=== PATIENT | female | born 1940 | race Caucasian/White ===

== ENCOUNTER → 2018-11-07 | Outpatient (CLI) | payer MEDICARE ==
--- NOTE | 2018-11-07 16:41 | BD ---
EXAMINATION TYPE: Axial Bone Density DATE OF EXAM: 11/07/2018 CLINICAL HISTORY: Height: 66 inches Weight: 242 FRAX RISK QUESTIONS: Alcohol (3 or more units per day): no Family History (Parent hip fracture): no Glucocorticoids (More than 3mos): yes (Ex: prednisone, prednisolone, methylprednisolone, dexamethasone, and hydrocortisone). History of Fracture in Adulthood: no Secondary Osteoporosis: 1. Type 1 Diabetes: no 2. Hyperthyroidism: no 3. Menopause before 45: no 4. Malnutrition: no 5. Chronic liver disease: no Rheumatoid Arthritis: no Current Tobacco Use: no RISK FACTORS HISTORY OF: Family History of Osteoporosis: believes no Active: somewhat, uses walker Diet low in dairy products/other sources of calcium: several servings a week Postmenopausal woman: yes Take estrogen and/or progesterone medications: no Lost more than 2 inches in height since high school: possibly, states height was about 69 inches at o ne time Frequent falls: no Poor Health: "so-so" trouble breathing Hyperparathyroidism: no Adrenal Insufficiency: no MEDICATIONS: Prednisone or other steroids: yes How Long: unsure Thyroid Medications: yes Which medication: Levothyroxine How Long: nearly 10 years Osteoporosis Medications: yes Which medication: Prolia How Long: about 4 injections, one done every 6 months Additional Medications: on oxygen, Vitamin D, calcium, albuterol, Sertraline, Simvastatin, perforom ist mixed with Budesonide in nebulizer Additional History: thyroid surgery in s; goiter & treated with radioactive iodine EXAM MEASUREMENTS: Bone mineral densitometry was performed using the Aspida System. Bone mineral density as measured about the Lumbar spine is: ----- L1-L4(G/cm2): 1.108 T Score Values are as follows: ----- L2: -0.7 ----- L3: -0.4 ----- L4: 0.1 ----- L1-L4: -0.6 Bone mineral density not previously done at this facility; previously done elsewhere Bone mineral density about the R hip (g/cm2): 0.828 Bone mineral density about the L hip (g/cm2): 0.822 T Score values are as follows: -----R Neck: -1.5 -----L Neck: -1.6 -----R Total: -0.9 -----L Total: -1.3 Bone mineral density not previously done at this facility; previously done elsewhere IMPRESSION: Osteopenia (T Score between -2.5 and -1). There is slightly increased risk of fracture and the patient may be considered for treatment. Re-Screen 2-5 years. NOTE: T-SCORE=SD OF THE YOUNG ADULT MEAN.
== END | disposition home or self-care (01) ==
LOC: RADBDWWP 11:35
PROVIDERS: ATTEND Family Medicine
DX: M85.88 Other specified disorders of bone density and structure, other site (principal)
CPT/HCPCS: 77080

== ENCOUNTER 2019-05-13 10:21 | Inpatient (IN) | payer MEDICARE ==
[2019-05-13] MEDS ORDERED: FUROSEMIDE 10 MG/ML 4 ML VIAL IV STA (11:05)
[2019-05-13] MEDS ORDERED: SODIUM CHLORIDE 0.9% 1,000 ML IV STA (11:05)
[2019-05-13] MEDS ORDERED: methylPREDNISolone SOD SUCCI 125 MG/2 ML VIAL IV STA (11:05)
[2019-05-13] MEDS ORDERED: IPRATROPIUM-ALBUTEROL 3 ML NEB INHALATION STA ×2 (11:05→13:16)
--- NOTE | 2019-05-13 11:08 | ED ---
SOB HPI - General Chief Complaint: Shortness of Breath Stated Complaint: RIC, edema Time Seen by Provider: 05/13/19 10:54 Source: patient, RN notes reviewed, old records reviewed Mode of arrival: wheelchair Limitations: no limitations - History of Present Illness Initial Comments: Patient is a 78-year-old female who presents emergency Department today with complaints of difficulty in breathing over the past few days. Patient states that she has history of COPD. She reports that the increased humidity and hot weather she's had more trouble breathing. She states that her power was out unable to completely breathing treatments at home as well. Patient states that she's also concern for lower extremity swelling going on for the past few weeks. She also complains of a rash over bilateral lower extremities that has slowly increased going up the leg. They've been using hydrocortisone cream with no significant change. Patient does report that it seems to be pruritic. Patient states that she's had no recent fevers, or chills. She reports a chronic cough. She is on 2 L of oxygen all times. Her questioned documents examiner is Dr. Flaherty, denies any cardiac history. - Related Data Home Medications Medication Instructions Recorded Confirmed Albuterol Nebulized [Ventolin 2.5 mg INHALATION QID PRN 05/13/19 05/13/19 Nebulized] Atorvastatin [Lipitor] 40 mg PO DAILY 05/13/19 05/13/19 Budesonide [Pulmicort] 0.5 mg INHALATION BID 05/13/19 05/13/19 Calcium Carbonate [Calcium] 1,200 mg PO DAILY 05/13/19 05/13/19 Cholecalciferol (Vitamin D3) 2,000 unit PO DAILY 05/13/19 05/13/19 [Vitamin D3] Denosumab [Prolia] 60 mg SQ Q180D 05/13/19 05/13/19 Formoterol Fumarate [Perforomist] 20 mcg INHALATION BID 05/13/19 05/13/19 Halobetasol Propionate 1 applic TOPICAL DAILY 05/13/19 05/13/19 Levothyroxine Sodium [Synthroid] 112 mcg PO Q48H 05/13/19 05/13/19 Levothyroxine Sodium [Synthroid] 125 mcg PO Q48H 05/13/19 05/13/19 Sertraline [Zoloft] 50 mg PO DAILY 05/13/19 05/13/19 Allergies Allergy/AdvReac Type Severity Reaction Status Date / Time bee venom protein (honey bee) Allergy Unknown Verified 05/13/19 11:26 celecoxib [From Celebrex] Allergy Unknown Verified 05/13/19 11:26 Sulfa (Sulfonamide Allergy Unknown Verified 05/13/19 11:26 Antibiotics) Review of Systems ROS Statement: Those systems with pertinent positive or pertinent negative responses have been documented in the HPI. ROS Other: All systems not noted in ROS Statement are negative. Past Medical History Past Medical History: COPD, Hyperlipidemia, Thyroid Disorder History of Any Multi-Drug Resistant Organisms: None Reported Additional Past Surgical History / Comment(s): THYROID Past Psychological History: No Psychological Hx Reported Smoking Status: Former smoker Past Alcohol Use History: None Reported Past Drug Use History: None Reported General Exam - General Exam Comments Initial Comments: Patient is a 78-year-old female. Alert and oriented 3. No significant distress. Limitations: no limitations General appearance: alert, in no apparent distress Head exam: Present: atraumatic, normocephalic, normal inspection Eye exam: Present: normal appearance, PERRL, EOMI. Absent: scleral icterus, conjunctival injection, periorbital swelling ENT exam: Present: normal exam, mucous membranes moist Neck exam: Present: normal inspection. Absent: tenderness, meningismus, lymphadenopathy Respiratory exam: Present: normal lung sounds bilaterally, wheezes (Diffuse wheezing in all lung brown.). Absent: respiratory distress, rales, rhonchi, stridor Cardiovascular Exam: Present: regular rate, normal rhythm, normal heart sounds. Absent: systolic murmur, diastolic murmur, rubs, gallop, clicks Extremities exam: Present: normal inspection, full ROM, normal capillary refill, other (Patient has had 2+ pitting edema bilaterally. Areas of erythema, extending up the leg, concern for erysipelas. The erythema measures up to the mid calf and is Circumferential.). Absent: tenderness, pedal edema, joint swelling, calf tenderness Course Vital Signs 05/13/19 05/13/19 05/13/19 10:45 11:37 11:57 Temperature 97.9 F Pulse Rate 66 72 80 Respiratory 22 Rate Blood Pressure 135/80 O2 Sat by Pulse 91 L Oximetry 05/13/19 05/13/19 05/13/19 13:37 13:40 13:48 Temperature Pulse Rate 88 93 88 Respiratory 24 Rate Blood Pressure 119/83 O2 Sat by Pulse 93 L Oximetry Medical Decision Making - Medical Decision Making Patient is a 78-year-old female who presents emergency department today for evaluation with complaints of difficulty in breathing and large jaya-swelling. She is evidence of bilateral cellulitis. Diffuse wheezing noted throughout lung brown. Given 3 treatments of March and continues to have shortness of breath and wheezing. Patient ambulatory with her oxygen on oxygen saturation went to 87%. Patient chest x-rays unable to be read. Do not any acute process at this time. There is appear to be small may be effusion from the right lung. Patient was started on Rocephin and azithromycin and steroids. Emmanuel the Patient for bilateral cellulitis as well as COPD exacerbation. Consults the patient's pulmonology Dr. Flaherty. - Lab Data Result diagrams: 05/13/19 11:18 05/13/19 11:18 Lab Results 05/13/19 05/13/19 05/13/19 Range/Units 11:18 11:18 11:18 WBC 6.3 (3.8-10.6) k/uL RBC 4.60 (3.80-5.40) m/uL Hgb 14.6 (11.4-16.0) gm/dL Hct 43.8 (34.0-46.0) % MCV 95.1 (80.0-100.0) fL MCH 31.8 (25.0-35.0) pg MCHC 33.4 (31.0-37.0) g/dL RDW 12.8 (11.5-15.5) % Plt Count 180 (150-450) k/uL Neutrophils % 75 % Lymphocytes % 15 % Monocytes % 5 % Eosinophils % 3 % Basophils % 1 % Neutrophils # 4.7 (1.3-7.7) k/uL Lymphocytes # 0.9 L (1.0-4.8) k/uL Monocytes # 0.3 (0-1.0) k/uL Eosinophils # 0.2 (0-0.7) k/uL Basophils # 0.1 (0-0.2) k/uL PT (9.0-12.0) sec INR (<1.2) APTT (22.0-30.0) sec Sodium 139 (137-145) mmol/L Potassium 4.4 (3.5-5.1) mmol/L Chloride 102 (98-107) mmol/L Carbon Dioxide 27 (22-30) mmol/L Anion Gap 10 mmol/L BUN 22 H (7-17) mg/dL Creatinine 0.81 (0.52-1.04) mg/dL Est GFR (CKD-EPI)AfAm 82 (>60 ml/min/1.73 sqM) Est GFR (CKD-EPI)NonAf 71 (>60 ml/min/1.73 sqM) Glucose 119 H (74-99) mg/dL Plasma Lactic Acid Simone (0.7-2.0) mmol/L Calcium 9.6 (8.4-10.2) mg/dL Magnesium 2.0 (1.6-2.3) mg/dL Total Bilirubin 1.5 H (0.2-1.3) mg/dL AST 31 (14-36) U/L ALT 29 (9-52) U/L Alkaline Phosphatase 90 (38-126) U/L Troponin I (0.000-0.034) ng/mL NT-Pro-B Natriuret Pep 171 pg/mL Total Protein 7.2 (6.3-8.2) g/dL Albumin 4.6 (3.5-5.0) g/dL 05/13/19 05/13/19 05/13/19 Range/Units 11:18 11:18 11:18 WBC (3.8-10.6) k/uL RBC (3.80-5.40) m/uL Hgb (11.4-16.0) gm/dL Hct (34.0-46.0) % MCV (80.0-100.0) fL MCH (25.0-35.0) pg MCHC (31.0-37.0) g/dL RDW (11.5-15.5) % Plt Count (150-450) k/uL Neutrophils % % Lymphocytes % % Monocytes % % Eosinophils % % Basophils % % Neutrophils # (1.3-7.7) k/uL Lymphocytes # (1.0-4.8) k/uL Monocytes # (0-1.0) k/uL Eosinophils # (0-0.7) k/uL Basophils # (0-0.2) k/uL PT 9.9 (9.0-12.0) sec INR 0.9 (<1.2) APTT 23.5 (22.0-30.0) sec Sodium (137-145) mmol/L Potassium (3.5-5.1) mmol/L Chloride (98-107) mmol/L Carbon Dioxide (22-30) mmol/L Anion Gap mmol/L BUN (7-17) mg/dL Creatinine (0.52-1.04) mg/dL Est GFR (CKD-EPI)AfAm (>60 ml/min/1.73 sqM) Est GFR (CKD-EPI)NonAf (>60 ml/min/1.73 sqM) Glucose (74-99) mg/dL Plasma Lactic Acid Simone 1.4 (0.7-2.0) mmol/L Calcium (8.4-10.2) mg/dL Magnesium (1.6-2.3) mg/dL Total Bilirubin (0.2-1.3) mg/dL AST (14-36) U/L ALT (9-52) U/L Alkaline Phosphatase (38-126) U/L Troponin I <0.012 (0.000-0.034) ng/mL NT-Pro-B Natriuret Pep pg/mL Total Protein (6.3-8.2) g/dL Albumin (3.5-5.0) g/dL 05/13/19 11:45 EKG performed at 1108 shows sinus rhythm with frequent PVCs, left anterior fascicular block. Abnormal EKG. Ventricularly be returned.. Was 164 ms. Stressors and 78 ms. QT QTc is 394/476 ms. Disposition Clinical Impression: COPD exacerbation, Bilateral cellulitis of lower leg, Hypoxia Disposition: ADMITTED IP TO THIS HOSP Condition: Stable Is patient prescribed a controlled substance at d/c from ED?: No Referrals: Nabil Sebastian DO [Primary Care Provider] - 1-2 days Time of Disposition: 13:57
[2019-05-13] MEDS ORDERED: cefTRIAXone IN SWFI 1,000 MG/10 ML SYRINGE IVP STA (11:09)
[2019-05-13 11:53] LABS: Basophils # (A) 0.1 k/uL (0-0.2); Basophils % (A) 1 %; Eosinophils # (A) 0.2 k/uL (0-0.7); Eosinophils % (A) 3 %; HCT 43.8 % (34.0-46.0); HGB 14.6 gm/dL (11.4-16.0); Lymphocytes # (A) 0.9 k/uL (1.0-4.8); Lymphocytes % (A) 15 %; MCH 31.8 pg (25.0-35.0); MCHC 33.4 g/dL (31.0-37.0); MCV 95.1 fL (80.0-100.0); Mean Platelet Volume 7.8; Monocytes # (A) 0.3 k/uL (0-1.0); Monocytes % (A) 5 %; Neutrophils # (A) 4.7 k/uL (1.3-7.7); Neutrophils % (A) 75 %; Platelet Count 180 k/uL (150-450); RDW 12.8 % (11.5-15.5); WBC 6.3 k/uL (3.8-10.6)
[2019-05-13 12:02] LABS: Albumin 4.6 g/dL (3.5-5.0); Calcium 9.6 mg/dL (8.4-10.2); Potassium 4.4 mmol/L (3.5-5.1); Total Bilirubin 1.5 mg/dL (0.2-1.3); Total Protein 7.2 g/dL (6.3-8.2)
[2019-05-13 12:38] LABS: INR 0.9 (<1.2); Partial Thromboplastin Time 23.5 sec (22.0-30.0); Prothrombin Time 9.9 sec (9.0-12.0)
[2019-05-13] MEDS ORDERED: AZITHROMYCIN 500 MG TAB PO STA (13:16)
[2019-05-13] MEDS ORDERED: IPRATROPIUM-ALBUTEROL 3 ML NEB INHALATION PRN (13:58)
--- NOTE | 2019-05-13 14:38 | XR ---
EXAMINATION TYPE: XR chest 2V DATE OF EXAM: 05/13/2019 COMPARISON: NONE HISTORY: Shortness of breath TECHNIQUE: Frontal and lateral views of the chest are obtained. FINDINGS: Scattered senescent parenchymal changes noted. Hyperinflation compatible with COPD. No evidence for infiltrate. No evidence for atelectasis. Masslike density right lateral lung base lik effie reflects an area of focal eventration. This could be confirmed however with CT. Heart size is stable. Mediastinal structures are stable and grossly unremarkable. No evidence for hilar prominence. Degenerative changes dorsal spine. IMPRESSION: 1. Masslike density right lateral lung base likely reflects an area of focal eventration. This could be confirmed however with CT. Comparison with any prior outside studies would also be of value.
[2019-05-13 15:26] VITALS: BMI 39.1
[2019-05-13] MEDS ORDERED: ALPRAZolam 0.25 MG TAB PO PRN (16:28)
[2019-05-13] MEDS ORDERED: HYDROcodone/APAP 5-325MG 1 EACH TAB PO PRN (16:28)
[2019-05-13] MEDS ORDERED: ACETAMINOPHEN TAB 500 MG TAB PO PRN (16:28)
[2019-05-13] MEDS ORDERED: FLUCONAZOLE 100 MG TAB PO ONE (16:30)
[2019-05-13] MEDS ORDERED: DENOSUMAB 60 MG/ML 1 ML SYRINGE SQ SCH (16:30)
[2019-05-13 17:11] LABS: Glucose,Whole Blood 196 mg/dL (75-99)
--- NOTE | 2019-05-13 17:16 | HP ---
HISTORY AND PHYSICAL DATE OF SERVICE: 05/13/2019 CHIEF COMPLAINT: Shortness of breath. HISTORY OF PRESENT ILLNESS: This 78-year-old woman with a past medical history of multiple medical problems including COPD, hyperlipidemia, history of pneumonia, being followed by Dr. Sebastian and Dr. Flaherty in the outpatient setting complaining of increased shortness of breath. The patient also has skin lesions in the gluteal area as well as the legs also. The patient came to [facility] and admitted for further evaluation and treatment. Chest x-ray showed masslike density in the right lateral lung, probably a focal eventration. Otherwise, there is no history of fever, rigors or chills. No history of headache, loss of consciousness or seizures. 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 HOME MEDICATIONS: 1. Synthroid 125 mcg p.o. daily. 2. Halobetasol 1 application daily. 3. Lipitor 40 mg p.o. daily. 4. Prolia 60 mg p.o. every 180 days. 5. Ventolin 2.5 q.i.d. p.r.n. 6. Perforomist 20 mcg b.i.d. 7. Vitamin D3 2000 daily. 8. Calcium 1200 mg p.o. daily. 9. Pulmicort 0.5 b.i.d. 10.Zoloft 50 mg p.o. daily. 11.Synthroid 112 mcg p.o. q48 hours. ALLERGIES: BEE VENOM, CELEBREX, SULFA. FAMILY HISTORY: History of cervical cancer. SOCIAL HISTORY: Previous history of smoking. No history of current smoking or alcohol intake. REVIEW OF SYSTEMS: ENT: Diminished vision. Diminished hearing. CARDIOVASCULAR as mentioned above. RESPIRATORY: As mentioned earlier. GI no nausea or vomiting. : As mentioned earlier. no dysuria. NERVOUS SYSTEM: No numbness or weakness. ALLERGY/IMMUNOLOGY: No asthma or hayfever. MUSCULOSKELETAL as mentioned earlier. HEMATOLOGY/ONCOLOGY: No history of anemia. ENDOCRINE: No history of diabetes. Hypothyroidism present. CONSTITUTIONAL: As mentioned earlier. DERMATOLOGY: As mentioned earlier. RHEUMATOLOGY: Negative. PSYCHIATRY as mentioned. PHYSICAL EXAMINATION: Alert and oriented times three. Pulse 88, blood pressure 138/70, respiration 24, temperature 98.2, pulse ox 94% on 2 L. HEENT: Conjunctivae normal. Oral mucosa moist. NECK is no jugular venous distention. No carotid bruit. No lymph node enlargement. Cardiovascular system: S1, S2 muffled. No S3, no S4. RESPIRATORY: Breath sounds diminished in the bases. Bilateral scattered rhonchi and crackles. Respiratory efforts are also increased. Expiratory wheezing also heard. ABDOMEN: Soft, obese, nontender. No mass palpable. LEGS: No edema. No swelling. Significant skin lesions present, especially maculopapular erythematous in the distal extremities as well as around the gluteal area and posterior part of the both legs also. NERVOUS SYSTEM: Higher functions as mentioned earlier. Moves all 4 limbs. No focal motor or sensory deficits. LYMPHATICS: No lymph nodes palpable in the neck, axillae or groin. SKIN as mentioned earlier. JOINTS: No active deforming arthropathy. LABS: CBC within normal limites. Sodium 139, potassium 4.4. Glucose 119, total bilirubin is 1.5. ASSESSMENT: 1. Shortness of breath possibly chronic obstructive pulmonary disease acute exacerbation with acute purulent tracheobronchitis. 2. Rule out pneumonia with right lateral masslike lung density. Also rule out focal eventration. 3. Bilateral leg lesions possibly candidal skin lesions. 4. History of chronic obstructive pulmonary disease. 5. History of hyperlipidemia. 6. History of pneumonia. 7. History of hypothyroidism. 8. History of thyroidectomy. 9. Remote history of nicotine dependence. 10.Obesity with body mass of 39.2. RECOMMENDATIONS AND DISCUSSION: This 78-year-old woman who presented with multiple complex medical issues, we will monitor the patient closely, continue the current medications, continue symptomatic treatment, management and will optimize bronchodilator treatment, empiric antibiotics, IV steroids, monitor blood sugars closely. Resume the home medications. PT/OT evaluation. Otherwise, DVT prophylaxis. We will consult Dr. Flaherty for pulmonary opinion. Otherwise, I would also recommend a CT scan of the chest without contrast to delineate the abnormality visualized in the chest x-ray. Prognosis guarded. Further recommendations to follow. MMODL / IJN: [id number] /
[2019-05-13] MEDS: methylPREDNISolone SOD SUCCI 125 MG/2 ML VIAL IV SCH (18:07)
[2019-05-13] MEDS: INSULIN ASPART (NovoLOG) 100 UNIT/ML VIAL SQ SCH ×2 (18:09→22:03)
--- NOTE | 2019-05-13 19:57 | CT ---
EXAMINATION TYPE: CT chest wo con DATE OF EXAM: 05/13/2019 COMPARISON: Chest x-ray earlier today HISTORY: Shortness of breath CT DLP: 832 mGycm. Automated Exposure Control for Dose Reduction was Utilized. TECHNIQUE: CT scan of the thorax is performed without IV contrast. FINDINGS: LUNGS: Fairly moderate underlying emphysematous changes confirmed. There is mild bilateral linear fib rosis most prominent right lung base. No suspicious consolidation. No pleural effusion or pneumothora x. Eventration posterior aspect right hemidiaphragm. No suspicious masses MEDIASTINUM: Lack of IV contrast is noted to limit evaluation for mediastinal and especially hilar ad enopathy. There are no definitive greater than 1 cm hilar or mediastinal lymph nodes. No cardiomega ly or pericardial effusion is seen. Coronary artery calcification is present which is noted marked of underlying coronary artery disease. OTHER: Underlying scoliosis is present . IMPRESSION: Moderate emphysematous change without acute pulmonary process.
[2019-05-13] MEDS: BUDESONIDE 1 MG/2 ML NEBU INHALATION SCH (19:59)
[2019-05-13] MEDS: IPRATROPIUM-ALBUTEROL 3 ML NEB INHALATION SCH (19:59)
[2019-05-13] MEDS: FORMOTEROL FUMARATE 20 MCG/2 ML NEBU INHALATION SCH (19:59)
[2019-05-13 20:53] LABS: Glucose,Whole Blood 168 mg/dL (75-99)
[2019-05-13] MEDS: CLOTRIMAZOLE 1% CREAM 15 GM TUBE TOPICAL SCH (22:03)
[2019-05-13] MEDS: HEPARIN SODIUM,PORCINE 5,000 UNIT/ML 1 ML VIAL SQ SCH (22:03)
[2019-05-14] MEDS: methylPREDNISolone SOD SUCCI 125 MG/2 ML VIAL IV SCH ×2 (00:08→06:21)
[2019-05-14] MEDS: LEVOTHYROXINE 125 MCG TAB PO SCH (06:26)
[2019-05-14 06:59] LABS: Glucose,Whole Blood 135 mg/dL (75-99)
[2019-05-14 07:46] LABS: Basophils % (A) 0 %; Eosinophils % (A) 0 %; HCT 43.6 % (34.0-46.0); Lymphocytes # (A) 0.6 k/uL (1.0-4.8); Lymphocytes % (A) 8 %; MCH 31.3 pg (25.0-35.0); MCHC 32.1 g/dL (31.0-37.0); MCV 97.5 fL (80.0-100.0); Mean Platelet Volume 7.6; Monocytes # (A) 0.2 k/uL (0-1.0); Monocytes % (A) 2 %; Neutrophils # (A) 6.5 k/uL (1.3-7.7); Neutrophils % (A) 89 %; Platelet Count 205 k/uL (150-450); RBC 4.47 m/uL (3.80-5.40); RDW 12.9 % (11.5-15.5); WBC 7.3 k/uL (3.8-10.6)
[2019-05-14] MEDS: INSULIN ASPART (NovoLOG) 100 UNIT/ML VIAL SQ SCH ×4 (07:48→20:47)
[2019-05-14 08:03] LABS: Calcium 8.9 mg/dL (8.4-10.2); Potassium 4.2 mmol/L (3.5-5.1)
[2019-05-14] MEDS: IPRATROPIUM-ALBUTEROL 3 ML NEB INHALATION SCH ×4 (08:53→19:32)
[2019-05-14] MEDS: BUDESONIDE 1 MG/2 ML NEBU INHALATION SCH ×2 (08:53→19:32)
[2019-05-14] MEDS: FORMOTEROL FUMARATE 20 MCG/2 ML NEBU INHALATION SCH ×2 (08:53→19:32)
[2019-05-14] MEDS: HEPARIN SODIUM,PORCINE 5,000 UNIT/ML 1 ML VIAL SQ SCH ×2 (09:30→20:49)
[2019-05-14] MEDS: SERTRALINE 50 MG TAB PO SCH (09:37)
[2019-05-14] MEDS: FLUCONAZOLE 100 MG TAB PO SCH (09:37)
[2019-05-14] MEDS: PANTOPRAZOLE 40 MG TABLET PO SCH (09:37)
[2019-05-14] MEDS: ATORVASTATIN 40 MG TAB PO SCH (09:37)
[2019-05-14] MEDS: CHOLECALCIFEROL 1,000 UNIT TAB PO SCH (09:37)
[2019-05-14] MEDS: CALCIUM CARBONATE 500 MG CHEWABLE PO SCH (09:59)
[2019-05-14 11:05] LABS: Glucose,Whole Blood 155 mg/dL (75-99)
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
[2019-05-14] MEDS: CLOTRIMAZOLE 1% CREAM 15 GM TUBE TOPICAL SCH ×3 (12:16→20:49)
[2019-05-14 17:13] LABS: Glucose,Whole Blood 127 mg/dL (75-99)
--- NOTE | 2019-05-14 17:59 | PN ---
PROGRESS NOTE DATE OF SERVICE: 05/14/2019. This 78-year-old woman who was admitted with COPD, acute exacerbation, is still having shortness of breath. No chest pain. No palpitations. No fever. On exam, alert and oriented x3. Pulse is 98, blood pressure 131/73, respirations 17, temperature 98.2, pulse ox 91% on 3 L. HEENT: Conjunctivae normal. NECK: No jugular venous distention. CARDIOVASCULAR SYSTEM: S1, S2 muffled. RESPIRATORY SYSTEM: Breath sounds diminished at the bases. Bilateral scattered rhonchi and crackles. Expiratory wheezing also present. ABDOMEN: Soft, nontender. LEGS: No edema. No swelling. NERVOUS SYSTEM: No focal deficit. Labs at this time show WBC 7.3, hemoglobin 14, sodium 140, potassium 4.2. ASSESSMENT: 1. Shortness of breath, possibly chronic obstructive pulmonary disease, acute exacerbation, with acute purulent tracheobronchitis. 2. No evidence of any focal eventration or abnormalities on the CT scan. 3. Bilateral leg lesions, possibly candidal skin lesions. 4. History of chronic obstructive pulmonary disease. 5. Hyperlipidemia. 6. History of pneumonia. 7. History of hypothyroidism. 8. History of thyroidectomy. 9. Remote history of nicotine dependence. 10.Obesity with body mass index of 39.2. RECOMMENDATIONS AND DISCUSSION: I recommend to continue current medications, continue with the monitoring, symptomatic treatment. Continue the steroids. Continue the antibiotics. Continue the rest of the medications. Guarded prognosis. Further recommendations to follow. MMODL / IJN: [id number] /
[2019-05-14 20:22] LABS: Glucose,Whole Blood 126 mg/dL (75-99)
[2019-05-14 21:31] VITALS: RESP 22
[2019-05-15 05:58] VITALS: BP 151/84; TEMP 98.2
[2019-05-15] MEDS ORDERED: LEVOTHYROXINE 112 MCG TAB PO SCH (06:30)
[2019-05-15 07:10] LABS: Glucose,Whole Blood 105 mg/dL (75-99)
[2019-05-15] MEDS: PANTOPRAZOLE 40 MG TABLET PO SCH (08:01)
[2019-05-15] MEDS: INSULIN ASPART (NovoLOG) 100 UNIT/ML VIAL SQ SCH (08:07)
[2019-05-15] MEDS: FORMOTEROL FUMARATE 20 MCG/2 ML NEBU INHALATION SCH (08:28)
[2019-05-15] MEDS: IPRATROPIUM-ALBUTEROL 3 ML NEB INHALATION SCH ×2 (08:28→11:38)
[2019-05-15] MEDS: BUDESONIDE 1 MG/2 ML NEBU INHALATION SCH (08:28)
[2019-05-15] MEDS ORDERED: predniSONE 20 MG TAB PO SCH (09:00)
[2019-05-15] MEDS: HEPARIN SODIUM,PORCINE 5,000 UNIT/ML 1 ML VIAL SQ SCH (09:50)
[2019-05-15] MEDS: SERTRALINE 50 MG TAB PO SCH (09:51)
[2019-05-15] MEDS: CHOLECALCIFEROL 1,000 UNIT TAB PO SCH (09:51)
[2019-05-15] MEDS: CALCIUM CARBONATE 500 MG CHEWABLE PO SCH (09:51)
[2019-05-15] MEDS: FLUCONAZOLE 100 MG TAB PO SCH (09:51)
[2019-05-15] MEDS: LEVOTHYROXINE 125 MCG TAB PO SCH (09:51)
[2019-05-15] MEDS: ATORVASTATIN 40 MG TAB PO SCH (09:51)
[2019-05-15 09:57] LABS: Basophils % (A) 0 %; Eosinophils % (A) 0 %; HCT 43.3 % (34.0-46.0); HGB 13.7 gm/dL (11.4-16.0); Lymphocytes # (A) 1.3 k/uL (1.0-4.8); Lymphocytes % (A) 12 %; MCH 31.4 pg (25.0-35.0); MCHC 31.6 g/dL (31.0-37.0); MCV 99.1 fL (80.0-100.0); Mean Platelet Volume 7.7; Monocytes # (A) 0.5 k/uL (0-1.0); Monocytes % (A) 5 %; Neutrophils # (A) 8.3 k/uL (1.3-7.7); Neutrophils % (A) 82 %; Platelet Count 200 k/uL (150-450); RBC 4.37 m/uL (3.80-5.40); RDW 13.1 % (11.5-15.5); WBC 10.1 k/uL (3.8-10.6)
[2019-05-15 10:16] LABS: Calcium 8.8 mg/dL (8.4-10.2); Potassium 4.2 mmol/L (3.5-5.1)
[2019-05-15 11:10] LABS: Glucose,Whole Blood 96 mg/dL (75-99)
[2019-05-15 11:41] VITALS: PULSE 88
--- NOTE | 2019-05-15 18:51 | DS ---
DISCHARGE SUMMARY FINAL DIAGNOSES: 1. Shortness of breath, possible chronic obstructive pulmonary disease exacerbation with acute purulent tracheobronchitis. 2. No evidence of focal pneumonia or any lesions in the CT scan. 3. Bilateral leg lesions possibly candidal skin infection. 4. History of chronic obstructive pulmonary disease. 5. Hyperlipidemia. 6. History of pneumonia. 7. History of hypothyroidism. 8. History of thyroidectomy. 9. Remote history of nicotine dependence. 10.Obesity with body mass of 39.2. DISCHARGE DISPOSITION: The patient will be discharged in stable condition with guarded prognosis. HISTORY OF PRESENT ILLNESS: This 78-year-old woman with a past medical history of multiple medical problems admitted to the hospital with shortness of breath, COPD acute exacerbation. The patient was treated with bronchodilators and steroids. Patient improved significantly. On exam, vitals are stable. Cardiovascular: S1, S2. Respirations: Few scattered rhonchi. ABDOMEN: Soft. NERVOUS SYSTEM: No focal deficits. DISCHARGE ADVICE AND MEDICATIONS: 1. Diet is cardiac diet. 2. Activity limited until followup. 3. Follow up with Dr. Nabil Sebastian in 2-3 days. 4. Follow up with Pulmonary as recommended. MEDICATIONS: 1. Calcium 1200 mg p.o. daily. 2. Lipitor 40 mg p.o. daily. 3. Perforomist 20 mcg b.i.d. 4. Prolia 60 mg subcu 180 days. 5. Pulmicort 0.5 mg b.i.d. 6. Synthroid 112 mcg q.48h hours and 125 mg p.o. q48 hours. 7. Albuterol 2.5 q.i.d. p.r.n. 8. Vitamin D3 2000 daily. 9. Zoloft 50 mg p.o. daily. 10.Ceftin 500 mg daily for 3 days. 11.Diflucan 100 mg p.o. daily for 7 days. 12.DuoNeb q.i.d. 13.Lotrimin cream for local application b.i.d. 14.Prednisone taper that is 40 mg daily for 3 days, 30 for 3 days, 20 for 3 days 10 for 3 days. Once again, the patient is being discharged in a stable condition with guarded prognosis. MMODL / IJN: [id number] /
== END 2019-05-15 13:05 | disposition home health service (06) | DRG 191 ==
LOC: EC 10:21 → 3NMEDONC 14:12
PROVIDERS: ADMIT Hospitalist; ATTEND Hospitalist
DX: J44.0 Chronic obstructive pulmonary disease with (acute) lower respiratory infection (principal); L03.115 Cellulitis of right lower limb; L03.116 Cellulitis of left lower limb; J44.1 Chronic obstructive pulmonary disease with (acute) exacerbation; E66.9 Obesity, unspecified; E78.5 Hyperlipidemia, unspecified; J20.9 Acute bronchitis, unspecified; E89.0 Postprocedural hypothyroidism; I10 Essential (primary) hypertension; R09.02 Hypoxemia; Z68.39 Body mass index [BMI] 39.0-39.9, adult; Z79.890 Hormone replacement therapy; Z79.899 Other long term (current) drug therapy; Z80.49 Family history of malignant neoplasm of other genital organs; Z87.01 Personal history of pneumonia (recurrent); Z87.891 Personal history of nicotine dependence; Z99.81 Dependence on supplemental oxygen; Z88.2 Allergy status to sulfonamides; Z88.8 Allergy status to other drugs, medicaments and biological substances; Z91.030 Bee allergy status; B37.2 Candidiasis of skin and nail
CPT/HCPCS: 36415; 71046; 71250; 80048; 80053; 83605; 83735; 83880; 84484; 85025; 85610; 85730; 87040; 93005; 94640; 94760; 96374; 96375; 99285

== ENCOUNTER → 2021-09-24 | Outpatient (CLI) | payer MEDICARE ==
--- NOTE | 2021-09-24 13:17 | CT ---
EXAMINATION TYPE: CT lower extremity LT wo con DATE OF EXAM: 09/24/2021 COMPARISON: 09/24/2021 HISTORY: Left sided hip pain CT DLP: 1126 mGycm Automated exposure control for dose reduction was used. FINDINGS: Severe arthropathy with severe concentric narrowing of the joint space and hypertrophic spurring elisa g the lateral margin of the acetabulum. Calcification along the peripheral margin of the acetabulum c ould be associated with the acetabular chronic labral tear. Sclerotic density involving the left femoral neck likely in the basis of a bone island. Osseous structures are intact and there is no acute displaced fracture. Vascular calcifications in the pelvis noted. Arthropathy of the left SI joint. Vascular calcifications are noted. Diverticulosis of the colon. IMPRESSION: 1. No acute fracture. 2. 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
== END | disposition home or self-care (01) ==
LOC: RADCTMAIN 10:37
PROVIDERS: ATTEND Family Medicine
DX: M89.8X5 Other specified disorders of bone, thigh (principal); M12.88 Other specific arthropathies, not elsewhere classified, other specified site

== ENCOUNTER → 2021-09-24 | Outpatient (CLI) | payer MEDICARE ==
--- NOTE | 2021-09-24 09:33 | XR ---
EXAMINATION TYPE: XR Hip Complete LT DATE OF EXAM: 09/24/2021 CLINICAL HISTORY: Pain after recent fall injury. TECHNIQUE: AP and frogleg views of the left hip are obtained. COMPARISON: None. FINDINGS: No acute displaced left hip fracture. There is moderate to severe axial joint space left hi p with moderate head neck collar and acetabular spurring. The overlying soft tissue appears unremark able. IMPRESSION: As above.
--- NOTE | 2021-09-24 09:45 | XR ---
EXAMINATION TYPE: XR knee complete LT DATE OF EXAM: 09/24/2021 CLINICAL HISTORY: Pain after recent injury. TECHNIQUE: Three views of the left knee are obtained. COMPARISON: None. FINDINGS: There is no acute fracture/dislocation evident in left knee. Osseous structures are demine ralized. Moderate to severe tricompartment joint space loss and spurring. Mild posterior popliteal ar terial calcification. IMPRESSION: As above.
== END | disposition home or self-care (01) ==
LOC: RADXRYALE 08:35
PROVIDERS: ATTEND Family Medicine
DX: M76.892 Other specified enthesopathies of left lower limb, excluding foot (principal); S89.92XA Unspecified injury of left lower leg, initial encounter; S79.912A Unspecified injury of left hip, initial encounter
CPT/HCPCS: 73502

== ENCOUNTER → 2021-11-08 | Outpatient (CLI) | payer MEDICARE ==
--- NOTE | 2021-11-08 17:38 | US ---
EXAMINATION TYPE: US venous doppler duplex LE DATE OF EXAM: 11/08/2021 5:06 PM COMPARISON: NONE CLINICAL HISTORY: R60.9 EDEMA, I80.9 PHLEBITIS AND THROMBOPHLEBITIS. Patient complains of left hip pa in and left thigh muscle spasms; fell in August on left hip; prior saphenous phlebitis right leg; C OPD SIDE PERFORMED: Bilateral TECHNIQUE: The lower extremity deep venous system is examined utilizing real time linear array sonog chaiatnya with graded compression, doppler sonography and color-flow sonography. VESSELS IMAGED: Common Femoral Vein Deep Femoral Vein Greater Saphenous Vein * Femoral Vein Popliteal Vein Small Saphenous Vein * Proximal Calf Veins (* superficial vessels) Bilateral lower extremity ankle edema channels are noted. Right Leg: Negative for DVT Left Leg: Negative for DVT IMPRESSION: No evidence of deep vein thrombosis in both legs.
== END | disposition home or self-care (01) ==
LOC: RADUSWWP 16:22
PROVIDERS: ATTEND Orthopaedic Surgery
DX: M62.838 Other muscle spasm (principal); I80.01 Phlebitis and thrombophlebitis of superficial vessels of right lower extremity; J44.9 Chronic obstructive pulmonary disease, unspecified; M16.11 Unilateral primary osteoarthritis, right hip
CPT/HCPCS: 93970

== ENCOUNTER 2023-07-25 07:55 | Inpatient (IN) | payer MEDICARE, OTHER ==
[2023-07-25] MEDS ORDERED: ALBUTEROL NEBULIZED 2.5 MG/3 ML INHALATION STA (08:20)
[2023-07-25] MEDS ORDERED: methylPREDNISolone SOD SUCCI 125 MG/2 ML VIAL IV STA (08:20)
[2023-07-25] MEDS ORDERED: IPRATROPIUM 0.5 MG/2.5 ML NEBU INHALATION STA (08:20)
--- NOTE | 2023-07-25 08:24 | ED ---
General Adult HPI - General Chief complaint: Shortness of Breath Stated complaint: SOB Time Seen by Provider: 07/25/23 08:00 Source: patient, EMS, RN notes reviewed, old records reviewed Mode of arrival: EMS Limitations: no limitations - History of Present Illness Initial comments: This is an 82-year-old female who presents emergency Department complaining of difficulty breathing. Patient states she has long-standing history of COPD secondary to smoking for years. Patient states she woke up this morning had a hard time breathing to the point where she thought she needed to come to the hospital immediately. Patient did get a DuoNeb on the way in but continues to be short of breath per patient denies any pain. Patient denies any chest pain abdominal pain or back pain. Patient denies any headache patient denies lightheadedness or dizziness. Patient states she has not had a fever recently no cough. Patient denies any swelling to legs or calf tenderness - Related Data Home Medications Medication Instructions Recorded Confirmed Atorvastatin [Lipitor] 40 mg PO DAILY 05/13/19 07/25/23 Denosumab [Prolia] 60 mg SQ Q180D 05/13/19 07/25/23 Levothyroxine Sodium [Synthroid] 125 mcg PO DAILY 05/13/19 07/25/23 Diclofenac Sodium [Voltaren] 50 mg PO TID 07/25/23 07/25/23 Furosemide [Lasix] 40 mg PO DAILY 07/25/23 07/25/23 Losartan [Cozaar] 50 mg PO DAILY 07/25/23 07/25/23 Nystatin 100,000 Unit/gm Powd 1 applic TOPICAL BID 07/25/23 07/25/23 [Mycostatin Powder] Sertraline [Zoloft] 100 mg PO DAILY 07/25/23 07/25/23 Triamcinolone Acetonide 1 applic TOPICAL BID PRN 07/25/23 07/25/23 [Triamcinolone Acetonide 0.1% Lotion] traMADol HCl [Ultram] 50 mg PO Q6HR PRN 07/25/23 07/25/23 Allergies Allergy/AdvReac Type Severity Reaction Status Date / Time bee venom protein (honey bee) Allergy Rash/Hives Verified 07/25/23 10:52 celecoxib [From Celebrex] Allergy Rash/Hives Verified 07/25/23 10:52 Sulfa (Sulfonamide Allergy Rash/Hives Verified 07/25/23 10:52 Antibiotics) Review of Systems ROS Statement: Those systems with pertinent positive or pertinent negative responses have been documented in the HPI. ROS Other: All systems not noted in ROS Statement are negative. Past Medical History Past Medical History: COPD, Hyperlipidemia, Pneumonia, Thyroid Disorder Additional Past Medical History / Comment(s): bone on bone left hip History of Any Multi-Drug Resistant Organisms: None Reported Additional Past Surgical History / Comment(s): THYROIDECTOMY, POLYPS REMOVED FROM VOCAL CORDS Past Psychological History: No Psychological Hx Reported Smoking Status: Former smoker Past Alcohol Use History: None Reported Past Drug Use History: None Reported - Past Family History Mother Family Medical History: Cancer Additional Family Medical History / Comment(s): CERVICAL CA Father Family Medical History: No Reported History General Exam - General Exam Comments Initial Comments: GENERAL: Patient is well-developed and well-nourished. Patient is nontoxic and well- hydrated and is inmilddistress. ENT: Neck is soft and supple. No significant lymphadenopathy is noted. Oropharynx is clear. Moist mucous membranes. Neck has full range of motion without eliciting any pain. EYES: The sclera were anicteric and conjunctiva were pink and moist. Extraocular movements were intact and pupils were equal round and reactive to light. Eyelids were unremarkable. PULMONARY: patient has decreased breath sounds with expiratory wheezing CARDIOVASCULAR: There is a regular rate and rhythm without any murmurs gallops or rubs. ABDOMEN: Soft and nontender with normal bowel sounds. SKIN: Skin is clear with no lesions or rashes and otherwise unremarkable. NEUROLOGIC: Patient is alert and oriented x3. Cranial nerves II through XII are grossly intact. Motor and sensory are also intact. Normal speech, volume and content. Symmetrical smile. MUSCULOSKELETAL: Normal extremities with adequate strength and full range of motion. No lower extremity swelling or edema. No calf tenderness. LYMPHATICS: No significant lymphadenopathy is noted PSYCHIATRIC: Normal psychiatric evaluation. Limitations: no limitations Course Vital Signs 07/25/23 07/25/23 07/25/23 07:57 09:12 09:28 Temperature 98.1 F Pulse Rate 103 H 98 96 Respiratory 24 Rate Blood Pressure 136/83 O2 Sat by Pulse 91 L Oximetry 07/25/23 07/25/23 07/25/23 10:08 10:20 10:50 Temperature Pulse Rate 93 94 89 Respiratory 20 24 20 Rate Blood Pressure 132/70 142/84 118/61 O2 Sat by Pulse 93 L 90 L 92 L Oximetry Procedures - Chest Tube Insertion Consent Obtained: verbal consent Side of Procedure: left Indication: Pneumothorax Placed on monitor/pulse oximetry: Yes Site Prep: Povidone-Iodine, Chloroprep Local Anesthesia: Lidocaine 1% Insertion Site: Midaxillary, Other (Second intercostal space) Scalpel: #11 Tube Size ([place]): Other (thoravent) Returns: Air Sutured in Place: No Attached to Suction: No Type of Suction: Other (thoravent) Repeat X-ray Results: Other (partially inflated) Patient Tolerated Procedure: well Complications: Pain Medical Decision Making - Medical Decision Making EKG shows sinus rhythm at 90 bpm WA interval is 190 QRS is 73 Q-T intervals 323 QTC is 370. Patient's EKG shows no ST segment elevation or depression. Was pt. sent in by a medical professional or institution (, PA, BOARD FILLER, urgent care, hospital, or half-way...) When possible be specific @ -No Did you speak to anyone other than the patient for history (EMS, parent, family, police, friend...)? What history was obtained from this source @ -No Did you review nursing and triage notes (agree or disagree)? Why? @ -I reviewed and agree with nursing and triage notes Were old charts reviewed (outside hosp., previous admission, EMS record, old EKG, old radiological studies, urgent care reports/EKG's, half-way records)? Report findings @ -Prior charts some part lab work was reviewed by myself Differential Diagnosis (chest pain, altered mental status, abdominal pain women, abdominal pain men, vaginal bleeding, weakness, fever, dyspnea, syncope, headache, dizziness, GI bleed, back pain, seizure, CVA, palpatations, mental health, musculoskeletal)? @ -Differential Dyspnea: Coronary syndrome, arrhythmia, tamponade, asthma, COPD, pulmonary embolism, pneumonia, pneumothorax, pulmonary effusion, anaphylaxis, diabetic ketoacidosis, flailed chest, pulmonary contusion, diaphragmatic rupture, anemia, neuromuscular, this is not meant to be an all-inclusive list. EKG interpreted by me (3pts min.). @ -As above X-rays interpreted by me (1pt min.). @ -Chest x-ray shows a left-sided pneumothorax is about 50% CT interpreted by me (1pt min.). @ -None done U/S interpreted by me (1pt. min.). @ -None done What testing was considered but not performed or refused? (CT, X-rays, U/S, labs)? Why? @ -None What meds were considered but not given or refused? Why? @ -None Did you discuss the management of the patient with other professionals (pro fessionals i.e. , PA, BOARD FILLER, lab, RT, psych nurse, mental health social worker, primer powder blender wet, teacher, donor relations officer, porter sample case)? Give summary @ -I spoke with the [facility] hospitalist and they agreed to admit the patient admitted the patient wrote admitting orders Was smoking cessation discussed for >3mins.? @ -No Was critical care preformed (if so, how long)? @ -35 minutes Were there social determinants of health that impacted care today? How? (Homelessness, low income, unemployed, alcoholism, drug addiction, transportation, low edu. Level, literacy, decrease access to med. care, usp, rehab)? @ -No Was there de-escalation of care discussed even if they declined (Discuss DNR or withdrawal of care, Hospice)? DNR status @ -No What co-morbidities impacted this encounter? (DM, HTN, Smoking, COPD, CAD, Cancer, CVA, ARF, Chemo, Hep., AIDS, mental health diagnosis, sleep apnea, morbid obesity)? @ -None Was patient admitted / discharged? Hospital course, mention meds given and route, prescriptions, significant lab abnormalities, going to OR and other pertinent info. @ -Patient had a pneumothorax I put a thoravent in the patient patient's repeat x-ray showed significant reinflation. Patient was also feeling considerably better. I spoke with Mr. Mr. hospital stay agreed to admit the patient admitted the patient I consulted cardiothoracic surgery. Undiagnosed new problem with uncertain prognosis? @ -No Drug Therapy requiring intensive monitoring for toxicity (Heparin, Nitro, Insulin, Cardizem)? @ -No Were any procedures done? @ -No Diagnosis/symptom? @ -Pneumothorax Acute, or Chronic, or Acute on Chronic? @ -Acute Uncomplicated (without systemic symptoms) or Complicated (systemic symptoms)? @ -Complicated Side effects of treatment? @ -No Exacerbation, Progression, or Severe Exacerbation? @ -No Poses a threat to life or bodily function? How? (Chest pain, [place], ME, pneumonia, PE, COPD, DKA, ARF, appy, cholecystitis, CVA, Diverticulitis, Homicidal, Suicidal, threat to staff... and all critical care pts) @ -Yes is committed to a tension pneumothorax and hypoxia low blood pressure and Diagnosis/symptom? @ -COPD exacerbation Acute, or Chronic, or Acute on Chronic? @ -Acute Uncomplicated (without systemic symptoms) or Complicated (systemic symptoms)? @ -Complicated Side effects of treatment? @ -none Exacerbation, Progression, or Severe Exacerbation] @ -no Poses a threat to life or bodily function? @ -Yes this can lead to hypoxia and - Lab Data Result diagrams: 07/25/23 08:30 07/25/23 08:30 Lab Results 07/25/23 07/25/23 07/25/23 Range/Units 08:30 08:30 08:30 WBC 6.2 (3.8-10.6) k/uL RBC 3.63 L (3.80-5.40) m/uL Hgb 12.1 (11.4-16.0) gm/dL Hct 36.0 (34.0-46.0) % MCV 99.2 (80.0-100.0) fL MCH 33.4 (25.0-35.0) pg MCHC 33.7 (31.0-37.0) g/dL RDW 12.5 (11.5-15.5) % Plt Count 213 (150-450) k/uL MPV 8.1 Neutrophils % 79 % Lymphocytes % 11 % Monocytes % 5 % Eosinophils % 3 % Basophils % 0 % Neutrophils # 4.9 (1.3-7.7) k/uL Lymphocytes # 0.7 L (1.0-4.8) k/uL Monocytes # 0.3 (0-1.0) k/uL Eosinophils # 0.2 (0-0.7) k/uL Basophils # 0.0 (0-0.2) k/uL PT 9.7 (9.0-12.0) sec INR 0.9 (<1.2) APTT 21.4 L (22.0-30.0) sec Sodium 137 (137-145) mmol/L Potassium 4.5 (3.5-5.1) mmol/L Chloride 102 (98-107) mmol/L Carbon Dioxide 30 (22-30) mmol/L Anion Gap 5 mmol/L BUN 29 H (7-17) mg/dL Creatinine 0.74 (0.52-1.04) mg/dL Est GFR (CKD-EPI)AfAm 89 (>60 ml/min/1.73 sqM) Est GFR (CKD-EPI)NonAf 77 (>60 ml/min/1.73 sqM) Glucose 118 H (74-99) mg/dL Plasma Lactic Acid Simone (0.7-2.0) mmol/L Calcium 8.3 L (8.4-10.2) mg/dL Magnesium 2.2 (1.6-2.3) mg/dL Total Bilirubin 0.6 (0.2-1.3) mg/dL AST 28 (14-36) U/L ALT 27 (4-34) U/L Alkaline Phosphatase 109 (38-126) U/L Troponin I (0.000-0.034) ng/mL Total Protein 6.0 L (6.3-8.2) g/dL Albumin 3.6 (3.5-5.0) g/dL Coronavirus (PCR) (Not Detectd) 07/25/23 07/25/23 07/25/23 Range/Units 08:30 08:30 08:30 WBC (3.8-10.6) k/uL RBC (3.80-5.40) m/uL Hgb (11.4-16.0) gm/dL Hct (34.0-46.0) % MCV (80.0-100.0) fL MCH (25.0-35.0) pg MCHC (31.0-37.0) g/dL RDW (11.5-15.5) % Plt Count (150-450) k/uL MPV Neutrophils % % Lymphocytes % % Monocytes % % Eosinophils % % Basophils % % Neutrophils # (1.3-7.7) k/uL Lymphocytes # (1.0-4.8) k/uL Monocytes # (0-1.0) k/uL Eosinophils # (0-0.7) k/uL Basophils # (0-0.2) k/uL PT (9.0-12.0) sec INR (<1.2) APTT (22.0-30.0) sec Sodium (137-145) mmol/L Potassium (3.5-5.1) mmol/L Chloride (98-107) mmol/L Carbon Dioxide (22-30) mmol/L Anion Gap mmol/L BUN (7-17) mg/dL Creatinine (0.52-1.04) mg/dL Est GFR (CKD-EPI)AfAm (>60 ml/min/1.73 sqM) Est GFR (CKD-EPI)NonAf (>60 ml/min/1.73 sqM) Glucose (74-99) mg/dL Plasma Lactic Acid Simone 0.7 (0.7-2.0) mmol/L Calcium (8.4-10.2) mg/dL Magnesium (1.6-2.3) mg/dL Total Bilirubin (0.2-1.3) mg/dL AST (14-36) U/L ALT (4-34) U/L Alkaline Phosphatase (38-126) U/L Troponin I <0.012 (0.000-0.034) ng/mL Total Protein (6.3-8.2) g/dL Albumin (3.5-5.0) g/dL Coronavirus (PCR) Not Detected (Not Detectd) Critical Care Time Critical Care Time: Yes Total Critical Care Time: 35 Disposition Clinical Impression: COPD exacerbation, Pneumothorax Disposition: ADMITTED IP TO [facility] Time of Disposition: 11:14
[2023-07-25 08:48] LABS: Basophils % (A) 0 %; Eosinophils # (A) 0.2 k/uL (0-0.7); Eosinophils % (A) 3 %; HGB 12.1 gm/dL (11.4-16.0); Lymphocytes # (A) 0.7 k/uL (1.0-4.8); Lymphocytes % (A) 11 %; MCH 33.4 pg (25.0-35.0); MCHC 33.7 g/dL (31.0-37.0); MCV 99.2 fL (80.0-100.0); Mean Platelet Volume 8.1; Monocytes # (A) 0.3 k/uL (0-1.0); Monocytes % (A) 5 %; Neutrophils # (A) 4.9 k/uL (1.3-7.7); Neutrophils % (A) 79 %; Platelet Count 213 k/uL (150-450); RBC 3.63 m/uL (3.80-5.40); RDW 12.5 % (11.5-15.5); WBC 6.2 k/uL (3.8-10.6)
[2023-07-25 08:58] LABS: ALT 27 U/L (4-34); AST 28 U/L (14-36); African American GFR (CKD) 89 (>60 ml/min/1.73 sqM); Albumin 3.6 g/dL (3.5-5.0); Alkaline Phosphatase 109 U/L (38-126); Anion Gap 5 mmol/L; Blood Urea Nitrogen 29 mg/dL (7-17); Calcium 8.3 mg/dL (8.4-10.2); Carbon Dioxide 30 mmol/L (22-30); Chloride 102 mmol/L (98-107); Glucose 118 mg/dL (74-99); Magnesium 2.2 mg/dL (1.6-2.3); Non-African American GFR(CKD) 77 (>60 ml/min/1.73 sqM); Potassium 4.5 mmol/L (3.5-5.1); Sodium 137 mmol/L (137-145); Total Bilirubin 0.6 mg/dL (0.2-1.3)
[2023-07-25 09:09] LABS: INR 0.9 (<1.2); Prothrombin Time 9.7 sec (9.0-12.0)
[2023-07-25 09:12] LABS: Partial Thromboplastin Time 21.4 sec (22.0-30.0)
--- NOTE | 2023-07-25 09:20 | XR ---
EXAMINATION TYPE: XR chest 2V DATE OF EXAM: 07/25/2023 COMPARISON: 05/13/2019 HISTORY: 82 year-old female shortness of breath, difficulty breathing TECHNIQUE: AP and lateral views FINDINGS: Heart normal size. Mild hyperinflation. There is a moderate to large left-sided pneumothorax. Apical component measures 4.8 cm. Basilar component measures up to 4.4 cm. Focal opacity at the right base h as a bandlike configuration. Trace effusion suggested on the lateral view. IMPRESSION: COPD with a moderate left pneumothorax estimated at 40%. Critical findings called to Dr. Arredondo in the ER at 9:18 AM. Focal opacity at the right basilar bandlike configuration suggesting atelectasis.
[2023-07-25] MEDS ORDERED: LIDOCAINE 1% INJ 10MG/ML (20 ML MDV) SQ ONE (09:41)
[2023-07-25] MEDS ORDERED: LORazepam 2 MG/ML INJ IV STA (09:59)
[2023-07-25] MEDS ORDERED: KETOROLAC 15 MG/ML 1 ML VIAL IVP STA (10:16)
--- NOTE | 2023-07-25 11:03 | XR ---
EXAMINATION TYPE: XR chest 1V portable DATE OF EXAM: 07/25/2023 Comparison: Earlier today Clinical History: 82 year-old female shortness of breath Findings: Hyperinflation. Focal bandlike opacity right lower lung suggesting atelectasis. Mild patchy density l eft base slightly increased, likely atelectasis. Interval placement of a left-sided permanent cathete r. The left-sided pneumothorax has decreased in size. There is now a small 1 cm left apical component remaining. Impression: 1. Interval placement of left Thoravent catheter now with residual small 1 cm left apical pneumothora x remaining. 2. COPD. Prominent patchy right basilar opacity remains, likely atelectasis. Suspect some new atelect asis at the left base.
[2023-07-25] MEDS ORDERED: IPRATROPIUM-ALBUTEROL 3 ML NEB INHALATION PRN (11:15)
[2023-07-25] MEDS ORDERED: NALOXONE 0.4 MG/ML 1 ML VIAL IVP PRN (11:15)
[2023-07-25] MEDS: IPRATROPIUM-ALBUTEROL 3 ML NEB INHALATION SCH ×3 (11:56→22:05)
--- NOTE | 2023-07-25 13:34 | P.HPIM ---
History of Present Illness H&P Date: 07/25/23 History of present illness; patient is a 82-year-old lady with past medical hist ory significant for chronic respiratory failure, COPD with the ER because of shortness of breath that started this morning. Patient stated that she woke up this morning with shortness of breath that was sudden in onset. Patient was unable to take a deep breath. Patient also felt that her left side of his chest was hurting. Denies any fever or chills. Denied any nausea, vomiting or abdominal pain. Denied any swelling of feet. Cause of this worsening shortness of breath, she came to the ER Initial lab work done in the ER showed WBC 6.2, hemoglobin 12.1, platelet count 213, sodium 137, potassium 4.5, BUN 29, creatinine 0.74 troponin 0.012, COVID-19 negative Chest x-ray done in the ER showed COPD with moderate left pneumothorax Patient had thoravent placed in the ER, admitted to medicine service REVIEW OF SYSTEMS: CONSTITUTIONAL: No fever, no malaise, no fatigue. HEENT: No recent visual problems or hearing problems. Denied any sore throat. CARDIOVASCULAR: No chest pain, orthopnea, PND, no palpitations, no syncope. PULMONARY: As mentioned in HPI GASTROINTESTINAL: No diarrhea, no nausea, no vomiting, no abdominal pain. NEUROLOGICAL: No headaches, no weakness, no numbness. HEMATOLOGICAL: Denies any bleeding or petechiae. GENITOURINARY: Denies any burning micturition, frequency, or urgency. MUSCULOSKELETAL/RHEUMATOLOGICAL: Denies any joint pain, swelling, or any muscle pain. ENDOCRINE: Denies any polyuria or polydipsia. The rest of the 14-point review of systems is negative. PHYSICAL EXAMINATION: GENERAL: The patient is alert and oriented x3, not in any acute distress. Well developed, well nourished. HEENT: Pupils are round and equally reacting to light. EOMI. No scleral icterus. No conjunctival pallor. Normocephalic, atraumatic. No pharyngeal erythema. No thyromegaly. CARDIOVASCULAR: S1 and S2 present. No murmurs, rubs, or gallops. PULMONARY: Diminished breath sounds at the left lung and the bases, thoravent seen ABDOMEN: Soft, nontender, nondistended, normoactive bowel sounds. No palpable organomegaly. MUSCULOSKELETAL: No joint swelling or deformity. EXTREMITIES: No cyanosis, clubbing, or pedal edema. NEUROLOGICAL: Gross neurological examination did not reveal any focal deficits. SKIN: No rashes. Assessment and plan Left pneumothorax COPD exacerbation Chronic hypoxic respiratory failure Hypothyroidism History of tobacco addiction Monitor vital signs Monitor CBC Monitor CMP Aggressive bronchopulmonary hygiene Encourage use of I-S Continue thoravent management per CT surgery Continue breathing treatments Continue IV steroids Resume home meds Consult pulmonology Labs and medication were reviewed.. Continue same treatment. Continue with symptomatic treatment. Resume home medication. Monitor labs and vitals. DVT and GI prophylaxis. Further recommendations as per clinical course of the patient Dictation was produced using [employer] dictation software. please excuse any grammatical, word or spelling errors. Past Medical History Past Medical History: COPD, Hyperlipidemia, Pneumonia, Thyroid Disorder Additional Past Medical History / Comment(s): bone on bone left hip History of Any Multi-Drug Resistant Organisms: None Reported Additional Past Surgical History / Comment(s): THYROIDECTOMY, POLYPS REMOVED FROM VOCAL CORDS Past Psychological History: No Psychological Hx Reported Smoking Status: Former smoker Past Alcohol Use History: None Reported Past Drug Use History: None Reported - Past Family History Mother Family Medical History: Cancer Additional Family Medical History / Comment(s): CERVICAL CA Father Family Medical History: No Reported History Medications and Allergies Home Medications Medication Instructions Recorded Confirmed Type Atorvastatin [Lipitor] 40 mg PO DAILY 05/13/19 07/25/23 History Denosumab [Prolia] 60 mg SQ Q180D 05/13/19 07/25/23 History Levothyroxine Sodium [Synthroid] 125 mcg PO DAILY 05/13/19 07/25/23 History Diclofenac Sodium [Voltaren] 50 mg PO TID 07/25/23 07/25/23 History Furosemide [Lasix] 40 mg PO DAILY 07/25/23 07/25/23 History Losartan [Cozaar] 50 mg PO DAILY 07/25/23 07/25/23 History Nystatin 100,000 Unit/gm Powd 1 applic TOPICAL BID 07/25/23 07/25/23 History [Mycostatin Powder] Sertraline [Zoloft] 100 mg PO DAILY 07/25/23 07/25/23 History Triamcinolone Acetonide 1 applic TOPICAL BID PRN 07/25/23 07/25/23 History [Triamcinolone Acetonide 0.1% Lotion] traMADol HCl [Ultram] 50 mg PO Q6HR PRN 07/25/23 07/25/23 History Allergies Allergy/AdvReac Type Severity Reaction Status Date / Time bee venom protein (honey bee) Allergy Rash/Hives Verified 07/25/23 10:52 celecoxib [From Celebrex] Allergy Rash/Hives Verified 07/25/23 10:52 Sulfa (Sulfonamide Allergy Rash/Hives Verified 07/25/23 10:52 Antibiotics) Physical Exam Vitals: Vital Signs Temp Pulse Resp BP Pulse Ox 07/25/23 12:09 90 07/25/23 11:56 93 07/25/23 11:46 91 22 124/61 91 L 07/25/23 11:30 93 20 124/61 91 L 07/25/23 11:15 88 20 105/77 93 L 07/25/23 11:00 84 22 117/67 92 L 07/25/23 10:50 89 20 118/61 92 L 07/25/23 10:45 89 22 118/61 91 L 07/25/23 10:30 92 20 119/63 92 L 07/25/23 10:20 94 24 142/84 90 L 07/25/23 10:08 93 20 132/70 93 L 07/25/23 09:28 96 07/25/23 09:12 98 07/25/23 07:57 98.1 F 103 H 24 136/83 91 L Intake and Output 07/24/23 07/25/23 07/25/23 22:59 06:59 14:59 Other: Weight 90.718 kg Results CBC & Chem 7: 07/25/23 08:30 07/25/23 08:30 Labs: Abnormal Lab Results - Last 24 Hours (Table) 07/25/23 07/25/23 07/25/23 Range/Units 08:30 08:30 08:30 RBC 3.63 L (3.80-5.40) m/uL Lymphocytes # 0.7 L (1.0-4.8) k/uL APTT 21.4 L (22.0-30.0) sec BUN 29 H (7-17) mg/dL Glucose 118 H (74-99) mg/dL Calcium 8.3 L (8.4-10.2) mg/dL Total Protein 6.0 L (6.3-8.2) g/dL
[2023-07-25] MEDS: methylPREDNISolone SOD SUCCI 125 MG/2 ML VIAL IV SCH ×3 (13:46→23:00)
--- NOTE | 2023-07-25 14:47 | P.GSCN ---
History of Present Illness Consult date: 07/25/23 Reason for Consult: Left-sided spontaneous pneumothorax Requesting physician: Nba Arredondo History of present illness: This is an 82-year-old female patient follows outpatient with Dr. Sebastian for primary care and Dr. Flaherty for pulmonology. She has a previous medical history of previous tobacco dependence, COPD, chronic respiratory failure with home oxygen around the clock, and hypothyroidism after thyroidectomy from goiter. The patient reports she has a chronic cough and chronic shortness of breath which was progressively worse over the last 24 hours. She states she felt like she has something to cough up but has been unable to do so and has tried more forceful coughing. She developed some pain in her chest due to this coughing so she presented to [facility] emergency room for evaluation and treatment. Chest x-ray was completed demonstrating significant left-sided pneumothorax. A thoravent was placed by the emergency room physicians which showed good reexpansion of the lung although small apical pneumothorax still present. No suction applied to the thoravent. The patient is to be admitted for evaluation and treatment. Consultation was placed to pulmonology as well as cardiothoracic surgery for management of her thoravent. 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; chronic home oxygen History of Any Multi-Drug Resistant Organisms: None Reported Additional Past Surgical History / Comment(s): THYROIDECTOMY, POLYPS REMOVED FROM VOCAL CORDS Past Psychological History: No Psychological Hx Reported Smoking Status: Former smoker Past Alcohol Use History: None Reported Past Drug Use History: None Reported - Past Family History Mother Family Medical History: Cancer Additional Family Medical History / Comment(s): CERVICAL CA Father Family Medical History: No Reported History Medications and Allergies Home Medications Medication Instructions Recorded Confirmed Type Atorvastatin [Lipitor] 40 mg PO DAILY 05/13/19 07/25/23 History Denosumab [Prolia] 60 mg SQ Q180D 05/13/19 07/25/23 History Levothyroxine Sodium [Synthroid] 125 mcg PO DAILY 05/13/19 07/25/23 History Diclofenac Sodium [Voltaren] 50 mg PO TID 07/25/23 07/25/23 History Furosemide [Lasix] 40 mg PO DAILY 07/25/23 07/25/23 History Losartan [Cozaar] 50 mg PO DAILY 07/25/23 07/25/23 History Nystatin 100,000 Unit/gm Powd 1 applic TOPICAL BID 07/25/23 07/25/23 History [Mycostatin Powder] Sertraline [Zoloft] 100 mg PO DAILY 07/25/23 07/25/23 History Triamcinolone Acetonide 1 applic TOPICAL BID PRN 07/25/23 07/25/23 History [Triamcinolone Acetonide 0.1% Lotion] traMADol HCl [Ultram] 50 mg PO Q6HR PRN 07/25/23 07/25/23 History Allergies Allergy/AdvReac Type Severity Reaction Status Date / Time bee venom protein (honey bee) Allergy Rash/Hives Verified 07/25/23 10:52 celecoxib [From Celebrex] Allergy Rash/Hives Verified 07/25/23 10:52 Sulfa (Sulfonamide Allergy Rash/Hives Verified 07/25/23 10:52 Antibiotics) Surgical - Exam Vital Signs Temp Pulse Resp BP Pulse Ox 98.1 F 103 H 24 136/83 91 L 07/25/23 07:57 07/25/23 07:57 07/25/23 07:57 07/25/23 07:57 07/25/23 07:57 CONSTITUTIONAL: Awake and alert, appears comfortable, cooperative, well- developed, well-nourished, no pain, no acute distress EYES: Pupils equal, round, reactive to light, normal ocular movement ENT: Moist mucous membranes without oral lesions present NECK: No masses, no bruits, trachea midline RESPIRATORY: Lungs sounds diminished on the left. Respirations even, nonlabored. Currently on 2 L nasal cannula with oxygen saturation 91%. Strong cough CARDIOVASCULAR: S1, S2 present. Regular rate and rhythm, sinus tach on telemetry. Palpable peripheral pulses bilaterally. No edema present GASTROINTESTINAL: Abdomen soft, nontender, nondistended without masses or organomegaly noted. There is no rebound or guarding present. Active bowel sounds present 4 quadrants. GENITOURINARY: Deferred INTEGUMENTARY: Skin is warm and dry with evidence of good perfusion. NEUROLOGIC: Cranial nerves II through XII intact, normal coordination, no obv ious motor or sensory deficits, speech is normal MUSKULOSKELETAL: Able to move all extremities, strength equal bilaterally, normal posture PSYCHIATRIC: Alert and oriented to person place and time, appropriate affect, intact judgment and insight Results - Labs 07/25/23 08:30 07/25/23 08:30 Abnormal Lab Results - Last 24 Hours (Table) 07/25/23 07/25/23 07/25/23 Range/Units 08:30 08:30 08:30 RBC 3.63 L (3.80-5.40) m/uL Lymphocytes # 0.7 L (1.0-4.8) k/uL APTT 21.4 L (22.0-30.0) sec BUN 29 H (7-17) mg/dL Glucose 118 H (74-99) mg/dL Calcium 8.3 L (8.4-10.2) mg/dL Total Protein 6.0 L (6.3-8.2) g/dL Diabetes panel 07/25/23 Range/Units 08:30 Sodium 137 (137-145) mmol/L Potassium 4.5 (3.5-5.1) mmol/L Chloride 102 (98-107) mmol/L Carbon Dioxide 30 (22-30) mmol/L BUN 29 H (7-17) mg/dL Creatinine 0.74 (0.52-1.04) mg/dL Glucose 118 H (74-99) mg/dL Calcium 8.3 L (8.4-10.2) mg/dL AST 28 (14-36) U/L ALT 27 (4-34) U/L Alkaline Phosphatase 109 (38-126) U/L Total Protein 6.0 L (6.3-8.2) g/dL Albumin 3.6 (3.5-5.0) g/dL Calcium panel 07/25/23 Range/Units 08:30 Calcium 8.3 L (8.4-10.2) mg/dL Albumin 3.6 (3.5-5.0) g/dL Pituitary panel 07/25/23 Range/Units 08:30 Sodium 137 (137-145) mmol/L Potassium 4.5 (3.5-5.1) mmol/L Chloride 102 (98-107) mmol/L Carbon Dioxide 30 (22-30) mmol/L BUN 29 H (7-17) mg/dL Creatinine 0.74 (0.52-1.04) mg/dL Glucose 118 H (74-99) mg/dL Calcium 8.3 L (8.4-10.2) mg/dL Adrenal panel 07/25/23 Range/Units 08:30 Sodium 137 (137-145) mmol/L Potassium 4.5 (3.5-5.1) mmol/L Chloride 102 (98-107) mmol/L Carbon Dioxide 30 (22-30) mmol/L BUN 29 H (7-17) mg/dL Creatinine 0.74 (0.52-1.04) mg/dL Glucose 118 H (74-99) mg/dL Calcium 8.3 L (8.4-10.2) mg/dL Total Bilirubin 0.6 (0.2-1.3) mg/dL AST 28 (14-36) U/L ALT 27 (4-34) U/L Alkaline Phosphatase 109 (38-126) U/L Total Protein 6.0 L (6.3-8.2) g/dL Albumin 3.6 (3.5-5.0) g/dL - Imaging Chest x-ray: report reviewed, image reviewed Assessment and Plan Assessment: Large left-sided spontaneous pneumothorax, first occurrence, status post thoravent placement by the emergency room physicians Shortness of breath, chest pain secondary to above Previous tobacco dependence COPD Chronic respiratory failure with home oxygen around the clock Hypothyroidism after thyroidectomy from goiter Plan: The patient was seen and examined in the emergency room sitting up on the cart in no acute distress eating lunch. Her son was at the bedside. The patient reports she's had a chronic cough for which she has been on Mucinex daily for quite some time, has chronic shortness of breath although it was getting a bit worse. X-rays reviewed. Lung appears mostly reexpanded without applying suction to the thoravent. At this time recommend continuing the thoravent and will repeat chest x-ray in the morning. Incentive spirometry ordered and should be encouraged. Increase activity as tolerated. Medical management of other comorbidities per internal medicine. More recommendations to follow. Thank you for this consult, we will continue to follow along. I have personally seen and examined the patient, performed the documentation and the assessment and plan as written. Number of minutes spent on the visit: 30. Lizabeth Lynn, ELIESER-C Attending Addendum: Pt seen and evaluated with MANAGER [employer] above. Agree with her assessment and plan. I spent 35 minutes reviewing the data and discussing the plan of care with the patient and care team. Time with Patient: Greater than 30
[2023-07-25] MEDS: traMADol 50 MG TAB PO PRN ×2 (17:05→23:00)
--- NOTE | 2023-07-26 02:53 | P.CNPUL ---
History of Present Illness Consult date: 07/26/23 Requesting physician: Nba Arredondo Reason for consult: pneumothorax Chief complaint: Acute shortness of breath History of present illness: I am seeing this patient in new consultation today 07/26/2023 after she presented to the emergency room with acute dyspnea yesterday morning and was found to have a moderate-sized left pneumothorax. Patient is a 82-year-old white female past medical history significant for severe oxygen-dependent COPD. She reprotedly follows with Dr. Flaherty in the pulmonary office for management of her COPD. She quit smoking approximately 10 years ago. Patient states that upon waking up yesterday she had intense nonradiating substernal chest pain and acute shortness of breath. She did call EMS, and was transported to [facility]. Chest x-ray on arrival demonstrated a moderate left pneumothorax estimated at 40%. The ER physician inserted a ThoraVent. Repeat chest x-ray showed partial reexpansion of the left lung with residual 1 cm left apical pneumothorax remaining. Denies history of previous pneumothoraces. Denies any recent trauma. Denies any recent airplane travel. He is currently sitting in the recliner, on 4 L/m nasal cannula, in no acute distress. She states that her breathing is much better compared to when she came in. Chest pain is improved. The left chest ThoraVent signal diaphragm is still fluctuating with respiration. It is not hooked to suction. Incentive spirometry was at bedside. CBC and CMP on arrival were unremarkable. Patient appears hemodynamically stable. Review of Systems REVIEW OF SYSTEMS: CONSTITUTIONAL: Denies any recent significant weight loss or weight gain. EYES: Denies change in vision. EARS, NOSE, MOUTH, THROAT: Denies headaches, denies sore throat. CARDIOVASCULAR: Denies radiating chest pain, palpitations or syncopal episodes. RESPIRATORY: Denies cough, congestion or hemoptysis. Admits acute shortness of breath and nonradiating substernal chest pain, which have resolved after ThoraVent placement GASTROINTESTINAL: Denies change in appetite, abdominal pain, nausea and vomiting, or diarrhea GENITOURINARY: Denies hematuria, denies infections. MUSKULOSKELETAL: Denies pain, denies swelling. INTEGUMENTARY: Denies rash, denies eczema. NEUROLOGICAL: Denies recent memory loss, no recent seizure activity. PSYCHIATRIC: Denies anxiety, denies depression. 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; chronic home oxygen History of Any Multi-Drug Resistant Organisms: None Reported Additional Past Surgical History / Comment(s): THYROIDECTOMY, POLYPS REMOVED FROM VOCAL CORDS Past Anesthesia/Blood Transfusion Reactions: No Reported Reaction Past Psychological History: No Psychological Hx Reported Smoking Status: Former smoker Past Alcohol Use History: None Reported Past Drug Use History: None Reported - Past Family History Mother Family Medical History: Cancer Additional Family Medical History / Comment(s): CERVICAL CA Father Family Medical History: No Reported History Medications and Allergies Home Medications Medication Instructions Recorded Confirmed Type Atorvastatin [Lipitor] 40 mg PO DAILY 05/13/19 07/25/23 History Denosumab [Prolia] 60 mg SQ Q180D 05/13/19 07/25/23 History Levothyroxine Sodium [Synthroid] 125 mcg PO DAILY 05/13/19 07/25/23 History Diclofenac Sodium [Voltaren] 50 mg PO TID 07/25/23 07/25/23 History Furosemide [Lasix] 40 mg PO DAILY 07/25/23 07/25/23 History Losartan [Cozaar] 50 mg PO DAILY 07/25/23 07/25/23 History Nystatin 100,000 Unit/gm Powd 1 applic TOPICAL BID 07/25/23 07/25/23 History [Mycostatin Powder] Sertraline [Zoloft] 100 mg PO DAILY 07/25/23 07/25/23 History Triamcinolone Acetonide 1 applic TOPICAL BID PRN 07/25/23 07/25/23 History [Triamcinolone Acetonide 0.1% Lotion] traMADol HCl [Ultram] 50 mg PO Q6HR PRN 07/25/23 07/25/23 History Allergies Allergy/AdvReac Type Severity Reaction Status Date / Time bee venom protein (honey bee) Allergy Rash/Hives Verified 07/25/23 10:52 celecoxib [From Celebrex] Allergy Rash/Hives Verified 07/25/23 10:52 Sulfa (Sulfonamide Allergy Rash/Hives Verified 07/25/23 10:52 Antibiotics) Physical Exam Vitals: Vital Signs Temp Pulse Resp BP BP Pulse Ox 07/25/23 22:22 92 07/25/23 22:09 93 L 07/25/23 22:06 88 07/25/23 16:25 112 H 07/25/23 16:13 116 H 07/25/23 15:31 96.5 F L 16 118/66 93 L 07/25/23 14:57 98.4 F 105 H 18 125/71 91 L 07/25/23 12:09 90 07/25/23 11:56 93 07/25/23 11:46 91 22 124/61 91 L 07/25/23 11:30 93 20 124/61 91 L 07/25/23 11:15 88 20 105/77 93 L 07/25/23 11:00 84 22 117/67 92 L 07/25/23 10:50 89 20 118/61 92 L 07/25/23 10:45 89 22 118/61 91 L 07/25/23 10:30 92 20 119/63 92 L 07/25/23 10:20 94 24 142/84 90 L 07/25/23 10:08 93 20 132/70 93 L 07/25/23 09:28 96 07/25/23 09:12 98 07/25/23 07:57 98.1 F 103 H 24 136/83 91 L Intake and Output 07/25/23 07/25/23 07/26/23 14:59 22:59 06:59 Intake Total 180 180 Balance 180 180 Intake: Oral 180 180 Other: # Voids 1 Weight 90.718 kg 90.718 kg GENERAL EXAM: Alert, 82-year-old obese white female , comfortable in no apparent distress. HEAD: Normocephalic and atraumatic EYES: Normal reaction of pupils, equal size. NOSE: Clear with pink turbinates. THROAT: No erythema or exudates. NECK: No masses, no JVD. CHEST: No chest wall deformity. There is a left chest Thoravent. Red signal diaphragm is still fluctuating with respiration LUNGS: Equal air entry with no crackles, wheeze, rhonchi or dullness. On 4 L/m nasal cannula. No conversational dyspnea or accessory muscle use.. CVS: S1 and S2 normal with no audible murmur, regular rhythm. No extra heart sounds ABDOMEN: No hepatosplenomegaly, active bowel sounds, no guarding or rigidity. SPINE: No scoliosis or deformity SKIN: No rashes CENTRAL NERVOUS SYSTEM: No focal deficits, tone is normal in all 4 extremities. EXTREMITIES: There is no peripheral edema, clubbing, or cyanosis. Peripheral pulses are intact. Results - Laboratory Findings CBC and BMP: 07/25/23 08:30 07/25/23 08:30 PT/INR, D-dimer PT 9.7 sec (9.0-12.0) 07/25/23 08:30 INR 0.9 (<1.2) 07/25/23 08:30 Abnormal lab findings: Abnormal Labs 07/25/23 07/25/23 07/25/23 08:30 08:30 08:30 RBC 3.63 L Lymphocytes # 0.7 L APTT 21.4 L BUN 29 H Glucose 118 H Calcium 8.3 L Total Protein 6.0 L - Diagnostic Findings Chest x-ray: image reviewed Assessment and Plan Assessment: Acute secondary spontaneous left-sided pneumothorax, status post insertion of left chest Thoravent. Pneumothorax was originally estimated at 40%, and has partially resolved with residual 1 cm left apical pneumothorax remaining. Acute on chronic hypoxemic respiratory failure, secondary to above, currently on 4 L per minute nasal cannula. Severe chronic obstructive pulmonary disease, not in exacerbation. Baseline FEV1 is 41% of predicted. Chronically oxygen dependent on 2 L/m nasal cannula 15/05. Former tobacco smoker Hypothyroidism Benign essential hypertension Hyperlipidemia Obesity, with a BMI of 30.4 kg/m Plan: Patient's medications, labs, chest x-ray was reviewed Continue supplemental oxygen ThoraVent is in place, currently not to suction. There was a significant reduction in the left-sided pneumothorax after insertion by the ER physician. The ThoraVent signal diaphragm is still fluctuating with respiration. Encourage incentive spirometer Repeat chest x-ray in the morning COPD does not appear to be in exacerbation, I will discontinue high-dose steroids Resume home nebulization treatments We will continue to follow I have personally seen and examined the patient, performed the documentation and the assessment and plan as written. Number of minutes spent on the visit:20 This is a joint evaluation that was done along with a nurse practitioner. This evaluation was done in more than 30 minutes. The patient has severe COPD with an FEV1 of 41% of predicted and she is auction dependent. She presented with a spontaneous pneumothorax on the left and a thoravent was inserted. The day c atheter is currently and there is no residual pneumothorax and subsequent chest x-ray. The patient has some limited soakings emphysema. We'll keep the catheter in place. We'll continue with bronchodilators. The patient's occupation is stable at 3 L of oxygen nasal cannula, and she has no specific complaints. We'll continue to follow. Time with Patient: Greater than 30
[2023-07-26] MEDS: traMADol 50 MG TAB PO PRN ×4 (05:05→23:55)
[2023-07-26] MEDS: LEVOTHYROXINE 125 MCG TAB PO SCH (06:33)
--- NOTE | 2023-07-26 07:25 | XR ---
EXAMINATION TYPE: XR chest 1V portable DATE OF EXAM: 07/26/2023 7:12 AM COMPARISON: Chest radiographs from 07/25/2023 TECHNIQUE: XR chest 1V portable Portable AP radiograph of the chest. CLINICAL INDICATION:Female, 82 years old with history of Pneumothorax; FINDINGS: Lungs/Pleura: Left basilar patchy atelectasis. Right basilar Bochdalek hernia redemonstrated. Hyperin flation compatible COPD. No pleural effusion. No sizable pneumothorax. Pulmonary vascularity: Unremarkable. Heart/mediastinum: Cardiomediastinal silhouette is stable. Musculoskeletal: No acute osseous pathology. Other findings: Development of left chest wall and neck subcutaneous emphysema. Lines/Tubes: Left pleural catheter is in stable position. IMPRESSION: 1. Left pleural catheter is in stable position with no sizable pneumothorax. However there is develo pment of left neck and chest wall subcutaneous emphysema. Correlate for air leak. 2. Background COPD changes.
--- NOTE | 2023-07-26 07:45 | P.PN ---
Subjective Progress Note Date: 07/26/23 Principal diagnosis: Left-sided spontaneous pneumothorax, chronic cough and chronic shortness of breath which was progressively worse over the last 24 hours. Past medical history significant for previous tobacco dependence, COPD, chronic respiratory failure with home oxygen around the clock, and hypothyroidism after thyroidectomy from goiter. Status post day #1 placement of left Thoravent, placed by the emergency room physician. The patient was seen and examined in follow-up today 07/26/2023 at her bedside on the third floor cardiac stepdown unit. Currently she is sitting up to bedside chair, is awake, alert, oriented 3 and is in no acute distress. She continues to complain of some shortness of breath, although her daughter present at her bedside states that this is normal for her. She denies any complaints of pain at this time. Left Thoravent chest tube remains in place. Chest x-ray was reviewed. Oxygen saturations are 92% on 4 L nasal cannula. She is achieving 500 mL on her incentive spirometry with much encouragement. She has been afebrile the last 24 hours. Objective - Vital Signs Vital signs: Vital Signs Temp 97.2 F L 07/26/23 04:00 Pulse 103 H 07/26/23 04:00 Resp 16 07/26/23 04:00 BP 138/74 07/26/23 04:00 Pulse Ox 92 L 07/26/23 04:00 FiO2 Intake & Output 07/25/23 07/26/23 07/26/23 18:59 06:59 18:59 Intake Total 360 Balance 360 Weight 90.718 kg Intake: Oral 360 Other: # Voids 1 1 # Bowel Movements 1 - Exam CONSTITUTIONAL: Appears comfortable, cooperative, no acute distress. RESPIRATORY: Lungs sounds diminished bilaterally, few scattered expiratory wheezes. Respirations are symmetrical, nonlabored. Currently on 4 L nasal cannula with oxygen saturation 94%. Able to achieve 500 mL on incentive spirometry. Strong cough. CARDIOVASCULAR: S1, S2 present. Regular rate and rhythm, sinus rhythm on telemetry. Palpable peripheral pulses bilaterally. +1 edema to her bilateral lower extremities. No calf pain or tenderness noted. SCDs present. GASTROINTESTINAL: Abdomen soft, nontender, nondistended. Active bowel sounds present 4 quadrants. Tolerating diet. GENITOURINARY: Continues to void clear, yellow urine INTEGUMENTARY: Skin is warm and dry with evidence of good perfusion. Ecchymotic area to her bilateral upper extremities, and to her left hand. NEUROLOGIC: Cranial nerves II through XII intact. No focal deficits. MUSKULOSKELETAL: Able to move all extremities, strength equal bilaterally, gait normal. PSYCHIATRIC: Alert and oriented to person place and time, appropriate affect, intact judgment and insight INVASIVE LINES AND TUBES: Left Thoravent chest tube in place, and is capped. - Allied health notes Allied health notes reviewed: nursing - Labs CBC & Chem 7: 07/25/23 08:30 07/25/23 08:30 Labs: Abnormal Lab Results - Last 24 Hours (Table) 07/25/23 07/25/23 07/25/23 Range/Units 08:30 08:30 08:30 RBC 3.63 L (3.80-5.40) m/uL Lymphocytes # 0.7 L (1.0-4.8) k/uL APTT 21.4 L (22.0-30.0) sec BUN 29 H (7-17) mg/dL Glucose 118 H (74-99) mg/dL Calcium 8.3 L (8.4-10.2) mg/dL Total Protein 6.0 L (6.3-8.2) g/dL - Imaging and Cardiology Chest x-ray: report reviewed, image reviewed Assessment and Plan Assessment: Large left-sided spontaneous pneumothorax, first occurrence, status post thoravent placement by the emergency room physician Shortness of breath, chest pain secondary to above Previous tobacco dependence COPD Chronic respiratory failure with home oxygen around the clock Hypothyroidism after thyroidectomy from goiter Plan: We will plug her left Thoravent chest tube today, and get a repeat chest x-ray at 12 noon today. Encourage use of incentive spirometry 10 times every hour while awake. Wean oxygen as tolerated to home dose. Bronchodilator management per pulmonary medicine. Increase activity as tolerated. Continue to monitor daily chest x-rays. Medical management and other comorbidities per primary care service. More recommendations follow based on patient's clinical course. Time with Patient: Greater than 30
[2023-07-26] MEDS: IPRATROPIUM-ALBUTEROL 3 ML NEB INHALATION SCH ×4 (07:49→20:07)
[2023-07-26] MEDS: BUDESONIDE 1 MG/2 ML NEBU INHALATION SCH ×2 (07:49→20:07)
[2023-07-26] MEDS: FORMOTEROL FUMARATE 20 MCG/2 ML NEBU INHALATION SCH ×2 (07:49→20:07)
[2023-07-26] MEDS: ALPRAZolam 0.5 MG TAB PO PRN ×3 (09:04→21:43)
[2023-07-26] MEDS: FUROSEMIDE 40 MG TAB PO SCH (09:04)
[2023-07-26] MEDS: SERTRALINE 100 MG TAB PO SCH (09:04)
[2023-07-26] MEDS: LOSARTAN 50 MG TAB PO SCH (09:04)
[2023-07-26] MEDS: ATORVASTATIN 40 MG TAB PO SCH (09:04)
--- NOTE | 2023-07-26 09:14 | XR ---
EXAMINATION TYPE: XR chest 1V portable DATE OF EXAM: 07/26/2023 9:07 AM COMPARISON: Chest radiographs from 07/26/2023, 07/25/2023 TECHNIQUE: XR chest 1V portable Portable AP radiograph of the chest. CLINICAL INDICATION:Female, 82 years old with history of pneumothorax; FINDINGS: Lungs/Pleura: Left basilar patchy atelectasis. Right basilar Bochdalek hernia redemonstrated. Hyperin flation compatible COPD. No pleural effusion. No sizable pneumothorax. Pulmonary vascularity: Unremarkable. Heart/mediastinum: Cardiomediastinal silhouette is stable. Musculoskeletal: No acute osseous pathology. Other findings: Redemonstration of left chest wall and neck subcutaneous emphysema. Lines/Tubes: Left pleural catheter is redemonstrated. IMPRESSION: 1. Left pleural catheter is redemonstrated with no sizable pneumothorax. 2. Similar left neck and left chest wall subcutaneous emphysema. 3. Background COPD changes.
--- NOTE | 2023-07-26 14:10 | XR ---
EXAMINATION TYPE: XR chest 2V DATE OF EXAM: 07/26/2023 2:05 PM COMPARISON: Chest radiographs from earlier today TECHNIQUE: XR chest 2V Frontal and lateral views of the chest. CLINICAL INDICATION:Female, 82 years old with history of pneumothorax; FINDINGS: Lungs/Pleura: Left basilar patchy atelectasis. Right basilar Bochdalek hernia redemonstrated. Hyperin flation compatible COPD. No pleural effusion. No sizable pneumothorax. Pulmonary vascularity: Unremarkable. Heart/mediastinum: Cardiomediastinal silhouette is stable. Atherosclerotic calcifications are seen i n the aorta. Musculoskeletal: No acute osseous pathology. Other findings: Redemonstration of left chest wall and neck subcutaneous emphysema. Slightly decrease d from prior exam. Lines/Tubes: Left pleural catheter is redemonstrated. IMPRESSION: 1. Left pleural catheter is redemonstrated with no sizable pneumothorax. 2. Slightly decreased left neck and left chest wall subcutaneous emphysema. 3. Background COPD changes.
--- NOTE | 2023-07-26 14:57 | P.PN ---
Subjective Progress Note Date: 07/26/23 Hospital Course: 82-year-old female with history of COPD on 3 L nasal cannula, hypertension, dyslipidemia, hypothyroidism presenting with acute shortness of breath. On initial presentation, patient was tachycardic and more hypoxic. Laboratory workup mostly unremarkable. Chest x-ray showed moderate left pneumothorax estimated at 40%. Patient is now status post Thoravent. Pulmonology also consulted. Patient currently admitted for acute on chronic hypoxic respiratory failure in the setting of spontaneous pneumothorax. Subjective: Patient seen and examined at bedside. No acute events overnight. Ever since thoravent was plugged, patient has been having increased respiratory distress, also having more anxiety. Pertinent positives and negatives as discussed above, a complete review of systems was performed and all other systems are negative. Vitals Signs Reviewed. General: nontoxic, no distress, appears at stated age Derm: warm, dry Head: atraumatic, normocephalic, symmetric Eyes: EOMI, no lid lag, anicteric sclera Mouth: no lip lesion, mucus membranes moist Cardiovascular: S1S2 reg, no murmur Lungs: thoravent in place, reduced breath sounds in left upper lobe Abdominal: soft, nontender to palpation, no guarding, no appreciable organomegaly Ext: no gross muscle atrophy, no edema, no contractures Neuro: CN II-XI grossly intact, no focal neuro deficits Psych: Alert, oriented, appropriate affect Data Reviewed Today: Pertinent Labs: No new labs today Imaging: Repeat chest x-ray independently interpreted, left pleural catheter in place, no significant pneumothorax. Assessment and Plan: Active: Left pneumothorax Acute on chronic hypoxic respiratory failure -Continue to wean oxygen -thoravent in place -Cardiac thoracic surgery note reviewed, thoravent plugged -Pulmonology note reviewed, continue supportive care, steroids discontinued, not in exacerbation of COPD Chronic: COPD, not in exacerbation Hypothyroidism Nicotine dependence history Dyslipidemia Hypertension DVT ppx: Subcu heparin Code status: Full code Anticipated discharge place: Pending clinical course Anticipated discharge time: Pending clinical course Objective - Vital Signs Vital signs: Vital Signs Temp 97.7 F 07/26/23 11:24 Pulse 88 07/26/23 11:41 Resp 24 07/26/23 11:24 BP 143/83 07/26/23 11:24 Pulse Ox 97 07/26/23 11:24 FiO2 Intake & Output 07/25/23 07/26/2323 18:59 06:59 18:59 Intake Total 360 420 Balance 360 420 Weight 90.718 kg Intake: Oral 360 420 Other: # Voids 1 1 # Bowel Movements 1 - Labs CBC & Chem 7: 07/25/23 08:30 07/25/23 08:30
[2023-07-26] MEDS: HEPARIN SODIUM,PORCINE 5,000 UNIT/ML 1 ML VIAL SQ SCH ×2 (15:13→23:55)
[2023-07-27] MEDS: traMADol 50 MG TAB PO PRN ×3 (06:18→20:10)
[2023-07-27] MEDS: LEVOTHYROXINE 125 MCG TAB PO SCH (06:18)
[2023-07-27] MEDS: ALPRAZolam 0.5 MG TAB PO PRN ×3 (06:18→20:10)
--- NOTE | 2023-07-27 07:58 | XR ---
EXAMINATION TYPE: XR chest 2V DATE OF EXAM: 07/27/2023 COMPARISON: 07/26/2023 HISTORY: 82-year-old female pneumothorax TECHNIQUE: AP and lateral views FINDINGS: Left-sided Thora vent catheter. Extensive subcutaneous emphysema along the left chest wall. There is a small to moderate size left pneumothorax now demonstrated measuring approximately 5.1 cm from the a pex, 1.3 cm laterally, an 8 mm at the base. Estimated at 30%. Hyperinflation. Trace left effusion. IMPRESSION: Interval enlargement of the left-sided pneumothorax measuring 5.1 cm at the apex and 8 mm at the base , estimated at 30%. Thoravent catheter in place. Background COPD. Trace left effusion. Subcutaneous e mphysema left chest wall.
[2023-07-27] MEDS: SERTRALINE 100 MG TAB PO SCH (08:32)
[2023-07-27] MEDS: LOSARTAN 50 MG TAB PO SCH (08:32)
[2023-07-27] MEDS: ATORVASTATIN 40 MG TAB PO SCH (08:32)
[2023-07-27] MEDS: HEPARIN SODIUM,PORCINE 5,000 UNIT/ML 1 ML VIAL SQ SCH ×3 (08:33→23:37)
[2023-07-27] MEDS: FUROSEMIDE 40 MG TAB PO SCH (08:33)
[2023-07-27] MEDS: BUDESONIDE 1 MG/2 ML NEBU INHALATION SCH ×2 (08:46→21:12)
[2023-07-27] MEDS: IPRATROPIUM-ALBUTEROL 3 ML NEB INHALATION SCH ×4 (08:46→21:12)
[2023-07-27] MEDS: FORMOTEROL FUMARATE 20 MCG/2 ML NEBU INHALATION SCH ×2 (09:00→21:12)
--- NOTE | 2023-07-27 12:51 | P.PN ---
Subjective Progress Note Date: 07/27/23 I am seeing this patient in new consultation today 07/26/2023 after she presented to the emergency room with acute dyspnea yesterday morning and was found to have a moderate-sized left pneumothorax. Patient is a 82-year-old white female past medical history significant for severe oxygen-dependent COPD. She reprotedly follows with Dr. Flaherty in the pulmonary office for management of her COPD. She quit smoking approximately 10 years ago. Patient states that upon waking up yesterday she had intense nonradiating substernal chest pain and acute shortness of breath. She did call EMS, and was transported to [facility]. Chest x-ray on arrival demonstrated a moderate left pneumothorax estimated at 40%. The ER physician inserted a ThoraVent. Repeat chest x-ray showed partial reexpansion of the left lung with residual 1 cm left apical pneumothorax remaining. Denies history of previous pneumothoraces. Denies any recent trauma. Denies any recent airplane travel. He is currently sitting in the recliner, on 4 L/m nasal cannula, in no acute distress. She states that her breathing is much better compared to when she came in. Chest pain is improved. The left chest ThoraVent signal diaphragm is still fluctuating with respiration. It is not hooked to suction. Incentive spirometry was at bedside. CBC and CMP on arrival were unremarkable. Patient appears hemodynamically stable. On today's evaluation of 07/27/2023, the patient is being seen for a follow-up. Clinically she is stable. A repeat chest x-ray was done this morning and the patient was found to have a 30% pneumothorax on the left. Based on that, the thoravent was on. Repeat chest x-ray will be done at around 1400 today. She is on 4 L of oxygen by nasal cannula with a pulse ox of 92%. Using the incentive spirometer. She denies having any chest pain. Limited amount of subcutaneous emphysema is seen. She is known to have a test COPD with an FEV1 of 41% of predicted and she is oxygen dependent. No labs from today. Covid 19 testing was negative. Objective - Vital Signs Vital signs: Vital Signs Temp 97.6 F 07/27/23 12:00 Pulse 73 07/27/23 12:02 Resp 16 07/27/23 12:00 BP 123/74 07/27/23 12:00 Pulse Ox 96 07/27/23 12:00 FiO2 Intake & Output 07/26/23 07/27/23 07/27/23 18:59 06:59 18:59 Intake Total 600 120 Output Total 350 Balance 600 -230 Intake: Oral 600 120 Output: Urine 350 Other: Voiding Method Bedside Commode Diaper # Voids 3 - Exam GENERAL EXAM: Alert, 82-year-old obese white female , comfortable in no apparent distress. The patient is currently on 4 L of oxygen by nasal cannula HEAD: Normocephalic and atraumatic EYES: Normal reaction of pupils, equal size. NOSE: Clear with pink turbinates. THROAT: No erythema or exudates. NECK: No masses, no JVD. CHEST: No chest wall deformity. There is a left chest Thoravent. Red signal diaphragm is still fluctuating with respiration LUNGS: Equal air entry with no crackles, wheeze, rhonchi or dullness. On 4 L/m nasal cannula. No conversational dyspnea or accessory muscle use.. CVS: S1 and S2 normal with no audible murmur, regular rhythm. No extra heart sounds ABDOMEN: No hepatosplenomegaly, active bowel sounds, no guarding or rigidity. SPINE: No scoliosis or deformity SKIN: No rashes CENTRAL NERVOUS SYSTEM: No focal deficits, tone is normal in all 4 extremities. EXTREMITIES: There is no peripheral edema, clubbing, or cyanosis. Peripheral pulses are intact. - Labs CBC & Chem 7: 07/25/23 08:30 07/25/23 08:30 Labs: Microbiology - Last 24 Hours (Table) 07/25/23 08:30 Blood Culture - Preliminary Blood 07/25/23 08:45 Blood Culture - Preliminary Blood Assessment and Plan Assessment: Acute secondary spontaneous left-sided pneumothorax, status post insertion of left chest Thoravent. Pneumothorax was originally estimated at 40%, and has partially resolved with residual 1 cm left apical pneumothorax remaining. The tube was In the patient developed residual pneumothorax on today's chest x-ray in the order of 30%. Accordingly, she was done. Awaiting follow-up chest x- ray. Clinically stable. Acute on chronic hypoxemic respiratory failure, secondary to above, currently on 4 L per minute nasal cannula. Severe chronic obstructive pulmonary disease, not in exacerbation. Baseline FEV1 is 41% of predicted. Chronically oxygen dependent on 2 L/m nasal cannula 15/05. Former tobacco smoker Hypothyroidism Benign essential hypertension Hyperlipidemia Obesity, with a BMI of 30.4 kg/m Plan: We'll keep the thoravent in place and repeat chest x-ray Despite pneumothorax, the patient is clinically stable Oxygenation is stable at 4 L per minute nasal cannula Limited subcutaneous emphysema We'll keep the catheter in place. We'll continue with bronchodilators. T he patient's occupation is stable at 4 L of oxygen nasal cannula, and she has no specific complaints. We'll continue to follow.
--- NOTE | 2023-07-27 14:54 | P.PN ---
Subjective Progress Note Date: 07/27/23 Hospital Course: 82-year-old female with history of COPD on 3 L nasal cannula, hypertension, dyslipidemia, hypothyroidism presenting with acute shortness of breath. On initial presentation, patient was tachycardic and more hypoxic. Laboratory workup mostly unremarkable. Chest x-ray showed moderate left pneumothorax estimated at 40%. Patient is now status post Thoravent. Pulmonology also consulted. Patient currently admitted for acute on chronic hypoxic respiratory failure in the setting of spontaneous pneumothorax. Subjective: Patient seen and examined at bedside. No acute events overnight. Has been having more SOB. Pertinent positives and negatives as discussed above, a complete review of systems was performed and all other systems are negative. Vitals Signs Reviewed. General: nontoxic, no distress, appears at stated age Derm: warm, dry Head: atraumatic, normocephalic, symmetric Eyes: EOMI, no lid lag, anicteric sclera Mouth: no lip lesion, mucus membranes moist Cardiovascular: S1S2 reg, no murmur Lungs: thoravent in place, reduced breath sounds in left upper lobe Abdominal: soft, nontender to palpation, no guarding, no appreciable organomegaly Ext: no gross muscle atrophy, no edema, no contractures, left upper extremity. Neuro: CN II-XI grossly intact, no focal neuro deficits Psych: Alert, oriented, appropriate affect Data Reviewed Today: Pertinent Labs: No new labs today Imaging: Chest x-ray independently interpreted, left pleural catheter in place, worsening pneumothorax Assessment and Plan: Active: Left pneumothorax Left chest wall and left upper extremity subcutaneous emphysema Acute on chronic hypoxic respiratory failure -Continue to wean oxygen -thoravent in place -Cardiac thoracic surgery following, thoravent unplugged, repeat chest x-ray pending -Pulmonology note reviewed, continue supportive care Chronic: COPD, not in exacerbation Hypothyroidism Nicotine dependence history Dyslipidemia Hypertension DVT ppx: Subcu heparin Code status: Full code Anticipated discharge place: Pending clinical course Anticipated discharge time: Pending clinical course Objective - Vital Signs Vital signs: Vital Signs Temp 97.6 F 07/27/23 12:00 Pulse 80 07/27/23 14:00 Resp 16 07/27/23 14:00 BP 123/74 07/27/23 12:00 Pulse Ox 96 07/27/23 12:00 FiO2 Intake & Output 07/26/23 07/27/23 07/27/23 18:59 06:59 18:59 Intake Total 600 480 Output Total 350 Balance 600 130 Intake: Oral 600 480 Output: Urine 350 Other: Voiding Method Bedside Commode Diaper # Voids 3 - Labs CBC & Chem 7: 07/25/23 08:30 07/25/23 08:30 Labs: Microbiology - Last 24 Hours (Table) 07/25/23 08:30 Blood Culture - Preliminary Blood 07/25/23 08:45 Blood Culture - Preliminary Blood
--- NOTE | 2023-07-27 15:56 | XR ---
EXAMINATION TYPE: XR chest 2V DATE OF EXAM: 07/27/2023 COMPARISON: Earlier today HISTORY: 82 year-old female follow-up pneumothorax TECHNIQUE: AP and lateral views FINDINGS: Left-sided Thoravent catheter remains in place. New small left pleural effusion. Similar eventration periphery of the right hemidiaphragm. The previous moderate sized pneumothorax has resolved. Mild hyp erinflation. Extensive subcutaneous emphysema persists along the left chest wall. Borderline heart si ze. IMPRESSION: 1. Left-sided Thoravent catheter in place with resolution of the previously seen pneumothorax. New sm all left pleural effusion. 2. Background COPD.
--- NOTE | 2023-07-27 16:48 | P.PN ---
Subjective Progress Note Date: 07/27/23 Principal diagnosis: Left-sided spontaneous pneumothorax, chronic cough and chronic shortness of breath which was progressively worse over the last 24 hours. Past medical history significant for previous tobacco dependence, COPD, chronic respiratory failure with home oxygen around the clock, and hypothyroidism after thyroidectomy from goiter. Status post day #2 placement of left Thoravent, placed by the emergency room physician. The patient was seen and examined in follow-up today 07/27/2023 at her bedside on the third floor cardiac stepdown unit. Currently she is sitting up to bedside chair, is awake, alert, oriented 3 and is in no acute distress. She continues to complain of some episodes of shortness of breath, although denies any complaints of pain. Left Thoravent chest tube remains in place, and is currently capped with the Thoravent plug. Chest x-ray was reviewed. Oxygen saturations are 92% on 3 L nasal cannula. She is achieving 1000 mL on her incen tive spirometry with much encouragement. She has been afebrile the last 24 hours. The patient's son is present at her bedside. Objective - Vital Signs Vital signs: Vital Signs Temp 97.6 F 07/27/23 12:00 Pulse 76 07/27/23 16:24 Resp 16 07/27/23 14:00 BP 123/74 07/27/23 12:00 Pulse Ox 96 07/27/23 12:00 FiO2 Intake & Output 07/26/23 07/27/23 07/27/23 18:59 06:59 18:59 Intake Total 600 480 Output Total 350 Balance 600 130 Intake: Oral 600 480 Output: Urine 350 Other: Voiding Method Bedside Commode Diaper # Voids 3 - Exam CONSTITUTIONAL: Appears comfortable, cooperative, no acute distress. RESPIRATORY: Lungs sounds diminished bilaterally, scattered expiratory wheezes. Respirations are symmetrical, nonlabored. Currently on 3 L nasal cannula with oxygen saturation 94%. Able to achieve 1000 mL on incentive spirometry. Strong cough. CARDIOVASCULAR: S1, S2 present. Regular rate and rhythm, sinus rhythm on telemetry. Palpable peripheral pulses bilaterally. +1 edema to her bilateral lower extremities. No calf pain or tenderness noted. SCDs present. GASTROINTESTINAL: Abdomen soft, nontender, nondistended. Active bowel sounds present 4 quadrants. Tolerating diet. GENITOURINARY: Continues to void clear, yellow urine INTEGUMENTARY: Skin is warm and dry with evidence of good perfusion. Ecchymotic area to her bilateral upper extremities, and to her left hand. NEUROLOGIC: Cranial nerves II through XII intact. No focal deficits. MUSKULOSKELETAL: Able to move all extremities, strength equal bilaterally, gait normal. PSYCHIATRIC: Alert and oriented to person place and time, appropriate affect, intact judgment and insight INVASIVE LINES AND TUBES: Left Thoravent chest tube in place, and is capped, with a Thoravent plug. - Allied health notes Allied health notes reviewed: nursing - Labs CBC & Chem 7: 07/25/23 08:30 07/25/23 08:30 Labs: Microbiology - Last 24 Hours (Table) 07/25/23 08:30 Blood Culture - Preliminary Blood 07/25/23 08:45 Blood Culture - Preliminary Blood - Imaging and Cardiology Chest x-ray: report reviewed, image reviewed Assessment and Plan Assessment: Large left-sided spontaneous pneumothorax, first occurrence, status post thoravent placement by the emergency room physician Shortness of breath, chest pain secondary to above Previous tobacco dependence COPD Chronic respiratory failure with home oxygen around the clock Hypothyroidism after thyroidectomy from goiter Plan: We will remove the plug from her left Thoravent chest tube today, and keep it capped. Encourage use of incentive spirometry 10 times every hour while awake. Wean oxygen as tolerated to home dose. Bronchodilator management per pulmonary medicine. Increase activity as tolerated. Continue to monitor daily chest x-rays. Medical management and other comorbidities per primary care service. More recommendations follow based on patient's clinical course. Time with Patient: Less than 30
[2023-07-28] MEDS: traMADol 50 MG TAB PO PRN ×4 (03:23→20:39)
[2023-07-28] MEDS: LEVOTHYROXINE 125 MCG TAB PO SCH (06:22)
--- NOTE | 2023-07-28 07:44 | XR ---
EXAMINATION TYPE: XR chest 1V portable DATE OF EXAM: 07/28/2023 HISTORY: Shortness of breath. COMPARISON: 07/27/2023 TECHNIQUE: Single view of the chest is submitted. FINDINGS: Demonstrated are scattered senescent parenchymal change. Left-sided Thoravent catheter is noted to be unchanged in position. No sizable pneumothorax present. Persistent subcutaneous emphysema along the left chest wall extending into the neck. The heart is stable. Hilar and mediastinal structures are within normal limits. Degenerative changes are seen of the dorsal spine. IMPRESSION: 1. Stable chest
[2023-07-28] MEDS: IPRATROPIUM-ALBUTEROL 3 ML NEB INHALATION SCH ×4 (07:47→20:34)
[2023-07-28] MEDS: FORMOTEROL FUMARATE 20 MCG/2 ML NEBU INHALATION SCH ×2 (07:47→20:34)
[2023-07-28] MEDS: BUDESONIDE 1 MG/2 ML NEBU INHALATION SCH ×2 (07:48→20:34)
[2023-07-28] MEDS: HEPARIN SODIUM,PORCINE 5,000 UNIT/ML 1 ML VIAL SQ SCH ×3 (09:36→23:32)
[2023-07-28] MEDS: LOSARTAN 50 MG TAB PO SCH (09:36)
[2023-07-28] MEDS: SERTRALINE 100 MG TAB PO SCH (09:36)
[2023-07-28] MEDS: FUROSEMIDE 40 MG TAB PO SCH (09:36)
[2023-07-28] MEDS: ATORVASTATIN 40 MG TAB PO SCH (09:36)
[2023-07-28] MEDS: ALPRAZolam 0.5 MG TAB PO PRN ×2 (09:42→20:39)
[2023-07-28] MEDS: NYSTATIN 100,000 UNIT/GM POWD 15 GM TOPICAL SCH ×2 (11:17→20:41)
--- NOTE | 2023-07-28 13:17 | P.PN ---
Subjective Progress Note Date: 07/28/23 I am seeing this patient in new consultation today 07/26/2023 after she presented to the emergency room with acute dyspnea yesterday morning and was found to have a moderate-sized left pneumothorax. Patient is a 82-year-old white female past medical history significant for severe oxygen-dependent COPD. She reprotedly follows with Dr. Flaherty in the pulmonary office for management of her COPD. She quit smoking approximately 10 years ago. Patient states that upon waking up yesterday she had intense nonradiating substernal chest pain and acute shortness of breath. She did call EMS, and was transported to [facility]. Chest x-ray on arrival demonstrated a moderate left pneumothorax estimated at 40%. The ER physician inserted a ThoraVent. Repeat chest x-ray showed partial reexpansion of the left lung with residual 1 cm left apical pneumothorax remaining. Denies history of previous pneumothoraces. Denies any recent trauma. Denies any recent airplane travel. He is currently sitting in the recliner, on 4 L/m nasal cannula, in no acute distress. She states that her breathing is much better compared to when she came in. Chest pain is improved. The left chest ThoraVent signal diaphragm is still fluctuating with respiration. It is not hooked to suction. Incentive spirometry was at bedside. CBC and CMP on arrival were unremarkable. Patient appears hemodynamically stable. On today's evaluation of 07/27/2023, the patient is being seen for a follow-up. Clinically she is stable. A repeat chest x-ray was done this morning and the patient was found to have a 30% pneumothorax on the left. Based on that, the thoravent was on. Repeat chest x-ray will be done at around 1400 today. She is on 4 L of oxygen by nasal cannula with a pulse ox of 92%. Using the incentive spirometer. She denies having any chest pain. Limited amount of subcutaneous emphysema is seen. She is known to have a test COPD with an FEV1 of 41% of predicted and she is oxygen dependent. No labs from today. Covid 19 testing was negative. On today's evaluation of 07/28/2023, the patient is doing well. No specific complaints. The thoravent was uncapped. Repeat chest x-ray from today shows no evidence of any pneumothorax. The patient clinically is doing well. No significant respiratory distress. The patient remains on 3 L O2 nasal cannula with a pulse ox of 99%. Blood work showing normal electrolytes. The BUN is at 27 with a creatinine of 0.8. She remains on bronchodilators. Objective - Vital Signs Vital signs: Vital Signs Temp 97.6 F 07/28/23 10:00 Pulse 97 07/28/23 10:00 Resp 22 07/28/23 10:00 BP 118/67 07/28/23 10:00 Pulse Ox 94 L 07/28/23 10:00 FiO2 Intake & Output 07/27/23 07/28/23 07/28/23 18:59 06:59 18:59 Intake Total 480 200 Output Total 350 Balance 130 200 Intake: Oral 480 200 Output: Urine 350 Other: Voiding Method Bedside Commode Bedside Commode Bedside Commode Diaper Diaper Diaper # Voids 1 - Exam GENERAL EXAM: Alert, 82-year-old obese white female , comfortable in no apparent distress. The patient is currently on 3 L of oxygen by nasal cannula HEAD: Normocephalic and atraumatic EYES: Normal reaction of pupils, equal size. NOSE: Clear with pink turbinates. THROAT: No erythema or exudates. NECK: No masses, no JVD. CHEST: No chest wall deformity. There is a left chest Thoravent. Red signal diaphragm is still fluctuating with respiration LUNGS: Equal air entry with no crackles, wheeze, rhonchi or dullness. On 4 L/m nasal cannula. No conversational dyspnea or accessory muscle use.. CVS: S1 and S2 normal with no audible murmur, regular rhythm. No extra heart sounds ABDOMEN: No hepatosplenomegaly, active bowel sounds, no guarding or rigidity. SPINE: No scoliosis or deformity SKIN: No rashes CENTRAL NERVOUS SYSTEM: No focal deficits, tone is normal in all 4 extremities. EXTREMITIES: There is no peripheral edema, clubbing, or cyanosis. Peripheral pulses are intact. - Labs CBC & Chem 7: 07/25/23 08:30 07/25/23 08:30 Labs: Microbiology - Last 24 Hours (Table) 07/25/23 08:30 Blood Culture - Preliminary Blood 07/25/23 08:45 Blood Culture - Preliminary Blood Assessment and Plan Assessment: Acute secondary spontaneous left-sided pneumothorax, status post insertion of left chest Thoravent. Pneumothorax was originally estimated at 40%, recovered and subsequently recurred after capping the thoravent. The repeat chest x-ray from today shows especially the left lung. No evidence of any pneumothorax. The catheter will be kept in place for another 24 hours and In the morning Acute on chronic hypoxemic respiratory failure, secondary to above, [id number] per minute nasal cannula. Severe chronic obstructive pulmonary disease, not in exacerbation. Baseline FEV1 is 41% of predicted. Chronically oxygen dependent on 2 L/m nasal cannula 15/05. Former tobacco smoker Hypothyroidism Benign essential hypertension Hyperlipidemia Obesity, with a BMI of 30.4 kg/m Plan: We'll keep the thoravent in place , uncapped We'll capp the thoravent in the morning and repeat a follow-up chest x-ray clinically stable Oxygenation is stable at 3 L nasal cannula Limited subcutaneous emphysema We'll keep the catheter in place. We'll continue with bronchodilators. Continue using the incentive spirometer We'll continue to follow.
--- NOTE | 2023-07-28 14:16 | P.PN ---
Subjective Progress Note Date: 07/28/23 Hospital Course: 82-year-old female with history of COPD on 3 L nasal cannula, hypertension, dy slipidemia, hypothyroidism presenting with acute shortness of breath. On initial presentation, patient was tachycardic and more hypoxic. Laboratory workup mostly unremarkable. Chest x-ray showed moderate left pneumothorax estimated at 40%. Patient is now status post Thoravent. Pulmonology also consulted. Patient currently admitted for acute on chronic hypoxic respiratory failure in the setting of spontaneous pneumothorax. Slowly improving. Subjective: Patient seen and examined at bedside. No acute events overnight. No acute events. Pertinent positives and negatives as discussed above, a complete review of systems was performed and all other systems are negative. Vitals Signs Reviewed. General: nontoxic, no distress, appears at stated age Derm: warm, dry Head: atraumatic, normocephalic, symmetric Eyes: EOMI, no lid lag, anicteric sclera Mouth: no lip lesion, mucus membranes moist Cardiovascular: S1S2 reg, no murmur Lungs: thoravent in place, reduced breath sounds in left upper lobe Abdominal: soft, nontender to palpation, no guarding, no appreciable organomegaly Ext: no gross muscle atrophy, no edema, no contractures, left upper extremity. Neuro: CN II-XI grossly intact, no focal neuro deficits Psych: Alert, oriented, appropriate affect Data Reviewed Today: Pertinent Labs: No new labs today Imaging: Chest x-ray independently interpreted, left pleural catheter in place, improved pneumothorax Assessment and Plan: Active: Left pneumothorax Left chest wall and left upper extremity subcutaneous emphysema Acute on chronic hypoxic respiratory failure -Continue to wean oxygen -thoravent in place -Cardiac thoracic surgery following, thoravent currently unplugged -Pulmonology note reviewed, continue supportive care Chronic: COPD, not in exacerbation Hypothyroidism Nicotine dependence history Dyslipidemia Hypertension DVT ppx: Subcu heparin Code status: Full code Anticipated discharge place: home with home care Anticipated discharge time: tomorrow Objective - Vital Signs Vital signs: Vital Signs Temp 97.6 F 07/28/23 11:18 Pulse 102 H 07/28/23 11:54 Resp 20 07/28/23 11:18 BP 125/70 07/28/23 11:18 Pulse Ox 100 07/28/23 11:18 FiO2 Intake & Output 07/27/23 07/28/23 07/28/23 18:59 06:59 18:59 Intake Total 480 400 Output Total 350 Balance 130 400 Intake: Oral 480 400 Output: Urine 350 Other: Voiding Method Bedside Commode Bedside Commode Bedside Commode Diaper Diaper Diaper # Voids 1 - Labs CBC & Chem 7: 07/25/23 08:30 07/25/23 08:30 Labs: Microbiology - Last 24 Hours (Table) 07/25/23 08:30 Blood Culture - Preliminary Blood 07/25/23 08:45 Blood Culture - Preliminary Blood
--- NOTE | 2023-07-28 14:41 | P.PN ---
Subjective Progress Note Date: 07/28/23 Principal diagnosis: Left-sided spontaneous pneumothorax, chronic cough and chronic shortness of breath which was progressively worse over the last 24 hours. Past medical history significant for previous tobacco dependence, COPD, chronic respiratory failure with home oxygen around the clock, and hypothyroidism after thyroidectomy from goiter. Status post day #3 placement of left Thoravent, placed by the emergency room physician. The patient was seen and examined in follow-up today 07/28/2023 at her bedside on the cardiac step down unit. The patient is currently sitting up to bedside chair, is awake, alert, oriented 3 and is in no acute distress. Denies any complaints of pain or shortness of breath at this time. She reports she feels improved today. Her daughter and son are present at her bedside. Oxygen saturations are 100% on 3 L nasal cannula and she is achieving 9471-1098 mL on her incentive spirometry with encouragement. Remote telemetry showing normal sinus rhythm heart rate 95 BPM. Left chest Thoravent remains in place with no air leak present at this time. Left Thoravent remains capped and the plug was removed yesterday. Chest x-ray was reviewed. Objective - Vital Signs Vital signs: Vital Signs Temp 97.6 F 07/28/23 11:18 Pulse 102 H 07/28/23 11:54 Resp 20 07/28/23 11:18 BP 125/70 07/28/23 11:18 Pulse Ox 100 07/28/23 11:18 FiO2 Intake & Output 07/27/23 07/28/23 07/28/23 18:59 06:59 18:59 Intake Total 480 400 Output Total 350 Balance 130 400 Intake: Oral 480 400 Output: Urine 350 Other: Voiding Method Bedside Commode Bedside Commode Bedside Commode Diaper Diaper Diaper # Voids 1 - Exam CONSTITUTIONAL: Appears comfortable, cooperative, no acute distress. RESPIRATORY: Lungs sounds diminished bilaterally, scattered expiratory wheezes. Respirations are symmetrical, nonlabored. Currently on 3 L nasal cannula with oxygen saturation 100%. Able to achieve 2367-7662 mL on incentive spirometry. Strong cough. CARDIOVASCULAR: S1, S2 present. Regular rate and rhythm, sinus rhythm on telemetry. Palpable peripheral pulses bilaterally. +1 edema to her bilateral lower extremities. No calf pain or tenderness noted. SCDs present. GASTROINTESTINAL: Abdomen soft, nontender, nondistended. Active bowel sounds present 4 quadrants. Tolerating diet. GENITOURINARY: Continues to void clear, yellow urine INTEGUMENTARY: Skin is warm and dry with evidence of good perfusion. Ecchymotic area to her bilateral upper extremities, and to her left hand, improving. NEUROLOGIC: Cranial nerves II through XII intact. No focal deficits. MUSKULOSKELETAL: Able to move all extremities, strength equal bilaterally, gait normal. PSYCHIATRIC: Alert and oriented to person place and time, appropriate affect, intact judgment and insight INVASIVE LINES AND TUBES: Left Thoravent chest tube in place, and is capped. No air leak present. - Allied health notes Allied health notes reviewed: nursing - Labs CBC & Chem 7: 07/25/23 08:30 07/25/23 08:30 Labs: Microbiology - Last 24 Hours (Table) 07/25/23 08:30 Blood Culture - Preliminary Blood 07/25/23 08:45 Blood Culture - Preliminary Blood - Imaging and Cardiology Chest x-ray: report reviewed, image reviewed Assessment and Plan Assessment: Large left-sided spontaneous pneumothorax, first occurrence, status post thoravent placement by the emergency room physician Shortness of breath, chest pain secondary to above Previous tobacco dependence COPD Chronic respiratory failure with home oxygen around the clock Hypothyroidism after thyroidectomy from goiter Plan: Keep left Thoravent chest tube today, and keep it capped, no air leak present to day we'll more than likely plug the Thoravent again tomorrow 07/29/2023. Encourage use of incentive spirometry 10 times every hour while awake. Wean oxygen as tolerated to home dose. Bronchodilator management per pulmonary medicine. Increase activity as tolerated. Continue to monitor daily chest x-rays. Medical management and other comorbidities per primary care service. More recommendations follow based on patient's clinical course. Time with Patient: Greater than 30
[2023-07-29] MEDS: traMADol 50 MG TAB PO PRN ×4 (05:31→22:51)
[2023-07-29] MEDS: LEVOTHYROXINE 125 MCG TAB PO SCH (05:32)
[2023-07-29] MEDS: SERTRALINE 100 MG TAB PO SCH (08:06)
[2023-07-29] MEDS: ATORVASTATIN 40 MG TAB PO SCH (08:06)
[2023-07-29] MEDS: FUROSEMIDE 40 MG TAB PO SCH (08:06)
[2023-07-29] MEDS: LOSARTAN 50 MG TAB PO SCH (08:06)
[2023-07-29] MEDS: NYSTATIN 100,000 UNIT/GM POWD 15 GM TOPICAL SCH ×2 (08:07→20:12)
[2023-07-29] MEDS: HEPARIN SODIUM,PORCINE 5,000 UNIT/ML 1 ML VIAL SQ SCH ×3 (08:07→22:54)
[2023-07-29] MEDS: ALPRAZolam 0.5 MG TAB PO PRN ×2 (08:07→22:52)
[2023-07-29] MEDS: FORMOTEROL FUMARATE 20 MCG/2 ML NEBU INHALATION SCH ×2 (08:51→20:52)
[2023-07-29] MEDS: BUDESONIDE 1 MG/2 ML NEBU INHALATION SCH ×2 (08:51→20:52)
[2023-07-29] MEDS: IPRATROPIUM-ALBUTEROL 3 ML NEB INHALATION SCH ×4 (08:51→20:52)
--- NOTE | 2023-07-29 09:14 | P.PN ---
Subjective Progress Note Date: 07/29/23 Principal diagnosis: Large left-sided spontaneous pneumothorax, status post thoravent placement by the emergency room physicians. Previous medical history of previous tobacco dependence, COPD, chronic respiratory failure with home oxygen around the clock, hypothyroidism after thyroidectomy from goiter The patient was seen and examined this morning sitting up in the recliner on the cardiac stepdown unit eating breakfast in no acute distress. States pain is controlled on current medication regimen, denies increased significant shortness of breath as she is routinely short of breath due to her COPD. Remains on 3 L nasal cannula with oxygen saturation the mid 90s, able to achieve 1000 mL on incentive spirometry. Thoravent remains to waterseal, no air leak present. Viola st x-ray reviewed. No other new concerns. Objective - Vital Signs Vital signs: Vital Signs Temp 97.6 F 07/29/23 07:50 Pulse 92 07/29/23 09:02 Resp 22 07/29/23 07:50 BP 100/70 07/29/23 07:50 Pulse Ox 93 L 07/29/23 07:50 FiO2 Intake & Output 07/28/23 07/29/23 07/29/23 18:59 06:59 18:59 Intake Total 640 10 Balance 640 10 Intake: IV 10 Invasive Line 2 10 Oral 640 Other: Voiding Method Bedside Commode Bedside Commode Bedside Commode Diaper Diaper # Voids 1 1 - Exam CONSTITUTIONAL: Appears comfortable, cooperative, no acute distress RESPIRATORY: Lungs sounds diminished bilaterally with expiratory wheezes present. Respirations even, nonlabored. Currently on 3 L nasal cannula with oxygen saturation 96%. Able to achieve 1000 mL on incentive spirometry. Strong cough. CARDIOVASCULAR: S1, S2 present. Regular rate and rhythm, sinus rhythm on telemetry. Palpable peripheral pulses bilaterally. No edema present. No calf pain or tenderness noted. SCDs present. GASTROINTESTINAL: Abdomen soft, nontender, nondistended. Active bowel sounds present 4 quadrants. Tolerating diet GENITOURINARY: Continues to void INTEGUMENTARY: Skin is warm and dry NEUROLOGIC: Cranial nerves II through XII intact MUSKULOSKELETAL: Able to move all extremities, strength equal bilaterally, gait normal PSYCHIATRIC: Alert and oriented to person place and time, appropriate affect, intact judgment and insight INVASIVE LINES AND TUBES: Left sided thoravent present waterseal, no air leak present - Allied health notes Allied health notes reviewed: nursing - Labs CBC & Chem 7: 07/25/23 08:30 10 08:30 Labs: Microbiology - Last 24 Hours (Table) 07/25/23 08:30 Blood Culture - Preliminary Blood 07/25/23 08:45 Blood Culture - Preliminary Blood - Imaging and Cardiology Chest x-ray: image reviewed Assessment and Plan Assessment: Large left-sided spontaneous pneumothorax, first occurrence, status post thoravent placement by the emergency room physicians Shortness of breath, chest pain secondary to above Previous tobacco dependence COPD Chronic respiratory failure with home oxygen around the clock Hypothyroidism after thyroidectomy from goiter Plan: Will place occlusive cap Will repeat chest x-ray in the morning Encourage use of incentive spirometry 10 times every hour while awake. Bronchodilator management per pulmonary medicine. Increase activity as tolerated. Continue to monitor daily chest x-rays. Medical management and other comorbidities per primary care service. More recommendations follow based on patient's clinical course.
--- NOTE | 2023-07-29 11:17 | P.PN ---
Subjective Progress Note Date: 07/29/23 Hospital Course: 82-year-old female with history of COPD on 3 L nasal cannula, hypertension, dy slipidemia, hypothyroidism presenting with acute shortness of breath. On initial presentation, patient was tachycardic and more hypoxic. Laboratory workup mostly unremarkable. Chest x-ray showed moderate left pneumothorax estimated at 40%. Patient is now status post Thoravent. Pulmonology also consulted. Patient currently admitted for acute on chronic hypoxic respiratory failure in the setting of spontaneous pneumothorax. Slowly improving. Subjective: Patient seen and examined at bedside. No acute events overnight. No acute events. Pertinent positives and negatives as discussed above, a complete review of systems was performed and all other systems are negative. Vitals Signs Reviewed. General: nontoxic, no distress, appears at stated age Derm: warm, dry Head: atraumatic, normocephalic, symmetric Eyes: EOMI, no lid lag, anicteric sclera Mouth: no lip lesion, mucus membranes moist Cardiovascular: S1S2 reg, no murmur Lungs: thoravent in place, reduced breath sounds in left upper lobe Abdominal: soft, nontender to palpation, no guarding, no appreciable organomegaly Ext: no gross muscle atrophy, no edema, no contractures, left upper extremity. Neuro: CN II-XI grossly intact, no focal neuro deficits Psych: Alert, oriented, appropriate affect Data Reviewed Today: Pertinent Labs: No new labs today Imaging: Chest x-ray independently interpreted, left pleural catheter in place, improved pneumothorax Assessment and Plan: Active: Left pneumothorax, spontaneous Left chest wall and left upper extremity subcutaneous emphysema Acute on chronic hypoxic respiratory failure -Continue to wean oxygen, currently at baseline -Cardiac thoracic surgery note reviewed, thoravent capped, repeat CXR tomorrow -Pulmonology following Chronic: COPD, not in exacerbation Hypothyroidism Nicotine dependence history Dyslipidemia Hypertension DVT ppx: Subcu heparin Code status: Full code Anticipated discharge place: home with home care Anticipated discharge time: tomorrow Objective - Vital Signs Vital signs: Vital Signs Temp 97.6 F 07/29/23 07:50 Pulse 90 07/29/23 09:14 Resp 22 07/29/23 07:50 BP 100/70 07/29/23 07:50 Pulse Ox 93 L 07/29/23 07:50 FiO2 Intake & Output 10/06/23 10/07/23 10/07/23 18:59 06:59 18:59 Intake Total 640 250 Balance 640 250 Intake: IV 10 Invasive Line 2 10 Oral 640 240 Other: Voiding Method Bedside Commode Bedside Commode Bedside Commode Diaper Diaper # Voids 1 1 - Labs CBC & Chem 7: 07/25/23 08:30 07/25/23 08:30 Labs: Microbiology - Last 24 Hours (Table) 07/25/23 08:30 Blood Culture - Preliminary Blood 07/25/23 08:45 Blood Culture - Preliminary Blood
--- NOTE | 2023-07-29 12:13 | XR ---
EXAM: XR chest 1V portable CLINICAL INDICATION:Female, 82 years old with history of Left pneumothorax; [facility] COMPARISON: 07/28/2023 and before TECHNIQUE: Chest single view. FINDINGS: Lines/tubes/devices: Left apical Thora vent catheter redemonstrated. Cardiomediastinum: Cardiac silhouette appears stable, heart size upper normal. Unremarkable mediastinal silhouette. Vasculature: No increased pulmonary vasculature. Lungs/pleura: Mildly hyperinflated lungs with mild interstitial coarsening, could be related to COPD. Possible mild infiltrate or atelectasis in the left mid to lower lung zones. Likely stable small left pleural effu wild. No visible pneumothorax. Bones/soft tissues: Osseous structures appear unchanged. [id number] soft tissue emphysema in the left lateral clint st wall extending to the left neck, similar in appearance to the prior study IMPRESSION: 1. Left apical Thora vent catheter redemonstrated. 2. No sizable pneumothorax demonstrated. Stable soft tissue emphysema left chest wall. 3. Possible mild infiltrate or atelectasis in the left mid to lower lung zones. Likely stable small left pleural effusion.
--- NOTE | 2023-07-29 12:15 | P.PN ---
Subjective Progress Note Date: 07/29/23 I am seeing this patient in new consultation today 07/26/2023 after she presented to the emergency room with acute dyspnea yesterday morning and was found to have a moderate-sized left pneumothorax. Patient is a 82-year-old white female past medical history significant for severe oxygen-dependent COPD. She reprotedly follows with Dr. Flaherty in the pulmonary office for management of her COPD. She quit smoking approximately 10 years ago. Patient states that upon waking up yesterday she had intense nonradiating substernal chest pain and acute shortness of breath. She did call EMS, and was transported to [facility]. Chest x-ray on arrival demonstrated a moderate left pneumothorax estimated at 40%. The ER physician inserted a ThoraVent. Repeat chest x-ray showed partial reexpansion of the left lung with residual 1 cm left apical pneumothorax remaining. Denies history of previous pneumothoraces. Denies any recent trauma. Denies any recent airplane travel. He is currently sitting in the recliner, on 4 L/m nasal cannula, in no acute distress. She states that her breathing is much better compared to when she came in. Chest pain is improved. The left chest ThoraVent signal diaphragm is still fluctuating with respiration. It is not hooked to suction. Incentive spirometry was at bedside. CBC and CMP on arrival were unremarkable. Patient appears hemodynamically stable. On today's evaluation of 07/27/2023, the patient is being seen for a follow-up. Clinically she is stable. A repeat chest x-ray was done this morning and the patient was found to have a 30% pneumothorax on the left. Based on that, the thoravent was on. Repeat chest x-ray will be done at around 1400 today. She is on 4 L of oxygen by nasal cannula with a pulse ox of 92%. Using the incentive spirometer. She denies having any chest pain. Limited amount of subcutaneous emphysema is seen. She is known to have a test COPD with an FEV1 of 41% of predicted and she is oxygen dependent. No labs from today. Covid 19 testing was negative. On today's evaluation of 07/28/2023, the patient is doing well. No specific complaints. The thoravent was uncapped. Repeat chest x-ray from today shows no evidence of any pneumothorax. The patient clinically is doing well. No significant respiratory distress. The patient remains on 3 L O2 nasal cannula with a pulse ox of 99%. Blood work showing normal electrolytes. The BUN is at 27 with a creatinine of 0.8. She remains on bronchodilators. 07/29/2023, the patient is clinically stable. No respiratory distress. Repeat chest x-ray showed no evidence of any pneumothorax. There is some subcutaneous emphysema. The thoravent was capped. She is currently on 3 L of oxygen by nasal cannula with pulse ox of 97% and she is using the senna spirometer. No evidence of any air leak earlier. No new concerns. No other complaints. Objective - Vital Signs Vital signs: Vital Signs Temp 97.6 F 07/29/23 07:50 Pulse 90 07/29/23 09:14 Resp 22 07/29/23 07:50 BP 100/70 07/29/23 07:50 Pulse Ox 93 L 07/29/23 07:50 FiO2 Intake & Output 07/28/23 07/29/23 07/29/23 18:59 06:59 18:59 Intake Total 640 250 Balance 640 250 Intake: IV 10 Invasive Line 2 10 Oral 640 240 Other: Voiding Method Bedside Commode Bedside Commode Bedside Commode Diaper Diaper # Voids 1 1 - Exam GENERAL EXAM: Alert, 82-year-old obese white female , comfortable in no apparent distress. The patient is currently on 3 L of oxygen by nasal cannula HEAD: Normocephalic and atraumatic EYES: Normal reaction of pupils, equal size. NOSE: Clear with pink turbinates. THROAT: No erythema or exudates. NECK: No masses, no JVD. CHEST: No chest wall deformity. There is a left chest Thoravent. Red signal diaphragm is still fluctuating with respiration LUNGS: Equal air entry with no crackles, wheeze, rhonchi or dullness. On 4 L/m nasal cannula. No conversational dyspnea or accessory muscle use.. CVS: S1 and S2 normal with no audible murmur, regular rhythm. No extra heart sounds ABDOMEN: No hepatosplenomegaly, active bowel sounds, no guarding or rigidity. SPINE: No scoliosis or deformity SKIN: No rashes CENTRAL NERVOUS SYSTEM: No focal deficits, tone is normal in all 4 extremities. EXTREMITIES: There is no peripheral edema, clubbing, or cyanosis. Peripheral pulses are intact. - Labs CBC & Chem 7: 07/25/23 08:30 07/25/23 08:30 Labs: Microbiology - Last 24 Hours (Table) 07/25/23 08:30 Blood Culture - Preliminary Blood 07/25/23 08:45 Blood Culture - Preliminary Blood Assessment and Plan Assessment: Acute secondary spontaneous left-sided pneumothorax, status post insertion of left chest Thoravent. Pneumothorax was originally estimated at 40%, recovered and subsequently recurred after capping the thoravent. The repeat chest x-ray from today shows no evidence of any pneumothorax Acute on chronic hypoxemic respiratory failure, secondary to above, [id number] per minute nasal cannula. Severe chronic obstructive pulmonary disease, not in exacerbation. Baseline FEV1 is 41% of predicted. Chronically oxygen dependent on 2 L/m nasal cannula 15/05. Former tobacco smoker Hypothyroidism Benign essential hypertension Hyperlipidemia Obesity, with a BMI of 30.4 kg/m Plan: We'll keep the thoravent in place , capped Repeat a chest x-ray at noontime today With possibly remove the tube tomorrow clinically stable Oxygenation is stable at 3 L nasal cannula Limited subcutaneous emphysema We'll continue with bronchodilators. Continue using the incentive spirometer We'll continue to follow.
[2023-07-29 12:35] VITALS: BMI 30.4
[2023-07-30] MEDS: LEVOTHYROXINE 125 MCG TAB PO SCH (06:06)
[2023-07-30] MEDS: traMADol 50 MG TAB PO PRN ×2 (06:07→11:33)
--- NOTE | 2023-07-30 07:30 | XR ---
EXAMINATION TYPE: XR chest 2V DATE OF EXAM: 07/30/2023 7:15 AM CLINICAL INDICATION:Female, 82 years old with history of pneumothorax; [facility] COMPARISON: 07/29/2023 and before TECHNIQUE: Chest 2 views FINDINGS: Lines/tubes/devices: Left apical Thora vent catheter redemonstrated. Cardiomediastinum: Cardiac silhouette appears stable, heart size upper normal. Unremarkable mediastinal silhouette. Vasculature: No increased pulmonary vasculature. Lungs/pleura: Mildly hyperinflated lungs with mild interstitial coarsening, could be related to COPD. Mild infiltra te or atelectasis in the left mid to lower lung zones. Small left pleural effusion, stable to slightl y larger. No visible pneumothorax. Bones/soft tissues: Osseous structures appear unchanged. Osteopenia and degenerative changes of the thoracic spine. Parti al eventration along the lateral right hemidiaphragm. [id number] soft tissue emphysema in the left chest wall extending to the left neck, similar in appearance to the prior study IMPRESSION: 1. Left apical Thora vent catheter again noted, without sizable pneumothorax demonstrated. 2. Stable soft tissue emphysema left chest wall. 3. Mild infiltrate or atelectasis in the left mid to lower lung zones. Small left pleural effusion, stable to slightly larger.
[2023-07-30] MEDS: SERTRALINE 100 MG TAB PO SCH (07:38)
[2023-07-30] MEDS: ATORVASTATIN 40 MG TAB PO SCH (07:38)
[2023-07-30] MEDS: LOSARTAN 50 MG TAB PO SCH (07:38)
[2023-07-30] MEDS: HEPARIN SODIUM,PORCINE 5,000 UNIT/ML 1 ML VIAL SQ SCH ×2 (07:38→12:30)
[2023-07-30] MEDS: FUROSEMIDE 40 MG TAB PO SCH (07:38)
[2023-07-30] MEDS: ALPRAZolam 0.5 MG TAB PO PRN (07:38)
--- NOTE | 2023-07-30 08:04 | P.PN ---
Subjective Progress Note Date: 07/30/23 Principal diagnosis: Large left-sided spontaneous pneumothorax, status post thoravent placement by the emergency room physicians. Previous medical history of previous tobacco dependence, COPD, chronic respiratory failure with home oxygen around the clock, hypothyroidism after thyroidectomy from goiter The patient was seen and examined this morning sitting up in the recliner on the cardiac stepdown unit in no acute distress. States pain is controlled on current medication regimen, denies increased significant shortness of breath as she is routinely short of breath due to her COPD. Remains on 3 L nasal cannula with oxygen saturation the mid 90s, able to achieve 1250 mL on incentive spirometry. Thoravent capped yesterday. Chest x-ray reviewed. No other new concerns. Objective - Vital Signs Vital signs: Vital Signs Temp 97.8 F 07/30/23 07:50 Pulse 89 07/30/23 07:50 Resp 20 07/30/23 07:50 BP 111/66 07/30/23 07:50 Pulse Ox 97 07/30/23 07:50 FiO2 Intake & Output 07/29/23 07/30/23 07/30/23 18:59 06:59 18:59 Intake Total 1175 Output Total 200 Balance 975 Weight 90.718 kg Intake: IV 15 Invasive Line 2 15 Oral 1160 Output: Urine 200 Other: Voiding Method Bedside Commode Bedside Commode Bedside Commode # Voids 1 3 1 # Bowel Movements 1 1 - Exam CONSTITUTIONAL: Appears comfortable, cooperative, no acute distress RESPIRATORY: Lungs sounds diminished bilaterally with expiratory wheezes present. Respirations even, nonlabored. Currently on 3 L nasal cannula with oxygen saturation 96%. Able to achieve 1250 mL on incentive spirometry. Strong cough. CARDIOVASCULAR: S1, S2 present. Regular rate and rhythm, sinus rhythm on telemetry. Palpable peripheral pulses bilaterally. No edema present. No calf pain or tenderness noted. SCDs present. GASTROINTESTINAL: Abdomen soft, nontender, nondistended. Active bowel sounds present 4 quadrants. Tolerating diet GENITOURINARY: Continues to void INTEGUMENTARY: Skin is warm and dry NEUROLOGIC: Cranial nerves II through XII intact MUSKULOSKELETAL: Able to move all extremities, strength equal bilaterally, gait normal PSYCHIATRIC: Alert and oriented to person place and time, appropriate affect, intact judgment and insight INVASIVE LINES AND TUBES: Left sided thoravent present, capped - Allied health notes Allied health notes reviewed: nursing - Labs CBC & Chem 7: 07/25/23 08:30 07/25/23 08:30 - Imaging and Cardiology Chest x-ray: report reviewed, image reviewed Assessment and Plan Assessment: Large left-sided spontaneous pneumothorax, first occurrence, status post thoravent placement by the emergency room physicians Shortness of breath, chest pain secondary to above Previous tobacco dependence COPD Chronic respiratory failure with home oxygen around the clock Hypothyroidism after thyroidectomy from goiter Plan: Likely will discontinue thoravent, will discuss with Dr. Flaherty Will repeat chest x-ray in the morning Encourage use of incentive spirometry 10 times every hour while awake. Bronchodilator management per pulmonary medicine. Increase activity as tolerated. Continue to monitor daily chest x-rays. Medical management and other comorbidities per primary care service. More recommendations follow based on patient's clinical course.
[2023-07-30 08:07] VITALS: RESP 20
[2023-07-30] MEDS: BUDESONIDE 1 MG/2 ML NEBU INHALATION SCH (08:44)
[2023-07-30] MEDS: FORMOTEROL FUMARATE 20 MCG/2 ML NEBU INHALATION SCH (08:44)
[2023-07-30] MEDS: IPRATROPIUM-ALBUTEROL 3 ML NEB INHALATION SCH ×2 (08:44→11:22)
--- NOTE | 2023-07-30 11:07 | XR ---
EXAMINATION TYPE: XR chest 2V DATE OF EXAM: 07/30/2023 10:35 AM CLINICAL INDICATION:Female, 82 years old with history of post thoravent removal; [facility] COMPARISON: Chest radiographs from 07/30/2023 TECHNIQUE: XR chest 2V Frontal and lateral views of the chest. FINDINGS: Lungs/Pleura: Streaky atelectasis in the lung bases. Flattening of the diaphragm. There is no evidenc e of pleural effusion, focal consolidation, or pneumothorax. Pulmonary vascularity: Unremarkable. Heart/mediastinum: Cardiomediastinal silhouette is unremarkable. Musculoskeletal: No acute osseous pathology. Interval thoracotomy tube removal. There is subcutaneous emphysema along the left chest wall. IMPRESSION: Interval thoracotomy tube removal. There is subcutaneous emphysema along the left chest wall. No evid ence for pneumothorax.
[2023-07-30] MEDS: NYSTATIN 100,000 UNIT/GM POWD 15 GM TOPICAL SCH (11:33)
[2023-07-30 11:40] VITALS: PULSE 84
[2023-07-30 11:41] VITALS: BP 108/54; TEMP 97.6
--- NOTE | 2023-07-30 11:42 | P.PN ---
Subjective Progress Note Date: 07/30/23 I am seeing this patient in new consultation today 07/26/2023 after she presented to the emergency room with acute dyspnea yesterday morning and was found to have a moderate-sized left pneumothorax. Patient is a 82-year-old white female past medical history significant for severe oxygen-dependent COPD. She reprotedly follows with Dr. Flaherty in the pulmonary office for management of her COPD. She quit smoking approximately 10 years ago. Patient states that upon waking up yesterday she had intense nonradiating substernal chest pain and acute shortness of breath. She did call EMS, and was transported to [facility]. Chest x-ray on arrival demonstrated a moderate left pneumothorax estimated at 40%. The ER physician inserted a ThoraVent. Repeat chest x-ray showed partial reexpansion of the left lung with residual 1 cm left apical pneumothorax remaining. Denies history of previous pneumothoraces. Denies any recent trauma. Denies any recent airplane travel. He is currently sitting in the recliner, on 4 L/m nasal cannula, in no acute distress. She states that her breathing is much better compared to when she came in. Chest pain is improved. The left chest ThoraVent signal diaphragm is still fluctuating with respiration. It is not hooked to suction. Incentive spirometry was at bedside. CBC and CMP on arrival were unremarkable. Patient appears hemodynamically stable. On today's evaluation of 07/27/2023, the patient is being seen for a follow-up. Clinically she is stable. A repeat chest x-ray was done this morning and the patient was found to have a 30% pneumothorax on the left. Based on that, the thoravent was on. Repeat chest x-ray will be done at around 1400 today. She is on 4 L of oxygen by nasal cannula with a pulse ox of 92%. Using the incentive spirometer. She denies having any chest pain. Limited amount of subcutaneous emphysema is seen. She is known to have a test COPD with an FEV1 of 41% of predicted and she is oxygen dependent. No labs from today. Covid 19 testing was negative. On today's evaluation of 07/28/2023, the patient is doing well. No specific complaints. The thoravent was uncapped. Repeat chest x-ray from today shows no evidence of any pneumothorax. The patient clinically is doing well. No significant respiratory distress. The patient remains on 3 L O2 nasal cannula with a pulse ox of 99%. Blood work showing normal electrolytes. The BUN is at 27 with a creatinine of 0.8. She remains on bronchodilators. 07/29/2023, the patient is clinically stable. No respiratory distress. Repeat chest x-ray showed no evidence of any pneumothorax. There is some subcutaneous emphysema. The thoravent was capped. She is currently on 3 L of oxygen by nasal cannula with pulse ox of 97% and she is using the senna spirometer. No evidence of any air leak earlier. No new concerns. No other complaints. On today's evaluation of 07/30/2023, the patient has no specific complaints. The patient underwent a chest x-ray reportedly showed no evidence of any pneumothorax. Subsequently, the catheter was removed and the follow-up chest x- ray was done that showed interval removal of the thoracotomy tube and there was no evidence of any pneumothorax. The patient has some limited infiltrates emphysema. Oxygenation is stable. She is ambulating. No new complaints. No new labs from today. Objective - Vital Signs Vital signs: Vital Signs Temp 97.8 F 07/30/23 07:50 Pulse 92 07/30/23 08:58 Resp 20 07/30/23 07:50 BP 111/66 07/30/23 07:50 Pulse Ox 97 07/30/23 08:46 FiO2 Intake & Output 07/29/23 07/30/23 07/30/23 18:59 06:59 18:59 Intake Total 1175 360 Output Total 200 Balance 975 360 Weight 90.718 kg Intake: IV 15 Invasive Line 2 15 Oral 1160 360 Output: Urine 200 Other: Voiding Method Bedside Commode Bedside Commode Bedside Commode # Voids 1 3 1 # Bowel Movements 1 1 - Exam GENERAL EXAM: Alert, 82-year-old obese white female , comfortable in no apparent distress. The patient is currently on 3 L of oxygen by nasal cannula HEAD: Normocephalic and atraumatic EYES: Normal reaction of pupils, equal size. NOSE: Clear with pink turbinates. THROAT: No erythema or exudates. NECK: No masses, no JVD. CHEST: No chest wall deformity. There is a left chest Thoravent. Red signal diaphragm is still fluctuating with respiration LUNGS: Equal air entry with no crackles, wheeze, rhonchi or dullness. On 4 L/m nasal cannula. No conversational dyspnea or accessory muscle use.. CVS: S1 and S2 normal with no audible murmur, regular rhythm. No extra heart sounds ABDOMEN: No hepatosplenomegaly, active bowel sounds, no guarding or rigidity. SPINE: No scoliosis or deformity SKIN: No rashes CENTRAL NERVOUS SYSTEM: No focal deficits, tone is normal in all 4 extremities. EXTREMITIES: There is no peripheral edema, clubbing, or cyanosis. Peripheral pulses are intact. - Labs CBC & Chem 7: 07/25/23 08:30 07/25/23 08:30 Assessment and Plan Assessment: Acute secondary spontaneous left-sided pneumothorax, status post insertion of left chest Thoravent. Pneumothorax was originally estimated at 40%, recovered and subsequently recurred after capping the thoravent. The repeat chest x-ray from today shows no evidence of any pneumothorax , the thoravent was removed today. Subsequent chest x-ray shows no evidence of any pneumothorax.ent Acute on chronic hypoxemic respiratory failure, secondary to above, 3 L per minute nasal cannula. Severe chronic obstructive pulmonary disease, not in exacerbation. Baseline FEV1 is 41% of predicted. Chronically oxygen dependent on 2 L/m nasal cannula 15/05. Former tobacco smoker Hypothyroidism Benign essential hypertension Hyperlipidemia Obesity, with a BMI of 30.4 kg/m Plan: the thoravent was removed successfully Repeat a chest x-ray showed no evidence of any pneumothorax clinically stable Oxygenation is stable at 3 L nasal cannula Limited subcutaneous emphysema We'll continue with bronchodilators. Continue using the incentive spirometer W discharge the patient home today.
--- NOTE | 2023-07-30 12:50 | P.DS ---
Providers Date of admission: 07/25/23 11:18 Expected date of discharge: 07/30/23 Attending physician: Andre Pires MD Consults: 07/25/23 11:16 Consult Physician Urgent Consulting Provider: Juan Miguel Royal Consult Reason/Comments: Pneumothorax Do you want consulting provider notified?: Yes 07/25/23 11:17 Consult Physician Urgent Consulting Provider: Alexander Flaherty Consult Reason/Comments: COPD exacerbation, pneumothorax Do you want consulting provider notified?: Yes Primary care physician: Nabil Proctor Hospital Course: Discharge Diagnosis: Left pneumothorax, spontaneous Left chest wall and left upper extremity subcutaneous emphysema Acute on chronic hypoxic respiratory failure COPD, not in exacerbation Hypothyroidism Nicotine dependence history Dyslipidemia Hypertension Hospital Course: 82-year-old female with history of COPD on 3 L nasal cannula, hypertension, dyslipidemia, hypothyroidism presenting with acute shortness of breath. On init ial presentation, patient was tachycardic and more hypoxic. Laboratory workup mostly unremarkable. Chest x-ray showed moderate left pneumothorax estimated at 40%. Patient is now status post Thoravent. Pulmonology also consulted. Patient currently admitted for acute on chronic hypoxic respiratory failure in the setting of spontaneous pneumothorax. Slowly improved, Thoravent discontinued. No further evidence of pneumothorax. Does have some subcutaneous emphysema still present, should resolve over time. Patient to follow-up with PCP and pulmonology. Patient seen and examined at bedside. Vital signs reviewed and stable. General: nontoxic, no distress, appears at stated age Derm: warm, dry Head: atraumatic, normocephalic, symmetric Eyes: EOMI, no lid lag, anicteric sclera Mouth: no lip lesion, mucus membranes moist Cardiovascular: S1S2 reg, no murmur Lungs: CTA bilateral, no rhonchi, no rales , no accessory muscle use, supplemental oxygen Abdominal: soft, nontender to palpation, no guarding, no appreciable organomegaly Ext: no gross muscle atrophy, no edema, no contractures, reduced strength bilaterally Neuro: CN II-XI grossly intact, no focal neuro deficits Psych: Alert, oriented, appropriate affect A total of 36 minutes of time were spent preparing this complex discharge summary. Patient was discharged on 07/30/23 at 12:42. Patient Condition at Discharge: Stable Plan - Discharge Summary Discharge Rx Participant: No New Discharge Prescriptions: New Umeclidinium Brm/Vilanterol Tr [Anoro Ellipta 62.5-25 Mcg INH] 1 puff INHALATION DAILY #1 each Albuterol Inhaler [Ventolin Hfa Inhaler] 1 - 2 puff INHALATION Q6H PRN #1 each PRN Reason: Shortness Of Breath Or Wheezing Continue Atorvastatin [Lipitor] 40 mg PO DAILY Denosumab [Prolia] 60 mg SQ Q180D Levothyroxine Sodium [Synthroid] 125 mcg PO DAILY Nystatin 100,000 Unit/gm Powd [Mycostatin Powder] 1 applic TOPICAL BID traMADol HCl [Ultram] 50 mg PO Q6HR PRN PRN Reason: Pain Furosemide [Lasix] 40 mg PO DAILY Losartan [Cozaar] 50 mg PO DAILY Sertraline [Zoloft] 100 mg PO DAILY Triamcinolone Acetonide [Triamcinolone Acetonide 0.1% Lotion] 1 applic TOPICAL BID PRN PRN Reason: leg & chest rash Discontinued Diclofenac Sodium [Voltaren] 50 mg PO TID Discharge Medication List Atorvastatin [Lipitor] 40 mg PO DAILY 05/13/19 [History] Denosumab [Prolia] 60 mg SQ Q180D 05/13/19 [History] Levothyroxine Sodium [Synthroid] 125 mcg PO DAILY 05/13/19 [History] Furosemide [Lasix] 40 mg PO DAILY 07/25/23 [History] Losartan [Cozaar] 50 mg PO DAILY 07/25/23 [History] Nystatin 100,000 Unit/gm Powd [Mycostatin Powder] 1 applic TOPICAL BID 07/25/23 [History] Sertraline [Zoloft] 100 mg PO DAILY 07/25/23 [History] Triamcinolone Acetonide [Triamcinolone Acetonide 0.1% Lotion] 1 applic TOPICAL BID PRN 07/25/23 [History] traMADol HCl [Ultram] 50 mg PO Q6HR PRN 07/25/23 [History] Albuterol Inhaler [Ventolin Hfa Inhaler] 1 - 2 puff INHALATION Q6H PRN #1 each 07/30/23 [Rx] Umeclidinium Brm/Vilanterol Tr [Anoro Ellipta 62.5-25 Mcg INH] 1 puff INHALATION DAILY #1 each 07/30/23 [Rx] Follow up Appointment(s)/Referral(s): [facility], [NON-STAFF] - Nabil Sebastian DO [Primary Care Provider] - 1-2 days (Please call to make a follow up appointment MONDAY when offices are open) Alexander Flaherty MD [STAFF PHYSICIAN] - 1 Week (Please call to make a follow up appointment MONDAY when offices are open) Patient Instructions/Handouts: Spontaneous Pneumothorax (DC), COPD (Chronic Obstructive Pulmonary Disease) (DC) Activity/Diet/Wound Care/Special Instructions: Please see PCP and pulmonology. Discharge Disposition: HOME WITH HOME HEALTH SERVICES
--- NOTE | 2023-07-31 09:24 | CDI ---
Documentation Clarification Form Date: 07/28/2023 02:11:00 PM From: Christin Yañez Phone: [phone] Admit Date: 07/25/2023 11:18:00 AM Patient Name: Rupa Rubin Visit Number: [id number] Discharge Date: 07/30/2023 02:02:00 PM ATTENTION: The Clinical Documentation Specialists (CDI) and [facility] Coding Staff appreciate your assistance in clarifying documentation. Please respond to the clarification below the line at the bottom and electronically sign. The CDI & [facility] Coding staff will review the response and follow-up if needed. Please note: Queries are made part of the Legal Health Record. If you have any questions, please contact the author of this message via ITS. Dr. Andre Pires In Nursing skin assessment, 07/25, stage 2 buttock pressure ulcer. Based on this information and the findings below, is there an additional diagnosis that is clinically appropriate for this patient? History/Risk Factors: 82-year-old female presents to the ED with shortness of breath sudden onset. Medical history: Chronic respiratory failure, COPD and Hypothyroidism. 07/25, H&P. Clinical Indicators: Location: Buttock Wound description: Moist, pink, thin Treatment: Turn 2QH, Absorbant under pad Check Hourly Is there an additional diagnosis that is clinically appropriate for this patient? [ x ] Buttock Pressure Ulcer Stage 2 [ ] Other condition, please specify [ ] Unable to determine Clinical Definitions: Stage 1 Pressure Ulcer: intact skin, non-blanching redness of local area Stage 2 Pressure Ulcer: Partial thickness, loss of dermis, pink wound bed Stage 3 Pressure Ulcer: Full thickness tissue loss Stage 4 Pressure Ulcer: Full thickness tissue loss with exposed bone, tendon, or muscle. Unstageable pressure ulcer: Full thickness tissue loss in which the base of the ulcer is covered by slough (yellow, dutta, [place], green or brown) and/or eschar (dutta, brown or black) in the wound bed. (Template Last Revised: December 2020) MTDD
== END 2023-07-30 14:02 | disposition home health service (06) | DRG 199 ==
LOC: EC 07:55 → 3SCARD 11:18
PROVIDERS: ADMIT Student in an Organized Health Care Education/Training Program; ATTEND Student in an Organized Health Care Education/Training Program
PROC: 0W9B30Z Drainage of Left Pleural Cavity with Drainage Device, Percutaneous Approach (ICD-10-PCS; principal; 2023-07-25)
DX: J93.0 Spontaneous tension pneumothorax (principal); J96.21 Acute and chronic respiratory failure with hypoxia; L89.302 Pressure ulcer of unspecified buttock, stage 2; J44.9 Chronic obstructive pulmonary disease, unspecified; Z11.52 Encounter for screening for COVID-19; E78.5 Hyperlipidemia, unspecified; I10 Essential (primary) hypertension; E89.0 Postprocedural hypothyroidism; F41.9 Anxiety disorder, unspecified; E66.9 Obesity, unspecified; Z68.30 Body mass index [BMI] 30.0-30.9, adult; Z99.81 Dependence on supplemental oxygen; Z87.891 Personal history of nicotine dependence; Z79.890 Hormone replacement therapy; Z79.899 Other long term (current) drug therapy; Z71.3 Dietary counseling and surveillance; Z88.2 Allergy status to sulfonamides; Z88.6 Allergy status to analgesic agent; Z91.030 Bee allergy status
CPT/HCPCS: 32551; 36415; 71045; 71046; 80053; 83605; 83735; 84484; 85025; 85610; 85730; 87040; 87635; 93005; 94640; 94760; 96365; 96375; 96376; 99291

== ENCOUNTER 2023-08-02 23:58 | Observation (INO) | payer MEDICARE, OTHER ==
[2023-08-03] MEDS ORDERED: NITROGLYCERIN SL TABS 0.4 MG TAB SUBLINGUAL STA (00:23)
[2023-08-03] MEDS ORDERED: methylPREDNISolone SOD SUCCI 125 MG/2 ML VIAL IV STA (00:23)
[2023-08-03] MEDS ORDERED: IPRATROPIUM-ALBUTEROL 3 ML NEB INHALATION STA (00:23)
[2023-08-03 01:12] LABS: Basophils % (A) 0 %; Eosinophils # (A) 0.4 k/uL (0-0.7); Eosinophils % (A) 5 %; HCT 33.9 % (34.0-46.0); HGB 11.5 gm/dL (11.4-16.0); Lymphocytes # (A) 0.8 k/uL (1.0-4.8); Lymphocytes % (A) 10 %; MCH 33.5 pg (25.0-35.0); MCV 98.5 fL (80.0-100.0); Mean Platelet Volume 7.7; Monocytes # (A) 0.6 k/uL (0-1.0); Monocytes % (A) 8 %; Neutrophils % (A) 75 %; Platelet Count 258 k/uL (150-450); RBC 3.44 m/uL (3.80-5.40); RDW 12.7 % (11.5-15.5)
[2023-08-03 01:21] LABS: INR 0.9 (<1.2); Prothrombin Time 9.4 sec (9.0-12.0)
[2023-08-03 01:26] LABS: ALT 29 U/L (4-34); AST 34 U/L (14-36); African American GFR (CKD) 63 (>60 ml/min/1.73 sqM); Albumin 3.7 g/dL (3.5-5.0); Alkaline Phosphatase 107 U/L (38-126); Anion Gap 7 mmol/L; Blood Urea Nitrogen 45 mg/dL (7-17); Calcium 9.5 mg/dL (8.4-10.2); Carbon Dioxide 29 mmol/L (22-30); Chloride 100 mmol/L (98-107); Glucose 104 mg/dL (74-99); Lipase 110 U/L (23-300); Magnesium 2.3 mg/dL (1.6-2.3); Non-African American GFR(CKD) 54 (>60 ml/min/1.73 sqM); Potassium 4.8 mmol/L (3.5-5.1); Sodium 136 mmol/L (137-145); Total Bilirubin 0.4 mg/dL (0.2-1.3)
[2023-08-03 01:38] LABS: Partial Thromboplastin Time 21.1 sec (22.0-30.0)
--- NOTE | 2023-08-03 02:18 | XR ---
EXAM: XR Chest, 1 View CLINICAL HISTORY: ITS.REASON XR Reason: Chest Pain TECHNIQUE: Frontal view of the chest. COMPARISON: 07/30/2023 FINDINGS: Lungs: Unremarkable. No consolidation. Pleural space: Unremarkable. No recurrent or residual left pneumothorax. Heart: Unremarkable. No cardiomegaly. Mediastinum: Unremarkable. Bones/joints: No acute osseous abnormalities. Soft tissues: Decreasing left chest wall subcutaneous emphysema. IMPRESSION: No recurrent or residual left pneumothorax.
[2023-08-03] MEDS ORDERED: MORPHINE SULFATE 2 MG/ML SYRINGE IVP STA (02:46)
[2023-08-03] MEDS ORDERED: PANTOPRAZOLE 40 MG/10 ML VIAL IVP STA (02:46)
[2023-08-03] MEDS ORDERED: MAG HYDROX/AL HYDROX/SIMETH 30 ML, HYOSCYAMINE ELIXIR 10 ML, LIDOCAINE 2% GLYDO JELLY 1... PO STA ×3 (02:46)
[2023-08-03] MEDS ORDERED: traMADol 50 MG TAB PO STA (02:52)
[2023-08-03] MEDS ORDERED: NALOXONE 0.4 MG/ML 1 ML VIAL IV PRN (03:33)
--- NOTE | 2023-08-03 03:35 | ED ---
General Adult HPI - General Chief complaint: Chest Pain Stated complaint: Chest pain Time Seen by Provider: 08/03/23 00:08 Source: EMS, RN notes reviewed, old records reviewed Mode of arrival: EMS - History of Present Illness Initial comments: Patient is an 82-year-old female who presents with his Department complaining of chest pain, increased dyspnea. Has a history of COPD, left-sided pneumothorax. Was concerned that pneumothorax reaccumulated. Chest pain is primarily in the epigastric region. Mild nausea but no emesis. No sweating. No diarrhea. No fevers, chills, cough. No radiation of the pain. No fevers, cough that is productive. Patient is endorsing chronic dyspnea as she is chronically on nasal cannula oxygen for COPD. Presents for further evaluation at this time. No cardiac history per patient. - Related Data Home Medications Medication Instructions Recorded Confirmed Atorvastatin [Lipitor] 40 mg PO DAILY 05/13/19 07/25/23 Denosumab [Prolia] 60 mg SQ Q180D 05/13/19 07/25/23 Levothyroxine Sodium [Synthroid] 125 mcg PO DAILY 05/13/19 07/25/23 Furosemide [Lasix] 40 mg PO DAILY 07/25/23 07/25/23 Losartan [Cozaar] 50 mg PO DAILY 07/25/23 07/25/23 Nystatin 100,000 Unit/gm Powd 1 applic TOPICAL BID 07/25/23 07/25/23 [Mycostatin Powder] Sertraline [Zoloft] 100 mg PO DAILY 07/25/23 07/25/23 Triamcinolone Acetonide 1 applic TOPICAL BID PRN 07/25/23 07/25/23 [Triamcinolone Acetonide 0.1% Lotion] traMADol HCl [Ultram] 50 mg PO Q6HR PRN 07/25/23 07/25/23 Previous Rx's Medication Instructions Recorded Albuterol Inhaler [Ventolin Hfa 1 - 2 puff INHALATION Q6H PRN #1 07/30/23 Inhaler] each Umeclidinium Brm/Vilanterol Tr 1 puff INHALATION DAILY #1 each 07/30/23 [Anoro Ellipta 62.5-25 Mcg INH] Allergies Allergy/AdvReac Type Severity Reaction Status Date / Time bee venom protein (honey bee) Allergy Rash/Hives Verified 08/03/23 00:10 celecoxib [From Celebrex] Allergy Rash/Hives Verified 08/03/23 00:10 Sulfa (Sulfonamide Allergy Rash/Hives Verified 08/03/23 00:10 Antibiotics) Review of Systems ROS Statement: Those systems with pertinent positive or pertinent negative responses have been documented in the HPI. Review of Systems: CONST: Denies fever EYES: Denies blurry vision ENT: Denies nasal congestion C/V: Endorses chest pain RESP: Endorses wheezing GI: Denies abdominal pain : Denies dysuria SKIN: Denies rash. MSK: Denies joint pain. NEURO: Denies headache ROS Other: All systems not noted in ROS Statement are negative. 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 pneumothorax 07/2023 History of Any Multi-Drug Resistant Organisms: None Reported Additional Past Surgical History / Comment(s): THYROIDECTOMY, POLYPS REMOVED FROM VOCAL CORDS Past Anesthesia/Blood Transfusion Reactions: No Reported Reaction Past Psychological History: No Psychological Hx Reported Smoking Status: Former smoker Past Alcohol Use History: None Reported Past Drug Use History: None Reported - Past Family History Mother Family Medical History: Cancer Additional Family Medical History / Comment(s): CERVICAL CA Father Family Medical History: No Reported History General Exam - General Exam Comments Initial Comments: General: Appears in no acute distress. HEAD: Normal with no signs of head trauma. EYES: PERRLA, EOMI, conjunctiva normal, no discharge. ENT: Hearing grossly intact, normal oropharynx. RESPIRATORY: Bilateral end expiratory wheezing. Breath sounds bilaterally. C/V: Regular rate and rhythm. S1 and S2 auscultated, no peripheral edema, peripheral pulses 2+ and intact throughout ABD: Epigastric abdominal discomfort. No distention. No guarding. No rebound tenderness. No peritoneal signs. EXT: Normal range of motion, no obvious deformity SKIN: No rashes or lesions observed on exposed skin. NEURO: Alert and oriented 4. Course Vital Signs 08/03/23 08/03/23 08/03/23 00:04 00:30 00:49 Temperature 98.9 F Pulse Rate 89 95 97 Respiratory 19 22 Rate Blood Pressure 127/69 127/69 O2 Sat by Pulse 97 94 L Oximetry 08/03/23 08/03/23 08/03/23 00:55 01:30 02:00 Temperature Pulse Rate 102 H 95 96 Respiratory 18 21 Rate Blood Pressure 123/63 105/65 O2 Sat by Pulse 94 L 94 L Oximetry 08/03/23 08/03/23 08/03/23 03:00 03:41 03:49 Temperature Pulse Rate 93 95 100 Respiratory 22 Rate Blood Pressure 111/64 O2 Sat by Pulse 94 L Oximetry 08/03/23 04:00 Temperature Pulse Rate 97 Respiratory 19 Rate Blood Pressure 130/82 O2 Sat by Pulse 92 L Oximetry Medical Decision Making - Medical Decision Making Was pt. sent in by a medical professional or institution (, PA, CERTIFIED PHYSICIAN ASSISTANT, urgent care, hospital, or skilled nursing...) When possible be specific @ -No Did you speak to anyone other than the patient for history (EMS, parent, family, police, friend...)? What history was obtained from this source @ -No Did you review nursing and triage notes (agree or disagree)? Why? @ -I reviewed and agree with nursing and triage notes Were old charts reviewed (outside hosp., previous admission, EMS record, old EKG, old radiological studies, urgent care reports/EKG's, skilled nursing records)? Report findings @ -Old charts reviewed Differential Diagnosis (chest pain, altered mental status, abdominal pain women, abdominal pain men, vaginal bleeding, weakness, fever, dyspnea, syncope, headache, dizziness, GI bleed, back pain, seizure, CVA, palpatations, mental health, musculoskeletal)? @ -Differential Chest Pain: Stable Angina, Unstable Angina, STEMI, NSTEMI Aortic Dissection, Pneumothorax, Musculoskeletal, Esophageal Spasm GERD, Cholecystitis, Pancreatitis, Zoster, this is not meant to be an all-inclusive list. EKG interpreted by me (3pts min.). @ -As above X-rays interpreted by me (1pt min.). @ -Chest x-ray reveals no obvious acute cardiopulmonary process. CT interpreted by me (1pt min.). @ -None done U/S interpreted by me (1pt. min.). @ -None done What testing was considered but not performed or refused? (CT, X-rays, U/S, labs)? Why? @ -None What meds were considered but not given or refused? Why? @ -None Did you discuss the management of the patient with other professionals (professionals i.e. , PA, CERTIFIED PHYSICIAN ASSISTANT, lab, RT, psych nurse, social worker palliative care, emergency medicine medical director, teacher, classification officer, case fitter)? Give summary @ -I spoke with the admitting physician, Dr. Turner who accepted the patient. Was smoking cessation discussed for >3mins.? @ -No Was critical care preformed (if so, how long)? @ -No Were there social determinants of health that impacted care today? How? (Homelessness, low income, unemployed, alcoholism, drug addiction, transportation, low edu. Level, literacy, decrease access to med. care, halfway, rehab)? @ -No Was there de-escalation of care discussed even if they declined (Discuss DNR or withdrawal of care, Hospice)? DNR status @ -No What co-morbidities impacted this encounter? (DM, HTN, Smoking, COPD, CAD, Cancer, CVA, ARF, Chemo, Hep., AIDS, mental health diagnosis, sleep apnea, morbid obesity)? @ -None Was patient admitted / discharged? Hospital course, mention meds given and route, prescriptions, significant lab abnormalities, going to OR and other pertinent info. @ -Based on patient's presentation and physical exam, I'm concerned for COPD for the patient the cannot rule out other cardiopulmonary etiology at this time. We will obtain labs, chest x-ray, EKG. Patient was sent likely treatment with nitro as well as transient 24 millions of aspirin. She was in agreement this plan. She is having COPD exacerbation as well and will be treated with breathing treatments, IV steroids. She was in agreement with this plan. EKG unremarkable. Chest x-ray shows no evidence of acute cardio pulmonary process. Laboratory studies remarkable for undetectable troponin. Negative viral swabs. On reevaluation, patient is feeling improved. She states the nitro glycerin tablets did nothing for her chest pain. States that after breath, as well as breathing treatments she felt better. I did discuss with her I believe it is likely COPD causing her symptoms however considering her risk factors, heart score being approximately 4 I did recommend observation and trending troponin. She was in agreement this plan. I spoke with the admitting physician, Dr. Turner who accepted the patient. Cardiology consulted. Undiagnosed new problem with uncertain prognosis? @ -No Drug Therapy requiring intensive monitoring for toxicity (Heparin, Nitro, Insulin, Cardizem)? @ -No Were any procedures done? @ -No Diagnosis/symptom? @ -COPD Acute, or Chronic, or Acute on Chronic? @ -Acute on chronic Uncomplicated (without systemic symptoms) or Complicated (systemic symptoms)? @ -Complicated Side effects of treatment? @ -No Exacerbation, Progression, or Severe Exacerbation? @ -Exacerbation Poses a threat to life or bodily function? How? (Chest pain, USA, PR, pneumonia, PE, COPD, DKA, ARF, appy, cholecystitis, CVA, Diverticulitis, Homicidal, Suicid al, threat to staff... and all critical care pts) @ -No Diagnosis/symptom? @ -Chest pain Acute, or Chronic, or Acute on Chronic? @ -Acute Uncomplicated (without systemic symptoms) or Complicated (systemic symptoms)? @ -Complicated Side effects of treatment? @ -none Exacerbation, Progression, or Severe Exacerbation] @ -no Poses a threat to life or bodily function? @ -Possibly - Lab Data Result diagrams: 08/03/23 00:43 08/03/23 00:43 Lab Results 08/03/23 08/03/23 08/03/23 Range/Units 00:43 00:43 00:43 WBC 8.0 (3.8-10.6) k/uL RBC 3.44 L (3.80-5.40) m/uL Hgb 11.5 (11.4-16.0) gm/dL Hct 33.9 L (34.0-46.0) % MCV 98.5 (80.0-100.0) fL MCH 33.5 (25.0-35.0) pg MCHC 34.0 (31.0-37.0) g/dL RDW 12.7 (11.5-15.5) % Plt Count 258 (150-450) k/uL MPV 7.7 Neutrophils % 75 % Lymphocytes % 10 % Monocytes % 8 % Eosinophils % 5 % Basophils % 0 % Neutrophils # 6.0 (1.3-7.7) k/uL Lymphocytes # 0.8 L (1.0-4.8) k/uL Monocytes # 0.6 (0-1.0) k/uL Eosinophils # 0.4 (0-0.7) k/uL Basophils # 0.0 (0-0.2) k/uL PT 9.4 (9.0-12.0) sec INR 0.9 (<1.2) APTT 21.1 L (22.0-30.0) sec Sodium 136 L (137-145) mmol/L Potassium 4.8 (3.5-5.1) mmol/L Chloride 100 (98-107) mmol/L Carbon Dioxide 29 (22-30) mmol/L Anion Gap 7 mmol/L BUN 45 H (7-17) mg/dL Creatinine 0.98 (0.52-1.04) mg/dL Est GFR (CKD-EPI)AfAm 63 (>60 ml/min/1.73 sqM) Est GFR (CKD-EPI)NonAf 54 (>60 ml/min/1.73 sqM) Glucose 104 H (74-99) mg/dL Calcium 9.5 (8.4-10.2) mg/dL Magnesium 2.3 (1.6-2.3) mg/dL Total Bilirubin 0.4 (0.2-1.3) mg/dL AST 34 (14-36) U/L ALT 29 (4-34) U/L Alkaline Phosphatase 107 (38-126) U/L Troponin I (0.000-0.034) ng/mL Total Protein 6.0 L (6.3-8.2) g/dL Albumin 3.7 (3.5-5.0) g/dL Lipase 110 (23-300) U/L Influenza Type A (PCR) (Not Detectd) Influenza Type B (PCR) (Not Detectd) RSV (PCR) (Not Detectd) SARS-CoV-2 (PCR) (Not Detectd) 08/03/23 08/03/23 Range/Units 00:43 00:45 WBC (3.8-10.6) k/uL RBC (3.80-5.40) m/uL Hgb (11.4-16.0) gm/dL Hct (34.0-46.0) % MCV (80.0-100.0) fL MCH (25.0-35.0) pg MCHC (31.0-37.0) g/dL RDW (11.5-15.5) % Plt Count (150-450) k/uL MPV Neutrophils % % Lymphocytes % % Monocytes % % Eosinophils % % Basophils % % Neutrophils # (1.3-7.7) k/uL Lymphocytes # (1.0-4.8) k/uL Monocytes # (0-1.0) k/uL Eosinophils # (0-0.7) k/uL Basophils # (0-0.2) k/uL PT (9.0-12.0) sec INR (<1.2) APTT (22.0-30.0) sec Sodium (137-145) mmol/L Potassium (3.5-5.1) mmol/L Chloride (98-107) mmol/L Carbon Dioxide (22-30) mmol/L Anion Gap mmol/L BUN (7-17) mg/dL Creatinine (0.52-1.04) mg/dL Est GFR (CKD-EPI)AfAm (>60 ml/min/1.73 sqM) Est GFR (CKD-EPI)NonAf (>60 ml/min/1.73 sqM) Glucose (74-99) mg/dL Calcium (8.4-10.2) mg/dL Magnesium (1.6-2.3) mg/dL Total Bilirubin (0.2-1.3) mg/dL AST (14-36) U/L ALT (4-34) U/L Alkaline Phosphatase (38-126) U/L Troponin I <0.012 (0.000-0.034) ng/mL Total Protein (6.3-8.2) g/dL Albumin (3.5-5.0) g/dL Lipase (23-300) U/L Influenza Type A (PCR) Not Detected (Not Detectd) Influenza Type B (PCR) Not Detected (Not Detectd) RSV (PCR) Not Detected (Not Detectd) SARS-CoV-2 (PCR) Not Detected (Not Detectd) - EKG Data -: EKG Interpreted by Me EKG Comments: 12-lead Electrocardiogram Interpretation Note EKG was reviewed and interpreted by myself. 12-lead ECG performed at 0016 is interpreted by me as revealing normal sinus rhythm at a rate of 94 beats per mi nute. Left axis deviation. VA interval is 160 ms, QRS duration 79 ms, QTc is 392 ms. There were no ST or T wave abnormalities to suggest myocardial ischemia or injury. R wave progression across the precordium was satisfactory. By my interpretation this EKG is non-diagnostic for acute ischemia. Disposition Clinical Impression: Chest pain, COPD (chronic obstructive pulmonary disease) Disposition: ADMITTED IP TO THIS HOSP Condition: Stable Time of Disposition: 03:20
[2023-08-03] MEDS: IPRATROPIUM-ALBUTEROL 3 ML NEB INHALATION SCH ×6 (03:41→23:51)
--- NOTE | 2023-08-03 05:00 | P.HPIM ---
History of Present Illness H&P Date: 08/03/23 Patient is a 82-year-old female with a PMH of COPD, chronic hypoxic respiratory failure on 3 L cannula oxygen continuously, recent hospitalization for spontaneous pneumothorax, hypertension, hyperlipidemia, and hypothyroidism who presented to the emergency room with complaints of shortness of breath and chest tightness. Patient reports her symptoms started this evening at around 9 PM suddenly, and were similar to when she had her pneumothorax, which prompted her to call EMS. Patient notes her chest tightness was a 5 out of 10 on maximal intensity, substernal, nonradiating, with associated shortness of breath and no other symptoms. The pain gradually resolved shortly after arrival at the e mergency room. She reported feeling essentially at her baseline at the time of interview. Denied experiencing cough, fever, chills, nausea, vomiting, diaphoresis, or dizziness. In the emergency room a chest x-ray was unremarkable. EKG showed sinus rhythm @ 94 bpm with L axis deviation and poor R wave progression as reviewed by me. Laboratory evaluation revealed a sodium of 136, BUN 45, creatinine 0.98, troponin less than 0.012, with a negative viral panel. ED documentation reviewed and case discussed with ED provider. Review of systems: Pertinent positives and negatives as discussed in HPI, a complete review of systems was performed and all other systems are negative. Physical examination: Vital signs reviewed General: non toxic, no distress, appears at stated age, obese Derm: no unusual rashes/lesions, warm Head: atraumatic, normocephalic, symmetric Eyes: EOMI, no lid lag, anicteric sclera, pupils equal round reactive to light ENT: Nose and ears atraumatic Neck: No cervical lymphadenopathy, trachea midline, supple Mouth: no lip lesion, mucus membranes moist Cardiovascular: S1S2 reg, no murmur, positive dorsalis pedis pulse bilateral, no edema Lungs: Somewhat poor air entry christiane, mild expiratory wheezing, no rales or ronchi appreciated, no accessory muscle use Abdominal: soft, nontender to palpation, no guarding Ext: muscle strength 4 out of 5 in all 4 extremities grossly, no gross muscle atrophy, no contractures, Neuro: CN II-XI grossly intact, no gross focal neuro deficits Psych: Alert, oriented, appropriate affect Assessment: Chest pain, rule out ACS Mild COPD exacerbation Chronic conditions: Hypertension, hyperlipidemia, hypothyroidism Imaging: In the emergency room a chest x-ray was unremarkable. Data Review: Laboratory evaluation revealed a sodium of 136, BUN 45, creatinine 0.98, troponin less than 0.012, with a negative viral panel. 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 pneumothorax 07/2023 History of Any Multi-Drug Resistant Organisms: None Reported Additional Past Surgical History / Comment(s): THYROIDECTOMY, POLYPS REMOVED FROM VOCAL CORDS Past Anesthesia/Blood Transfusion Reactions: No Reported Reaction Past Psychological History: No Psychological Hx Reported Smoking Status: Former smoker Past Alcohol Use History: None Reported Past Drug Use History: None Reported - Past Family History Mother Family Medical History: Cancer Additional Family Medical History / Comment(s): CERVICAL CA Father Family Medical History: No Reported History Medications and Allergies Home Medications Medication Instructions Recorded Confirmed Type Atorvastatin [Lipitor] 40 mg PO DAILY 05/13/19 07/25/23 History Denosumab [Prolia] 60 mg SQ Q180D 05/13/19 07/25/23 History Levothyroxine Sodium [Synthroid] 125 mcg PO DAILY 05/13/19 07/25/23 History Furosemide [Lasix] 40 mg PO DAILY 07/25/23 07/25/23 History Losartan [Cozaar] 50 mg PO DAILY 07/25/23 07/25/23 History Nystatin 100,000 Unit/gm Powd 1 applic TOPICAL BID 07/25/23 07/25/23 History [Mycostatin Powder] Sertraline [Zoloft] 100 mg PO DAILY 07/25/23 07/25/23 History Triamcinolone Acetonide 1 applic TOPICAL BID PRN 07/25/23 07/25/23 History [Triamcinolone Acetonide 0.1% Lotion] traMADol HCl [Ultram] 50 mg PO Q6HR PRN 07/25/23 07/25/23 History Albuterol Inhaler [Ventolin Hfa 1 - 2 puff INHALATION Q6H PRN #1 07/30/23 Rx Inhaler] each Umeclidinium Brm/Vilanterol Tr 1 puff INHALATION DAILY #1 each 07/30/23 Rx [Anoro Ellipta 62.5-25 Mcg INH] Allergies Allergy/AdvReac Type Severity Reaction Status Date / Time bee venom protein (honey bee) Allergy Rash/Hives Verified 08/03/23 00:10 celecoxib [From Celebrex] Allergy Rash/Hives Verified 08/03/23 00:10 Sulfa (Sulfonamide Allergy Rash/Hives Verified 08/03/23 00:10 Antibiotics) Physical Exam Vitals: Vital Signs Temp Pulse Resp BP Pulse Ox 08/03/23 03:49 100 08/03/23 03:41 95 08/03/23 03:00 93 22 111/64 94 L 08/03/23 02:00 96 21 105/65 94 L 08/03/23 01:30 95 18 123/63 94 L 08/03/23 00:55 102 H 08/03/23 00:49 97 08/03/23 00:30 95 9 L 127/69 94 L 08/03/23 00:04 98.9 F 89 19 127/69 97 Intake and Output 08/02/23 08/02/23 08/03/23 14:59 22:59 06:59 Other: Weight 90.718 kg Results CBC & Chem 7: 08/03/23 00:43 08/03/23 00:43 Labs: Abnormal Lab Results - Last 24 Hours (Table) 08/03/23 08/03/23 08/03/23 Range/Units 00:43 00:43 00:43 RBC 3.44 L (3.80-5.40) m/uL Hct 33.9 L (34.0-46.0) % Lymphocytes # 0.8 L (1.0-4.8) k/uL APTT 21.1 L (22.0-30.0) sec Sodium 136 L (137-145) mmol/L BUN 45 H (7-17) mg/dL Glucose 104 H (74-99) mg/dL Total Protein 6.0 L (6.3-8.2) g/dL
[2023-08-03 07:48] LABS: African American GFR (CKD) 68 (>60 ml/min/1.73 sqM); Anion Gap 8 mmol/L; Blood Urea Nitrogen 42 mg/dL (7-17); Calcium 9.6 mg/dL (8.4-10.2); Carbon Dioxide 28 mmol/L (22-30); Chloride 103 mmol/L (98-107); Glucose 145 mg/dL (74-99); Non-African American GFR(CKD) 59 (>60 ml/min/1.73 sqM); Potassium 4.8 mmol/L (3.5-5.1); Sodium 139 mmol/L (137-145)
[2023-08-03] MEDS ORDERED: ACETAMINOPHEN TAB 325 MG TAB PO PRN (08:41)
[2023-08-03] MEDS ORDERED: HEPARIN SODIUM,PORCINE 5,000 UNIT/ML 1 ML VIAL SQ SCH (09:00)
[2023-08-03] MEDS ORDERED: methylPREDNISolone SOD SUCCI 40 MG/ML 1 ML VIAL IV SCH (09:00)
[2023-08-03] MEDS ORDERED: predniSONE 20 MG TAB PO SCH (09:00)
[2023-08-03] MEDS: FUROSEMIDE 40 MG TAB PO SCH (09:03)
[2023-08-03] MEDS: LOSARTAN 50 MG TAB PO SCH (09:03)
[2023-08-03] MEDS: ATORVASTATIN 40 MG TAB PO SCH (09:03)
[2023-08-03] MEDS: traMADol 50 MG TAB PO PRN ×2 (09:03→20:54)
[2023-08-03] MEDS: ENOXAPARIN 40 MG/0.4 ML SYRINGE SQ SCH (09:05)
[2023-08-03] MEDS: SERTRALINE 100 MG TAB PO SCH (09:26)
[2023-08-03] MEDS: LEVOTHYROXINE 125 MCG TAB PO SCH (09:26)
[2023-08-03] MEDS: NYSTATIN 100,000 UNIT/GM POWD 15 GM TOPICAL SCH ×2 (09:26→20:54)
--- NOTE | 2023-08-03 10:34 | P.CRDCN ---
History of Present Illness History of present illness: HISTORY OF PRESENT ILLNESS: This is a 82-year-old female with a past medical history significant for hypertension, hyperlipidemia, COPD, and recent spontaneous pneumothorax. Patient does not follow with a pediatric genetic counselor. We have been asked to see the patient in consultation for chest pain. Patient examined at the bedside. Patient presented to the hospital for chief complaint of shortness of breath and chest discomfort. The patient was recently hospitalized secondary to pneumothorax. She states her symptoms felt similar to what her symptoms felt at that time and she became concerned that she had another pneumothorax which prompted her to call EMS. She was brought to the hospital for further evaluation. The patient currently denies any chest pain or pressure. She is reporting hip pain this morning. She has a frequent cough during examination. * EKG reveals sinus mechanism with no signs of acute ischemia * Chest xray no recurrent or residual left pneumothorax * Laboratory data: WBC 8.0. Hemoglobin 11.5. Platelet count 258. Sodium 139. Potassium 4.8. BUN 42. Creatinine 0.92. Troponin negative 3 * Current home cardiac medications include Lipitor 40 mg daily, Lasix 40 mg daily, losartan 50 mg daily REVIEW OF SYSTEMS: At the time of my exam: CONSTITUTIONAL: Denies fever or chills. HEENT: Denies blurred vision, vision changes, or eye pain. Denies hemoptysis CARDIOVASCULAR: Denies chest pain. Denies orthopnea. Denies PND. Denies palpitations RESPIRATORY: Denies shortness of breath. GASTROINTESTINAL: Denies abdominal pain. Denies nausea or vomiting. HEMATOLOGIC: Denies bleeding disorders. GENITOURINARY: Denies any blood in urine. SKIN: Denies pruitis. Denies rash. PHYSICAL EXAM: VITAL SIGNS: Reviewed. GENERAL: Well-developed in no acute distress. HEENT: Head is normocephalic. Pupils are equal, round. Sclerae anicteric. Mucous membranes of the mouth are moist. Neck supple. No JVD or thyromegaly LUNGS: Respirations even and unlabored. Lungs with decreased air exchange. E xpiratory wheezing noted HEART: Regular rate and rhythm. S1 and S2 heard. ABDOMEN: Soft. Nondistended. Nontender. EXTREMITIES: Normal range of motion. No clubbing or cyanosis. Peripheral pulses intact. No lower extremity edema NEUROLOGIC: Awake and alert. Oriented x 3. ASSESSMENT: Chest pain, troponins negative 3 acute coronary syndrome ruled out Recent spontaneous pneumothorax COPD Hypertension Hyperlipidemia Former nicotine dependence PLAN: An acute coronary event has been ruled out Obtain 2-D echo to assess cardiac structure and function Resume home cardiac medications Further recommendations pending patient's course Nurse practitioner note has been reviewed by physician. Signing provider agrees with the documented findings, assessment, and plan of care. 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 pneumothorax 07/2023 History of Any Multi-Drug Resistant Organisms: None Reported Additional Past Surgical History / Comment(s): THYROIDECTOMY, POLYPS REMOVED FROM VOCAL CORDS Past Anesthesia/Blood Transfusion Reactions: No Reported Reaction Past Psychological History: No Psychological Hx Reported Smoking Status: Former smoker Past Alcohol Use History: None Reported Past Drug Use History: None Reported - Past Family History Mother Family Medical History: Cancer Additional Family Medical History / Comment(s): CERVICAL CA Father Family Medical History: No Reported History Medications and Allergies Home Medications Medication Instructions Recorded Confirmed Type Atorvastatin [Lipitor] 40 mg PO DAILY 05/13/19 08/03/23 History Denosumab [Prolia] 60 mg SQ Q180D 05/13/19 08/03/23 History Levothyroxine Sodium [Synthroid] 125 mcg PO DAILY 05/13/19 08/03/23 History Furosemide [Lasix] 40 mg PO DAILY 07/25/23 08/03/23 History Losartan [Cozaar] 50 mg PO DAILY 07/25/23 08/03/23 History Nystatin 100,000 Unit/gm Powd 1 applic TOPICAL BID 07/25/23 08/03/23 History [Mycostatin Powder] Sertraline [Zoloft] 100 mg PO DAILY 07/25/23 08/03/23 History Triamcinolone Acetonide 1 applic TOPICAL BID PRN 07/25/23 08/03/23 History [Triamcinolone Acetonide 0.1% Lotion] traMADol HCl [Ultram] 50 mg PO Q6HR PRN 07/25/23 08/03/23 History Albuterol Inhaler [Ventolin Hfa 1 - 2 puff INHALATION RT-Q6H PRN 08/03/23 08/03/23 History Inhaler] Umeclidinium Brm/Vilanterol Tr 1 puff INHALATION RT-DAILY 08/03/23 08/03/23 History [Anoro Ellipta 62.5-25 Mcg INH] Allergies Allergy/AdvReac Type Severity Reaction Status Date / Time bee venom protein (honey bee) Allergy Rash/Hives Verified 08/03/23 07:29 celecoxib [From Celebrex] Allergy Rash/Hives Verified 08/03/23 07:29 Sulfa (Sulfonamide Allergy Rash/Hives Verified 08/03/23 07:29 Antibiotics) Physical Exam Vitals: Vital Signs Temp Pulse Pulse Resp BP BP Pulse Ox 08/03/23 07:00 97.7 F 98 15 132/72 94 L 08/03/23 04:00 97 19 130/82 92 L 08/03/23 03:49 100 08/03/23 03:41 95 08/03/23 03:00 93 22 111/64 94 L 08/03/23 02:00 96 21 105/65 94 L 08/03/23 01:30 95 18 123/63 94 L 08/03/23 00:55 102 H 08/03/23 00:49 97 08/03/23 00:30 95 22 127/69 94 L 08/03/23 00:04 98.9 F 89 19 127/69 97 Intake and Output 08/02/23 08/03/23 08/03/23 22:59 06:59 14:59 Other: # Voids 1 Weight 90.718 kg Results 08/03/23 00:43 08/03/23 06:08 Cardiac Enzymes 08/03/23 08/03/23 08/03/23 Range/Units 00:43 00:43 06:08 AST 34 (14-36) U/L Troponin I <0.012 <0.012 (0.000-0.034) ng/mL Coagulation 08/03/23 Range/Units 00:43 PT 9.4 (9.0-12.0) sec APTT 21.1 L (22.0-30.0) sec CBC 08/03/23 Range/Units 00:43 WBC 8.0 (3.8-10.6) k/uL RBC 3.44 L (3.80-5.40) m/uL Hgb 11.5 (11.4-16.0) gm/dL Hct 33.9 L (34.0-46.0) % Plt Count 258 (150-450) k/uL Comprehensive Metabolic Panel 08/03/23 08/03/23 Range/Units 00:43 06:08 Sodium 136 L 139 (137-145) mmol/L Potassium 4.8 4.8 (3.5-5.1) mmol/L Chloride 100 103 (98-107) mmol/L Carbon Dioxide 29 28 (22-30) mmol/L BUN 45 H 42 H (7-17) mg/dL Creatinine 0.98 0.92 (0.52-1.04) mg/dL Glucose 104 H 145 H (74-99) mg/dL Calcium 9.5 9.6 (8.4-10.2) mg/dL AST 34 (14-36) U/L ALT 29 (4-34) U/L Alkaline Phosphatase 107 (38-126) U/L Total Protein 6.0 L (6.3-8.2) g/dL Albumin 3.7 (3.5-5.0) g/dL Current Medications Generic Name Dose Route Start Last Admin Trade Name Freq PRN Reason Stop Dose Admin Albuterol/Ipratropium 3 ml 08/03/23 04:00 08/03/23 03:41 Ipratropium-Albuterol 3 Ml Neb INHALATION 3 ml RT-Q4H BAUTISTA Administration Enoxaparin Sodium 40 mg 08/03/23 09:00 Enoxaparin 40 Mg/0.4 Ml Syringe SQ DAILY BAUTISTA Naloxone HCl 0.2 mg 08/03/23 03:33 Naloxone 0.4 Mg/Ml 1 Ml Vial IV Q2M PRN Opioid Reversal Prednisone 40 mg 08/03/23 09:00 Prednisone 20 Mg Tab PO DAILY BUATISTA Intake and Output 08/02/23 08/03/23 08/03/23 22:59 06:59 14:59 Other: # Voids 1 Weight 90.718 kg 08/03/23 00:43 08/03/23 06:08
--- NOTE | 2023-08-03 14:25 | P.PN ---
Subjective Progress Note Date: 08/03/23 Hospital course: Patient is a very pleasant 82-year-old female with a past medical history of COPD with chronic hypoxic respiratory failure home oxygen dependent on 3 L at all times, history of recent hospitalization for spontaneous pneumothorax, hypertension, hyperlipidemia, and hypothyroidism. She presented to the hospital overnight secondary to complaints of sudden onset shortness of breath and chest tightness. She underwent full evaluation. EKG was completed showing normal sinus rhythm and 90/m with no significant T-wave or ST abnormalities showing no signs of acute ischemia upon personal review and interpretation. Chest x-ray completed negative for acute process showing no recurrent or residual left pneumothorax. Labs were completed and reviewed. CBC and coagulation profile showing no significant abnormalities. BMP revealing mild prerenal azotemia with BUN of 45 otherwise normal findings. Liver profile unremarkable. Troponin less than 0.012. Influenza A, influenza B, RSV, and Covid PCR were all negative. Patient was admitted under our services consultation to cardiology and pulmonology. Physical exam: Patient seen and fully evaluated at bedside this morning. She was sitting up in the chair at bedside on 3 L O2 via nasal cannula which is patient's baseline oxygen levels. Patient reports increasing and unchanged shortness of breath and thick mucus production unable to cough up. Vital signs reviewed and stable. General: Nontoxic, no distress and appears stated age. Derm: Skin warm and dry, normal coloration for ethnicity. Head: Atraumatic, normocephalic and symmetric. Eyes: EOMs intact, no lid lag, and anicteric sclera Mouth: no lip lesions, mucus membranes moist Cardiovascular: regular rate and rhythm with normal S1S2, systolic murmur, positive posterior tibial pulses bilaterally, and cap refill < 2 seconds. Lungs: Respirations with increased work of breathing, lungs with diffuse expiratory wheezes throughout all brown bilaterally No rhonchi, rales, or crackles . Patient on baseline 3 L O2 and maintaining sats and 90s Abdominal: soft, nontender to palpation, no guarding, no appreciable organomegaly Ext: No gross muscle atrophy, bilateral lower extremity pitting edema and venous discoloration movement and sensation intact. . Neuro: Speech clear, face symmetrical and CN II-XII grossly intact with no noted focal neuro deficits Psych: Alert and oriented to person, place, time, and situation. Appropriate and pleasant affect. Assessment and Plan of Care: COPD exacerbation Acute on chronic respiratory failure with hypoxia secondary to COPD exacerbation History of recent spontaneous pneumothorax -Consult to Pulmonology -Cardiology following recommending echocardiogram and ordered a d-dimer to rule out pulmonary emboli. -Oxygenation to be administered and titrated as needed to maintain SPO2 equal to or greater than 92% -Telemetry monitoring. -Monitor Pulse-oximetry -Duonebs scheduled every 4 hours and as needed for SOB and/or wheezing -Incentive Spirometry 10-15 times hourly while awake in order placed for flutter valve to assist with breaking up thick mucus -Steroids: Solu-Medrol 60 mg IVP every 12 hours -Continue with formoterol funarate (Performist) 20 g inhalation every 12 hours -Echocardiogram completed and awaiting results. Hypertension Hyperlipidemia Hypothyroidism Continue daily medication regimen with atorvastatin 40 mg daily, Lasix 40 mg daily, levothyroxine 125 g daily, and losartan 50 mg daily CODE STATUS: Full code DVT prophylaxis: Lovenox Anticipated discharge date: Possibly within the next 24-[address]: Home with home care and COPD Navigator versus rehab Patient was seen independently by Nurse Pracitioner. This document was prepared using [employer] dictation software. Please allow for errors in sequins slinger, while rare they do occur. Objective - Vital Signs Vital signs: Vital Signs Temp 97.7 F 08/03/23 07:00 Pulse 98 08/03/23 07:00 Resp 15 08/03/23 07:00 BP 132/72 08/03/23 07:00 Pulse Ox 94 L 08/03/23 07:00 FiO2 Intake & Output 08/02/23 08/03/23 08/03/23 18:59 06:59 18:59 Weight 90.718 kg Other: # Voids 1 - Labs CBC & Chem 7: 08/03/23 00:43 08/03/23 06:08 Labs: Abnormal Lab Results - Last 24 Hours (Table) 08/03/23 08/03/23 08/03/23 Range/Units 00:43 00:43 00:43 RBC 3.44 L (3.80-5.40) m/uL Hct 33.9 L (34.0-46.0) % Lymphocytes # 0.8 L (1.0-4.8) k/uL APTT 21.1 L (22.0-30.0) sec Sodium 136 L (137-145) mmol/L BUN 45 H (7-17) mg/dL Glucose 104 H (74-99) mg/dL Total Protein 6.0 L (6.3-8.2) g/dL 08/03/23 Range/Units 06:08 RBC (3.80-5.40) m/uL Hct (34.0-46.0) % Lymphocytes # (1.0-4.8) k/uL APTT (22.0-30.0) sec Sodium (137-145) mmol/L BUN 42 H (7-17) mg/dL Glucose 145 H (74-99) mg/dL Total Protein (6.3-8.2) g/dL
[2023-08-03 16:47] LABS: Chol/HDL Ratio 2.85 Ratio
[2023-08-03] MEDS ORDERED: IPRATROPIUM-ALBUTEROL 3 ML NEB INHALATION PRN (18:11)
[2023-08-03] MEDS ORDERED: SODIUM CHLORIDE 0.9% 500 ML 500 ML IV ONE (18:42)
--- NOTE | 2023-08-03 19:24 | CT ---
EXAMINATION TYPE: CT chest angio for PE DATE OF EXAM: 08/03/2023 COMPARISON: Radiograph 08/03/2023 HISTORY: 82 year-old female shortness of breath, chest tightness, High D-dimer, COPD TECHNIQUE: Contiguous axial scanning of the chest performed with IV Contrast, patient injected with 8 0 CC mL of Isovue 370. Coronal/sagittal MIP reconstructions performed. CT DLP: 575.0 mGycm Automated exposure control for dose reduction was used. FINDINGS: There is residual left-sided subcutaneous emphysema likely related to the patient's previous pleural catheter. Small amount of pneumomediastinum also noted likely reflects the same process. Heart normal size of pericardial effusion. No flattening of the interventricular septum reflux of con trast into the hepatic veins. Ectatic aortic root at 3.6 cm. LAD coronary artery calcifications. Ectatic ascending aorta 3.6 cm. Po le in configuration to the aortic arch. Mild to moderate atherosclerotic arch calcifications. Ectatic upper descending thoracic aorta 3.1 cm. Mildly enlarged caliber to the main right and left pulmonary arteries up to 2.7 cm each suggesting un derlying pulmonary hypertension. There is markedly suboptimal contrast bolus but no definite central pulmonary embolus is seen. Lobar and more distal arterial branches are limited and nondiagnostic and emboli in these locations cannot be excluded on the basis of this exam. No thoracic lymphadenopathy by CT size criteria. Advanced emphysematous change. Strandy areas of scarring or atelectasis. Diffuse bronchial wall thick ening. No pleural effusion. A yolk nodular areas at the posterior left base measuring 1.0 cm, 6 mm, a nd 5 mm. refer to axial image 114 and 108. Some of these changes may reflect pleural parenchymal scar ring and should be reassessed at follow-up. 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 Bones: Advanced degenerative change left glenohumeral joint. Dextro convex curvature of thoracic spin e. IMPRESSION: 1. MARKEDLY SUBOPTIMAL CONTRAST BOLUS. NO OBVIOUS LARGE CENTRAL PULMONARY EMBOLUS. LOBAR, SEGMENTAL, AND MORE DISTAL ARTERIAL BRANCHES ARE LIMITED TO NONDIAGNOSTIC AND EMBOLI IN THESE LOCATIONS CANNOT B E EXCLUDED ON THE BASIS OF THIS EXAM. 2. COPD WITH ADVANCED EMPHYSEMA AND PULMONARY ARTERIAL HYPERTENSION. RESIDUAL SUBCUTANEOUS EMPHYSEMA ALONG THE LEFT CHEST WALL AND MILD PNEUMOMEDIASTINUM LIKELY DUE TO PREVIOUS PLEURAL CATHETER. 3. A FEW PULMONARY NODULES OF THE LEFT BASE MEASURING UP TO 1 CM. SOME OF THESE A RELATE TO PLEURAL P ARENCHYMAL SCARRING. FOLLOW-UP IN 3 MONTHS TO EXCLUDE A NEOPLASTIC ETIOLOGY. 4. PARTIALLY VISUALIZED 3.1 CM INFRARENAL AAA WITHIN THE ABDOMEN.
--- NOTE | 2023-08-03 19:28 | CA ---
Transthoracic Echo Report Name: Rupa Rubin Age: 82 Gender: F : 1940 Exam Date: 08/03/2023 09:31 Exam Location: [facility] Ht (in): 67 Wt (lb): 200 Ordering Physician: Clary Quiñones Attending/Referring Phys: [id number], Ishmael [employer]ing Machine Operator Shanell Bansal RDCS Procedure CPT: Indications: LV function, CP Cardiac Hx: Technical Quality: Technically difficult study Contrast 1: Definity Total Dose (mL): 2 Contrast 2: Total Dose (mL): MEASUREMENTS (Male / Female) Normal Values 2D ECHO LV Diastolic Diameter PLAX 4.0 cm 4.2 - 5.9 / 3.9 - 5.3 cm LV Systolic Diameter PLAX 1.7 cm IVS Diastolic Thickness 1.4 cm 0.6 - 1.0 / 0.6 - 0.9 cm LVPW Diastolic Thickness 1.1 cm 0.6 - 1.0 / 0.6 - 0.9 cm LV Relative Wall Thickness 0.6 LA Volume 38.0 cm??? 18 - 58 / 22 - 52 cm??? LA Volume Index 18.1 cm???/m??? 16 - 28 cm???/m??? DOPPLER AV Peak Velocity 161.5 cm/s AV Peak Gradient 10.4 mmHg AV Mean Velocity 126.9 cm/s AV Mean Gradient 6.7 mmHg AV Velocity Time Integral 24.6 cm LVOT Peak Velocity 136.3 cm/s LVOT Peak Gradient 7.4 mmHg LVOT Velocity Time Integral 35.4 cm MV Area PHT 3.8 cm??? Mitral E Point Velocity 70.7 cm/s Mitral A Point Velocity 130.0 cm/s Mitral E to A Ratio 0.5 MV Deceleration Time 200.5 ms MV E' Velocity 5.8 cm/s Mitral E to MV E' Ratio 12.3 FINDINGS Left Ventricle Moderatly increased left ventricular wall thickness. Left ventricular cavity size normal. Normal left ventricular systolic function with no obvious regional wall motion abnormalities. Left ventricular ejection fraction is estimated at 55-60 %. Right Ventricle Right ventricle not well visualized. Right ventricular dilatation. Right Atrium Right atrium not well visualized. Left Atrium Normal left atrial size. Mitral Valve No mitral stenosis, regurgitation or prolapse. Aortic Valve No aortic valve stenosis or regurgitation. Tricuspid Valve Structurally normal tricuspid valve. Mild tricuspid regurgitation. Pulmonic Valve Structurally normal pulmonic valve. Trace pulmonic regurgitation. Pericardium No pleural effusion. Aorta Normal size aortic root and proximal ascending aorta. CONCLUSIONS Hyperdynamic's LV function with inferior septal hypokinesis Enlarged right ventricle Tachycardia difficult study with suboptimal acoustic windows despite contrast echo Previewed by: Dr. Abhishek Marinelli MD (Electronically Signed) Final Date: 03 August 2023 19:27
[2023-08-03] MEDS ORDERED: methylPREDNISolone SOD SUCCI 125 MG/2 ML VIAL IV SCH (21:00)
[2023-08-04] MEDS: IPRATROPIUM-ALBUTEROL 3 ML NEB INHALATION SCH ×5 (03:15→19:11)
[2023-08-04] MEDS: LEVOTHYROXINE 125 MCG TAB PO SCH (06:18)
[2023-08-04] MEDS: FORMOTEROL FUMARATE 20 MCG/2 ML NEBU INHALATION SCH ×2 (08:09→19:11)
[2023-08-04] MEDS: IPRATROPIUM 0.5 MG/2.5 ML NEBU INHALATION SCH ×2 (08:09→11:26)
[2023-08-04 08:51] LABS: Basophils # (A) 0.01 X 10*3/uL (0.00-0.10); Basophils % (A) 0.1 %; Eosinophils # (A) 0 X 10*3/uL (0.04-0.35); Eosinophils % (A) 0 %; HCT 32.9 % (37.2-46.3); HGB 10.6 d/dL (12.0-15.0); Lymphocytes # (A) 0.58 X 10*3/uL (0.90-5.00); Lymphocytes % (A) 6.3 %; MCH 32.4 pg (27.0-32.0); MCHC 32.2 d/dL (32.0-37.0); MCV 100.6 FL (80.0-97.0); Mean Platelet Volume 10.4 FL (9.5-12.2); Monocytes # (A) 0.51 X 10*3/uL (0.20-1.00); Monocytes % (A) 5.5 %; NRBC Per 100 WBC 0 X 10*3/uL (0.00-0.01); Neutrophils # (A) 8.09 X 10*3/uL (1.80-7.70); Neutrophils % (A) 87.1 %; Platelet Count 267 X 10*3/uL (140-440); RBC 3.27 X 10*6/uL (4.10-5.20); RDW 12.7 % (11.5-14.5); WBC 9.28 X 10*3/uL (4.50-10.00)
[2023-08-04] MEDS: LOSARTAN 50 MG TAB PO SCH (09:02)
[2023-08-04] MEDS: ATORVASTATIN 40 MG TAB PO SCH (09:02)
[2023-08-04] MEDS: FUROSEMIDE 40 MG TAB PO SCH (09:02)
[2023-08-04] MEDS: NYSTATIN 100,000 UNIT/GM POWD 15 GM TOPICAL SCH ×2 (09:02→21:22)
[2023-08-04] MEDS: SERTRALINE 100 MG TAB PO SCH (09:02)
[2023-08-04] MEDS: ENOXAPARIN 40 MG/0.4 ML SYRINGE SQ SCH (09:02)
[2023-08-04 09:38] LABS: Blood Urea Nitrogen 34.1 mg/dL (9.0-27.0); Calcium 9.2 mg/dL (8.7-10.3); Carbon Dioxide 27.4 mmol/L (21.6-31.8); Chloride 103 mmol/L (96-109); Glucose 117 mg/dL (70-110); Sodium 140 mmol/L (135-145)
[2023-08-04] MEDS: traMADol 50 MG TAB PO PRN (11:10)
--- NOTE | 2023-08-04 14:28 | P.CNPUL ---
History of Present Illness Consult date: 08/04/23 Requesting physician: Sammie Turner Reason for consult: dyspnea, COPD, abnormal CXR/CT Chief complaint: Shortness of breath History of present illness: This is a very pleasant 82-year-old female patient with a known history of severe oxygen dependent chronic obstructive pulmonary disease with an FEV1 value of 41% of predicted. She is normally on oxygen 24 7 at 2 L/m per nasal cannula. She is a former smoker. She also has hypothyroidism, hypertension, hyperlipidemia, obesity. She was recently hospitalized earlier this month with shortness of breath and was found to have a left-sided pneumothorax and is status post Thora-Vent placement and subsequent removal. He was discharged home on 07/30/2023. She represented here to the emergency department early yesterday morning with similar symptoms and concerns of possible recurrent pneumothorax. Chest x-ray revealed no recurrent or residual left pneumothorax. She was also having complaints of chest pain and acute coronary syndrome was ruled out. Echocardiogram revealed preserved left ventricular systolic function with ejection fraction of 55-60%. No significant valvular abnormalities. CT angiogram was markedly suboptimal due to contrast bolus. But no obvious large central pulmonary emboli. There was significant COPD with advanced emphysema pulmonary artery hypertension. There is some residual subcutaneous emphysema along the left chest wall and mild pneumomediastinum secondary to previous admission. A few pulmonary nodules the left base measuring up to 1 cm. Some related to scarring. Partially visualized 3.1 cm infrarenal AAA within the abdomen. White count 9.2. Hemoglobin 10.6. Platelets 267. Sodium 140. Po tassium 5.0. Bicarb 27. BUN 34. Creatinine 1.0. Glucose 117. Influenza screen negative. RSV screen negative. COVID-19 screen negative. She is seen today in consultation on the regular medical floor. She is sitting up in bed. Awake and alert in no acute distress. States her breathing is better but not quite back to her baseline. Maintaining O2 saturations in the 90s on 3 L/m per nasal cannula. She's afebrile. Hemodynamically stable. Review of Systems REVIEW OF SYSTEMS: CONSTITUTIONAL: Denies any recent significant weight loss or weight gain. EYES: Denies change in vision. EARS, NOSE, MOUTH, THROAT: Denies headaches, denies sore throat. CARDIOVASCULAR: Positive for chest pain, no palpitations or syncopal episodes. RESPIRATORY: Positive for shortness of breath, cough, congestion no hemoptysis. GASTROINTESTINAL: Denies change in appetite, denies abdominal pain GENITOURINARY: Denies hematuria, denies infections. MUSKULOSKELETAL: Denies pain, denies swelling. INTEGUMENTARY: Denies rash, denies eczema. NEUROLOGICAL: Denies recent memory loss, no recent seizure activity. PSYCHIATRIC: Denies anxiety, denies depression. HEMATOLOGIC/LYMPHATIC: Denies anemia, denies enlarged lymph nodes. 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 pneumothorax 07/2023 History of Any Multi-Drug Resistant Organisms: None Reported Additional Past Surgical History / Comment(s): THYROIDECTOMY, POLYPS REMOVED FROM VOCAL CORDS Past Anesthesia/Blood Transfusion Reactions: No Reported Reaction Past Psychological History: No Psychological Hx Reported Smoking Status: Former smoker Past Alcohol Use History: None Reported Past Drug Use History: None Reported - Past Family History Mother Family Medical History: Cancer Additional Family Medical History / Comment(s): CERVICAL CA Father Family Medical History: No Reported History Medications and Allergies Home Medications Medication Instructions Recorded Confirmed Type Atorvastatin [Lipitor] 40 mg PO DAILY 05/13/19 08/03/23 History Denosumab [Prolia] 60 mg SQ Q180D 05/13/19 08/03/23 History Levothyroxine Sodium [Synthroid] 125 mcg PO DAILY 05/13/19 08/03/23 History Furosemide [Lasix] 40 mg PO DAILY 07/25/23 08/03/23 History Losartan [Cozaar] 50 mg PO DAILY 07/25/23 08/03/23 History Nystatin 100,000 Unit/gm Powd 1 applic TOPICAL BID 07/25/23 08/03/23 History [Mycostatin Powder] Sertraline [Zoloft] 100 mg PO DAILY 07/25/23 08/03/23 History Triamcinolone Acetonide 1 applic TOPICAL BID PRN 07/25/23 08/03/23 History [Triamcinolone Acetonide 0.1% Lotion] traMADol HCl [Ultram] 50 mg PO Q6HR PRN 07/25/23 08/03/23 History Albuterol Inhaler [Ventolin Hfa 1 - 2 puff INHALATION RT-Q6H PRN 08/03/23 08/03/23 History Inhaler] Umeclidinium Brm/Vilanterol Tr 1 puff INHALATION RT-DAILY 08/03/23 08/03/23 History [Anoro Ellipta 62.5-25 Mcg INH] Allergies Allergy/AdvReac Type Severity Reaction Status Date / Time bee venom protein (honey bee) Allergy Rash/Hives Verified 08/03/23 07:29 celecoxib [From Celebrex] Allergy Rash/Hives Verified 08/03/23 07:29 Sulfa (Sulfonamide Allergy Rash/Hives Verified 08/03/23 07:29 Antibiotics) Physical Exam Vitals: Vital Signs Temp Pulse Pulse Resp BP Pulse Ox 08/04/23 11:38 100 08/04/23 11:26 102 H 08/04/23 08:28 104 H 08/04/23 08:17 100 08/04/23 08:09 102 H 08/04/23 07:00 97.5 F L 96 16 167/78 93 L 08/04/23 03:23 100 08/04/23 03:15 98 08/04/23 02:26 98.3 F 88 15 134/68 97 08/04/23 01:31 111 H 14 08/03/23 23:57 101 H 08/03/23 23:53 105 H 08/03/23 20:54 111 H 14 08/03/23 20:09 104 H 08/03/23 19:59 100 08/03/23 19:30 98.2 F 96 16 141/67 94 L 08/03/23 15:45 100 08/03/23 15:32 100 Intake and Output 08/03/23 08/04/23 08/04/23 22:59 06:59 14:59 Intake Total 240 Output Total 100 Balance -100 240 Intake: Oral 240 Output: Urine 100 Other: Voiding Method Bedside Commode Bedside Commode # Voids 1 3 # Bowel Movements 1 2 GENERAL EXAM: Alert, pleasant 82-year-old female, on 3 L nasal cannula, comfortable in no apparent distress. HEAD: Normocephalic. EYES: Normal reaction of pupils, equal size. NOSE: Clear with pink turbinates. THROAT: No erythema or exudates. NECK: No masses, no JVD. CHEST: No chest wall deformity. LUNGS: Equal air entry with bilateral end expiratory wheeze, few scattered rhonchi, diminished. CVS: S1 and S2 normal with no audible murmur, regular rhythm. ABDOMEN: No hepatosplenomegaly, normal bowel sounds, no guarding or rigidity. SPINE: No scoliosis or deformity SKIN: No rashes CENTRAL NERVOUS SYSTEM: No focal deficits, tone is normal in all 4 extremities. EXTREMITIES: There is no peripheral edema. No clubbing, no cyanosis. Peripheral pulses are intact. Results - Laboratory Findings CBC and BMP: 08/04/23 05:48 08/04/23 05:48 PT/INR, D-dimer PT 9.4 sec (9.0-12.0) 08/03/23 00:43 INR 0.9 (<1.2) 08/03/23 00:43 D-Dimer 1.73 mg/L FEU (<0.60) H 08/03/23 09:11 Abnormal lab findings: Abnormal Labs 08/03/23 08/03/23 08/03/23 00:43 00:43 00:43 RBC 3.44 L Hgb Hct 33.9 L MCV MCH Neutrophils # Lymphocytes # 0.8 L Eosinophils # APTT 21.1 L D-Dimer Sodium 136 L BUN 45 H Est GFR (CKD-EPI) BUN/Creatinine Ratio Glucose 104 H Total Protein 6.0 L 08/03/23 08/03/23 08/04/23 06:08 09:11 05:48 RBC 3.27 L Hgb 10.6 L Hct 32.9 L MCV 100.6 H MCH 32.4 H Neutrophils # 8.09 H Lymphocytes # 0.58 L Eosinophils # 0 L APTT D-Dimer 1.73 H Sodium BUN 42 H Est GFR (CKD-EPI) BUN/Creatinine Ratio Glucose 145 H Total Protein 08/04/23 05:48 RBC Hgb Hct MCV MCH Neutrophils # Lymphocytes # Eosinophils # APTT D-Dimer Sodium BUN 34.1 H Est GFR (CKD-EPI) 57 L BUN/Creatinine Ratio 34.10 H Glucose 117 H Total Protein - Diagnostic Findings Chest x-ray: image reviewed Assessment and Plan Assessment: Acute exacerbation of chronic obstructive pulmonary disease with FEV1 value of 41% of predicted Acute on chronic hypoxemic respiratory failure secondary to above, on home oxygen 24 Recent admission for a left-sided pneumothorax, recovered Former smoker Hypertension Hypothyroidism Hyperlipidemia Obesity with a BMI of 31.3 kg per metered squared Plan: The patient was seen and evaluated Chest x-ray, CT angiogram, labs and medications reviewed No evidence of recurrent pneumothorax Add DuoNeb inhalations, Pulmicort and Perforomist inhalations Add IV Solu-Medrol Lovenox for DVT prophylaxis Titrate the FiO2 as tolerated Probable discharge in the a.m. Follow-up computed tomography scan in 6 months in the outpatient setting We will continue to follow and make further recommendations based on her clinical status I have personally seen and examined the patient, performed the documentation and the assessment and plan as written. Number of minutes spent on the visit: 20.
--- NOTE | 2023-08-04 16:31 | P.PN ---
Subjective Progress Note Date: 08/04/23 Hospital course: Patient is a very pleasant 82-year-old female with a past medical history of COPD with chronic hypoxic respiratory failure home oxygen dependent on 3 L at all times, history of recent hospitalization for spontaneous pneumothorax, hypertension, hyperlipidemia, and hypothyroidism. She presented to the hospital overnight secondary to complaints of sudden onset shortness of breath and chest tightness. She underwent full evaluation. EKG was completed showing normal sinus rhythm and 90/m with no significant T-wave or ST abnormalities showing no signs of acute ischemia upon personal review and interpretation. Chest x-ray completed negative for acute process showing no recurrent or residual left pneumothorax. Labs were completed and reviewed. CBC and coagulation profile showing no significant abnormalities. BMP revealing mild prerenal azotemia with BUN of 45 otherwise normal findings. Liver profile unremarkable. Troponin less than 0.012. Influenza A, influenza B, RSV, and Covid PCR were all negative. Patient was admitted under our services consultation to cardiology and pulmonology. Troponins trended an acute coronary event was ruled out. Echoca rdiogram completed revealing preserved EF of 55-60% with no significant valvular structural abnormalities reported. D-dimer was completed showing elevation at 1.73 and patient underwent a CTA chest which was a suboptimal study secondary to contrast bolus however it did rule out large central pulmonary emboli showing significant COPD with advanced emphysema and pulmonary artery hypertension, mild left chest wall pneumomediastinum and small amount of residual subcutaneous emphysema along the left lateral chest wall which is residual from previous pneumothorax. Physical exam: Patient seen and fully evaluated at bedside this morning. She was sitting up in the chair at bedside on 3 L O2 via nasal cannula which is patient's baseline oxygen levels. Patient reports since using the flutter valve she has been able to bring up a lot more sputum production and states that she is starting to feel a bit better. Vital signs reviewed and stable. General: Nontoxic, no distress and appears stated age. Derm: Skin warm and dry, normal coloration for ethnicity. Head: Atraumatic, normocephalic and symmetric. Eyes: EOMs intact, no lid lag, and anicteric sclera Mouth: no lip lesions, mucus membranes moist Cardiovascular: regular rate and rhythm with normal S1S2, systolic murmur, positive posterior tibial pulses bilaterally, and cap refill < 2 seconds. Lungs: Respirations even, regular, and unlabored this morning on 3 L O2 via nasal cannula; lungs with diffuse expiratory wheezes throughout all brown bilaterally No rhonchi, rales, or crackles . Patient on baseline 3 L O2 and maintaining sats in the 90s. Abdominal: soft, nontender to palpation, no guarding, no appreciable organomegal y Ext: No gross muscle atrophy, bilateral lower extremity pitting edema and venous discoloration movement and sensation intact. . Neuro: Speech clear, face symmetrical and CN II-XII grossly intact with no noted focal neuro deficits Psych: Alert and oriented to person, place, time, and situation. Appropriate and pleasant affect. Assessment and Plan of Care: COPD with acute exacerbation Acute on chronic respiratory failure with hypoxia secondary to COPD exacerbation Pneumomediastinum History of recent spontaneous pneumothorax -Pulmonology following changed IV Solu-Medrol from 60 mg IVP every 12 hours to 60 mg IVP every 8 hours and added on Pulmicort twice daily. -Cardiology evaluated and reviewed documentation in chart. -Oxygenation to be administered and titrated as needed to maintain SPO2 equal to or greater than 92% -Telemetry monitoring. -Monitor Pulse-oximetry -Duonebs scheduled every 4 hours and as needed for SOB and/or wheezing -Incentive Spirometry 10-15 times hourly while awake in order placed for flutter valve to assist with breaking up thick mucus -Steroids: Solu-Medrol 60 mg IVP every 12 hours -Continue with formoterol funarate (Performist) 20 g inhalation every 12 hours -Echocardiogram completed and awaiting results. Hypertension Hyperlipidemia Hypothyroidism Continue daily medication regimen with atorvastatin 40 mg daily, Lasix 40 mg daily, levothyroxine 125 g daily, and losartan 50 mg daily Data and imaging reviewed: Vital signs reviewed. Blood pressure 167/78, heart rate 96, respiratory rate 16, temp 97.5F, SpO2 of 93% on room air. Labs reviewed. Troponins trended throughout the night all negative at less than 0.0123 draws. D-dimer is elevated at 1.73. and stable with CBC showing mild macrocytic hyperchromic anemia with hemoglobin of 10.6. BMP was unremarkable. Lipid profile normal findings. CTA chest was completed and reported to be a suboptimal study secondary to contrast bolus however it did rule out large central pulmonary emboli showing significant COPD with advanced emphysema and pulmonary artery hypertension, mild left chest wall pneumomediastinum and small amount of residual subcutaneous emphysema along the left lateral chest wall which is residual from previous pneumothorax. CODE STATUS: Full code DVT prophylaxis: Lovenox Anticipated discharge date: Possibly within the next 24-[address]: Home with home care and COPD Navigator program Patient was seen independently by Nurse Pracitioner. This document was prepared using [employer] dictation software. Please allow for errors in vessel crew member, while rare they do occur. Objective - Vital Signs Vital signs: Vital Signs Temp 98.3 F 08/04/23 02:26 Pulse 104 H 08/04/23 08:28 Resp 15 08/04/23 02:26 BP 134/68 08/04/23 02:26 Pulse Ox 97 08/04/23 02:26 FiO2 Intake & Output 08/03/23 08/04/23 08/04/23 18:59 06:59 18:59 Output Total 100 Balance -100 Weight 90.718 kg Output: Urine 100 Other: Voiding Method Bedside Commode Bedside Commode # Voids 2 1 # Bowel Movements 1 1 - Labs CBC & Chem 7: 08/04/23 05:48 08/04/23 05:48 Labs: Abnormal Lab Results - Last 24 Hours (Table) 08/03/23 Range/Units 09:11 D-Dimer 1.73 H (<0.60) mg/L FEU
[2023-08-04] MEDS: methylPREDNISolone SOD SUCCI 125 MG/2 ML VIAL IV SCH (16:57)
[2023-08-04] MEDS: BUDESONIDE 1 MG/2 ML NEBU INHALATION SCH (19:11)
[2023-08-05] MEDS: IPRATROPIUM-ALBUTEROL 3 ML NEB INHALATION SCH ×3 (00:15→09:06)
[2023-08-05] MEDS: methylPREDNISolone SOD SUCCI 125 MG/2 ML VIAL IV SCH ×2 (02:15→08:25)
[2023-08-05] MEDS: LEVOTHYROXINE 125 MCG TAB PO SCH (06:49)
[2023-08-05 07:38] VITALS: BP 134/65; RESP 17; TEMP 97.7
[2023-08-05] MEDS: ATORVASTATIN 40 MG TAB PO SCH (08:24)
[2023-08-05] MEDS: LOSARTAN 50 MG TAB PO SCH (08:24)
[2023-08-05] MEDS: SERTRALINE 100 MG TAB PO SCH (08:24)
[2023-08-05] MEDS: FUROSEMIDE 40 MG TAB PO SCH (08:24)
[2023-08-05] MEDS: ENOXAPARIN 40 MG/0.4 ML SYRINGE SQ SCH (08:25)
[2023-08-05] MEDS: NYSTATIN 100,000 UNIT/GM POWD 15 GM TOPICAL SCH (08:31)
[2023-08-05] MEDS: BUDESONIDE 1 MG/2 ML NEBU INHALATION SCH (09:06)
[2023-08-05] MEDS: FORMOTEROL FUMARATE 20 MCG/2 ML NEBU INHALATION SCH (09:06)
[2023-08-05 09:59] VITALS: PULSE 91
--- NOTE | 2023-08-05 11:25 | P.DS ---
Providers Date of admission: 08/03/23 03:34 Expected date of discharge: 08/05/23 Attending physician: Sammie Turner MD Consults: 08/03/23 18:07 Consult Physician Routine Consulting Provider: Miley Weber Consult Reason/Comments: COPD chronic hypoxic resp failure. C[employer]C [employer] SOB s/p recent spon pneumo Do you want consulting provider notified?: Yes 08/05/23 11:22 Consult to Palliative Care Routine Consulting Provider: Ange Sánchez Consult Reason/Comments: Outpt palliative care consult Case management arranging w/ [facility] Do you want consulting provider notified?: Already Contacted Primary care physician: Nabil Sebastian Hospital Course: Discharge Diagnosis: COPD with acute exacerbation Acute on chronic respiratory failure with hypoxia secondary to COPD exacerbation Pneumomediastinum History of recent spontaneous pneumothorax Hypertension Hyperlipidemia Hypothyroidism Hospital Course: Patient is a very pleasant 82-year-old female with a past medical history of COPD with chronic hypoxic respiratory failure home oxygen dependent on 3 L at all times, history of recent hospitalization for spontaneous pneumothorax, hypertension, hyperlipidemia, and hypothyroidism. She presented to the hospital overnight secondary to complaints of sudden onset shortness of breath and chest tightness. She underwent full evaluation. EKG was completed showing normal sinus rhythm and 90/m with no significant T-wave or ST abnormalities showing no signs of acute ischemia upon personal review and interpretation. Chest x-ray completed negative for acute process showing no recurrent or residual left pneumothorax. Labs were completed and reviewed. CBC and coagulation profile showing no significant abnormalities. BMP revealing mild prerenal azotemia with BUN of 45 otherwise normal findings. Liver profile unremarkable. Troponin less than 0.012. Influenza A, influenza B, RSV, and Covid PCR were all negative. Patient was admitted under our services consultation to cardiology and pulmonology. Troponins trended an acute coronary event was ruled out. Echocardiogram completed revealing preserved EF of 55-60% with no significant valvular structural abnormalities reported. D-dimer was completed showing elevation at 1.73 and patient underwent a CTA chest which was a suboptimal study secondary to contrast bolus however it did rule out large central pulmonary emboli showing significant COPD with advanced emphysema and pulmonary artery hypertension, mild left chest wall pneumomediastinum and small amount of residual subcutaneous emphysema along the left lateral chest wall which is residual from previous pneumothorax. Patient was given flutter valve and educated on use. She reports having significant more sputum production and improvement of clearing secretions and breathing after use. She is at baseline oxygen levels and reports feeling ready to go home. Arrangements were made for patient to be discharged home with palliative care along with [facility] and COPD Navigator program. Patient being discharged home on 16 day prednisone taper and to follow up outpatient with her PCP in 1-2 days and with her computer system validation specialist in 1 week. Physical exam: Vital signs reviewed and stable. General: Nontoxic, no distress and appears stated age. Derm: Skin warm and dry, normal coloration for ethnicity. Head: Atraumatic, normocephalic and symmetric. Eyes: EOMs intact, no lid lag, and anicteric sclera Mouth: no lip lesions, mucus membranes moist Cardiovascular: regular rate and rhythm with normal S1S2, systolic murmur, positive posterior tibial pulses bilaterally, and cap refill < 2 seconds. Lungs: Respirations even, regular, and unlabored this morning on 3 L O2 via nasal cannula; lungs with improvement of air flow with soft diffuse expiratory wheezes bilaterally No rhonchi, rales, or crackles . Patient on baseline 3 L O2 and maintaining sats in the 90s. Abdominal: soft, nontender to palpation, no guarding, no appreciable organomegaly Ext: No gross muscle atrophy, bilateral lower extremity pitting edema and venous discoloration movement and sensation intact. . Neuro: Speech clear, face symmetrical and CN II-XII grossly intact with no noted focal neuro deficits Psych: Alert and oriented to person, place, time, and situation. Appropriate and pleasant affect. A total of 34 minutes of time were spent preparing this complex discharge summary. Pt was discharged on 08/05/23 at 11:22 AM Patient was seen independently by Nurse Practitioner. This document was prepared using [employer] dictation software. Please allow for errors in public records officer while rare they do occur. Patient Condition at Discharge: Stable Plan - Discharge Summary Discharge Rx Participant: No New Discharge Prescriptions: New predniSONE See Taper PO DIRECTED 16 Days #40 tab Budesonide [Pulmicort] 1 mg INHALATION BID 30 Days #1 each Continue Atorvastatin [Lipitor] 40 mg PO DAILY Denosumab [Prolia] 60 mg SQ Q180D Levothyroxine Sodium [Synthroid] 125 mcg PO DAILY Nystatin 100,000 Unit/gm Powd [Mycostatin Powder] 1 applic TOPICAL BID traMADol HCl [Ultram] 50 mg PO Q6HR PRN PRN Reason: Pain Umeclidinium Brm/Vilanterol Tr [Anoro Ellipta 62.5-25 Mcg INH] 1 puff INHALATION RT-DAILY Furosemide [Lasix] 40 mg PO DAILY Losartan [Cozaar] 50 mg PO DAILY Sertraline [Zoloft] 100 mg PO DAILY Triamcinolone Acetonide [Triamcinolone Acetonide 0.1% Lotion] 1 applic TOPICAL BID PRN PRN Reason: leg & chest rash Albuterol Inhaler [Ventolin Hfa Inhaler] 1 - 2 puff INHALATION RT-Q6H PRN PRN Reason: Shortness Of Breath Or Wheezing Discharge Medication List Atorvastatin [Lipitor] 40 mg PO DAILY 05/13/19 [History] Denosumab [Prolia] 60 mg SQ Q180D 05/13/19 [History] Levothyroxine Sodium [Synthroid] 125 mcg PO DAILY 05/13/19 [History] Furosemide [Lasix] 40 mg PO DAILY 07/25/23 [History] Losartan [Cozaar] 50 mg PO DAILY 07/25/23 [History] Nystatin 100,000 Unit/gm Powd [Mycostatin Powder] 1 applic TOPICAL BID 07/25/23 [History] Sertraline [Zoloft] 100 mg PO DAILY 07/25/23 [History] Triamcinolone Acetonide [Triamcinolone Acetonide 0.1% Lotion] 1 applic TOPICAL BID PRN 07/25/23 [History] traMADol HCl [Ultram] 50 mg PO Q6HR PRN 07/25/23 [History] Albuterol Inhaler [Ventolin Hfa Inhaler] 1 - 2 puff INHALATION RT-Q6H PRN 08/03/23 [History] Umeclidinium Brm/Vilanterol Tr [Anoro Ellipta 62.5-25 Mcg INH] 1 puff INHALATION RT-DAILY 08/03/23 [History] Budesonide [Pulmicort] 1 mg INHALATION BID 30 Days #1 each 08/05/23 [Rx] predniSONE See Taper PO DIRECTED 16 Days #40 tab 08/05/23 [Rx] Follow up Appointment(s)/Referral(s): Miley Weber MD [STAFF PHYSICIAN] - 1 Week [facility], [NON-STAFF] - 1-2 Days Nabil Sebastian DO [Primary Care Provider] - 1-2 days Patient Instructions/Handouts: COPD (Chronic Obstructive Pulmonary Disease) (DC), Chronic Lung Disease and Infection Prevention (DC) Activity/Diet/Wound Care/Special Instructions: Activity: As tolerated. Take breaks as needed. Diet: Heart healthy and carb consistent diet. Avoid salts, or foods with hidden salts such as canned or boxed foods and frozen dinners. Extra salt makes your heart work harder and traps the fluid in your body for longer. Special Instructions: Take all of your medications as directed and remember to keep all of your doctor's appointments and follow-up as needed. Please take your prednisone taper directly as prescribed. He will need to follow up outpatient with your primary care doctor, Dr. Sebastian in the next couple days and recommend returning to computer system validation specialist office in one week. You're being discharged home with palliative care as we discussed along with home care and COPD navigate her program. Please continue to wear oxygen at all times including while showering and sleeping. Please continue to use the flutter valve as instructed at home, as it appears to be helping greatly with breaking up your excess phlegm allowing you to bring it up more frequently. Thank you for allowing us to participate in your care, it was truly a pleasure having you for our patient!!! Discharge Disposition: HOME WITH HOME HEALTH SERVICES
--- NOTE | 2023-08-05 11:39 | P.PN ---
Subjective Progress Note Date: 08/05/23 This is a very pleasant 82-year-old female patient with a known history of severe oxygen dependent chronic obstructive pulmonary disease with an FEV1 value of 41% of predicted. She is normally on oxygen 24 7 at 2 L/m per nasal cannula. She is a former smoker. She also has hypothyroidism, hypertension, hyperlipidemia, obesity. She was recently hospitalized earlier this month with shortness of breath and was found to have a left-sided pneumothorax and is status post Thora-Vent placement and subsequent removal. He was discharged home on 07/30/2023. She represented here to the emergency department early yesterday morning with similar symptoms and concerns of possible recurrent pneumothorax. Chest x-ray revealed no recurrent or residual left pneumothorax. She was also having complaints of chest pain and acute coronary syndrome was ruled out. Echocardiogram revealed preserved left ventricular systolic function with ejection fraction of 55-60%. No significant valvular abnormalities. CT a ngiogram was markedly suboptimal due to contrast bolus. But no obvious large central pulmonary emboli. There was significant COPD with advanced emphysema pulmonary artery hypertension. There is some residual subcutaneous emphysema along the left chest wall and mild pneumomediastinum secondary to previous admission. A few pulmonary nodules the left base measuring up to 1 cm. Some related to scarring. Partially visualized 3.1 cm infrarenal AAA within the abdomen. White count 9.2. Hemoglobin 10.6. Platelets 267. Sodium 140. Potassium 5.0. Bicarb 27. BUN 34. Creatinine 1.0. Glucose 117. Influenza screen negative. RSV screen negative. COVID-19 screen negative. She is seen today in consultation on the regular medical floor. She is sitting up in bed. Awake and alert in no acute distress. States her breathing is better but not quite back to her baseline. Maintaining O2 saturations in the 90s on 3 L/m per nasal cannula. She's afebrile. Hemodynamically stable. The patient is seen today 08/05/2023 and follow-up on the regular medical floor. She is currently sitting up in bed. Awake and alert in no acute distress. Breathing easier today compared to yesterday. She is maintaining good O2 saturations in the 90s on 2 L/m per nasal cannula. She's afebrile. Hemodynam ically stable. She is continued on DuoNeb inhalations, Pulmicort and Perforomist inhalations, IV Solu-Medrol. Remains on oral diuretics. Objective - Vital Signs Vital signs: Vital Signs Temp 97.7 F 08/05/23 07:00 Pulse 100 08/05/23 09:33 Resp 17 08/05/23 08:00 BP 134/65 08/05/23 07:00 Pulse Ox 94 L 08/05/23 07:00 FiO2 Intake & Output 08/04/23 08/05/23 08/05/23 18:59 06:59 18:59 Intake Total 480 118 Balance 480 118 Intake: Oral 480 118 Other: Voiding Method Bedside Commode Bedside Commode # Voids 1 2 # Bowel Movements 1 - Exam GENERAL EXAM: Alert, pleasant 82-year-old female, sitting up at the bedside, on 2 L nasal cannula, comfortable in no apparent distress. HEAD: Normocephalic. EYES: Normal reaction of pupils, equal size. NOSE: Clear with pink turbinates. THROAT: No erythema or exudates. NECK: No masses, no JVD. CHEST: No chest wall deformity. LUNGS: Equal air entry with no crackles, wheeze, rhonchi or dullness. Diminished. CVS: S1 and S2 normal with no audible murmur, regular rhythm. ABDOMEN: No hepatosplenomegaly, normal bowel sounds, no guarding or rigidity. SPINE: No scoliosis or deformity SKIN: No rashes CENTRAL NERVOUS SYSTEM: No focal deficits, tone is normal in all 4 extremities. EXTREMITIES: There is no peripheral edema. No clubbing, no cyanosis. Peripheral pulses are intact. - Labs CBC & Chem 7: 08/04/23 05:48 08/04/23 05:48 Assessment and Plan Assessment: Acute exacerbation of chronic obstructive pulmonary disease with FEV1 value of 41% of predicted Acute on chronic hypoxemic respiratory failure secondary to above, on home oxygen 15/05 Recent admission for a left-sided pneumothorax, recovered Former smoker Hypertension Hypothyroidism Hyperlipidemia Obesity with a BMI of 31.3 kg per metered squared Plan: The patient was seen and evaluated Medications reviewed Cleared for discharge from the pulmonary standpoint Continue her home pulmonary medications, oxygen Complete a prednisone taper starting at 40 mg daily for 4 days Follow-up computed tomography scan in 6 months in the outpatient setting Follow-up in our office in 1 week This patient was seen independently by the nurse practitioner I have personally seen and examined the patient, performed the documentation and the assessment and plan as written. Number of minutes spent on the visit: 25.
== END 2023-08-05 12:03 | disposition home health service (06) ==
LOC: EC 23:58 → 6NMEDSUR 08-03 03:34
PROVIDERS: ADMIT Internal Medicine; ATTEND Internal Medicine
DX: J44.1 Chronic obstructive pulmonary disease with (acute) exacerbation (principal); J96.21 Acute and chronic respiratory failure with hypoxia; J98.2 Interstitial emphysema; I27.21 Secondary pulmonary arterial hypertension; R91.8 Other nonspecific abnormal finding of lung field; R79.89 Other specified abnormal findings of blood chemistry; I71.43 Infrarenal abdominal aortic aneurysm, without rupture; E78.5 Hyperlipidemia, unspecified; I10 Essential (primary) hypertension; E89.0 Postprocedural hypothyroidism; Z99.81 Dependence on supplemental oxygen; E66.9 Obesity, unspecified; Z68.31 Body mass index [BMI] 31.0-31.9, adult; Z11.52 Encounter for screening for COVID-19; Z79.890 Hormone replacement therapy; Z79.620 Long term (current) use of immunosuppressive biologic; Z79.899 Other long term (current) drug therapy; Z88.2 Allergy status to sulfonamides; Z88.8 Allergy status to other drugs, medicaments and biological substances; Z91.030 Bee allergy status; Z87.01 Personal history of pneumonia (recurrent); Z87.09 Personal history of other diseases of the respiratory system; Z98.890 Other specified postprocedural states; Z87.891 Personal history of nicotine dependence; Z80.49 Family history of malignant neoplasm of other genital organs
CPT/HCPCS: 96376 ×2; 96361 ×2; 96372 ×3; 96374; 96375; 99285; 36415; 94668; 94640 ×6; 94667; 93005; 85379; 80061; 80053; 80048 ×2; 83690; 83735; 84484; 85025 ×2; 85610; 85730; 83036; 87636; 71045; 71275; G0378 ×3; C8929; J2930 ×3; J1650 ×3; Q9957; J7512; C9113; Q9967; 93306

== ENCOUNTER 2023-08-16 11:12 | Inpatient (IN) | payer MEDICARE, OTHER ==
[2023-08-16 12:06] LABS: Basophils % (A) 0 %; Eosinophils # (A) 0.1 k/uL (0-0.7); Eosinophils % (A) 2 %; HCT 39.7 % (34.0-46.0); HGB 12.8 gm/dL (11.4-16.0); Hypochromasia Slight; Lymphocytes # (A) 1.1 k/uL (1.0-4.8); Lymphocytes % (A) 21 %; MCH 30.6 pg (25.0-35.0); MCHC 32.2 g/dL (31.0-37.0); MCV 95.1 fL (80.0-100.0); Mean Platelet Volume 8.7; Monocytes # (A) 0.3 k/uL (0-1.0); Monocytes % (A) 6 %; Neutrophils # (A) 3.5 k/uL (1.3-7.7); Neutrophils % (A) 67 %; Platelet Count 190 k/uL (150-450); RBC 4.17 m/uL (3.80-5.40); RDW 15.7 % (11.5-15.5); WBC 5.3 k/uL (3.8-10.6)
[2023-08-16 12:23] LABS: ALT 18 U/L (4-34); AST 31 U/L (14-36); African American GFR (CKD) 70 (>60 ml/min/1.73 sqM); Alkaline Phosphatase 80 U/L (38-126); Anion Gap 10 mmol/L; Blood Urea Nitrogen 38 mg/dL (7-17); Calcium 9.5 mg/dL (8.4-10.2); Carbon Dioxide 28 mmol/L (22-30); Chloride 101 mmol/L (98-107); Glucose 120 mg/dL (74-99); Non-African American GFR(CKD) 61 (>60 ml/min/1.73 sqM); Potassium 3.9 mmol/L (3.5-5.1); Sodium 139 mmol/L (137-145); Total Protein 6.5 g/dL (6.3-8.2)
[2023-08-16] MEDS ORDERED: SODIUM CHLORIDE 0.9% 1,000 ML IV STA (12:43)
[2023-08-16] MEDS ORDERED: IPRATROPIUM-ALBUTEROL 3 ML NEB INHALATION STA (12:45)
[2023-08-16] MEDS ORDERED: VANCOMYCIN IV PER PHARMACY 1 EACH MISC MISCELLANE PRN (12:46)
[2023-08-16] MEDS ORDERED: VANCOMYCIN 1,500 MG in SODIUM CHLORIDE 0.9% 500 ML 500 ML IVPB STA (12:49)
[2023-08-16 13:20] LABS: Basophils % (A) 0 %; Eosinophils # (A) 0.1 k/uL (0-0.7); Eosinophils % (A) 0 %; HCT 34.4 % (34.0-46.0); HGB 11.6 gm/dL (11.4-16.0); Lymphocytes # (A) 0.4 k/uL (1.0-4.8); Lymphocytes % (A) 2 %; MCH 33.3 pg (25.0-35.0); MCHC 33.7 g/dL (31.0-37.0); MCV 98.9 fL (80.0-100.0); Mean Platelet Volume 8.2; Monocytes # (A) 0.5 k/uL (0-1.0); Monocytes % (A) 2 %; Neutrophils # (A) 19.6 k/uL (1.3-7.7); Neutrophils % (A) 95 %; Platelet Count 269 k/uL (150-450); RBC 3.48 m/uL (3.80-5.40); RDW 13.1 % (11.5-15.5); WBC 20.7 k/uL (3.8-10.6)
--- NOTE | 2023-08-16 13:32 | ED ---
Abdominal Pain HPI - General Chief Complaint: Abdominal Pain Stated Complaint: Poss infection Time Seen by Provider: 08/16/23 11:25 Source: patient Mode of arrival: wheelchair Limitations: no limitations - History of Present Illness Initial Comments: 82-year-old female with past medical history of COPD on home O2 at 3 L, recent pneumothorax who presents emergency Department with rectal wound. Daughter is at bedside and helps provide history. States that her home care nurse noted that she started having a wound on her bottom over the weekend because she was having burning. On Monday they noted that the area had started draining. Patient normally does not have sacral wounds even though she is mostly bedbound. Daughter states that they have excellent care for her at home and therefore she has never had one. She is not a diabetic. No fevers. Daughter states that the mother seems somewhat confused and weak. She has had decrease in the amount that she is urinating. Patient had some diarrhea yesterday. Denies black or bloody stools. She is on steroids for her COPD. Denies any recent antibiotic use. She denies chest pain or worsening of her shortness of breath. Admits to chronic cough. No other alleviating, precipitating or modifying factors - Related Data Home Medications Medication Instructions Recorded Confirmed Atorvastatin [Lipitor] 40 mg PO DAILY 05/13/19 08/16/23 Denosumab [Prolia] 60 mg SQ Q180D 05/13/19 08/16/23 Levothyroxine Sodium [Synthroid] 125 mcg PO DAILY 05/13/19 08/16/23 Furosemide [Lasix] 40 mg PO DAILY 07/25/23 08/16/23 Losartan [Cozaar] 50 mg PO DAILY 07/25/23 08/16/23 Nystatin 100,000 Unit/gm Powd 1 applic TOPICAL BID 07/25/23 08/16/23 [Mycostatin Powder] Sertraline [Zoloft] 100 mg PO DAILY 07/25/23 08/16/23 Triamcinolone Acetonide 1 applic TOPICAL BID PRN 07/25/23 08/16/23 [Triamcinolone Acetonide 0.1% Lotion] traMADol HCl [Ultram] 50 mg PO Q6HR PRN 07/25/23 08/16/23 Albuterol Inhaler [Ventolin Hfa 1 - 2 puff INHALATION RT-Q6H PRN 08/03/23 08/16/23 Inhaler] Umeclidinium Brm/Vilanterol Tr 1 puff INHALATION RT-DAILY 08/03/23 08/16/23 [Anoro Ellipta 62.5-25 Mcg INH] Previous Rx's Medication Instructions Recorded Budesonide [Pulmicort] 1 mg INHALATION BID 30 Days #1 each 08/05/23 predniSONE See Taper PO DIRECTED 16 Days 08/05/23 #40 tab Allergies Allergy/AdvReac Type Severity Reaction Status Date / Time bee venom protein (honey bee) Allergy Rash/Hives Verified 08/16/23 16:01 celecoxib [From Celebrex] Allergy Rash/Hives Verified 08/16/23 16:01 Sulfa (Sulfonamide Allergy Rash/Hives Verified 08/16/23 16:01 Antibiotics) Review of Systems ROS Statement: Those systems with pertinent positive or pertinent negative responses have been documented in the HPI. ROS Other: All systems not noted in ROS Statement are negative. 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 pneumothorax 07/2023 History of Any Multi-Drug Resistant Organisms: None Reported Additional Past Surgical History / Comment(s): THYROIDECTOMY, POLYPS REMOVED FROM VOCAL CORDS Past Anesthesia/Blood Transfusion Reactions: No Reported Reaction Past Psychological History: No Psychological Hx Reported Smoking Status: Former smoker Past Alcohol Use History: None Reported Past Drug Use History: None Reported - Past Family History Mother Family Medical History: Cancer Additional Family Medical History / Comment(s): CERVICAL CA Father Family Medical History: No Reported History General Exam Limitations: no limitations General appearance: alert, in no apparent distress Head exam: Present: atraumatic, normocephalic, normal inspection Eye exam: Present: normal appearance, PERRL, EOMI. Absent: scleral icterus, conjunctival injection, periorbital swelling ENT exam: Present: normal exam, mucous membranes moist Neck exam: Present: normal inspection. Absent: tenderness, meningismus, lymphadenopathy Respiratory exam: Present: wheezes, decreased breath sounds. Absent: respiratory distress, rales, rhonchi, stridor Cardiovascular Exam: Present: regular rate, normal rhythm, normal heart sounds. Absent: systolic murmur, diastolic murmur, rubs, gallop, clicks GI/Abdominal exam: Present: soft, normal bowel sounds. Absent: distended, tenderness, guarding, rebound, rigid Rectal exam: Present: hemorrhoids, tenderness (Patient has brawny edema and redness to the mons. Over the central portion of the indurated tissue there is a black eschar measuring 5 x 3 cm. No crepitance), other (Patient has draining abscess through a hemorrhoid. Approximately 5 mL of purulent drainage is expressed on its own. The tissue surrounding the hemorrhoid of the left buttock is extremely indurated. This induration extends forward along the left labia and into the mons ). Absent: mass Extremities exam: Present: normal inspection, full ROM, normal capillary refill. Absent: tenderness, pedal edema, joint swelling, calf tenderness Back exam: Present: normal inspection Neurological exam: Present: alert, oriented X3, CN II-XII intact Psychiatric exam: Present: normal affect, normal mood Skin exam: Present: warm, dry, intact, normal color. Absent: rash Course Vital Signs 08/16/23 08/16/23 08/16/23 11:22 13:37 14:00 Temperature 97.6 F Pulse Rate 90 Pulse Rate [ Pulse Oximetery ] Respiratory 18 Rate Blood Pressure 101/64 132/68 132/68 Blood Pressure [Right Arm] O2 Sat by Pulse 99 Oximetry 08/16/23 08/16/23 08/16/23 14:24 14:33 15:00 Temperature Pulse Rate 90 88 Pulse Rate [ Pulse Oximetery ] Respiratory Rate Blood Pressure 132/71 Blood Pressure [Right Arm] O2 Sat by Pulse Oximetry 08/16/23 08/16/23 08/16/23 16:00 17:00 18:00 Temperature Pulse Rate Pulse Rate [ Pulse Oximetery ] Respiratory 18 20 Rate Blood Pressure 136/67 132/64 132/61 Blood Pressure [Right Arm] O2 Sat by Pulse 98 98 Oximetry 08/16/23 08/16/23 08/16/23 19:00 19:47 19:59 Temperature Pulse Rate 86 84 88 Pulse Rate [ Pulse Oximetery ] Respiratory 22 Rate Blood Pressure 125/60 Blood Pressure [Right Arm] O2 Sat by Pulse 95 Oximetry 08/16/23 08/16/23 20:00 21:00 Temperature 98.3 F Pulse Rate Pulse Rate [ 91 Pulse Oximetery ] Respiratory 24 Rate Blood Pressure 135/61 141/55 Blood Pressure 122/65 [Right Arm] O2 Sat by Pulse 96 Oximetry - Reevaluation(s) Reevaluation #1: 08/16/23 15:[address] read - CT images not sent through Medical Decision Making - Medical Decision Making Was pt. sent in by a medical professional or institution (, PA, CNC WOOD LATHE OPERATOR, urgent care, hospital, or [place] health care facility...) When possible be specific @ -No Did you speak to anyone other than the patient for history (EMS, parent, family, police, friend...)? What history was obtained from this source @ -Spoke with the patient's daughter Did you review nursing and triage notes (agree or disagree)? Why? @ -I reviewed and agree with nursing and triage notes Were old charts reviewed (outside hosp., previous admission, EMS record, old EKG, old radiological studies, urgent care reports/EKG's, [place] health care facility records)? Report findings @ -No old charts were reviewed Differential Diagnosis (chest pain, altered mental status, abdominal pain women, abdominal pain men, vaginal bleeding, weakness, fever, dyspnea, syncope, headache, dizziness, GI bleed, back pain, seizure, CVA, palpatations, mental health, musculoskeletal)? @ -Necrotizing fasciitis, abscess, cellulitis, perirectal abscess EKG interpreted by me (3pts min.). @ -Yes and demonstrates sinus rhythm with a rate of 90. TN interval 154. QRS 94. QTC of 383. Some PVCs. No acute ST segment elevations or depressions X-rays interpreted by me (1pt min.). @ -Yes and demonstrates no acute process CT interpreted by me (1pt min.). @ -Yes and demonstrates a perirectal cellulitis U/S interpreted by me (1pt. min.). @ -None done What testing was considered but not performed or refused? (CT, X-rays, U/S, labs)? Why? @ -None What meds were considered but not given or refused? Why? @ -None Did you discuss the management of the patient with other professionals (professionals i.e. , PA, CNC WOOD LATHE OPERATOR, lab, RT, psych nurse, high school social studies tutor, plant floor automation manager, teacher, chief science officer, pillowcase cleaner)? Give summary @ -Spoke with Dr. Toledo and Dr. Pires Was smoking cessation discussed for >3mins.? @ -No Was critical care preformed (if so, how long)? @ -No Were there social determinants of health that impacted care today? How? (Homelessness, low income, unemployed, alcoholism, drug addiction, transportation, low edu. Level, literacy, decrease access to med. care, care home, rehab)? @ -No Was there de-escalation of care discussed even if they declined (Discuss DNR or withdrawal of care, Hospice)? DNR status @ -No What co-morbidities impacted this encounter? (DM, HTN, Smoking, COPD, CAD, Cancer, CVA, ARF, Chemo, Hep., AIDS, mental health diagnosis, sleep apnea, morbid obesity)? @ -COPD Was patient admitted / discharged? Hospital course, mention meds given and route, prescriptions, significant lab abnormalities, going to OR and other pertinent info. @ -On arrival patient was placed into room 2. Thorough history and physical exam is performed. Physical exam demonstrates an extensive perirectal cellulitis on the left side which drains to a hemorrhoid patient has no significant tenderness upon rectal exam. IV is established and laboratory studies are conducted. Patient was given Vanco and Zosyn after blood cultures are obtained. CT was performed which demonstrates a perirectal cellulitis. I did call and speak with Dr. Toledo. Also spoke with Dr. Pires who will admit the patient. Patient transferred to the floor in stable condition Undiagnosed new problem with uncertain prognosis? @ - Yes Drug Therapy requiring intensive monitoring for toxicity (Heparin, Nitro, Insulin, Cardizem)? @ -No Were any procedures done? @ -No Diagnosis/symptom? @ -Acute perirectal cellulitis with abscess, acute leukocytosis Acute, or Chronic, or Acute on Chronic? @ -Acute Uncomplicated (without systemic symptoms) or Complicated (systemic symptoms)? @ -Complicated Side effects of treatment? @ -No Exacerbation, Progression, or Severe Exacerbation? @ -No Poses a threat to life or bodily function? How? (Chest pain, [place], [place], pneumonia, PE, COPD, DKA, ARF, appy, cholecystitis, CVA, Diverticulitis, Homicidal, Suicidal, threat to staff... and all critical care pts) @ -Yes, patient has significant perineal infection - Lab Data Result diagrams: 08/16/23 12:47 08/16/23 12:47 Lab Results 08/16/23 08/16/23 08/16/23 Range/Units 11:54 11:54 12:47 WBC 5.3 20.7 H (3.8-10.6) k/uL RBC 4.17 3.48 L (3.80-5.40) m/uL Hgb 12.8 11.6 (11.4-16.0) gm/dL Hct 39.7 34.4 (34.0-46.0) % MCV 95.1 98.9 (80.0-100.0) fL MCH 30.6 33.3 (25.0-35.0) pg MCHC 32.2 33.7 (31.0-37.0) g/dL RDW 15.7 H 13.1 (11.5-15.5) % Plt Count 190 269 (150-450) k/uL MPV 8.7 8.2 Neutrophils % 67 95 % Lymphocytes % 21 2 % Monocytes % 6 2 % Eosinophils % 2 0 % Basophils % 0 0 % Neutrophils # 3.5 19.6 H (1.3-7.7) k/uL Lymphocytes # 1.1 0.4 L (1.0-4.8) k/uL Monocytes # 0.3 0.5 (0-1.0) k/uL Eosinophils # 0.1 0.1 (0-0.7) k/uL Basophils # 0.0 0.0 (0-0.2) k/uL Hypochromasia Slight PT (10.0-12.5) sec INR (<1.2) APTT (22.0-30.0) sec Sodium 139 (137-145) mmol/L Potassium 3.9 (3.5-5.1) mmol/L Chloride 101 (98-107) mmol/L Carbon Dioxide 28 (22-30) mmol/L Anion Gap 10 mmol/L BUN 38 H (7-17) mg/dL Creatinine 0.89 (0.52-1.04) mg/dL Est GFR (CKD-EPI)AfAm 70 (>60 ml/min/1.73 sqM) Est GFR (CKD-EPI)NonAf 61 (>60 ml/min/1.73 sqM) Glucose 120 H (74-99) mg/dL Plasma Lactic Acid Simone (0.7-2.0) mmol/L Calcium 9.5 (8.4-10.2) mg/dL Total Bilirubin 1.0 (0.2-1.3) mg/dL AST 31 (14-36) U/L ALT 18 (4-34) U/L Alkaline Phosphatase 80 (38-126) U/L Total Protein 6.5 (6.3-8.2) g/dL Albumin 4.0 (3.5-5.0) g/dL Lipase (23-300) U/L 08/16/23 08/16/23 08/16/23 Range/Units 12:47 12:47 12:47 WBC (3.8-10.6) k/uL RBC (3.80-5.40) m/uL Hgb (11.4-16.0) gm/dL Hct (34.0-46.0) % MCV (80.0-100.0) fL MCH (25.0-35.0) pg MCHC (31.0-37.0) g/dL RDW (11.5-15.5) % Plt Count (150-450) k/uL MPV Neutrophils % % Lymphocytes % % Monocytes % % Eosinophils % % Basophils % % Neutrophils # (1.3-7.7) k/uL Lymphocytes # (1.0-4.8) k/uL Monocytes # (0-1.0) k/uL Eosinophils # (0-0.7) k/uL Basophils # (0-0.2) k/uL Hypochromasia PT 10.3 (10.0-12.5) sec INR 0.9 (<1.2) APTT 20.1 L (22.0-30.0) sec Sodium 138 (137-145) mmol/L Potassium 3.3 L (3.5-5.1) mmol/L Chloride 98 (98-107) mmol/L Carbon Dioxide 29 (22-30) mmol/L Anion Gap 11 mmol/L BUN 62 H (7-17) mg/dL Creatinine 1.09 H (0.52-1.04) mg/dL Est GFR (CKD-EPI)AfAm 55 (>60 ml/min/1.73 sqM) Est GFR (CKD-EPI)NonAf 48 (>60 ml/min/1.73 sqM) Glucose 98 (74-99) mg/dL Plasma Lactic Acid Simone 1.6 (0.7-2.0) mmol/L Calcium 8.5 (8.4-10.2) mg/dL Total Bilirubin 0.7 (0.2-1.3) mg/dL AST 67 H (14-36) U/L ALT 52 H (4-34) U/L Alkaline Phosphatase 242 H (38-126) U/L Total Protein 5.5 L (6.3-8.2) g/dL Albumin 2.8 L (3.5-5.0) g/dL Lipase 46 (23-300) U/L Disposition Clinical Impression: Rectal cellulitis, Leukocytosis Disposition: ADMITTED IP TO THIS [facility] Condition: Serious Is patient prescribed a controlled substance at d/c from ED?: No Time of Disposition: 16:37 Decision to Admit Reason: Admit from EC Decision Date: 08/16/23 Decision Time: 16:37
[2023-08-16 13:35] LABS: INR 0.9 (<1.2); Prothrombin Time 10.3 sec (10.0-12.5)
[2023-08-16 13:44] LABS: Partial Thromboplastin Time 20.1 sec (22.0-30.0)
[2023-08-16 13:51] LABS: ALT 52 U/L (4-34); AST 67 U/L (14-36); African American GFR (CKD) 55 (>60 ml/min/1.73 sqM); Albumin 2.8 g/dL (3.5-5.0); Alkaline Phosphatase 242 U/L (38-126); Anion Gap 11 mmol/L; Blood Urea Nitrogen 62 mg/dL (7-17); Calcium 8.5 mg/dL (8.4-10.2); Carbon Dioxide 29 mmol/L (22-30); Chloride 98 mmol/L (98-107); Glucose 98 mg/dL (74-99); Lipase 46 U/L (23-300); Non-African American GFR(CKD) 48 (>60 ml/min/1.73 sqM); Potassium 3.3 mmol/L (3.5-5.1); Sodium 138 mmol/L (137-145); Total Bilirubin 0.7 mg/dL (0.2-1.3); Total Protein 5.5 g/dL (6.3-8.2)
--- NOTE | 2023-08-16 14:42 | XR ---
EXAMINATION TYPE: XR chest 2V DATE OF EXAM: 08/16/2023 COMPARISON: 08/03/2023 INDICATION: Cough, pain TECHNIQUE: Frontal and lateral views of the chest are obtained. FINDINGS: The heart size is normal. The pulmonary vasculature is normal. The lungs are clear. Small focal eventration of the right diaphragm is again evident. IMPRESSION: 1. No acute pulmonary process.
--- NOTE | 2023-08-16 16:08 | CT ---
EXAMINATION TYPE: CT abdomen pelvis w con DATE OF EXAM: 08/16/2023 COMPARISON: On HISTORY: Pain, rectal abscess CT DLP: 1583.5 mGycm CONTRAST: CT scan of the abdomen and pelvis is performed without Oral Contrast and with IV Contrast, patient in jected with 100 mL of Isovue 300. FINDINGS: LUNG BASES-: No visible nodule. No infiltrate. LIVER/GB: No calcified gallstones. No space occupying hepatic lesion. Biliary tree is of normal ca liber. PANCREAS: No inflammation. No distinct mass. SPLEEN: No splenic enlargement. No lesion seen. ADRENALS: No nodule. No thickening. KIDNEYS/BLADDER: No hydronephrosis. No nephrolithiasis. No distinct renal mass. Urinary bladder g rossly unremarkable. BOWEL: Normal appendix. Normal bowel caliber. No inflammation. Sigmoid diverticulosis without diver ticulitis. GENITAL ORGANS: No gross abnormality. LYMPH NODES: No greater than 1cm abdominal or pelvic lymph nodes are appreciated. AORTA: Infrarenal abdominal aortic aneurysm measuring 3.1 cm. 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 OSSEOUS STRUCTURES: No significant abnormality is seen. OTHER: There is left perirectal subcutaneous edema noted with extension to the left scrotal region. T here is a focus of air is seen on image 64 sequence 202. I do not see evidence for a drainable absces s at this time. Developing abscess is not excluded. Inflammatory change extends to the low anterior a bdominal wall. IMPRESSION: 1. Perirectal cellulitis. No drainable abscess. Small focus of air could reflect developing abscess. 2. Sigmoid diverticulosis without diverticulitis.
[2023-08-16] MEDS ORDERED: ONDANSETRON 4 MG/2 ML VIAL IVP PRN (16:37)
[2023-08-16] MEDS ORDERED: NALOXONE 0.4 MG/ML 1 ML VIAL IV PRN (16:37)
[2023-08-16] MEDS ORDERED: POTASSIUM CHLORIDE ER 20 MEQ TAB.ER PO STA (17:48)
--- NOTE | 2023-08-16 17:50 | P.HPIM ---
History of Present Illness H&P Date: 08/16/23 82-year-old female with PMH of chronic respiratory failure on 3 L NC, COPD, hypothyroidism, depression presents to the ED for rectal abscess. Patient reports rectal discomfort that started on Monday. Her home care nurse noted a rectal wound on Monday which started draining on Monday which prompted her to come to the ED for evaluation. Patient reports pain in her buttocks that is well controlled with tramadol. She denies any fever or chills. No changes in bowel habits or urination. No nausea or vomiting. In the ED, she underwent extensive evaluation. Vital significant for tachycardia with heart rate of 90. CBC showed WBC count of 20.7. INR was 0.9 CMP showed potassium of 3.3, BUN of 62, creatinine 1.09, AST 67, ALT 52. EKG showed sinus rhythm with PVCs Chest x-ray negative for acute process CTAP showed findings of perirectal cellulitis Patient is admitted for sepsis related to perirectal cellulitis. Pertinent positives and negatives as discussed in HPI, a complete review of systems was performed and all other systems are negative. General: non toxic, no distress, appears at stated age Derm: warm, dry Head: atraumatic, normocephalic, symmetric Eyes: EOMI, no lid lag, anicteric sclera Cardiovascular: S1S2 tachycardic, no murmur Lungs: Decreased breath sounds bilateral, no rhonchi, no rales , no accessory muscle use Ext: no gross muscle atrophy, no edema, no contractures Neuro: no focal neuro deficits Psych: Alert, oriented, appropriate affect Sepsis secondary to Perirectal cellulitis Hypokalemia SINGH on CKD Chronic conditions: chronic respiratory failure on 3 L NC, COPD, hypothyroidism, depression Based on my assessment of this patient, this patient meets a high complexity level of care. Patient has an acute diagnosis of perirectal cellulitis causing sepsis which poses a threat to life or bodily function. Sepsis secondary to Perirectal cellulitis: Obtain BCx and WCx. Surgery consulted. NS at 75 cc/hr. Telemetry monitoring. ID consulted. Start Vancomycin dosed per pharmacy and Zosyn 3.375g IV Q8H. Hypokalemia: KCl 40 meq PO x 1. SINGH on CKD: Hold Losartan and Lasix. IV hydration as above. Repeat BMP tomorrow morning. Lovenox SQ for DVT prophylaxis. FULL CODE. I have reviewed the following mental hygiene consultant notes: I have reviewed the results of the following tests: As above. I have ordered the following tests: WCx. BCx. CBC. CMP. I have discussed the care of this patient with the following independent historian: Discussed with multiple family members I have independently interpreted the following test below: EKG as above. 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 pneumothorax 07/2023 History of Any Multi-Drug Resistant Organisms: None Reported Additional Past Surgical History / Comment(s): THYROIDECTOMY, POLYPS REMOVED FROM VOCAL CORDS Past Anesthesia/Blood Transfusion Reactions: No Reported Reaction Past Psychological History: No Psychological Hx Reported Smoking Status: Former smoker Past Alcohol Use History: None Reported Past Drug Use History: None Reported - Past Family History Mother Family Medical History: Cancer Additional Family Medical History / Comment(s): CERVICAL CA Father Family Medical History: No Reported History Medications and Allergies Home Medications Medication Instructions Recorded Confirmed Type Atorvastatin [Lipitor] 40 mg PO DAILY 05/13/19 08/16/23 History Denosumab [Prolia] 60 mg SQ Q180D 05/13/19 08/16/23 History Levothyroxine Sodium [Synthroid] 125 mcg PO DAILY 05/13/19 08/16/23 History Furosemide [Lasix] 40 mg PO DAILY 07/25/23 08/16/23 History Losartan [Cozaar] 50 mg PO DAILY 07/25/23 08/16/23 History Nystatin 100,000 Unit/gm Powd 1 applic TOPICAL BID 07/25/23 08/16/23 History [Mycostatin Powder] Sertraline [Zoloft] 100 mg PO DAILY 07/25/23 08/16/23 History Triamcinolone Acetonide 1 applic TOPICAL BID PRN 07/25/23 08/16/23 History [Triamcinolone Acetonide 0.1% Lotion] traMADol HCl [Ultram] 50 mg PO Q6HR PRN 07/25/23 08/16/23 History Albuterol Inhaler [Ventolin Hfa 1 - 2 puff INHALATION RT-Q6H PRN 08/03/23 08/16/23 History Inhaler] Umeclidinium Brm/Vilanterol Tr 1 puff INHALATION RT-DAILY 08/03/23 08/16/23 History [Anoro Ellipta 62.5-25 Mcg INH] Budesonide [Pulmicort] 1 mg INHALATION BID 30 Days #1 each 08/05/23 08/16/23 Rx predniSONE See Taper PO DIRECTED 16 Days 08/05/23 08/16/23 Rx #40 tab Allergies Allergy/AdvReac Type Severity Reaction Status Date / Time bee venom protein (honey bee) Allergy Rash/Hives Verified 08/16/23 16:01 celecoxib [From Celebrex] Allergy Rash/Hives Verified 08/16/23 16:01 Sulfa (Sulfonamide Allergy Rash/Hives Verified 08/16/23 16:01 Antibiotics) Physical Exam Vitals: Vital Signs Temp Pulse Resp BP Pulse Ox 08/16/23 17:00 132/64 98 08/16/23 16:00 18 136/67 98 08/16/23 15:00 132/71 08/16/23 14:33 88 08/16/23 14:24 90 08/16/23 14:00 132/68 08/16/23 13:37 132/68 99 08/16/23 11:22 97.6 F 90 18 101/64 Intake and Output 08/16/23 08/16/23 08/16/23 06:59 14:59 22:59 Other: Weight 90.718 kg Results CBC & Chem 7: 08/16/23 12:47 08/16/23 12:47 Labs: Abnormal Lab Results - Last 24 Hours (Table) 08/16/23 08/16/23 08/16/23 Range/Units 11:54 11:54 12:47 WBC 20.7 H (3.8-10.6) k/uL RBC 3.48 L (3.80-5.40) m/uL RDW 15.7 H (11.5-15.5) % Neutrophils # 19.6 H (1.3-7.7) k/uL Lymphocytes # 0.4 L (1.0-4.8) k/uL APTT (22.0-30.0) sec Potassium (3.5-5.1) mmol/L BUN 38 H (7-17) mg/dL Creatinine (0.52-1.04) mg/dL Glucose 120 H (74-99) mg/dL AST (14-36) U/L ALT (4-34) U/L Alkaline Phosphatase (38-126) U/L Total Protein (6.3-8.2) g/dL Albumin (3.5-5.0) g/dL 08/16/23 08/16/23 Range/Units 12:47 12:47 WBC (3.8-10.6) k/uL RBC (3.80-5.40) m/uL RDW (11.5-15.5) % Neutrophils # (1.3-7.7) k/uL Lymphocytes # (1.0-4.8) k/uL APTT 20.1 L (22.0-30.0) sec Potassium 3.3 L (3.5-5.1) mmol/L BUN 62 H (7-17) mg/dL Creatinine 1.09 H (0.52-1.04) mg/dL Glucose (74-99) mg/dL AST 67 H (14-36) U/L ALT 52 H (4-34) U/L Alkaline Phosphatase 242 H (38-126) U/L Total Protein 5.5 L (6.3-8.2) g/dL Albumin 2.8 L (3.5-5.0) g/dL
[2023-08-16] MEDS: PIPERACILLIN-TAZOBACTAM 3.375 GM in SODIUM CHLORIDE 0.9% 100 ML IVPB SCH (19:29)
[2023-08-16] MEDS: SODIUM CHLORIDE 0.9% 1,000 ML IV SCH (19:35)
[2023-08-16] MEDS: traMADol 50 MG TAB PO PRN (19:36)
[2023-08-16] MEDS: IPRATROPIUM-ALBUTEROL 3 ML NEB INHALATION PRN ×2 (19:47→23:39)
[2023-08-17] MEDS: PIPERACILLIN-TAZOBACTAM 3.375 GM in SODIUM CHLORIDE 0.9% 100 ML IVPB SCH ×3 (01:20→16:50)
[2023-08-17 04:40] LABS: HCT 33.5 % (34.0-46.0); HGB 10.5 gm/dL (11.4-16.0); Hypochromasia Slight; MCH 32.6 pg (25.0-35.0); MCHC 31.5 g/dL (31.0-37.0); MCV 103.5 fL (80.0-100.0); Macrocytosis Slight; Mean Platelet Volume 9.1; Platelet Count 214 k/uL (150-450); RBC 3.24 m/uL (3.80-5.40); RDW 13.4 % (11.5-15.5); WBC 15.4 k/uL (3.8-10.6)
[2023-08-17 04:56] LABS: Band Neutrophils % 17 %; Eosinophils # (M) 0.15 k/uL (0-0.7); Metamyelocytes # (M) 0.46 k/uL (0); Metamyelocytes % 3 %; Neutrophils % (M) 79 %; Nucleated Red Blood Cells 0 /100 WBC (0-0); Total Cells Counted 200
[2023-08-17 04:57] LABS: Toxic Granulation Present
[2023-08-17 04:59] LABS: African American GFR (CKD) 78 (>60 ml/min/1.73 sqM); Albumin 2.2 g/dL (3.5-5.0); Anion Gap 6 mmol/L; Blood Urea Nitrogen 41 mg/dL (7-17); Calcium 7.7 mg/dL (8.4-10.2); Carbon Dioxide 24 mmol/L (22-30); Chloride 105 mmol/L (98-107); Globulin 2.3 g/dL; Glucose 79 mg/dL (74-99); Non-African American GFR(CKD) 67 (>60 ml/min/1.73 sqM); Sodium 135 mmol/L (137-145); Total Bilirubin 0.7 mg/dL (0.2-1.3); Total Protein 4.5 g/dL (6.3-8.2)
[2023-08-17 05:18] LABS: AST 62 U/L (14-36); Potassium 3.8 mmol/L (3.5-5.1)
[2023-08-17 05:19] LABS: Alkaline Phosphatase 185 U/L (38-126)
[2023-08-17 05:27] LABS: ALT 48 U/L (4-34)
[2023-08-17] MEDS: LEVOTHYROXINE 125 MCG TAB PO SCH (06:15)
[2023-08-17] MEDS: SODIUM CHLORIDE 0.9% 1,000 ML IV SCH (06:17)
[2023-08-17] MEDS: IPRATROPIUM-ALBUTEROL 3 ML NEB INHALATION PRN ×3 (06:29→18:16)
[2023-08-17] MEDS: traMADol 50 MG TAB PO PRN ×3 (06:40→20:30)
[2023-08-17] MEDS ORDERED: ATORVASTATIN 40 MG TAB PO SCH (09:00)
[2023-08-17] MEDS: predniSONE 20 MG TAB PO SCH (09:08)
[2023-08-17] MEDS: SERTRALINE 100 MG TAB PO SCH (09:09)
[2023-08-17] MEDS: ENOXAPARIN 40 MG/0.4 ML SYRINGE SQ SCH (09:50)
[2023-08-17] MEDS ORDERED: VANCOMYCIN 1,500 MG in SODIUM CHLORIDE 0.9% 500 ML 500 ML IVPB SCH (11:00)
--- NOTE | 2023-08-17 11:36 | P.GSCN ---
History of Present Illness Consult date: 08/17/23 History of present illness: CHIEF COMPLAINT: Perirectal cellulitis HISTORY OF PRESENT ILLNESS: This is a 82-year-old female with a history of severe COPD on home O2 and a recent spontaneous pneumothorax 2 weeks ago. Patient is mostly bedbound or in her wheelchair. Patient's daughter in law was at bedside. Reports that patient has never had any skin wounds or breakdown before. She reports that about 6 days ago they noted some firmness in the suprapubic region and on the left buttocks and labial area. Since then patient had increase in redness and swelling. Monday patient started having drainage in the left labial and buttocks area. Patient is been started on antibiotics. White count elevated at 20. She denies any cardiac history of being on any blood thinners. Patient reports that her breathing is at baseline. 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 Patient also reports being on steroids at home for her lungs. She has a couple days left to finish on her steroids. Patient denies any history of diabetes. PAST MEDICAL HISTORY: See below PAST SURGICAL HISTORY: See below MEDICATIONS: See below ALLERGIES: See below SOCIAL HISTORY: No illicit drug use. REVIEW OF SYSTEMS: CONSTITUTIONAL: Denies fever or chills. HEENT: Denies blurred vision, vision changes, or eye pain. Denies hemoptysis CARDIOVASCULAR: Denies chest pain or pressure. RESPIRATORY: No shortness of breath. GASTROINTESTINAL: See HPI for pertinent findings HEMATOLOGIC: Denies bleeding disorders. GENITOURINARY: Denies any blood in urine or increased urinary frequency. SKIN: Denies pruitis. Denies rash. PHYSICAL EXAM: VITAL SIGNS: Reviewed GENERAL: Well-developed in no acute distress. HEENT: No sclera icterus. Extraocular movements grossly intact. Moist buccal mucosa. Head is atraumatic, normocephalic. No nasal drainage. ABDOMEN: Soft. Nondistended. Nontender NEUROLOGIC: Alert and oriented. Cranial nerves II through XII grossly intact. Skin: Patient has erythema in the suprapubic area which is firm with palpation and tender. The erythema does go into town into the left labial and into the left lower buttocks and anus. Left lower buttocks has a ulceration with necrotic tissue. Along the left groin there are a couple areas of drainage. Left labia is firm, tender and red with palpation. LABORATORY DATA: WBC 20.7 down to 15.4 Hgb 10.5 platelets 214 Sodium 135 potassium 3.8 creatinine 0.82 Total bili 0.7 AST 62 ALT 48 alk phos 185 IMAGING: Computed tomography scan abdomen and pelvis reports perirectal cellulitis. No drainable abscess. Small focus of air could reflect developing abscess. Sigmoid diverticulosis without diverticulitis. ASSESSMENT: 1. Cellulitis and possible abscess of the perineal area. 2. Perirectal cellulitis. Computed tomography scan shows perirectal cellulitis. no drainable abscess small focus of air could reflect developing abscess 3. Severe COPD on home oxygen 4. Leukocytosis 5. Hypokalemia resolved 6. Mildly elevated LFTs 7. Recent spontaneous pneumothorax PLAN: -Patient scheduled for debridement of perineal abscess -Keep patient nothing by mouth -Continue IV antibiotics -Agree with infectious disease consult -Apply warm compresses to area Physician Transcription Manager note has been reviewed by physician. Signing provider agrees with the documented findings, assessment, and plan of care. 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 pneumothorax 07/2023 History of Any Multi-Drug Resistant Organisms: None Reported Additional Past Surgical History / Comment(s): THYROIDECTOMY, POLYPS REMOVED FROM VOCAL CORDS Past Anesthesia/Blood Transfusion Reactions: No Reported Reaction Past Psychological History: No Psychological Hx Reported Smoking Status: Former smoker Past Alcohol Use History: None Reported Past Drug Use History: None Reported - Past Family History Mother Family Medical History: Cancer Additional Family Medical History / Comment(s): CERVICAL CA Father Family Medical History: No Reported History Medications and Allergies Home Medications Medication Instructions Recorded Confirmed Type Atorvastatin [Lipitor] 40 mg PO DAILY 05/13/19 08/16/23 History Denosumab [Prolia] 60 mg SQ Q180D 05/13/19 08/16/23 History Levothyroxine Sodium [Synthroid] 125 mcg PO DAILY 05/13/19 08/16/23 History Furosemide [Lasix] 40 mg PO DAILY 07/25/23 08/16/23 History Losartan [Cozaar] 50 mg PO DAILY 07/25/23 08/16/23 History Nystatin 100,000 Unit/gm Powd 1 applic TOPICAL BID 07/25/23 08/16/23 History [Mycostatin Powder] Sertraline [Zoloft] 100 mg PO DAILY 07/25/23 08/16/23 History Triamcinolone Acetonide 1 applic TOPICAL BID PRN 07/25/23 08/16/23 History [Triamcinolone Acetonide 0.1% Lotion] traMADol HCl [Ultram] 50 mg PO Q6HR PRN 07/25/23 08/16/23 History Albuterol Inhaler [Ventolin Hfa 1 - 2 puff INHALATION RT-Q6H PRN 08/03/23 08/16/23 History Inhaler] Umeclidinium Brm/Vilanterol Tr 1 puff INHALATION RT-DAILY 08/03/23 08/16/23 History [Anoro Ellipta 62.5-25 Mcg INH] Budesonide [Pulmicort] 1 mg INHALATION BID 30 Days #1 each 08/05/23 08/16/23 Rx predniSONE See Taper PO DIRECTED 16 Days 08/05/23 08/16/23 Rx #40 tab Allergies Allergy/AdvReac Type Severity Reaction Status Date / Time bee venom protein (honey bee) Allergy Rash/Hives Verified 08/16/23 16:01 celecoxib [From Celebrex] Allergy Rash/Hives Verified 08/16/23 16:01 Sulfa (Sulfonamide Allergy Rash/Hives Verified 08/16/23 16:01 Antibiotics) Surgical - Exam Vital Signs Temp Pulse Resp BP 97.6 F 90 18 101/64 08/16/23 11:22 08/16/23 11:22 08/16/23 11:22 08/16/23 11:22 Results - Labs 08/17/23 04:14 08/17/23 04:14 Abnormal Lab Results - Last 24 Hours (Table) 08/16/23 08/16/23 08/16/23 Range/Units 11:54 11:54 12:47 WBC 20.7 H (3.8-10.6) k/uL RBC 3.48 L (3.80-5.40) m/uL Hgb (11.4-16.0) gm/dL Hct (34.0-46.0) % MCV (80.0-100.0) fL RDW 15.7 H (11.5-15.5) % Neutrophils # 19.6 H (1.3-7.7) k/uL Neutrophils # (Manual) (1.3-7.7) k/uL Lymphocytes # 0.4 L (1.0-4.8) k/uL Metamyelocytes # (Man) (0) k/uL APTT (22.0-30.0) sec Sodium (137-145) mmol/L Potassium (3.5-5.1) mmol/L BUN 38 H (7-17) mg/dL Creatinine (0.52-1.04) mg/dL Glucose 120 H (74-99) mg/dL Calcium (8.4-10.2) mg/dL AST (14-36) U/L ALT (4-34) U/L Alkaline Phosphatase (38-126) U/L Total Protein (6.3-8.2) g/dL Albumin (3.5-5.0) g/dL 08/16/23 08/16/23 08/17/23 Range/Units 12:47 12:47 04:14 WBC (3.8-10.6) k/uL RBC (3.80-5.40) m/uL Hgb (11.4-16.0) gm/dL Hct (34.0-46.0) % MCV (80.0-100.0) fL RDW (11.5-15.5) % Neutrophils # (1.3-7.7) k/uL Neutrophils # (Manual) (1.3-7.7) k/uL Lymphocytes # (1.0-4.8) k/uL Metamyelocytes # (Man) (0) k/uL APTT 20.1 L (22.0-30.0) sec Sodium 135 L (137-145) mmol/L Potassium 3.3 L (3.5-5.1) mmol/L BUN 62 H 41 H (7-17) mg/dL Creatinine 1.09 H (0.52-1.04) mg/dL Glucose (74-99) mg/dL Calcium 7.7 L (8.4-10.2) mg/dL AST 67 H 62 H (14-36) U/L ALT 52 H 48 H (4-34) U/L Alkaline Phosphatase 242 H 185 H (38-126) U/L Total Protein 5.5 L 4.5 L (6.3-8.2) g/dL Albumin 2.8 L 2.2 L (3.5-5.0) g/dL 08/17/23 Range/Units 04:14 WBC 15.4 H (3.8-10.6) k/uL RBC 3.24 L (3.80-5.40) m/uL Hgb 10.5 L (11.4-16.0) gm/dL Hct 33.5 L (34.0-46.0) % MCV 103.5 H (80.0-100.0) fL RDW (11.5-15.5) % Neutrophils # (1.3-7.7) k/uL Neutrophils # (Manual) 14.70 H (1.3-7.7) k/uL Lymphocytes # (1.0-4.8) k/uL Metamyelocytes # (Man) 0.46 H (0) k/uL APTT (22.0-30.0) sec Sodium (137-145) mmol/L Potassium (3.5-5.1) mmol/L BUN (7-17) mg/dL Creatinine (0.52-1.04) mg/dL Glucose (74-99) mg/dL Calcium (8.4-10.2) mg/dL AST (14-36) U/L ALT (4-34) U/L Alkaline Phosphatase (38-126) U/L Total Protein (6.3-8.2) g/dL Albumin (3.5-5.0) g/dL Microbiology - Last 24 Hours (Table) 08/16/23 12:45 Gram Stain - Preliminary Rectum Diabetes panel 08/16/23 08/16/23 08/17/23 Range/Units 11:54 12:47 04:14 Sodium 139 138 135 L (137-145) mmol/L Potassium 3.9 3.3 L 3.8 (3.5-5.1) mmol/L Chloride 101 98 105 (98-107) mmol/L Carbon Dioxide 28 29 24 (22-30) mmol/L BUN 38 H 62 H 41 H (7-17) mg/dL Creatinine 0.89 1.09 H 0.82 (0.52-1.04) mg/dL Glucose 120 H 98 79 (74-99) mg/dL Calcium 9.5 8.5 7.7 L (8.4-10.2) mg/dL AST 31 67 H 62 H (14-36) U/L ALT 18 52 H 48 H (4-34) U/L Alkaline Phosphatase 80 242 H 185 H (38-126) U/L Total Protein 6.5 5.5 L 4.5 L (6.3-8.2) g/dL Albumin 4.0 2.8 L 2.2 L (3.5-5.0) g/dL Calcium panel 08/16/23 08/16/23 08/17/23 Range/Units 11:54 12:47 04:14 Calcium 9.5 8.5 7.7 L (8.4-10.2) mg/dL Albumin 4.0 2.8 L 2.2 L (3.5-5.0) g/dL Pituitary panel 08/16/23 08/16/23 08/17/23 Range/Units 11:54 12:47 04:14 Sodium 139 138 135 L (137-145) mmol/L Potassium 3.9 3.3 L 3.8 (3.5-5.1) mmol/L Chloride 101 98 105 (98-107) mmol/L Carbon Dioxide 28 29 24 (22-30) mmol/L BUN 38 H 62 H 41 H (7-17) mg/dL Creatinine 0.89 1.09 H 0.82 (0.52-1.04) mg/dL Glucose 120 H 98 79 (74-99) mg/dL Calcium 9.5 8.5 7.7 L (8.4-10.2) mg/dL Adrenal panel 08/16/23 08/16/23 08/17/23 Range/Units 11:54 12:47 04:14 Sodium 139 138 135 L (137-145) mmol/L Potassium 3.9 3.3 L 3.8 (3.5-5.1) mmol/L Chloride 101 98 105 (98-107) mmol/L Carbon Dioxide 28 29 24 (22-30) mmol/L BUN 38 H 62 H 41 H (7-17) mg/dL Creatinine 0.89 1.09 H 0.82 (0.52-1.04) mg/dL Glucose 120 H 98 79 (74-99) mg/dL Calcium 9.5 8.5 7.7 L (8.4-10.2) mg/dL Total Bilirubin 1.0 0.7 0.7 (0.2-1.3) mg/dL AST 31 67 H 62 H (14-36) U/L ALT 18 52 H 48 H (4-34) U/L Alkaline Phosphatase 80 242 H 185 H (38-126) U/L Total Protein 6.5 5.5 L 4.5 L (6.3-8.2) g/dL Albumin 4.0 2.8 L 2.2 L (3.5-5.0) g/dL
[2023-08-17 13:18] LABS: Mucus,Urine Rare /hpf; RBC,Urine 1 /hpf (0-5); Squamous Epithelial Cell,Urine <1 /hpf (0-4); WBC,Urine 2 /hpf (0-5)
[2023-08-17 13:25] LABS: Appearance,Urine Clear (Clear); Color,Urine Yellow
[2023-08-17 13:26] LABS: Bilirubin,Urine Negative (Negative); Blood,Urine Negative (Negative); Glucose,Urine (UA) Negative (Negative); Ketones,Urine 1+ (Negative); Leukocyte Esterase,Urine Negative (Negative); Nitrite,Urine Negative (Negative); Protein,Urine 1+ (Negative); Urobilinogen,Urine <2.0 mg/dL (<2.0)
[2023-08-17] MEDS: DAPTOmycin 500 MG in SODIUM CHLORIDE 0.9% 50 ML IVPB SCH (14:52)
[2023-08-17] MEDS: VITAMIN A 10,000 UNIT (3000 MCG) CAPSULE PO SCH (14:52)
[2023-08-17 15:45] VITALS: BMI 31.3
--- NOTE | 2023-08-17 16:10 | P.PN ---
Subjective Progress Note Date: 08/17/23 82-year-old female with PMH of chronic respiratory failure on 3 L NC, COPD, hypothyroidism, depression presents to the ED for rectal abscess. Patient reports rectal discomfort that started on Monday. Her home care nurse noted a rectal wound on Monday which started draining on Monday which prompted her to come to the ED for evaluation. Patient reports pain in her buttocks that is well controlled with tramadol. She denies any fever or chills. No changes in bowel habits or urination. No nausea or vomiting. In the ED, she underwent extensive evaluation. Vital significant for tachycardia with heart rate of 90. CBC showed WBC count of 20.7. INR was 0.9 CMP showed potassium of 3.3, BUN of 62, creatinine 1.09, AST 67, ALT 52. EKG showed sinus rhythm with PVCs Chest x-ray negative for acute process CTAP showed findings of perirectal cellulitis 08/17 Patient was seen and examined. No complaints. Breathing stable. Initially, plan was for I&D today but patient will need pulmonary clearance due to recent h/o PTX and severe COPD. Vancomycin switched to Daptomycin today by ID. CBC shows WBC count 15.4, Hg 10.5, MCV 103.5. CMP shows Na 135, BUN 41, Ca 7.7, AST 62, ALT 48, alk phos 185, albumin 2.2. General: non toxic, no distress, appears at stated age Derm: warm, dry Head: atraumatic, normocephalic, symmetric Eyes: EOMI, no lid lag, anicteric sclera Cardiovascular: S1S2 tachycardic, no murmur Lungs: Decreased breath sounds bilateral, no rhonchi, no rales , no accessory muscle use Ext: no gross muscle atrophy, no edema, no contractures Neuro: no focal neuro deficits Psych: Alert, oriented, appropriate affect Sepsis secondary to Perirectal cellulitis SINGH on CKD Chronic conditions: chronic respiratory failure on 3 L NC, COPD, hypothyroidism, depression Based on my assessment of this patient, this patient meets a moderate complexity level of care. Patient has an acute diagnosis of perirectal cellulitis causing sepsis which poses a threat to life or bodily function. Sepsis secondary to Perirectal cellulitis: Obtain BCx and WCx. Surgery consulted. NS at 75 cc/hr. Telemetry monitoring. ID consulted. Continue Zosyn 3.375g IV Q8H. Vancomycin switched to Daptomycin by ID. Pulm consulted for clearance for OR. SINGH on CKD: Hold Losartan and Lasix. IV hydration as above. Repeat BMP tomorrow morning. Lovenox SQ for DVT prophylaxis. FULL CODE. I have reviewed the following client relationship consultant notes: I have reviewed the results of the following tests: CBC, BMP I have ordered the following tests: WCx pending. BCx pending. CBC. BMP. I have discussed the care of this patient with the following independent historian: Discussed with multiple family members I have independently interpreted the following test below: I have discussed the management of this patient with the following physician: Objective - Vital Signs Vital signs: Vital Signs Temp 98.9 F 08/17/23 11:45 Pulse 89 08/17/23 11:45 Resp 14 08/17/23 11:45 BP 119/70 08/17/23 11:45 Pulse Ox 94 L 08/17/23 11:45 FiO2 Intake & Output 08/16/23 08/17/23 08/17/23 18:59 06:59 18:59 Intake Total 590 Output Total 700 175 Balance -110 -175 Weight 90.718 kg 90.718 kg 90.718 kg Intake: Oral 590 Output: Urine 700 Post Void Residual 175 Other: Voiding Method Diaper External Catheter External Catheter - Labs CBC & Chem 7: 08/17/23 04:14 08/17/23 04:14 Labs: Abnormal Lab Results - Last 24 Hours (Table) 08/17/23 08/17/23 08/17/23 Range/Units 04:14 04:14 12:15 WBC 15.4 H (3.8-10.6) k/uL RBC 3.24 L (3.80-5.40) m/uL Hgb 10.5 L (11.4-16.0) gm/dL Hct 33.5 L (34.0-46.0) % MCV 103.5 H (80.0-100.0) fL Neutrophils # (Manual) 14.70 H (1.3-7.7) k/uL Metamyelocytes # (Man) 0.46 H (0) k/uL Sodium 135 L (137-145) mmol/L BUN 41 H (7-17) mg/dL Calcium 7.7 L (8.4-10.2) mg/dL AST 62 H (14-36) U/L ALT 48 H (4-34) U/L Alkaline Phosphatase 185 H (38-126) U/L Total Protein 4.5 L (6.3-8.2) g/dL Albumin 2.2 L (3.5-5.0) g/dL Urine Mucus Rare H (None) /hpf Microbiology - Last 24 Hours (Table) 08/16/23 12:45 Gram Stain - Preliminary Rectum
--- NOTE | 2023-08-17 19:48 | P.CNPUL ---
History of Present Illness Consult date: 08/17/23 Reason for consult: COPD History of present illness: This is a 82-year-old female patient with severe COPD with oxygen dependence and the patient had a hospitalization earlier this month for a spontaneous left- sided pneumothorax hours the patient had a thoravent insertion with successful reexpansion of the left lung and recovery of the left-sided pneumothorax. The patient has an FEV1 of 41% of predicted. She is auction dependent at 2 L per minute nasal cannula 24 7. She is morbidly obese and she has hypertension, hyperlipidemia and hypothyroidism. She also has an infrarenal abdominal aortic aneurysm measuring 3.1 cm in size. The patient was hospitalized because of erythema and firmness and swelling and pain in the suprapubic region and this is extending to her perineal area and left buttocks and labial area. There is quite redness and swelling involving the same area. She has also noted some drainage from the left labia and buttocks area. The patient was started on antibiotics. The patient was hospitalized and seen by the surgical team and the patient was diagnosed having a perineal cellulitis with perirectal cellulitis and possibly development of an abscess. Computed tomography scan of the abdomen and pelvis was done that showed perirectal cellulitis without any drainable abscess. There may be a small focus of air in the left perirectal area and a developing abscess cannot be completely excluded. The patient was seen by infectious disease and the patient was started on a combination of Zosyn and daptomycin. Her current echoes at 20.7 with a hemoglobin 11.6 and a platelet count of 269. Normal coagulation profile. Normal renal function. Mild transaminitis have been noted. No nausea. No emesis. No abdominal pain. No altered mentation. No interval worsening shortness of breath. Chest x-ray showed no evidence of any pneumothorax. She remains on 2 L of oxygen by nasal cannula. Review of Systems CONSTITUTIONAL: Denies any recent significant weight loss or weight gain. EYES: Denies change in vision. EARS, NOSE, MOUTH, THROAT: Denies headaches, denies sore throat. CARDIOVASCULAR: Positive for chest pain, no palpitations or syncopal episodes. RESPIRATORY: Positive for shortness of breath, cough, congestion no hemoptysis. GASTROINTESTINAL: Denies change in appetite, denies abdominal pain GENITOURINARY: Denies hematuria, denies infections. MUSKULOSKELETAL: Denies pain, denies swelling. INTEGUMENTARY: Perineal and perirectal cellulitis/abscess NEUROLOGICAL: Denies recent memory loss, no recent seizure activity. PSYCHIATRIC: Denies anxiety, denies depression. HEMATOLOGIC/LYMPHATIC: Denies anemia, denies enlarged lymph nodes. 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 pneumothorax 07/2023 History of Any Multi-Drug Resistant Organisms: None Reported Additional Past Surgical History / Comment(s): THYROIDECTOMY, POLYPS REMOVED FROM VOCAL CORDS Past Anesthesia/Blood Transfusion Reactions: No Reported Reaction Past Psychological History: No Psychological Hx Reported Smoking Status: Former smoker Past Alcohol Use History: None Reported Past Drug Use History: None Reported - Past Family History Mother Family Medical History: Cancer Additional Family Medical History / Comment(s): CERVICAL CA Father Family Medical History: No Reported History Medications and Allergies Home Medications Medication Instructions Recorded Confirmed Type Atorvastatin [Lipitor] 40 mg PO DAILY 05/13/19 08/16/23 History Denosumab [Prolia] 60 mg SQ Q180D 05/13/19 08/16/23 History Levothyroxine Sodium [Synthroid] 125 mcg PO DAILY 05/13/19 08/16/23 History Furosemide [Lasix] 40 mg PO DAILY 07/25/23 08/16/23 History Losartan [Cozaar] 50 mg PO DAILY 07/25/23 08/16/23 History Nystatin 100,000 Unit/gm Powd 1 applic TOPICAL BID 07/25/23 08/16/23 History [Mycostatin Powder] Sertraline [Zoloft] 100 mg PO DAILY 07/25/23 08/16/23 History Triamcinolone Acetonide 1 applic TOPICAL BID PRN 07/25/23 08/16/23 History [Triamcinolone Acetonide 0.1% Lotion] traMADol HCl [Ultram] 50 mg PO Q6HR PRN 07/25/23 08/16/23 History Albuterol Inhaler [Ventolin Hfa 1 - 2 puff INHALATION RT-Q6H PRN 08/03/23 08/16/23 History Inhaler] Umeclidinium Brm/Vilanterol Tr 1 puff INHALATION RT-DAILY 08/03/23 08/16/23 History [Anoro Ellipta 62.5-25 Mcg INH] Budesonide [Pulmicort] 1 mg INHALATION BID 30 Days #1 each 08/05/23 08/16/23 Rx predniSONE See Taper PO DIRECTED 16 Days 08/05/23 08/16/23 Rx #40 tab Allergies Allergy/AdvReac Type Severity Reaction Status Date / Time bee venom protein (honey bee) Allergy Rash/Hives Verified 08/16/23 16:01 celecoxib [From Celebrex] Allergy Rash/Hives Verified 08/16/23 16:01 Sulfa (Sulfonamide Allergy Rash/Hives Verified 08/16/23 16:01 Antibiotics) Physical Exam Vitals: Vital Signs Temp Pulse Pulse Resp BP BP Pulse Ox 08/17/23 18:29 92 08/17/23 18:16 88 08/17/23 16:36 88 08/17/23 16:24 88 08/17/23 11:45 98.9 F 89 14 119/70 94 L 08/17/23 08:08 98.6 F 93 14 116/66 95 08/17/23 06:39 87 08/17/23 06:31 85 08/17/23 02:00 98.7 F 95 20 113/69 94 L 08/16/23 23:48 87 08/16/23 23:41 85 08/16/23 22:39 95 08/16/23 21:00 141/55 08/16/23 20:00 98.3 F 91 24 135/61 122/65 96 08/16/23 19:59 88 08/16/23 19:47 84 Intake and Output 08/17/23 08/17/23 08/17/23 06:59 14:59 22:59 Intake Total 590 Output Total 700 175 550 Balance -110 -175 -550 Intake: Oral 590 Output: Urine 700 550 Post Void Residual 175 Other: Voiding Method External Catheter Weight 90.718 kg GENERAL EXAM: Alert, pleasant 82-year-old female, sitting up at the bedside, on 2 L nasal cannula, comfortable in no apparent distress. HEAD: Normocephalic. EYES: Normal reaction of pupils, equal size. NOSE: Clear with pink turbinates. THROAT: No erythema or exudates. NECK: No masses, no JVD. CHEST: No chest wall deformity. LUNGS: Equal air entry with no crackles, wheeze, rhonchi or dullness. Diminished. CVS: S1 and S2 normal with no audible murmur, regular rhythm. ABDOMEN: No hepatosplenomegaly, normal bowel sounds, no guarding or rigidity. SPINE: No scoliosis or deformity SKIN: Patient has erythema in the suprapubic area which is firm with palpation and tender. The erythema does go into town into the left labial and into the left lower buttocks and anus. Left lower buttocks has a ulceration with necrotic tissue. Along the left groin there are a couple areas of drainage. Left labia is firm, tender and red with palpation. CENTRAL NERVOUS SYSTEM: No focal deficits, tone is normal in all 4 extremities. EXTREMITIES: There is no peripheral edema. No clubbing, no cyanosis. Peripheral pulses are intact Results - Laboratory Findings CBC and BMP: 08/17/23 04:14 08/17/23 04:14 PT/INR, D-dimer PT 10.3 sec (10.0-12.5) 08/16/23 12:47 INR 0.9 (<1.2) 08/16/23 12:47 Abnormal lab findings: Abnormal Labs 08/16/23 08/16/23 08/16/23 11:54 11:54 12:47 WBC 20.7 H RBC 3.48 L Hgb Hct MCV RDW 15.7 H Neutrophils # 19.6 H Neutrophils # (Manual) Lymphocytes # 0.4 L Metamyelocytes # (Man) APTT Sodium Potassium BUN 38 H Creatinine Glucose 120 H Calcium AST ALT Alkaline Phosphatase Total Protein Albumin Urine Mucus 08/16/23 08/16/23 08/17/23 12:47 12:47 04:14 WBC RBC Hgb Hct MCV RDW Neutrophils # Neutrophils # (Manual) Lymphocytes # Metamyelocytes # (Man) APTT 20.1 L Sodium 135 L Potassium 3.3 L BUN 62 H 41 H Creatinine 1.09 H Glucose Calcium 7.7 L AST 67 H 62 H ALT 52 H 48 H Alkaline Phosphatase 242 H 185 H Total Protein 5.5 L 4.5 L Albumin 2.8 L 2.2 L Urine Mucus 08/17/23 08/17/23 04:14 12:15 WBC 15.4 H RBC 3.24 L Hgb 10.5 L Hct 33.5 L MCV 103.5 H RDW Neutrophils # Neutrophils # (Manual) 14.70 H Lymphocytes # Metamyelocytes # (Man) 0.46 H APTT Sodium Potassium BUN Creatinine Glucose Calcium AST ALT Alkaline Phosphatase Total Protein Albumin Urine Mucus Rare H - Diagnostic Findings Chest x-ray: image reviewed Assessment and Plan Plan: Perirectal/perianal cellulitis with questionable abscess formation. Rule out Santosh's gangrene/necrotizing fasciitis. Based on the CAT scan findings, there is a small focus of air reflecting abscess formation. Acute leukocytosis/sepsis secondary to above Mild transaminitis secondary to above spontaneous left-sided pneumothorax, status post insertion of left chest Thoravent. Patient was hospitalized early in July for a left-sided pneumothorax and a most recent chest x-ray shows no evidence of any pneumothorax and the pneumothorax has recovered Chronic hypoxic respiratory failure currently on 2 L of oxygen nasal cannula Severe chronic obstructive pulmonary disease, not in exacerbation. Baseline FEV1 is 41% of predicted. Chronically oxygen dependent on 2 L/m nasal cannula 15/05. The patient is demented on Anoro Ellipta on an outpatient basis in addition to DuoNeb updrafts [id number] and budesonide neb nebulized treatments twice a day Former tobacco smoker Hypothyroidism Benign essential hypertension Hyperlipidemia Obesity, with a BMI of 31 kg/m Plan Surgical consultation KAROLINA Possible surgical debridement Continue current antibiotic coverage with daptomycin and Zosyn The patient will be given pulmonary clearance for any surgical drainage and this can be done under general anesthesia Continue prednisone 20 mg by mouth daily Continue bronchodilators with DuoNeb updrafts Continue to follow. She is currently on Lovenox for DVT prophylaxis.
--- NOTE | 2023-08-17 21:59 | P.CONS ---
History of Present Illness - Reason for Consult Consult date: 08/17/23 Perirectal cellulitis versus abscess Requesting physician: Petra Kevin - Chief Complaint Pain and wound to the left labia and gluteal area x days - History of Present Illness Patient is a 82-year-old female with a past medical history significant for COPD hyperlipidemia thyroid disorder, patient was brought into the ER yesterday afternoon for evaluation of wound to the labia and rectal area apparently the patient daughter noticed some irritation to the right perirectal area last and the patient apparently did well however when the home care nurse came to check on her patient was noted to have significant discoloration of the right gluteal labial and suprapubic area that apparently started draining as well patient was complaining of burning pain to the area moderate intensity without radiation with associated sweatiness and did have some drainage with this after the patient was brought into the ER on presentation to the hospital patient was afebrile and no fever has been ordered subsequently patient did have a white count of 20,000 with a slight count of 15.4 today creatinine was 1.09 down to 0.82 ,LFT are elevated urine has been n egative blood cultures obtained which are currently pending patient did have a CT of abdominal pelvis which shows evidence of perirectal cellulitis no drainable abscess small focus of air could flexion developing abscess, patient was started on vancomycin and Zosyn infectious disease was consulted for further management of antibiotic therapy Review of Systems Positive point and negatives has been mentioned in the HPI, complete review of systems was performed and all other systems are negative Past Medical History Past Medical History: COPD, Hyperlipidemia, Pneumonia, Thyroid Disorder Additional Past Medical History / Comment(s): 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 pneumothorax 07/2023 History of Any Multi-Drug Resistant Organisms: None Reported Additional Past Surgical History / Comment(s): THYROIDECTOMY, POLYPS REMOVED FROM VOCAL CORDS Past Anesthesia/Blood Transfusion Reactions: No Reported Reaction Past Psychological History: No Psychological Hx Reported Smoking Status: Former smoker Past Alcohol Use History: None Reported Past Drug Use History: None Reported - Past Family History Mother Family Medical History: Cancer Additional Family Medical History / Comment(s): CERVICAL CA Father Family Medical History: No Reported History Medications and Allergies Home Medications Medication Instructions Recorded Confirmed Type Levothyroxine Sodium [Synthroid] 125 mcg PO DAILY 05/13/19 08/16/23 History Furosemide [Lasix] 40 mg PO DAILY 07/25/23 08/16/23 History Losartan [Cozaar] 50 mg PO DAILY 07/25/23 08/16/23 History Nystatin 100,000 Unit/gm Powd 1 applic TOPICAL BID 07/25/23 08/16/23 History [Mycostatin Powder] Sertraline [Zoloft] 100 mg PO DAILY 07/25/23 08/16/23 History Triamcinolone Acetonide 1 applic TOPICAL BID PRN 07/25/23 08/16/23 History [Triamcinolone Acetonide 0.1% Lotion] Umeclidinium Brm/Vilanterol Tr 1 puff INHALATION RT-DAILY 08/03/23 08/16/23 History [Anoro Ellipta 62.5-25 Mcg INH] Budesonide [Pulmicort] 1 mg INHALATION BID 30 Days #1 each 08/05/23 08/16/23 Rx ALPRAZolam [Xanax] 0.25 mg PO BID PRN #6 tab 08/22/23 Rx Ampicillin Sodium/Sulbactam Na 3 gm IVPB Q6HR #63 each 08/22/23 Rx [Unasyn 3 gm Vial] DAPTOmycin [Cubicin] 500 mg IV DAILY #21 each 08/22/23 Rx Ipratropium-Albuterol Nebulize 3 ml INHALATION RT-Q2H PRN each 08/22/23 Rx [Duoneb 0.5 mg-3 mg/3 ml Soln] traMADol HCl [Ultram] 50 mg PO Q6HR PRN #12 tab 08/22/23 Rx Allergies Allergy/AdvReac Type Severity Reaction Status Date / Time bee venom protein (honey bee) Allergy Rash/Hives Verified 08/21/23 16:28 celecoxib [From Celebrex] Allergy Rash/Hives Verified 08/21/23 16:28 Sulfa (Sulfonamide Allergy Rash/Hives Verified 08/21/23 16:28 Antibiotics) Physical Exam Vitals: Vital Signs Temp Pulse Pulse Resp BP BP Pulse Ox 08/17/23 08:08 98.6 F 93 14 116/66 95 08/17/23 06:39 87 08/17/23 06:31 85 08/17/23 02:00 98.7 F 95 20 113/69 94 L 08/16/23 23:48 87 08/16/23 23:41 85 08/16/23 22:39 95 08/16/23 21:00 141/55 08/16/23 20:00 98.3 F 91 24 135/61 122/65 96 08/16/23 19:59 88 08/16/23 19:47 84 08/16/23 19:00 86 22 125/60 95 08/16/23 18:00 20 132/61 08/16/23 17:00 132/64 98 08/16/23 16:00 18 136/67 98 08/16/23 15:00 132/71 08/16/23 14:33 88 08/16/23 14:24 90 08/16/23 14:00 132/68 08/16/23 13:37 132/68 99 08/16/23 11:22 97.6 F 90 18 101/64 Intake and Output 08/16/23 08/17/23 08/17/23 22:59 06:59 14:59 Intake Total 590 Output Total 700 Balance -110 Intake: Oral 590 Output: Urine 700 Other: Voiding Method Diaper External Catheter Weight 90.718 kg GENERAL DESCRIPTION: Elderly female lying in bed, no distress. No tachypnea or accessory muscle of respiration use. HEENT: Shows Pallor , no scleral icterus. Oral mucous membrane is dry. No pharyngeal erythema or thrush NECK: Trachea central, no thyromegaly. LUNGS: Unlabored breathing. Clear to auscultation anteriorly. No wheeze or crackle. HEART: S1, S2, regular rate and rhythm. No loud murmur ABDOMEN: Soft, did have induration and redness and tenderness to the left gluteal and labial area EXTREMITIES: No edema of feet. SKIN: No rash, no masses palpable. NEUROLOGICAL: The patient is awake, alert, oriented x3, mood and affect normal. Results CBC & Chem 7: 08/22/23 06:22 08/22/23 06:22 Labs: Abnormal Lab Results - Last 24 Hours (Table) 08/16/23 08/16/23 08/16/23 Range/Units 11:54 11:54 12:47 WBC 20.7 H (3.8-10.6) k/uL RBC 3.48 L (3.80-5.40) m/uL Hgb (11.4-16.0) gm/dL Hct (34.0-46.0) % MCV (80.0-100.0) fL RDW 15.7 H (11.5-15.5) % Neutrophils # 19.6 H (1.3-7.7) k/uL Neutrophils # (Manual) (1.3-7.7) k/uL Lymphocytes # 0.4 L (1.0-4.8) k/uL Metamyelocytes # (Man) (0) k/uL APTT (22.0-30.0) sec Sodium (137-145) mmol/L Potassium (3.5-5.1) mmol/L BUN 38 H (7-17) mg/dL Creatinine (0.52-1.04) mg/dL Glucose 120 H (74-99) mg/dL Calcium (8.4-10.2) mg/dL AST (14-36) U/L ALT (4-34) U/L Alkaline Phosphatase (38-126) U/L Total Protein (6.3-8.2) g/dL Albumin (3.5-5.0) g/dL 08/16/23 08/16/23 08/17/23 Range/Units 12:47 12:47 04:14 WBC (3.8-10.6) k/uL RBC (3.80-5.40) m/uL Hgb (11.4-16.0) gm/dL Hct (34.0-46.0) % MCV (80.0-100.0) fL RDW (11.5-15.5) % Neutrophils # (1.3-7.7) k/uL Neutrophils # (Manual) (1.3-7.7) k/uL Lymphocytes # (1.0-4.8) k/uL Metamyelocytes # (Man) (0) k/uL APTT 20.1 L (22.0-30.0) sec Sodium 135 L (137-145) mmol/L Potassium 3.3 L (3.5-5.1) mmol/L BUN 62 H 41 H (7-17) mg/dL Creatinine 1.09 H (0.52-1.04) mg/dL Glucose (74-99) mg/dL Calcium 7.7 L (8.4-10.2) mg/dL AST 67 H 62 H (14-36) U/L ALT 52 H 48 H (4-34) U/L Alkaline Phosphatase 242 H 185 H (38-126) U/L Total Protein 5.5 L 4.5 L (6.3-8.2) g/dL Albumin 2.8 L 2.2 L (3.5-5.0) g/dL 08/17/23 Range/Units 04:14 WBC 15.4 H (3.8-10.6) k/uL RBC 3.24 L (3.80-5.40) m/uL Hgb 10.5 L (11.4-16.0) gm/dL Hct 33.5 L (34.0-46.0) % MCV 103.5 H (80.0-100.0) fL RDW (11.5-15.5) % Neutrophils # (1.3-7.7) k/uL Neutrophils # (Manual) 14.70 H (1.3-7.7) k/uL Lymphocytes # (1.0-4.8) k/uL Metamyelocytes # (Man) 0.46 H (0) k/uL APTT (22.0-30.0) sec Sodium (137-145) mmol/L Potassium (3.5-5.1) mmol/L BUN (7-17) mg/dL Creatinine (0.52-1.04) mg/dL Glucose (74-99) mg/dL Calcium (8.4-10.2) mg/dL AST (14-36) U/L ALT (4-34) U/L Alkaline Phosphatase (38-126) U/L Total Protein (6.3-8.2) g/dL Albumin (3.5-5.0) g/dL Microbiology - Last 24 Hours (Table) 08/16/23 12:45 Gram Stain - Preliminary Rectum Assessment and Plan (1) Perirectal abscess Status: Acute Code(s): K61.1 - RECTAL ABSCESS SNOMED Code(s): 09516785 Plan: 1patient presented to hospital with right gluteal labial and suprapubic area pain swelling redness and drainage with concern for extensive cellulitis and abscess to the perirectal area we will need to cover for the gram-positive as well as gram-negative pathogen likely responsible for this type of infection 2-await surgical debridement and deep culture this afternoon 3-we will continue with Zosyn however discontinue vancomycin to decrease risk of nephrotoxicity and add daptomycin for gram-positive coverage Daughter at the bedside multiple questions concern answered We will follow on clinical condition and cultures to further adjust medication if needed Thank you for this consultation we will follow the patient along with you Dictation was produced using [employer] dictation software. please excuse any grammatical, word or spelling errors. Time with Patient: Greater than 30
[2023-08-18] MEDS: PIPERACILLIN-TAZOBACTAM 3.375 GM in SODIUM CHLORIDE 0.9% 100 ML IVPB SCH ×4 (00:02→23:58)
[2023-08-18] MEDS: LEVOTHYROXINE 125 MCG TAB PO SCH (06:35)
[2023-08-18] MEDS: traMADol 50 MG TAB PO PRN (06:36)
[2023-08-18] MEDS: IPRATROPIUM-ALBUTEROL 3 ML NEB INHALATION PRN ×3 (08:02→15:42)
[2023-08-18] MEDS: SODIUM CHLORIDE 0.9% 1,000 ML IV SCH ×3 (08:45→23:18)
[2023-08-18] MEDS: ENOXAPARIN 40 MG/0.4 ML SYRINGE SQ SCH (09:04)
[2023-08-18] MEDS: predniSONE 20 MG TAB PO SCH (09:04)
[2023-08-18] MEDS: VITAMIN A 10,000 UNIT (3000 MCG) CAPSULE PO SCH (09:04)
[2023-08-18] MEDS: SERTRALINE 100 MG TAB PO SCH (09:04)
[2023-08-18 11:01] LABS: Basophils # (A) 0.02 X 10*3/uL (0.00-0.10); Basophils % (A) 0.2 %; HCT 30.7 % (37.2-46.3); HGB 9.5 d/dL (12.0-15.0); Lymphocytes # (A) 0.49 X 10*3/uL (0.90-5.00); MCH 31.7 pg (27.0-32.0); MCHC 30.9 d/dL (32.0-37.0); MCV 102.3 FL (80.0-97.0); Mean Platelet Volume 10.6 FL (9.5-12.2); Monocytes # (A) 0.39 X 10*3/uL (0.20-1.00); NRBC Per 100 WBC 0 X 10*3/uL (0.00-0.01); Neutrophils # (A) 8.61 X 10*3/uL (1.80-7.70); Neutrophils % (A) 87.7 %; Platelet Count 235 X 10*3/uL (140-440); RDW 14.1 % (11.5-14.5); WBC 9.82 X 10*3/uL (4.50-10.00)
[2023-08-18] MEDS: DAPTOmycin 500 MG in SODIUM CHLORIDE 0.9% 50 ML IVPB SCH (12:14)
--- NOTE | 2023-08-18 14:27 | P.PN ---
Subjective Progress Note Date: 08/18/23 82-year-old female with PMH of chronic respiratory failure on 3 L NC, COPD, hypothyroidism, depression presents to the ED for rectal abscess. Patient reports rectal discomfort that started on Monday. Her home care nurse noted a rectal wound on Monday which started draining on Monday which prompted her to come to the ED for evaluation. Patient reports pain in her buttocks that is well controlled with tramadol. She denies any fever or chills. No changes in bowel habits or urination. No nausea or vomiting. In the ED, she underwent extensive evaluation. Vital significant for tachycardia with heart rate of 90. CBC showed WBC count of 20.7. INR was 0.9 CMP showed potassium of 3.3, BUN of 62, creatinine 1.09, AST 67, ALT 52. EKG showed sinus rhythm with PVCs Chest x-ray negative for acute process CTAP showed findings of perirectal cellulitis 08/17 Patient was seen and examined. No complaints. Breathing stable. Initially, plan was for I&D today but patient will need pulmonary clearance due to recent h/o PTX and severe COPD. Vancomycin switched to Daptomycin today by ID. CBC shows WBC count 15.4, Hg 10.5, MCV 103.5. CMP shows Na 135, BUN 41, Ca 7.7, AST 62, ALT 48, alk phos 185, albumin 2.2. 08/18 Patient was seen and examined. No complaints. Breathing stable. Pulmonology consulted, cleared the patient for OR. Plans for I&D today. Continue on Daptomycin and Zosyn. CBC shows Hg 9.5 MCV 102.3. Cultures negative so far. General: non toxic, no distress, appears at stated age Derm: warm, dry Head: atraumatic, normocephalic, symmetric Eyes: EOMI, no lid lag, anicteric sclera Cardiovascular: S1S2 reg, no murmur Lungs: Decreased breath sounds bilateral, no rhonchi, no rales , no accessory muscle use Ext: no gross muscle atrophy, no edema, no contractures Neuro: no focal neuro deficits Psych: Alert, oriented, appropriate affect Sepsis secondary to Perirectal cellulitis SINGH on CKD Chronic conditions: chronic respiratory failure on 3 L NC, COPD, hypothyroidism, depression Based on my assessment of this patient, this patient meets a moderate complexity level of care. Patient has an acute diagnosis of perirectal cellulitis causing sepsis which poses a threat to life or bodily function. Sepsis secondary to Perirectal cellulitis: Follow BCx and WCx. Surgery consulted. NS at 75 cc/hr. Telemetry monitoring. ID consulted. Continue Zosyn 3.375g IV Q8H. Vancomycin switched to Daptomycin by ID 08/17. Pulm consulted for clearance for OR. SINGH on CKD: Hold Losartan and Lasix. IV hydration as above. Repeat BMP tomorrow morning. Lovenox SQ for DVT prophylaxis. FULL CODE. I have reviewed the following party plan sales consultant notes: I have reviewed the results of the following tests: CBC I have ordered the following tests: WCx pending. BCx pending. CBC. BMP. I have discussed the care of this patient with the following independent historian: Discussed with multiple family members I have independently interpreted the following test below: I have discussed the management of this patient with the following physician: Objective - Vital Signs Vital signs: Vital Signs Temp 98.3 F 08/18/23 12:22 Pulse 83 08/18/23 12:22 Resp 16 08/18/23 12:22 BP 126/68 08/18/23 12:22 Pulse Ox 95 08/18/23 12:22 FiO2 Intake & Output 08/17/23 08/18/23 08/18/23 18:59 06:59 18:59 Output Total 725 400 Balance -725 -400 Weight 90.718 kg Output: Urine 550 400 Post Void Residual 175 Other: Voiding Method External Catheter Indwelling Catheter Indwelling Catheter - Labs CBC & Chem 7: 08/18/23 06:31 08/17/23 04:14 Labs: Abnormal Lab Results - Last 24 Hours (Table) 08/18/23 Range/Units 06:31 RBC 3.00 L (4.10-5.20) X 10*6/uL Hgb 9.5 L (12.0-15.0) d/dL Hct 30.7 L (37.2-46.3) % MCV 102.3 H (80.0-97.0) FL MCHC 30.9 L (32.0-37.0) d/dL Neutrophils # 8.61 H (1.80-7.70) X 10*3/uL Lymphocytes # 0.49 L (0.90-5.00) X 10*3/uL Microbiology - Last 24 Hours (Table) 08/16/23 12:45 Gram Stain - Final Rectum Wound Culture - Final 08/16/23 12:55 Blood Culture - Preliminary Blood 08/16/23 13:10 Blood Culture - Preliminary Blood
--- NOTE | 2023-08-18 15:26 | P.PN ---
Subjective Progress Note Date: 08/18/23 Principal diagnosis: Right gluteal and perirectal abscess Patient is a 82-year-old female with a past medical history significant for COPD hyperlipidemia thyroid disorder, patient was brought into the ER for evaluation of wound to the labia and gluteal area has been diagnosed with a cellulitis concerning for abscess. On today's evaluation that is 08/18/2023, the patient denies any fever or any chills, the patient is breathing comfortably on 4 L nasal cannula supplemental oxygen, the patient denies any chest pain or cough, patient denies any nausea/vomiting or diarrhea pain into the right gluteal and labial area is currently controlled Patient white count normalized to 9.82 creatinine 0.82 Objective - Vital Signs Vital signs: Vital Signs Temp 98.2 F 08/18/23 07:19 Pulse 84 08/18/23 08:16 Resp 14 08/18/23 07:19 BP 138/73 08/18/23 07:19 Pulse Ox 96 08/18/23 07:19 FiO2 Intake & Output 08/17/23 08/18/23 08/18/23 18:59 06:59 18:59 Output Total 725 Balance -725 Weight 90.718 kg Output: Urine 550 Post Void Residual 175 Other: Voiding Method External Catheter Indwelling Catheter Indwelling Catheter - Exam GENERAL DESCRIPTION: An elderly female lying in bed in no distress RESPIRATORY SYSTEM: Unlabored breathing , clear to auscultation anteriorly HEART: S1 S2 regular rate and rhythm , ABDOMEN: Soft , no tenderness EXTREMITIES: No edema feet - Labs CBC & Chem 7: 08/18/23 06:31 08/17/23 04:14 Labs: Abnormal Lab Results - Last 24 Hours (Table) 08/17/23 Range/Units 12:15 Urine Mucus Rare H (None) /hpf Microbiology - Last 24 Hours (Table) 08/16/23 12:45 Gram Stain - Final Rectum Wound Culture - Final 08/16/23 12:55 Blood Culture - Preliminary Blood 08/16/23 13:10 Blood Culture - Preliminary Blood Assessment and Plan (1) Perirectal abscess Current Visit: Yes Status: Acute Code(s): K61.1 - RECTAL ABSCESS SNOMED Code(s): 37511924 Plan: 1patient presented to hospital with right gluteal labial and suprapubic area pain swelling redness and drainage with concern for extensive cellulitis and abscess to the perirectal area we will need to cover for the gram-positive as well as gram-negative pathogen likely responsible for this type of infection 2-await surgical debridement and deep culture that has been rescheduled to this afternoon 3-patient to continue with Zosyn and daptomycin while waiting for condition to stabilize and culture finalized Family the bedside multiple questions and concerns were answered in Layman terms Dictation was produced using [employer] dictation software. please excuse any grammatical, word or spelling errors. Time with Patient: Less than 30
--- NOTE | 2023-08-18 15:47 | P.PN ---
Subjective Progress Note Date: 08/18/23 This is a 82-year-old female patient with severe COPD with oxygen dependence and the patient had a hospitalization earlier this month for a spontaneous left- sided pneumothorax hours the patient had a thoravent insertion with successful reexpansion of the left lung and recovery of the left-sided pneumothorax. The patient has an FEV1 of 41% of predicted. She is auction dependent at 2 L per minute nasal cannula 24 7. She is morbidly obese and she has hypertension, hyperlipidemia and hypothyroidism. She also has an infrarenal abdominal aortic aneurysm measuring 3.1 cm in size. The patient was hospitalized because of erythema and firmness and swelling and pain in the suprapubic region and this is extending to her perineal area and left buttocks and labial area. There is quite redness and swelling involving the same area. She has also noted some drainage from the left labia and buttocks area. The patient was started on antibiotics. The patient was hospitalized and seen by the surgical team and the patient was diagnosed having a perineal cellulitis with perirectal cellulitis and possibly development of an abscess. Computed tomography scan of the abdomen and pelvis was done that showed perirectal cellulitis without any drainable abscess. There may be a small focus of air in the left perirectal area and a developing abscess cannot be completely excluded. The patient was seen by i nfectious disease and the patient was started on a combination of Zosyn and daptomycin. Her current echoes at 20.7 with a hemoglobin 11.6 and a platelet count of 269. Normal coagulation profile. Normal renal function. Mild transaminitis have been noted. No nausea. No emesis. No abdominal pain. No altered mentation. No interval worsening shortness of breath. Chest x-ray showed no evidence of any pneumothorax. She remains on 2 L of oxygen by nasal cannula. On today's evaluation of 08/18/2023, the patient has no significant worsening status and the patient remains on 4 L of oxygen by nasal cannula. No fever. No nausea or vomiting. She remains on a combination of Zosyn and daptomycin. The white cell count is gradually improving is currently down to 9.8. Nevertheless, she has ongoing drainage from her perirectal/perianal wound with extensive erythema and development of skin necrosis with ongoing drainage of purulent material. There is concern for an underlying abscess. The patient will need surgical drainage/debridement. As such, the patient will be taken to the o perating room today. The blood cultures have been negative thus far. Objective - Vital Signs Vital signs: Vital Signs Temp 98.3 F 08/18/23 12:22 Pulse 83 08/18/23 12:22 Resp 16 08/18/23 12:22 BP 126/68 08/18/23 12:22 Pulse Ox 95 08/18/23 12:22 FiO2 Intake & Output 08/17/23 08/18/23 08/18/23 18:59 06:59 18:59 Output Total 725 Balance -725 Weight 90.718 kg Output: Urine 550 Post Void Residual 175 Other: Voiding Method External Catheter Indwelling Catheter Indwelling Catheter - Exam GENERAL EXAM: Alert, pleasant 82-year-old female, sitting up at the bedside, on 2 L nasal cannula, comfortable in no apparent distress. HEAD: Normocephalic. EYES: Normal reaction of pupils, equal size. NOSE: Clear with pink turbinates. THROAT: No erythema or exudates. NECK: No masses, no JVD. CHEST: No chest wall deformity. LUNGS: Equal air entry with no crackles, wheeze, rhonchi or dullness. Diminished. CVS: S1 and S2 normal with no audible murmur, regular rhythm. ABDOMEN: No hepatosplenomegaly, normal bowel sounds, no guarding or rigidity. SPINE: No scoliosis or deformity SKIN: Patient has erythema in the suprapubic area which is firm with palpation and tender. The erythema does go into town into the left labial and into the left lower buttocks and anus. Left lower buttocks has a ulceration with necrotic tissue. Along the left groin there are a couple areas of drainage. Left labia is firm, tender and red with palpation. CENTRAL NERVOUS SYSTEM: No focal deficits, tone is normal in all 4 extremities. EXTREMITIES: There is no peripheral edema. No clubbing, no cyanosis. Peripheral pulses are intact - Labs CBC & Chem 7: 08/18/23 06:31 08/17/23 04:14 Labs: Abnormal Lab Results - Last 24 Hours (Table) 08/18/23 Range/Units 06:31 RBC 3.00 L (4.10-5.20) X 10*6/uL Hgb 9.5 L (12.0-15.0) d/dL Hct 30.7 L (37.2-46.3) % MCV 102.3 H (80.0-97.0) FL MCHC 30.9 L (32.0-37.0) d/dL Neutrophils # 8.61 H (1.80-7.70) X 10*3/uL Lymphocytes # 0.49 L (0.90-5.00) X 10*3/uL Microbiology - Last 24 Hours (Table) 08/16/23 12:45 Gram Stain - Final Rectum Wound Culture - Final 08/16/23 12:55 Blood Culture - Preliminary Blood 08/16/23 13:10 Blood Culture - Preliminary Blood Assessment and Plan Plan: Perirectal/perianal cellulitis with questionable abscess formation. Rule out Santosh's gangrene/necrotizing fasciitis. Based on the CAT scan findings, there is a small focus of air reflecting abscess formation. On today's e valuation, there is areas of necrosis within the perianal wound infection and there is no active purulent drainage. No gas formation on clinical examination. The patient is awaiting surgical incision and drainage. Acute leukocytosis/sepsis secondary to above, improving Mild transaminitis secondary to above spontaneous left-sided pneumothorax, status post insertion of left chest Thoravent. Patient was hospitalized early in July for a left-sided pneumothorax and a most recent chest x-ray shows no evidence of any pneumothorax and the pneumothorax has recovered Chronic hypoxic respiratory failure currently on 2 L of oxygen nasal cannula Severe chronic obstructive pulmonary disease, not in exacerbation. Baseline FEV1 is 41% of predicted. Chronically oxygen dependent on 2 L/m nasal cannula 15/05. The patient is demented on Anoro Ellipta on an outpatient basis in addition to DuoNeb updrafts [id number] and budesonide neb nebulized treatments twice a day Former tobacco smoker Hypothyroidism Benign essential hypertension Hyperlipidemia Obesity, with a BMI of 31 kg/m Plan Surgical consultation KAROLINA, to be done today Possible surgical debridement, to be done today Continue current antibiotic coverage with daptomycin and Zosyn The patient will be given pulmonary clearance for any surgical drainage and this can be done under general anesthesia Resume all medications in terms of COPD including Anoro Ellipta and Yupelri, in addition to DuoNeb updraft on as-needed basis Lovenox for DVT prophylaxis Continue bronchodilators with DuoNeb updrafts Continue to follow. She is currently on Lovenox for DVT prophylaxis.
[2023-08-18] MEDS ORDERED: BUPIVACAINE (PF) 0.25% 30 ML VIAL SQ ONE ×2 (20:11→20:42)
[2023-08-18] MEDS ORDERED: LACTATED RINGERS 1,000 ML IV ONE (20:13)
[2023-08-18] MEDS ORDERED: fentaNYL (PF) 50 MCG/ML 2 ML AMP ONE (20:13)
[2023-08-18] MEDS ORDERED: PROPOFOL 10 MG/ML 20 ML VIAL IV ONE (20:13)
[2023-08-18] MEDS ORDERED: LIDOCAINE 1% INJ 10MG/ML (20 ML MDV) ONE (20:13)
--- NOTE | 2023-08-18 22:45 | P.OP ---
Date of Procedure: 08/18/23 Description of Procedure: SURGEON: BELLA GORMAN MD SUPERVISOR ELEMENTARY EDUCATION: None. PREOPERATIVE DIAGNOSES: 1. Complex left labial, pelvic, buttock, perineal abscess 2. Chronic obstructive pulmonary disease moderate to severe chronic oxygen use 3. Depressive disorder 4. Hypothyroidism 5. Hypertensive heart disease with congestive heart failure 6. Hyperlipidemia 7. Recent atraumatic pneumothorax 8. Obesity due to excess calories, BMI 31.3 9. Chronic steroids use POSTOPERATIVE DIAGNOSES: 1. Complex left labial, pelvic, buttock, perineal abscess with soft tissue necrosis, 30 x 10 cm 2. Chronic obstructive pulmonary disease moderate to severe chronic oxygen use 3. Depressive disorder 4. Hypothyroidism 5. Hypertensive heart disease with congestive heart failure 6. Hyperlipidemia 7. Recent atraumatic pneumothorax 8. Obesity due to excess calories, BMI 31.3 9. Chronic steroids use PROCEDURES PERFORMED: 1. Sharp excisional debridement of left labia, left buttock, perineum, including subcutaneous tissue, muscle, fascia for necrosis, 30 x 10 x 3 cm 2. Mechanical debridement buttock and perineum using Pulsavac lavage 3 L normal saline solution with high pressure water jet including scalpel and forceps, 30x 10 x 3 cm 3. Application of wound VAC 4. Drainage of complex left buttock soft tissue abscess 5. Excision of benign skin lesion 1 x 1 cm, left pubis 2 with placement of quarter-inch [place] drain, left labia and perineum Anesthesia: GETA Estimated Blood Loss (ml): 50 Pathology: Aerobic and anaerobic tissue culture, swab culture, left buttock tissue for permanent Condition: stable COMPLICATIONS: None. Operative Findings: 1. Necrosis of posterior left labia, perineum to left buttock extending to separate his tissue, muscle, fascia and perineum 2. Decompressive tract, fistula along perineum 3. Excisional debridement including subcutaneous tissue, muscle to bleeding tissue was obtained. 4. Quarter-inch [place] drain along left labia and perineum INDICATIONS: The patient is a 82-year-old female who presented acutely with leukocytosis and spreading infection of the left pubis, buttock and draining abscess. CT imaging demonstrated a complex perineal abscess with extension to the left buttock and labia. Urgent surgical intervention was described. Benefits and risks of bleeding, infection, need for additional surgery, cosmetic deformity was described. Informed consent was obtained. DESCRIPTION OR PROCEDURE: Patient was brought into the operating room. After general induction, she was positioned in modified lithotomy position. The perineum thighs pubis were prepped and draped in a standard sterile fashion with Betadine. Timeout protocol was confirmed with the surgical team regarding the patient's name, procedure to be performed including scheduled antibiotics. DVT prophylaxis was confirmed with heparin and sequential compression devices. Along the left pubis, skin was anesthetized at the proposed incisions areas. A transverse 1 cm elliptical incision was made at the left pubis and at the left labia. Rani was used to dissect to subcutaneous tissue with anaerobic and aerobic cultures obtained. Tissue was moderately edematous. Next the left labia to perineum was explored with necrotic tissue identified involving the left buttock and left labia. Extension of soft tissue involvement of 30 cm x 10 cm to the left buttock was found. The skin was necrotic and excised sharply using #10 blade to healthy bleeding tissues of the muscle and fascia. Using a #10 scalpel as well as electro Bovie cautery, the necrotic tissue was excised to healthy bleeding tissue with tunneling identified along the superior gluteal cleft. All necrotic tissue was excised involving the subcutaneous tissue and muscle. For mechanical debridement, high pressure water jet Pulsavac 3 L normal saline solution was used to clean the bed of the tissue measuring 30 x 10 cm. The skin of the buttocks were cleansed and dried using dilute hydrogen peroxide. Undermining were identified of the left buttock wound superiorly and laterally. Water jet power pulse lavage was used to irrigate the tract including pockets. The skin edges were excised to healthy tissue. Next, quarter inch [place] drain were placed in tract from the left pubis to the left labia. Similarly from the left labia to left perineum was tacked to the skin using 2-0 nylon. To close the depth of soft tissue defect, small black wound VAC sponge was placed in the tract and space. [place] draping was used as an adhesive along with the wound VAC sponge and to cover the [place] drain. A 4 x 4 sponge was placed along the left pubis to the drain site. Tegaderm was placed over the left pubis drain site. Suction adapter was placed with moderate-sized leak due to location of the wound VAC. Wound VAC was adjusted from -125 to -200 mm Pressure to allow for appropriate drainage. At the end of the procedure, needle, sponge, and instrument count was verified correct by rn neurosurgical. Patient was transferred to the bed extubated. The patient was transferred into the postanesthesia care unit in stable condition. Family was updated.
[2023-08-19] MEDS: traMADol 50 MG TAB PO PRN ×4 (00:04→21:40)
[2023-08-19] MEDS: LEVOTHYROXINE 125 MCG TAB PO SCH (06:16)
[2023-08-19] MEDS: IPRATROPIUM-ALBUTEROL 3 ML NEB INHALATION PRN ×3 (06:32→20:36)
[2023-08-19] MEDS: DAPTOmycin 500 MG in SODIUM CHLORIDE 0.9% 50 ML IVPB SCH (08:44)
[2023-08-19] MEDS: SERTRALINE 100 MG TAB PO SCH (08:44)
[2023-08-19] MEDS: VITAMIN A 10,000 UNIT (3000 MCG) CAPSULE PO SCH (08:44)
[2023-08-19] MEDS: ANORO INHALATION SCH ×2 (08:46→11:29)
[2023-08-19] MEDS: ELLIPTA INHALATION SCH ×2 (08:46→11:29)
[2023-08-19] MEDS: ENOXAPARIN 40 MG/0.4 ML SYRINGE SQ SCH (08:47)
[2023-08-19] MEDS: YUPELRI 175 MCG/3 ML INHALATION SCH ×2 (08:47→11:29)
[2023-08-19 09:33] LABS: African American GFR (CKD) 90 (>60 ml/min/1.73 sqM); Anion Gap 7 mmol/L; Blood Urea Nitrogen 22 mg/dL (7-17); Calcium 6.8 mg/dL (8.4-10.2); Carbon Dioxide 26 mmol/L (22-30); Chloride 106 mmol/L (98-107); Glucose 72 mg/dL (74-99); Non-African American GFR(CKD) 78 (>60 ml/min/1.73 sqM); Potassium 3.7 mmol/L (3.5-5.1); Sodium 139 mmol/L (137-145)
[2023-08-19] MEDS: PIPERACILLIN-TAZOBACTAM 3.375 GM in SODIUM CHLORIDE 0.9% 100 ML IVPB SCH ×2 (09:41→17:03)
[2023-08-19 10:07] LABS: Basophils # (A) 0.03 X 10*3/uL (0.00-0.10); Basophils % (A) 0.3 %; Eosinophils # (A) 0.12 X 10*3/uL (0.04-0.35); Eosinophils % (A) 1.1 %; HCT 30.8 % (37.2-46.3); HGB 9.3 d/dL (12.0-15.0); Lymphocytes # (A) 0.49 X 10*3/uL (0.90-5.00); Lymphocytes % (A) 4.4 %; MCH 31.4 pg (27.0-32.0); MCHC 30.2 d/dL (32.0-37.0); MCV 104.1 FL (80.0-97.0); Mean Platelet Volume 10.3 FL (9.5-12.2); Monocytes # (A) 0.42 X 10*3/uL (0.20-1.00); Monocytes % (A) 3.7 %; NRBC Per 100 WBC 0 X 10*3/uL (0.00-0.01); Neutrophils # (A) 10.03 X 10*3/uL (1.80-7.70); Platelet Count 239 X 10*3/uL (140-440); RBC 2.96 X 10*6/uL (4.10-5.20); RDW 14.2 % (11.5-14.5); WBC 11.26 X 10*3/uL (4.50-10.00)
[2023-08-19] MEDS: HYDROmorphone 1 MG/ML 1 ML SYRINGE IVP PRN (10:29)
[2023-08-19] MEDS: SODIUM CHLORIDE 0.9% 1,000 ML IV SCH (10:30)
--- NOTE | 2023-08-19 13:00 | P.PN ---
Subjective Progress Note Date: 08/19/23 Family at bedside. She did extremely well after surgery with successful extubation. Extent of soft tissue necrosis reviewed with patient and family. Wound vac placed due to extent of soft tissue loss. Wound vac reinforced by nursing. WBC is elevated following stress response from surgery. Plan for 2nd look debridement and dressing change in the operating room for Monday. High protein diet advised for maximal recovery. Objective - Vital Signs Vital signs: Vital Signs Temp 98.1 F 08/19/23 07:21 Pulse 84 08/19/23 11:45 Resp 18 08/19/23 08:40 BP 131/71 08/19/23 07:21 Pulse Ox 95 08/19/23 07:21 FiO2 Intake & Output 08/18/23 08/19/23 08/19/23 18:59 06:59 18:59 Intake Total 925 Output Total 700 550 Balance -700 375 Intake: IV 925 Output: Urine 700 500 Estimated Blood Loss 50 Other: Voiding Method Indwelling Catheter Indwelling Catheter Indwelling Catheter - Labs CBC & Chem 7: 08/19/23 06:38 08/19/23 06:38 Labs: Abnormal Lab Results - Last 24 Hours (Table) 08/19/23 08/19/23 Range/Units 06:38 06:38 WBC 11.26 H (4.50-10.00) X 10*3/uL RBC 2.96 L (4.10-5.20) X 10*6/uL Hgb 9.3 L (12.0-15.0) d/dL Hct 30.8 L (37.2-46.3) % MCV 104.1 H (80.0-97.0) FL MCHC 30.2 L (32.0-37.0) d/dL Neutrophils # 10.03 H (1.80-7.70) X 10*3/uL Lymphocytes # 0.49 L (0.90-5.00) X 10*3/uL BUN 22 H (7-17) mg/dL Glucose 72 L (74-99) mg/dL Calcium 6.8 L (8.4-10.2) mg/dL Microbiology - Last 24 Hours (Table) 08/16/23 12:55 Blood Culture - Preliminary Blood 08/16/23 13:10 Blood Culture - Preliminary Blood 08/16/23 12:45 Gram Stain - Final Rectum Wound Culture - Final
--- NOTE | 2023-08-19 13:01 | P.PN ---
Subjective Progress Note Date: 08/19/23 This is a 82-year-old female patient with severe COPD with oxygen dependence and the patient had a hospitalization earlier this month for a spontaneous left- sided pneumothorax hours the patient had a thoravent insertion with successful reexpansion of the left lung and recovery of the left-sided pneumothorax. The patient has an FEV1 of 41% of predicted. She is auction dependent at 2 L per minute nasal cannula 24 7. She is morbidly obese and she has hypertension, hyperlipidemia and hypothyroidism. She also has an infrarenal abdominal aortic aneurysm measuring 3.1 cm in size. The patient was hospitalized because of erythema and firmness and swelling and pain in the suprapubic region and this is extending to her perineal area and left buttocks and labial area. There is quite redness and swelling involving the same area. She has also noted some drainage from the left labia and buttocks area. The patient was started on antibiotics. The patient was hospitalized and seen by the surgical team and the patient was diagnosed having a perineal cellulitis with perirectal cellulitis and possibly development of an abscess. Computed tomography scan of the abdomen and pelvis was done that showed perirectal cellulitis without any drainable abscess. There may be a small focus of air in the left perirectal area and a developing abscess cannot be completely excluded. The patient was seen by i nfectious disease and the patient was started on a combination of Zosyn and daptomycin. Her current echoes at 20.7 with a hemoglobin 11.6 and a platelet count of 269. Normal coagulation profile. Normal renal function. Mild transaminitis have been noted. No nausea. No emesis. No abdominal pain. No altered mentation. No interval worsening shortness of breath. Chest x-ray showed no evidence of any pneumothorax. She remains on 2 L of oxygen by nasal cannula. On today's evaluation of 08/18/2023, the patient has no significant worsening status and the patient remains on 4 L of oxygen by nasal cannula. No fever. No nausea or vomiting. She remains on a combination of Zosyn and daptomycin. The white cell count is gradually improving is currently down to 9.8. Nevertheless, she has ongoing drainage from her perirectal/perianal wound with extensive erythema and development of skin necrosis with ongoing drainage of purulent material. There is concern for an underlying abscess. The patient will need surgical drainage/debridement. As such, the patient will be taken to the o perating room today. The blood cultures have been negative thus far. On 08/19/2023, the patient's pulmonary status is stable. As mentioned, the patient has a a complex perineal abscess patient was taken to the operating room and excisional debridement of the left labia, left Botox, perineum was done in addition to debridement of the subclavian interstitial muscle fascia as the patient was found to have an area of necrosis that was 30 x 10 x 3 cm in size. Irrigation was done. Abscess was drained. Wound VAC was applied. The patient is currently on examination Zosyn and daptomycin. Cultures are still pending. No signs of any septicemia. She remains a portable oxygen by nasal cannula. Hemodynamically stable. She is using the incentive spirometer. Family is at the bedside. Blood work from today shows a WBC count 11.2, hemoglobin is 9.3 and a platelet count of 239. BUN is at 22 with a creatinine of 0.7 and a sodium level is at 139. Blood cultures have been negative thus far. Objective - Vital Signs Vital signs: Vital Signs Temp 98.1 F 08/19/23 07:21 Pulse 84 08/19/23 07:21 Resp 18 08/19/23 07:21 BP 131/71 08/19/23 07:21 Pulse Ox 95 08/19/23 07:21 FiO2 Intake & Output 08/18/23 08/19/23 08/19/23 18:59 06:59 18:59 Intake Total 925 Output Total 700 550 Balance -700 375 Intake: IV 925 Output: Urine 700 500 Estimated Blood Loss 50 Other: Voiding Method Indwelling Catheter Indwelling Catheter - Exam GENERAL EXAM: Alert, pleasant 82-year-old female, sitting up at the bedside, on 4 L nasal cannula, comfortable in no apparent distress. HEAD: Normocephalic. EYES: Normal reaction of pupils, equal size. NOSE: Clear with pink turbinates. THROAT: No erythema or exudates. NECK: No masses, no JVD. CHEST: No chest wall deformity. LUNGS: Equal air entry with no crackles, wheeze, rhonchi or dullness. Diminished. CVS: S1 and S2 normal with no audible murmur, regular rhythm. ABDOMEN: No hepatosplenomegaly, normal bowel sounds, no guarding or rigidity. SPINE: No scoliosis or deformity SKIN: Perineal abscess was debrided and the patient has a one back in place. CENTRAL NERVOUS SYSTEM: No focal deficits, tone is normal in all 4 extremities. EXTREMITIES: There is no peripheral edema. No clubbing, no cyanosis. Peripheral pulses are intact - Labs CBC & Chem 7: 08/19/23 06:38 08/19/23 06:38 Labs: Abnormal Lab Results - Last 24 Hours (Table) 08/18/23 08/19/23 08/19/23 Range/Units 06:31 06:38 06:38 WBC 11.26 H (4.50-10.00) X 10*3/uL RBC 3.00 L 2.96 L (4.10-5.20) X 10*6/uL Hgb 9.5 L 9.3 L (12.0-15.0) d/dL Hct 30.7 L 30.8 L (37.2-46.3) % MCV 102.3 H 104.1 H (80.0-97.0) FL MCHC 30.9 L 30.2 L (32.0-37.0) d/dL Neutrophils # 8.61 H 10.03 H (1.80-7.70) X 10*3/uL Lymphocytes # 0.49 L 0.49 L (0.90-5.00) X 10*3/uL BUN 22 H (7-17) mg/dL Glucose 72 L (74-99) mg/dL Calcium 6.8 L (8.4-10.2) mg/dL Microbiology - Last 24 Hours (Table) 08/16/23 12:55 Blood Culture - Preliminary Blood 08/16/23 13:10 Blood Culture - Preliminary Blood 08/16/23 12:45 Gram Stain - Final Rectum Wound Culture - Final Assessment and Plan Plan: Perirectal/perianal/perineal cellulitis with abscess formation. The patient is post incision and drainage and debridement of the necrotic tissue and application of a wound VAC Acute leukocytosis/sepsis secondary to above, improving Mild transaminitis secondary to above spontaneous left-sided pneumothorax, status post insertion of left chest Thoravent. Patient was hospitalized early in July for a left-sided pneu mothorax and a most recent chest x-ray shows no evidence of any pneumothorax and the pneumothorax has recovered Chronic hypoxic respiratory failure currently on 2 L of oxygen nasal cannula Severe chronic obstructive pulmonary disease, not in exacerbation. Baseline FEV1 is 41% of predicted. Chronically oxygen dependent on 2 L/m nasal cannula 15/05. The patient is demented on Anoro Ellipta on an outpatient basis in addition to DuoNeb updrafts [id number] and budesonide neb nebulized treat ments twice a day Former tobacco smoker Hypothyroidism Benign essential hypertension Hyperlipidemia Obesity, with a BMI of 31 kg/m Plan Surgical incision and drainage has been done with application of a one VAC. The patient had excisional debridement of left labia, left buttocks and perineum including subcutaneous tissue and muscle and fascia and areas of necrosis. Continue current antibiotic coverage with daptomycin and Zosyn Resume all medications in terms of COPD including Anoro Ellipta and Yupelri, in addition to DuoNeb updraft on as-needed basis Lovenox for DVT prophylaxis Continue bronchodilators with DuoNeb updrafts Gen. surgeries on the case. Infectious diseases on the case. Continue to follow. She is currently on Lovenox for DVT prophylaxis.
--- NOTE | 2023-08-19 14:10 | P.PN ---
Subjective Progress Note Date: 08/19/23 Principal diagnosis: Right gluteal and perirectal abscess Patient is a 82-year-old female with a past medical history significant for COPD hyperlipidemia thyroid disorder, patient was brought into the ER for evaluation of wound to the labia and gluteal area has been diagnosed with a cellulitis concerning for abscess. Patient is status post Sharp excisional debridement of left labia, left buttock, perineum, including subcutaneous tissue, muscle, fascia for necrosis, 30 x 10 x 3 cm and application of wound VAC completed on 08/18/2023 On today's evaluation that is 08/19/2023, the patient remains to be afebrile, the patient is breathing comfortably on room air and denies any shortness of breath, the patient denies any chest pain or cough, patient denies Abdominal pain and no nausea/vomiting or diarrhea pain into the left gluteal and labial area is currently controlled Patient white count is slightly up to 11.26, creatinine 0.82, cultures are pending Objective - Vital Signs Vital signs: Vital Signs Temp 98.1 F 08/19/23 07:21 Pulse 86 08/19/23 11:27 Resp 18 08/19/23 08:40 BP 131/71 08/19/23 07:21 Pulse Ox 95 08/19/23 07:21 FiO2 Intake & Output 08/18/23 08/19/23 08/19/23 18:59 06:59 18:59 Intake Total 925 Output Total 700 550 Balance -700 375 Intake: IV 925 Output: Urine 700 500 Estimated Blood Loss 50 Other: Voiding Method Indwelling Catheter Indwelling Catheter Indwelling Catheter - Exam GENERAL DESCRIPTION: An elderly female lying in bed in no distress RESPIRATORY SYSTEM: Unlabored breathing , clear to auscultation anteriorly HEART: S1 S2 regular rate and rhythm , ABDOMEN: Soft , no tenderness, left gluteal and labial wounds covered with a wound VAC EXTREMITIES: No edema feet - Labs CBC & Chem 7: 08/19/23 06:38 08/19/23 06:38 Labs: Abnormal Lab Results - Last 24 Hours (Table) 08/19/23 08/19/23 Range/Units 06:38 06:38 WBC 11.26 H (4.50-10.00) X 10*3/uL RBC 2.96 L (4.10-5.20) X 10*6/uL Hgb 9.3 L (12.0-15.0) d/dL Hct 30.8 L (37.2-46.3) % MCV 104.1 H (80.0-97.0) FL MCHC 30.2 L (32.0-37.0) d/dL Neutrophils # 10.03 H (1.80-7.70) X 10*3/uL Lymphocytes # 0.49 L (0.90-5.00) X 10*3/uL BUN 22 H (7-17) mg/dL Glucose 72 L (74-99) mg/dL Calcium 6.8 L (8.4-10.2) mg/dL Microbiology - Last 24 Hours (Table) 08/16/23 12:55 Blood Culture - Preliminary Blood 08/16/23 13:10 Blood Culture - Preliminary Blood 08/16/23 12:45 Gram Stain - Final Rectum Wound Culture - Final Assessment and Plan (1) Perirectal abscess Current Visit: Yes Status: Acute Code(s): K61.1 - RECTAL ABSCESS SNOMED Code(s): 80692968 Plan: 1patient presented to hospital with left gluteal labial and suprapubic area pain swelling redness and drainage with concern for extensive cellulitis and abscess to the perirectal area we will need to cover for the gram-positive as well as gram-negative pathogen likely responsible for this type of infection Patient is status post surgical debridement and deep culture which are currently pending 3-patient to continue with Zosyn and daptomycin while waiting for condition to stabilize and culture finalized Daughter at the bedside multiple questions and concerns were answered in Layman terms Dictation was produced using getupp dictation software. please excuse any grammatical, word or spelling errors. Time with Patient: Less than 30
--- NOTE | 2023-08-19 15:12 | P.PN ---
Subjective Progress Note Date: 08/19/23 82-year-old female with PMH of chronic respiratory failure on 3 L NC, COPD, hypothyroidism, depression presents to the ED for rectal abscess. Patient reports rectal discomfort that started on Monday. Her home care nurse noted a rectal wound on Monday which started draining on Monday which prompted her to come to the ED for evaluation. Patient reports pain in her buttocks that is well controlled with tramadol. She denies any fever or chills. No changes in bowel habits or urination. No nausea or vomiting. In the ED, she underwent extensive evaluation. Vital significant for tachycardia with heart rate of 90. CBC showed WBC count of 20.7. INR was 0.9 CMP showed potassium of 3.3, BUN of 62, creatinine 1.09, AST 67, ALT 52. EKG showed sinus rhythm with PVCs Chest x-ray negative for acute process CTAP showed findings of perirectal cellulitis 08/17 Patient was seen and examined. No complaints. Breathing stable. Initially, plan was for I&D today but patient will need pulmonary clearance due to recent h/o PTX and severe COPD. Vancomycin switched to Daptomycin today by ID. CBC shows WBC count 15.4, Hg 10.5, MCV 103.5. CMP shows Na 135, BUN 41, Ca 7.7, AST 62, ALT 48, alk phos 185, albumin 2.2. 08/18 Patient was seen and examined. No complaints. Breathing stable. Pulmonology consulted, cleared the patient for OR. Plans for I&D today. Continue on Daptomycin and Zosyn. CBC shows Hg 9.5 MCV 102.3. Cultures negative so far. 08/19 Patient was seen and examined. Underwent excisional debridement of left labia, left buttock, perineum, including subcutaneous tissue, muscle, fascia for necrosis, 30 x 10 x 3 cm. Continued on IV Abx. CBC WBC count 11.26, Hg 9.3, MCV 104.1. BMP BUN 22, glucose 72, Ca 6.8. General: non toxic, no distress, appears at stated age Derm: warm, dry Head: atraumatic, normocephalic, symmetric Eyes: EOMI, no lid lag, anicteric sclera Cardiovascular: S1S2 reg, no murmur Lungs: Decreased breath sounds bilateral, no rhonchi, no rales , no accessory muscle use Ext: no gross muscle atrophy, no edema, no contractures Neuro: no focal neuro deficits Psych: Alert, oriented, appropriate affect Sepsis secondary to Perirectal cellulitis SINGH on CKD Chronic conditions: chronic respiratory failure on 3 L NC, COPD, hypothyroidism, depression Based on my assessment of this patient, this patient meets a moderate complexity level of care. Patient has an acute diagnosis of perirectal cellulitis causing sepsis which poses a threat to life or bodily function. Sepsis secondary to Perirectal cellulitis: Follow BCx and WCx. Surgery consulted. NS at 75 cc/hr. Telemetry monitoring. ID consulted. Continue Zosyn 3.375g IV Q8H. Vancomycin switched to Daptomycin by ID 08/17. Pulm on board. SINGH on CKD: Restart Losartan and Lasix. IV hydration as above. Lovenox SQ for DVT prophylaxis. FULL CODE. I have reviewed the following business analyst consultant notes: I have reviewed the results of the following tests: CBC, BMP. I have ordered the following tests: WCx pending. BCx pending. CBC. BMP. I have discussed the care of this patient with the following independent historian: Discussed with multiple family members I have independently interpreted the following test below: I have discussed the management of this patient with the following physician: Objective - Vital Signs Vital signs: Vital Signs Temp 97.4 F L 08/19/23 11:45 Pulse 90 08/19/23 11:45 Resp 18 08/19/23 11:45 BP 128/67 08/19/23 11:45 Pulse Ox 96 08/19/23 11:45 FiO2 Intake & Output 08/18/23 08/19/23 08/19/23 18:59 06:59 18:59 Intake Total 925 Output Total 700 550 Balance -700 375 Intake: IV 925 Output: Urine 700 500 Estimated Blood Loss 50 Other: Voiding Method Indwelling Catheter Indwelling Catheter Indwelling Catheter - Labs CBC & Chem 7: 08/19/23 06:38 08/19/23 06:38 Labs: Abnormal Lab Results - Last 24 Hours (Table) 08/19/23 08/19/23 Range/Units 06:38 06:38 WBC 11.26 H (4.50-10.00) X 10*3/uL RBC 2.96 L (4.10-5.20) X 10*6/uL Hgb 9.3 L (12.0-15.0) d/dL Hct 30.8 L (37.2-46.3) % MCV 104.1 H (80.0-97.0) FL MCHC 30.2 L (32.0-37.0) d/dL Neutrophils # 10.03 H (1.80-7.70) X 10*3/uL Lymphocytes # 0.49 L (0.90-5.00) X 10*3/uL BUN 22 H (7-17) mg/dL Glucose 72 L (74-99) mg/dL Calcium 6.8 L (8.4-10.2) mg/dL Microbiology - Last 24 Hours (Table) 08/16/23 12:55 Blood Culture - Preliminary Blood 08/16/23 13:10 Blood Culture - Preliminary Blood
[2023-08-20] MEDS: PIPERACILLIN-TAZOBACTAM 3.375 GM in SODIUM CHLORIDE 0.9% 100 ML IVPB SCH ×4 (01:00→23:30)
[2023-08-20] MEDS: SODIUM CHLORIDE 0.9% 1,000 ML IV SCH ×2 (01:02→09:53)
[2023-08-20] MEDS: LEVOTHYROXINE 125 MCG TAB PO SCH (06:47)
[2023-08-20] MEDS: IPRATROPIUM-ALBUTEROL 3 ML NEB INHALATION PRN ×4 (07:18→20:39)
[2023-08-20] MEDS: YUPELRI 175 MCG/3 ML INHALATION SCH ×2 (07:29→11:11)
[2023-08-20] MEDS: ELLIPTA INHALATION SCH (07:29)
[2023-08-20] MEDS: ANORO INHALATION SCH (07:29)
[2023-08-20] MEDS: LOSARTAN 50 MG TAB PO SCH (09:04)
[2023-08-20] MEDS: ENOXAPARIN 40 MG/0.4 ML SYRINGE SQ SCH (09:04)
[2023-08-20] MEDS: FUROSEMIDE 40 MG TAB PO SCH (09:04)
[2023-08-20] MEDS: VITAMIN A 10,000 UNIT (3000 MCG) CAPSULE PO SCH (09:04)
[2023-08-20] MEDS: SERTRALINE 100 MG TAB PO SCH (09:05)
[2023-08-20] MEDS: traMADol 50 MG TAB PO PRN ×2 (09:51→20:00)
[2023-08-20] MEDS: DAPTOmycin 500 MG in SODIUM CHLORIDE 0.9% 50 ML IVPB SCH (09:52)
--- NOTE | 2023-08-20 10:05 | P.PN ---
Subjective Progress Note Date: 08/20/23 Family at bedside. She is doing very well. No fevers. She is tolerating high protein diet. Recommend 2nd look debridement in the OR with change of dressings. Then may have bedside dressing changes for Mon/Mon following. All questions addressed with patient and family Objective - Vital Signs Vital signs: Vital Signs Temp 98.4 F 08/20/23 07:24 Pulse 84 08/20/23 07:30 Resp 20 08/20/23 07:24 BP 146/71 08/20/23 07:24 Pulse Ox 98 08/20/23 07:24 FiO2 Intake & Output 08/19/23 08/20/23 08/20/23 18:59 06:59 18:59 Intake Total 1210 Output Total 1100 900 Balance 110 -900 Intake: Intake, IV Titration 850 Amount Piperacillin-Tazobactam 3 100 .375 gm In Sodium Chloride 0.9% 100 ml @ 25 mls/hr IVPB Q8HR [facility] Rx# :[id number] Sodium Chloride 0.9% 1, 750 000 ml @ 75 mls/hr IV . [id number] [facility] Rx#:[id number] Oral 360 Output: Urine 1100 900 Other: Voiding Method Indwelling Catheter Indwelling Catheter - Labs CBC & Chem 7: 08/19/23 06:38 08/19/23 06:38 Labs: Abnormal Lab Results - Last 24 Hours (Table) 08/19/23 Range/Units 06:38 WBC 11.26 H (4.50-10.00) X 10*3/uL RBC 2.96 L (4.10-5.20) X 10*6/uL Hgb 9.3 L (12.0-15.0) d/dL Hct 30.8 L (37.2-46.3) % MCV 104.1 H (80.0-97.0) FL MCHC 30.2 L (32.0-37.0) d/dL Neutrophils # 10.03 H (1.80-7.70) X 10*3/uL Lymphocytes # 0.49 L (0.90-5.00) X 10*3/uL Microbiology - Last 24 Hours (Table) 08/18/23 21:00 Gram Stain - Preliminary Other - Other Tissue Culture - Preliminary Gram Neg Bacilli 08/18/23 21:00 Gram Stain - Preliminary Other - Other Wound Culture - Preliminary Gram Neg Bacilli 08/18/23 21:00 Gram Stain - Preliminary Other - Other 08/16/23 12:55 Blood Culture - Preliminary Blood 08/16/23 13:10 Blood Culture - Preliminary Blood
[2023-08-20] MEDS: ALPRAZolam 0.25 MG TAB PO PRN (10:57)
--- NOTE | 2023-08-20 13:06 | P.PN ---
Subjective Progress Note Date: 08/20/23 82-year-old female with PMH of chronic respiratory failure on 3 L NC, COPD, hypothyroidism, depression presents to the ED for rectal abscess. Patient reports rectal discomfort that started on Monday. Her home care nurse noted a rectal wound on Monday which started draining on Monday which prompted her to come to the ED for evaluation. Patient reports pain in her buttocks that is well controlled with tramadol. She denies any fever or chills. No changes in bowel habits or urination. No nausea or vomiting. In the ED, she underwent extensive evaluation. Vital significant for tachycardia with heart rate of 90. CBC showed WBC count of 20.7. INR was 0.9 CMP showed potassium of 3.3, BUN of 62, creatinine 1.09, AST 67, ALT 52. EKG showed sinus rhythm with PVCs Chest x-ray negative for acute process CTAP showed findings of perirectal cellulitis 08/17 Patient was seen and examined. No complaints. Breathing stable. Initially, plan was for I&D today but patient will need pulmonary clearance due to recent h/o PTX and severe COPD. Vancomycin switched to Daptomycin today by ID. CBC shows WBC count 15.4, Hg 10.5, MCV 103.5. CMP shows Na 135, BUN 41, Ca 7.7, AST 62, ALT 48, alk phos 185, albumin 2.2. 08/18 Patient was seen and examined. No complaints. Breathing stable. Pulmonology consulted, cleared the patient for OR. Plans for I&D today. Continue on Daptomycin and Zosyn. CBC shows Hg 9.5 MCV 102.3. Cultures negative so far. 08/19 Patient was seen and examined. Underwent excisional debridement of left labia, left buttock, perineum, including subcutaneous tissue, muscle, fascia for necrosis, 30 x 10 x 3 cm. Continued on IV Abx. CBC WBC count 11.26, Hg 9.3, MCV 104.1. BMP BUN 22, glucose 72, Ca 6.8. 08/20 Patient was seen and examined. Doing well. No complaints. Discussed with Dr. Toledo, plans for OR tomorrow for second look. WCx growing presumptive staph aureus and GNB. She will likely need PICC line and IV Abx on discharge. General: non toxic, no distress, appears at stated age Derm: warm, dry Head: atraumatic, normocephalic, symmetric Eyes: EOMI, no lid lag, anicteric sclera Cardiovascular: S1S2 reg, no murmur Lungs: Decreased breath sounds bilateral, no rhonchi, no rales , no accessory muscle use Ext: no gross muscle atrophy, no edema, no contractures Neuro: no focal neuro deficits Psych: Alert, oriented, appropriate affect Sepsis secondary to Perirectal cellulitis Macrocytic anemia SINGH on CKD Chronic conditions: chronic respiratory failure on 3 L NC, COPD, hypothyroidism, depression Based on my assessment of this patient, this patient meets a moderate complexity level of care. Patient has an acute diagnosis of perirectal cellulitis causing sepsis which po ses a threat to life or bodily function. Sepsis secondary to Perirectal cellulitis: Follow BCx and WCx. Surgery consulted. NS at 75 cc/hr. Telemetry monitoring. ID consulted. Continue Zosyn 3.375g IV Q8H. Vancomycin switched to Daptomycin by ID 08/17. Pulm on board. Plans for OR tomorrow for washout and second look. SINGH on CKD: Restart Losartan and Lasix. IV hydration as above. Lovenox SQ for DVT prophylaxis. FULL CODE. I have reviewed the following [employer] consultant notes: Surgery note. I have reviewed the results of the following tests: WCx I have ordered the following tests: WCx pending. BCx pending. CBC. BMP. I have discussed the care of this patient with the following independent hist orian: Discussed with multiple family members I have independently interpreted the following test below: I have discussed the management of this patient with the following physician: Discussed with Dr. Toledo. Objective - Vital Signs Vital signs: Vital Signs Temp 97.3 F L 08/20/23 11:46 Pulse 88 08/20/23 11:46 Resp 18 08/20/23 11:46 BP 152/74 08/20/23 11:46 Pulse Ox 95 08/20/23 11:46 FiO2 Intake & Output 08/19/23 08/20/23 08/20/23 18:59 06:59 18:59 Intake Total 1210 Output Total 1100 900 Balance 110 -900 Intake: Intake, IV Titration 850 Amount Piperacillin-Tazobactam 3 100 .375 gm In Sodium Chloride 0.9% 100 ml @ 25 mls/hr IVPB Q8HR [facility] Rx# :[id number] Sodium Chloride 0.9% 1, 750 000 ml @ 75 mls/hr IV . [id number] [facility] Rx#:[id number] Oral 360 Output: Urine 1100 900 Other: Voiding Method Indwelling Catheter Indwelling Catheter Indwelling Catheter - Labs CBC & Chem 7: 08/19/23 06:38 08/19/23 06:38 Labs: Microbiology - Last 24 Hours (Table) 08/18/23 21:00 Gram Stain - Preliminary Other - Other Wound Culture - Preliminary Presumptive Staph aureus Gram Neg Bacilli 08/18/23 21:00 Gram Stain - Preliminary Other - Other Tissue Culture - Preliminary Gram Neg Bacilli 08/18/23 21:00 Gram Stain - Preliminary Other - Other Wound Culture - Preliminary Gram Neg Bacilli 08/16/23 12:55 Blood Culture - Preliminary Blood 08/16/23 13:10 Blood Culture - Preliminary Blood
--- NOTE | 2023-08-20 13:09 | P.PN ---
Subjective Progress Note Date: 08/20/23 This is a 82-year-old female patient with severe COPD with oxygen dependence and the patient had a hospitalization earlier this month for a spontaneous left- sided pneumothorax hours the patient had a thoravent insertion with successful reexpansion of the left lung and recovery of the left-sided pneumothorax. The patient has an FEV1 of 41% of predicted. She is auction dependent at 2 L per minute nasal cannula 24 7. She is morbidly obese and she has hypertension, hyperlipidemia and hypothyroidism. She also has an infrarenal abdominal aortic aneurysm measuring 3.1 cm in size. The patient was hospitalized because of erythema and firmness and swelling and pain in the suprapubic region and this is extending to her perineal area and left buttocks and labial area. There is quite redness and swelling involving the same area. She has also noted some drainage from the left labia and buttocks area. The patient was started on antibiotics. The patient was hospitalized and seen by the surgical team and the patient was diagnosed having a perineal cellulitis with perirectal cellulitis and possibly development of an abscess. Computed tomography scan of the abdomen and pelvis was done that showed perirectal cellulitis without any drainable abscess. There may be a small focus of air in the left perirectal area and a developing abscess cannot be completely excluded. The patient was seen by i nfectious disease and the patient was started on a combination of Zosyn and daptomycin. Her current echoes at 20.7 with a hemoglobin 11.6 and a platelet count of 269. Normal coagulation profile. Normal renal function. Mild transaminitis have been noted. No nausea. No emesis. No abdominal pain. No altered mentation. No interval worsening shortness of breath. Chest x-ray showed no evidence of any pneumothorax. She remains on 2 L of oxygen by nasal cannula. On today's evaluation of 08/18/2023, the patient has no significant worsening status and the patient remains on 4 L of oxygen by nasal cannula. No fever. No nausea or vomiting. She remains on a combination of Zosyn and daptomycin. The white cell count is gradually improving is currently down to 9.8. Nevertheless, she has ongoing drainage from her perirectal/perianal wound with extensive erythema and development of skin necrosis with ongoing drainage of purulent material. There is concern for an underlying abscess. The patient will need surgical drainage/debridement. As such, the patient will be taken to the o perating room today. The blood cultures have been negative thus far. On 08/19/2023, the patient's pulmonary status is stable. As mentioned, the patient has a a complex perineal abscess patient was taken to the operating room and excisional debridement of the left labia, left Botox, perineum was done in addition to debridement of the subclavian interstitial muscle fascia as the patient was found to have an area of necrosis that was 30 x 10 x 3 cm in size. Irrigation was done. Abscess was drained. Wound VAC was applied. The patient is currently on examination Zosyn and daptomycin. Cultures are still pending. No signs of any septicemia. She remains a portable oxygen by nasal cannula. Hemodynamically stable. She is using the incentive spirometer. Family is at the bedside. Blood work from today shows a WBC count 11.2, hemoglobin is 9.3 and a platelet count of 239. BUN is at 22 with a creatinine of 0.7 and a sodium level is at 139. Blood cultures have been negative thus far. On 08/20/2020, no new complaints. The patient Restasis as is stable. A wound VAC abdomento her perineal area and there is active drainage at this point in time. The patient remains on Zosyn and daptomycin. The cultures are showing staph aureus and gram-negative bacillus and the final cultures and sensitivities are still pending for now. Meanwhile, the patient's condition is stable. Hemodynamically stable. She remains on 4 L of oxygen by nasal cannula. No new labs are available from today. Discussed the case with the general surgeon and the patient is going to undergo another drainage procedure tomorrow in the operating room. Objective - Vital Signs Vital signs: Vital Signs Temp 97.3 F L 08/20/23 11:46 Pulse 88 08/20/23 11:46 Resp 18 08/20/23 11:46 BP 152/74 08/20/23 11:46 Pulse Ox 95 08/20/23 11:46 FiO2 Intake & Output 08/19/23 08/20/23 08/20/23 18:59 06:59 18:59 Intake Total 1210 Output Total 1100 900 Balance 110 -900 Intake: Intake, IV Titration 850 Amount Piperacillin-Tazobactam 3 100 .375 gm In Sodium Chloride 0.9% 100 ml @ 25 mls/hr IVPB Q8HR [facility] Rx# :[id number] Sodium Chloride 0.9% 1, 750 000 ml @ 75 mls/hr IV . [id number] [facility] Rx#:[id number] Oral 360 Output: Urine 1100 900 Other: Voiding Method Indwelling Catheter Indwelling Catheter Indwelling Catheter - Exam GENERAL EXAM: Alert, pleasant 82-year-old female, sitting up at the bedside, on 4 L nasal cannula, comfortable in no apparent distress. HEAD: Normocephalic. EYES: Normal reaction of pupils, equal size. NOSE: Clear with pink turbinates. THROAT: No erythema or exudates. NECK: No masses, no JVD. CHEST: No chest wall deformity. LUNGS: Equal air entry with no crackles, wheeze, rhonchi or dullness. Diminished. CVS: S1 and S2 normal with no audible murmur, regular rhythm. ABDOMEN: No hepatosplenomegaly, normal bowel sounds, no guarding or rigidity. SPINE: No scoliosis or deformity SKIN: Perineal abscess was debrided and the patient has a one back in place. CENTRAL NERVOUS SYSTEM: No focal deficits, tone is normal in all 4 extremities. EXTREMITIES: There is no peripheral edema. No clubbing, no cyanosis. Peripheral pulses are intact - Labs CBC & Chem 7: 08/19/23 06:38 08/19/23 06:38 Labs: Microbiology - Last 24 Hours (Table) 08/18/23 21:00 Gram Stain - Preliminary Other - Other Wound Culture - Preliminary Presumptive Staph aureus Gram Neg Bacilli 08/18/23 21:00 Gram Stain - Preliminary Other - Other Tissue Culture - Preliminary Gram Neg Bacilli 08/18/23 21:00 Gram Stain - Preliminary Other - Other Wound Culture - Preliminary Gram Neg Bacilli 08/16/23 12:55 Blood Culture - Preliminary Blood 08/16/23 13:10 Blood Culture - Preliminary Blood Assessment and Plan Plan: Perirectal/perianal/perineal cellulitis with abscess formation. The patient is post incision and drainage and debridement of the necrotic tissue and application of a wound VAC, cultures are positive for staph aureus and gram- negative Acute leukocytosis/sepsis secondary to above, improving Mild transaminitis secondary to above spontaneous left-sided pneumothorax, status post insertion of left chest Thoravent. Patient was hospitalized early in July for a left-sided pneumothorax and a most recent chest x-ray shows no evidence of any pneumothorax and the pneumothorax has recovered Chronic hypoxic respiratory failure currently on 2 L of oxygen nasal cannula Severe chronic obstructive pulmonary disease, not in exacerbation. Baseline FEV1 is 41% of predicted. Chronically oxygen dependent on 2 L/m nasal cannula 15/05. The patient is demented on Anoro Ellipta on an outpatient basis in rodrigo tion to DuoNeb updrafts [id number] and budesonide neb nebulized treatments twice a day Former tobacco smoker Hypothyroidism Benign essential hypertension Hyperlipidemia Obesity, with a BMI of 31 kg/m Plan Clinically stable Rest or status is stable Surgical incision and drainage has been done with application of a one VAC. The patient had excisional debridement of left labia, left buttocks and perineum including subcutaneous tissue and muscle and fascia and areas of necrosis. Monitor the output from the wound VAC another Another surgical incision and drainage tomorrow Continue current antibiotic coverage with daptomycin and Zosyn Resume all medications in terms of COPD including Anoro Ellipta and Yupelri, in addition to DuoNeb updraft on as-needed basis Lovenox for DVT prophylaxis Continue bronchodilators [facility] surgeries on the case. Infectious diseases on the case. Continue to follow. She is currently on Lovenox for DVT prophylaxis.
--- NOTE | 2023-08-20 16:16 | P.PN ---
Subjective Progress Note Date: 08/20/23 Principal diagnosis: Right gluteal and perirectal abscess Patient is a 82-year-old female with a past medical history significant for COPD hyperlipidemia thyroid disorder, patient was brought into the ER for evaluation of wound to the labia and gluteal area has been diagnosed with a cellulitis concerning for abscess. Patient is status post Sharp excisional debridement of left labia, left buttock, perineum, including subcutaneous tissue, muscle, fascia for necrosis, 30 x 10 x 3 cm and application of wound VAC completed on 08/18/2023 On today's evaluation that is 08/20/2023, the patient denies any fever or chills, the patient is breathing comfortably on 3 L nasal cannula supplemental oxygen, the patient denies any chest pain or cough, patient denies nausea/vo miting or diarrhea and no abdominal pain, the patient pain into the left gluteal and labial area is currently controlled Patient white count is slightly up to 11.26, creatinine 0.82 as of yesterday no CBC was done today, cultures are currently growing staph aureus and gram- negative Objective - Vital Signs Vital signs: Vital Signs Temp 97.3 F L 08/20/23 11:46 Pulse 88 08/20/23 11:46 Resp 18 08/20/23 11:46 BP 152/74 08/20/23 11:46 Pulse Ox 95 08/20/23 11:46 FiO2 Intake & Output 08/19/23 08/20/23 08/20/23 18:59 06:59 18:59 Intake Total 1210 Output Total 1100 900 Balance 110 -900 Intake: Intake, IV Titration 850 Amount Piperacillin-Tazobactam 3 100 .375 gm In Sodium Chloride 0.9% 100 ml @ 25 mls/hr IVPB Q8HR [facility] Rx# :[id number] Sodium Chloride 0.9% 1, 750 000 ml @ 75 mls/hr IV . [id number] [facility] Rx#:[id number] Oral 360 Output: Urine 1100 900 Other: Voiding Method Indwelling Catheter Indwelling Catheter Indwelling Catheter - Exam GENERAL DESCRIPTION: An elderly female lying in bed in no distress RESPIRATORY SYSTEM: Unlabored breathing , clear to auscultation anteriorly HEART: S1 S2 regular rate and rhythm , ABDOMEN: Soft , no tenderness, left gluteal and labial wounds covered with a wound VAC EXTREMITIES: No edema feet - Labs CBC & Chem 7: 08/19/23 06:38 08/19/23 06:38 Labs: Microbiology - Last 24 Hours (Table) 08/18/23 21:00 Gram Stain - Preliminary Other - Other Wound Culture - Preliminary Presumptive Staph aureus Gram Neg Bacilli 08/18/23 21:00 Gram Stain - Preliminary Other - Other Tissue Culture - Preliminary Gram Neg Bacilli 08/18/23 21:00 Gram Stain - Preliminary Other - Other Wound Culture - Preliminary Gram Neg Bacilli 08/16/23 12:55 Blood Culture - Preliminary Blood 08/16/23 13:10 Blood Culture - Preliminary Blood Assessment and Plan (1) Perirectal abscess Current Visit: Yes Status: Acute Code(s): K61.1 - RECTAL ABSCESS SNOMED Code(s): 47805611 Plan: 1patient presented to hospital with left gluteal labial and suprapubic area pain swelling redness and drainage with concern for extensive cellulitis and abscess to the perirectal area we will need to cover for the gram-positive as well as gram-negative pathogen likely responsible for this type of infection Patient is status post surgical debridement and deep culture which are currently pending 3-patient to continue with Zosyn and daptomycin while waiting for cultures to finalize will likely need a PICC line for outpatient IV antibiotic therapy Daughter at the bedside multiple questions and concerns were answered in Layman terms Dictation was produced using [employer] dictation software. please excuse any grammatical, word or spelling errors. Time with Patient: Less than 30
[2023-08-21] MEDS: ALPRAZolam 0.25 MG TAB PO PRN ×3 (00:34→20:53)
[2023-08-21] MEDS: SODIUM CHLORIDE 0.9% 1,000 ML IV SCH ×3 (06:09→23:36)
[2023-08-21] MEDS: LEVOTHYROXINE 125 MCG TAB PO SCH (06:11)
[2023-08-21] MEDS: ELLIPTA INHALATION SCH (07:51)
[2023-08-21] MEDS: ANORO INHALATION SCH (07:51)
[2023-08-21] MEDS: YUPELRI 175 MCG/3 ML INHALATION SCH (07:52)
[2023-08-21] MEDS: IPRATROPIUM-ALBUTEROL 3 ML NEB INHALATION PRN ×4 (07:56→20:06)
[2023-08-21] MEDS: ENOXAPARIN 40 MG/0.4 ML SYRINGE SQ SCH (08:24)
[2023-08-21] MEDS: PIPERACILLIN-TAZOBACTAM 3.375 GM in SODIUM CHLORIDE 0.9% 100 ML IVPB SCH ×3 (08:24→23:36)
[2023-08-21] MEDS: SERTRALINE 100 MG TAB PO SCH (08:25)
[2023-08-21] MEDS: VITAMIN A 10,000 UNIT (3000 MCG) CAPSULE PO SCH (08:25)
[2023-08-21] MEDS: FUROSEMIDE 40 MG TAB PO SCH (08:25)
[2023-08-21] MEDS: LOSARTAN 50 MG TAB PO SCH (08:25)
[2023-08-21] MEDS: DAPTOmycin 500 MG in SODIUM CHLORIDE 0.9% 50 ML IVPB SCH (08:52)
[2023-08-21] MEDS: traMADol 50 MG TAB PO PRN (09:45)
--- NOTE | 2023-08-21 13:53 | P.PN ---
Subjective Progress Note Date: 08/21/23 This is a 82-year-old female patient with severe COPD with oxygen dependence and the patient had a hospitalization earlier this month for a spontaneous left- sided pneumothorax hours the patient had a thoravent insertion with successful reexpansion of the left lung and recovery of the left-sided pneumothorax. The patient has an FEV1 of 41% of predicted. She is auction dependent at 2 L per minute nasal cannula 24 7. She is morbidly obese and she has hypertension, hyperlipidemia and hypothyroidism. She also has an infrarenal abdominal aortic aneurysm measuring 3.1 cm in size. The patient was hospitalized because of erythema and firmness and swelling and pain in the suprapubic region and this is extending to her perineal area and left buttocks and labial area. There is quite redness and swelling involving the same area. She has also noted some drainage from the left labia and buttocks area. The patient was started on antibiotics. The patient was hospitalized and seen by the surgical team and the patient was diagnosed having a perineal cellulitis with perirectal cellulitis and possibly development of an abscess. Computed tomography scan of the abdomen and pelvis was done that showed perirectal cellulitis without any drainable abscess. There may be a small focus of air in the left perirectal area and a developing abscess cannot be completely excluded. The patient was seen by in [facility] and the patient was started on a combination of Zosyn and daptomycin. Her current echoes at 20.7 with a hemoglobin 11.6 and a platelet count of 269. Normal coagulation profile. Normal renal function. Mild transaminitis have been noted. No nausea. No emesis. No abdominal pain. No altered mentation. No interval worsening shortness of breath. Chest x-ray showed no evidence of any pneumothorax. She remains on 2 L of oxygen by nasal cannula. On today's evaluation of 08/18/2023, the patient has no significant worsening status and the patient remains on 4 L of oxygen by nasal cannula. No fever. No nausea or vomiting. She remains on a combination of Zosyn and daptomycin. The white cell count is gradually improving is currently down to 9.8. Nevertheless, she has ongoing drainage from her perirectal/perianal wound with extensive erythema and development of skin necrosis with ongoing drainage of purulent material. There is concern for an underlying abscess. The patient will need surgical drainage/debridement. As such, the patient will be taken to the op erating room today. The blood cultures have been negative thus far. On 08/19/2023, the patient's pulmonary status is stable. As mentioned, the patient has a a complex perineal abscess patient was taken to the operating room and excisional debridement of the left labia, left Botox, perineum was done in addition to debridement of the subclavian interstitial muscle fascia as the patient was found to have an area of necrosis that was 30 x 10 x 3 cm in size. Irrigation was done. Abscess was drained. Wound VAC was applied. The patient is currently on examination Zosyn and daptomycin. Cultures are still pending. No signs of any septicemia. She remains a portable oxygen by nasal cannula. Hemodynamically stable. She is using the incentive spirometer. Family is at the bedside. Blood work from today shows a WBC count 11.2, hemoglobin is 9.3 and a platelet count of 239. BUN is at 22 with a creatinine of 0.7 and a sodium level is at 139. Blood cultures have been negative thus far. On 08/20/2020, no new complaints. The patient Restasis as is stable. A wound VAC abdomento her perineal area and there is active drainage at this point in time. The patient remains on Zosyn and daptomycin. The cultures are showing staph aureus and gram-negative bacillus and the final cultures and sensitivities are still pending for now. Meanwhile, the patient's condition is stable. Hemodynamically stable. She remains on 4 L of oxygen by nasal cannula. No new labs are available from today. Discussed the case with the general surgeon and the patient is going to undergo another drainage procedure tomorrow in the operating room. The patient is seen today 08/21/2023 in follow-up on the regular medical floor. She is currently resting fairly comfortably in bed. Awake and alert in no acute distress. She is maintaining O2 saturations in the 90s on 3 L/m per nasal cannula. She's been afebrile. Hemodynamically stable. Wound cultures have been positive for MRSA and Citrobacter youngae as well as E. coli. She is currently on daptomycin and Zosyn. Plan is for a second look debridement in the OR with dressing changes to her perineal area. She has a complex left labial, pelvic, buttock, perineal abscess with soft tissue necrosis measuring 30 x 10 cm's. Initial procedure was on 08/18/2023. Wound VAC remains in place. Lovenox for DVT prophylaxis. Objective - Vital Signs Vital signs: Vital Signs Temp 92.7 F L 08/21/23 12:26 Pulse 76 08/21/23 11:43 Resp 16 08/21/23 12:26 BP 123/70 08/21/23 12:26 Pulse Ox 98 08/21/23 12:26 FiO2 Intake & Output 08/20/23 08/21/23 08/21/23 18:59 06:59 18:59 Intake Total 360 1600 Output Total 2250 600 650 Balance -1890 1000 -650 Intake: Intake, IV Titration 1600 Amount DAPTOmycin 500 mg In 750 Sodium Chloride 0.9% 50 ml @ 100 mls/hr IVPB Q24HR [facility] Rx#:[id number] Piperacillin-Tazobactam 3 100 .375 gm In Sodium Chloride 0.9% 100 ml @ 25 mls/hr IVPB Q8HR [facility] Rx# :[id number] Sodium Chloride 0.9% 1, 750 000 ml @ 75 mls/hr IV . [id number] [facility] Rx#:[id number] Oral 360 Output: Urine 2250 600 650 Other: Voiding Method Indwelling Catheter Indwelling Catheter Indwelling Catheter - Exam GENERAL EXAM: Alert, pleasant 82-year-old female, resting in bed, on 3 liters p er minute per nasal cannula, fairly comfortable in no apparent distress. HEAD: Normocephalic. EYES: Normal reaction of pupils, equal size. NOSE: Clear with pink turbinates. THROAT: No erythema or exudates. NECK: No masses, no JVD. CHEST: No chest wall deformity. LUNGS: Equal air entry with no crackles, wheeze, rhonchi or dullness. Diminished. CVS: S1 and S2 normal with no audible murmur, regular rhythm. ABDOMEN: No hepatosplenomegaly, normal bowel sounds, no guarding or rigidity. SPINE: No scoliosis or deformity SKIN: Perineal abscess was debrided and the patient has a wound VAC in place. CENTRAL NERVOUS SYSTEM: No focal deficits, tone is normal in all 4 extremities. EXTREMITIES: There is no peripheral edema. No clubbing, no cyanosis. Peripheral pulses are intact - Labs CBC & Chem 7: 08/19/23 06:38 08/19/23 06:38 Labs: Microbiology - Last 24 Hours (Table) 08/18/23 21:00 Anaerobic Culture - Preliminary Other - Other 08/18/23 21:00 Gram Stain - Final Other - Other Wound Culture - Final Methicillin resist S. aureus Citrobacter youngae 08/18/23 21:00 Gram Stain - Final Other - Other Wound Culture - Final Citrobacter youngae Methicillin resist S. aureus 08/18/23 21:00 Gram Stain - Final Other - Other Tissue Culture - Final Escherichia coli Methicillin resist S. aureus Assessment and Plan Assessment: Perirectal/perianal/perineal cellulitis with abscess formation. The patient is post incision and drainage and debridement of the necrotic tissue and application of a wound VAC on 08/18/2023. Plan is for a second look debridement possibly today. Cultures are positive for MRSA, E. coli, Citrobacter youngae. Currently on daptomycin and Zosyn Acute leukocytosis/sepsis secondary to above, improving Mild transaminitis secondary to above spontaneous left-sided pneumothorax, status post insertion of left chest Thoravent. Patient was hospitalized early in July for a left-sided pneumothorax and a most recent chest x-ray shows no evidence of any pneumothorax and the pneumothorax has recovered Chronic hypoxic respiratory failure normally on 2 L of oxygen nasal cannula. Severe chronic obstructive pulmonary disease, not in exacerbation. Baseline FEV1 is 41% of predicted. Chronically oxygen dependent on 2 L/m nasal cannula 15/05. The patient is on Anoro Ellipta on an outpatient basis in addition to DuoNeb updrafts [id number] and budesonide neb nebulized treatments twice a day Former tobacco smoker Hypothyroidism Benign essential hypertension Hyperlipidemia Obesity, with a BMI of 31 kg/m Plan: The patient was seen and evaluated Labs and medications reviewed Currently stable on 3 L nasal cannula Plan is for a second look debridement possibly today in the operating room and for dressing changes Currently on daptomycin and Zosyn Infectious diseases on the case Lovenox for DVT prophylaxis We will continue to follow This patient was seen independently by the nurse practitioner I have personally seen and examined the patient, performed the documentation and the assessment and plan as written. Number of minutes spent on the visit: 25.
--- NOTE | 2023-08-21 13:54 | P.PN ---
Subjective Progress Note Date: 08/21/23 82-year-old female with PMH of chronic respiratory failure on 3 L NC, COPD, hypothyroidism, depression presents to the ED for rectal abscess. Patient reports rectal discomfort that started on Monday. Her home care nurse noted a rectal wound on Monday which started draining on Monday which prompted her to come to the ED for evaluation. Patient reports pain in her buttocks that is well controlled with tramadol. She denies any fever or chills. No changes in bowel habits or urination. No nausea or vomiting. In the ED, she underwent extensive evaluation. Vital significant for tachycardia with heart rate of 90. CBC showed WBC count of 20.7. INR was 0.9 CMP showed potassium of 3.3, BUN of 62, creatinine 1.09, AST 67, ALT 52. EKG showed sinus rhythm with PVCs Chest x-ray negative for acute process CTAP showed findings of perirectal cellulitis 08/17 Patient was seen and examined. No complaints. Breathing stable. Initially, plan was for I&D today but patient will need pulmonary clearance due to recent h/o PTX and severe COPD. Vancomycin switched to Daptomycin today by ID. CBC shows WBC count 15.4, Hg 10.5, MCV 103.5. CMP shows Na 135, BUN 41, Ca 7.7, AST 62, ALT 48, alk phos 185, albumin 2.2. 08/18 Patient was seen and examined. No complaints. Breathing stable. Pulmonology consulted, cleared the patient for OR. Plans for I&D today. Continue on Daptomycin and Zosyn. CBC shows Hg 9.5 MCV 102.3. Cultures negative so far. 08/19 Patient was seen and examined. Underwent excisional debridement of left labia, left buttock, perineum, including subcutaneous tissue, muscle, fascia for necrosis, 30 x 10 x 3 cm. Continued on IV Abx. CBC WBC count 11.26, Hg 9.3, MCV 104.1. BMP BUN 22, glucose 72, Ca 6.8. 08/20 Patient was seen and examined. Doing well. No complaints. Discussed with Dr. Toledo, plans for OR tomorrow for second look. WCx growing presumptive staph aureus and GNB. She will likely need PICC line and IV Abx on discharge. 08/21 Patient was seen and examined. Doing well. WCx growing MRSA and Citrobacter. Plans for OR today for second look. General: non toxic, no distress, appears at stated age Derm: warm, dry Head: atraumatic, normocephalic, symmetric Eyes: EOMI, no lid lag, anicteric sclera Cardiovascular: S1S2 reg, no murmur Lungs: Decreased breath sounds bilateral, no rhonchi, no rales , no accessory muscle use Ext: no gross muscle atrophy, no edema, no contractures Neuro: no focal neuro deficits Psych: Alert, oriented, appropriate affect Sepsis secondary to Perirectal cellulitis Macrocytic anemia SINGH on CKD Chronic conditions: chronic respiratory failure on 3 L NC, COPD, hypothyroidism, depression Based on my assessment of this patient, this patient meets a moderate complexity level of care. Patient has an acute diagnosis of perirectal cellulitis causing sepsis which poses a threat to life or bodily function. Sepsis secondary to Perirectal cellulitis: Follow BCx and WCx. Surgery consulted. NS at 75 cc/hr. Telemetry monitoring. ID consulted. Continue Zosyn 3.375g IV Q8H. Vancomycin switched to Daptomycin by ID 08/17. Pulm on board. Plans for OR today for washout and second look. SINGH on CKD: Restart Losartan and Lasix. IV hydration as above. Lovenox SQ for DVT prophylaxis. FULL CODE. I have reviewed the following clothing consultant notes: Pulm note. I have reviewed the results of the following tests: WCx I have ordered the following tests: CBC. BMP. I have discussed the care of this patient with the following independent historian: Discussed with multiple family members I have independently interpreted the following test below: I have discussed the management of this patient with the following physician: Objective - Vital Signs Vital signs: Vital Signs Temp 92.7 F L 08/21/23 12:26 Pulse 76 08/21/23 11:43 Resp 16 08/21/23 12:26 BP 123/70 08/21/23 12:26 Pulse Ox 98 08/21/23 12:26 FiO2 Intake & Output 08/20/23 08/21/23 08/21/23 18:59 06:59 18:59 Intake Total 360 1600 Output Total 2250 600 650 Balance -1890 1000 -650 Intake: Intake, IV Titration 1600 Amount DAPTOmycin 500 mg In 750 Sodium Chloride 0.9% 50 ml @ 100 mls/hr IVPB Q24HR [facility] Rx#:[id number] Piperacillin-Tazobactam 3 100 .375 gm In Sodium Chloride 0.9% 100 ml @ 25 mls/hr IVPB Q8HR [facility] Rx# :[id number] Sodium Chloride 0.9% 1, 750 000 ml @ 75 mls/hr IV . [id number] [facility] Rx#:[id number] Oral 360 Output: Urine 2250 600 650 Other: Voiding Method Indwelling Catheter Indwelling Catheter Indwelling Catheter - Labs CBC & Chem 7: 08/19/23 06:38 08/19/23 06:38 Labs: Microbiology - Last 24 Hours (Table) 08/18/23 21:00 Anaerobic Culture - Preliminary Other - Other 08/18/23 21:00 Gram Stain - Final Other - Other Wound Culture - Final Methicillin resist S. aureus Citrobacter youngae 08/18/23 21:00 Gram Stain - Final Other - Other Wound Culture - Final Citrobacter youngae Methicillin resist S. aureus 08/18/23 21:00 Gram Stain - Final Other - Other Tissue Culture - Final Escherichia coli Methicillin resist S. aureus
[2023-08-21] MEDS ORDERED: SUCCINYLCHOLINE CHLORIDE 200 MG/10 ML VIAL IV ONE (17:14)
[2023-08-21] MEDS ORDERED: LIDOCAINE 4% LTA KIT (4 ML) TOPICAL ONE (17:14)
[2023-08-21] MEDS ORDERED: PHENYLEPHRINE-0.9% NACL SYG 1,000 MCG/10 ML SYRINGE ONE (17:14)
[2023-08-21] MEDS ORDERED: ePHEDrine 50 MG/ML 1 ML VIAL ONE (17:14)
[2023-08-21] MEDS ORDERED: PROPOFOL 10 MG/ML 20 ML VIAL IV ONE (17:14)
[2023-08-21] MEDS ORDERED: fentaNYL (PF) 50 MCG/ML 2 ML AMP ONE (17:14)
[2023-08-21] MEDS ORDERED: LIDOCAINE 1% INJ 10MG/ML (20 ML MDV) ONE (17:14)
[2023-08-21] MEDS ORDERED: LIDOCAINE 1%-EPI 1:100,000 50 ML VIAL SQ ONE (17:51)
[2023-08-21] MEDS ORDERED: SODIUM CHLORIDE 0.9% 1,000 ML IV ONE (17:52)
--- NOTE | 2023-08-21 19:31 | P.OP ---
Date of Procedure: 08/21/23 Description of Procedure: SURGEON: BELLA GORMAN MD FILTER TANK TENDER HELPER HEAD: None. PREOPERATIVE DIAGNOSES: 1. Complex left labial, pelvic, buttock, perineal abscess with soft tissue necrosis, 30 x 10 cm 2. Chronic obstructive pulmonary disease moderate to severe chronic oxygen use 3. Depressive disorder 4. Hypothyroidism 5. Hypertensive heart disease with congestive heart failure 6. Hyperlipidemia 7. Recent atraumatic pneumothorax 8. Obesity due to excess calories, BMI 31.3 9. Chronic steroids use POSTOPERATIVE DIAGNOSES: 1. Complex left labial, pelvic, buttock, perineal abscess with soft tissue necrosis, 30 x 10 cm 2. Chronic obstructive pulmonary disease moderate to severe chronic oxygen use 3. Depressive disorder 4. Hypothyroidism 5. Hypertensive heart disease with congestive heart failure 6. Hyperlipidemia 7. Recent atraumatic pneumothorax 8. Obesity due to excess calories, BMI 31.3 9. Chronic steroids use PROCEDURES PERFORMED: 1. Sharp excisional debridement of left labia, left buttock, perineum, including subcutaneous tissue, muscle, fascia for necrosis, 30 x 10 x 3 cm 2. Mechanical debridement buttock and perineum using Pulsavac lavage 3 L normal saline solution with high pressure water jet including scalpel and forceps, 30x 10 x 3 cm 3. Application of wound VAC Anesthesia: GETA Estimated Blood Loss (ml): 50 Pathology: None Condition: stable COMPLICATIONS: None. Operative Findings: 1. Residual soft tissue necrosis involving the muscle of the left buttock resected 2. Excisional debridement including subcutaneous tissue, muscle to bleeding tissue was obtained. 3. [place] drains were removed INDICATIONS: The patient is a 82-year-old female with complicated left labial perineal buttock wound extended to the muscle. Due to the extensive necrosis, second look with change of wound VAC was described. Benefits and risks of bleeding, infection, need for additional surgery, cosmetic deformity was described. Informed consent was obtained. DESCRIPTION OR PROCEDURE: Patient was brought into the operating room. After general induction, she was positioned in modified lithotomy position. The perineum thighs pubis were prepped and draped in a standard sterile fashion with Betadine. Timeout protocol was confirmed with the surgical team regarding the patient's name, procedure to be performed including scheduled antibiotics. DVT prophylaxis was confirmed with heparin and sequential compression devices. [place] drain and sutures were discontinued. Moderate purulence was expressed from the drains. Next the left labia to perineum was explored with necrotic tissue identified involving the left buttock and left labia. Extension of soft tissue involvement of 30 cm length x 10 cm width from pubis, left labia,perineum and the left buttock. The skin was necrotic and excised sharply using #10 blade to healthy bleeding tissues of the muscle and fascia. Using a #10 scalpel as well as electro Bovie cautery, the necrotic tissue was excised to healthy bleeding tissue with tunneling identified along the leftsuperior gluteal cleft. All necrotic tissue was excised involving the subcutaneous tissue and muscle. For mechanical debridement, high pressure water jet with scrub brush andPulsavac 3 L normal saline solution was used to clean the bed of the tissue measuring 30 x 10 cm. The skin of the pubis, labia, perineum and buttocks were cleansed with Hibiclens. Undermining were identified of the left buttock wound superiorly and laterally. Water jet power pulse lavage was used to irrigate the tract including pockets. Medium black wound VAC sponge was placed in the tract and space of the perineum. Separate defects of the pubis, left labia, left buttock were packed with black wound VAC sponge. Bridging sponge VAC were placed to connect each defect. [place] draping was used as an adhesive along with the wound VAC sponge. Suction adapter was placed with moderate-sized leak due to location of the wound VAC. Wound VAC was adjusted from -125 to -200 mm Pressure to allow for appropriate drainage. At the end of the procedure, needle, sponge, and instrument count was verified correct by surgical asst. Patient was transferred to the bed extubated. The patient was transferred into the postanesthesia care unit in stable condition. Family was updated.
[2023-08-21] MEDS: HYDROmorphone 1 MG/ML 1 ML SYRINGE IVP PRN (20:52)
[2023-08-22] MEDS: traMADol 50 MG TAB PO PRN ×3 (02:36→17:01)
[2023-08-22] MEDS: LEVOTHYROXINE 125 MCG TAB PO SCH (05:45)
[2023-08-22] MEDS: YUPELRI 175 MCG/3 ML INHALATION SCH (07:45)
[2023-08-22] MEDS: IPRATROPIUM-ALBUTEROL 3 ML NEB INHALATION PRN ×3 (07:45→15:07)
[2023-08-22] MEDS: ELLIPTA INHALATION SCH (07:45)
[2023-08-22] MEDS: ANORO INHALATION SCH (07:45)
[2023-08-22] MEDS: DAPTOmycin 500 MG in SODIUM CHLORIDE 0.9% 50 ML IVPB SCH (08:38)
[2023-08-22] MEDS: PIPERACILLIN-TAZOBACTAM 3.375 GM in SODIUM CHLORIDE 0.9% 100 ML IVPB SCH (09:45)
[2023-08-22 09:59] LABS: African American GFR (CKD) >90 (>60 ml/min/1.73 sqM); Anion Gap 7 mmol/L; Blood Urea Nitrogen 20 mg/dL (7-17); Calcium 7.2 mg/dL (8.4-10.2); Carbon Dioxide 27 mmol/L (22-30); Chloride 101 mmol/L (98-107); Glucose 83 mg/dL (74-99); Non-African American GFR(CKD) 86 (>60 ml/min/1.73 sqM); Potassium 4.3 mmol/L (3.5-5.1); Sodium 135 mmol/L (137-145)
[2023-08-22] MEDS: ALPRAZolam 0.25 MG TAB PO PRN (10:05)
[2023-08-22] MEDS: SERTRALINE 100 MG TAB PO SCH (10:06)
[2023-08-22] MEDS: LOSARTAN 50 MG TAB PO SCH (10:06)
[2023-08-22] MEDS: FUROSEMIDE 40 MG TAB PO SCH (10:07)
[2023-08-22] MEDS: ENOXAPARIN 40 MG/0.4 ML SYRINGE SQ SCH (10:07)
[2023-08-22] MEDS: VITAMIN A 10,000 UNIT (3000 MCG) CAPSULE PO SCH (10:07)
[2023-08-22 11:15] LABS: Basophils # (A) 0.05 X 10*3/uL (0.00-0.10); Basophils % (A) 0.4 %; Eosinophils # (A) 0.24 X 10*3/uL (0.04-0.35); Eosinophils % (A) 1.8 %; Lymphocytes # (A) 0.54 X 10*3/uL (0.90-5.00); Lymphocytes % (A) 4.2 %; MCH 32.1 pg (27.0-32.0); MCHC 31.3 d/dL (32.0-37.0); MCV 102.6 FL (80.0-97.0); Mean Platelet Volume 10.3 FL (9.5-12.2); Monocytes # (A) 0.37 X 10*3/uL (0.20-1.00); Monocytes % (A) 2.8 %; NRBC Per 100 WBC 0.02 X 10*3/uL (0.00-0.01); Neutrophils # (A) 11.66 X 10*3/uL (1.80-7.70); Neutrophils % (A) 89.7 %; Platelet Count 236 X 10*3/uL (140-440); RBC 3.12 X 10*6/uL (4.10-5.20); RDW 13.7 % (11.5-14.5)
--- NOTE | 2023-08-22 11:17 | P.DS ---
Providers Date of admission: 08/16/23 16:39 Expected date of discharge: 08/22/23 Attending physician: Andre Pires MD Consults: 08/16/23 16:37 Consult Physician Urgent Consulting Provider: Erin Toledo Consult Reason/Comments: perirectal cellulitis Do you want consulting provider notified?: Already Contacted 08/16/23 17:58 Consult Physician Urgent Consulting Provider: Paulino Shaffer Consult Reason/Comments: perirectal cellulitis vs abscess Do you want consulting provider notified?: Yes 08/17/23 13:33 Consult Physician Routine Consulting Provider: Alexander Flaherty Consult Reason/Comments: COPD, recent pneumo, surgical clearance Do you want consulting provider notified?: Yes Primary care physician: [facility] Course: 82-year-old female with PMH of chronic respiratory failure on 3 L NC, COPD, hypothyroidism, depression presents to the ED for rectal abscess. Patient reports rectal discomfort that started on Monday. Her home care nurse noted a rectal wound on Monday which started draining on Monday which prompted her to come to the ED for evaluation. Patient reports pain in her buttocks that is well controlled with tramadol. She denies any fever or chills. No changes in bowel habits or urination. No nausea or vomiting. In the ED, she underwent extensive evaluation. Vital significant for tachycardia with heart rate of 90. CBC showed WBC count of 20.7. INR was 0.9 CMP showed potassium of 3.3, BUN of 62, creatinine 1.09, AST 67, ALT 52. EKG showed sinus rhythm with PVCs Chest x-ray negative for acute process CTAP showed findings of perirectal cellulitis Patient was admitted for treatment of perirectal cellulitis/abscess with surgery consult. 08/17 Patient was seen and examined. No complaints. Breathing stable. Initially, plan was for I&D today but patient will need pulmonary clearance due to recent h/o PTX and severe COPD. Vancomycin switched to Daptomycin today by ID while continued on Zosyn. CBC shows WBC count 15.4, Hg 10.5, MCV 103.5. CMP shows Na 135, BUN 41, Ca 7.7, AST 62, ALT 48, alk phos 185, albumin 2.2. 08/18 Patient was seen and examined. No complaints. Breathing stable. Pulmonology consulted, cleared the patient for OR. Plans for I&D today. Continue on Daptomycin and Zosyn. CBC shows Hg 9.5 MCV 102.3. Cultures negative so far. 08/19 Patient was seen and examined. Underwent excisional debridement of left labia, left buttock, perineum, including subcutaneous tissue, muscle, fascia for necrosis, 30 x 10 x 3 cm. Continued on IV Abx. CBC WBC count 11.26, Hg 9.3, MCV 104.1. BMP BUN 22, glucose 72, Ca 6.8. 08/20 Patient was seen and examined. Doing well. No complaints. Discussed with Dr. Toledo, plans for OR tomorrow for second look. WCx growing presumptive staph aureus and GNB. She will likely need PICC line and IV Abx on discharge. 08/21 Patient was seen and examined. Doing well. WCx growing MRSA and Citrobacter. Plans for OR today for second look. 08/22 Patient was seen and examined. Doing well. Underwent excisional debridement of left labia, left buttock, perineum, including subcutaneous tissue, muscle, fascia for necrosis, 30 x 10 x 3 cm. Wound vac placed. Plans for discharge to [facility] in [place] for IV antibiotics and wound care. PICC line ordered. Awaiting Dr. Shaffer for antibiotic recommendations. Possible discharge today if surgery and ID agreeable and everything can be set up for [place]. Pertinent studies include CXR, CT AP. Pertinent procedures include excisional debridement x 2 General: non toxic, no distress, appears at stated age Derm: warm, dry Head: atraumatic, normocephalic, symmetric Eyes: EOMI, no lid lag, anicteric sclera Cardiovascular: S1S2 reg, no murmur Lungs: Decreased breath sounds bilateral, no rhonchi, no rales , no accessory muscle use Ext: no gross muscle atrophy, no edema, no contractures Neuro: no focal neuro deficits Psych: Alert, oriented, appropriate affect Discharge Diagnosis: Sepsis secondary to Perirectal abscess Macrocytic anemia SINGH on CKD Chronic conditions: chronic respiratory failure on 3 L NC, COPD, hypothyroidism, depression This complex discharge took 35 minutes to complete. Patient Condition at Discharge: Stable Plan - Discharge Summary Discharge Rx Participant: No New Discharge Prescriptions: No Action Atorvastatin [Lipitor] 40 mg PO DAILY Denosumab [Prolia] 60 mg SQ Q180D Levothyroxine Sodium [Synthroid] 125 mcg PO DAILY Nystatin 100,000 Unit/gm Powd [Mycostatin Powder] 1 applic TOPICAL BID traMADol HCl [Ultram] 50 mg PO Q6HR PRN PRN Reason: Pain Umeclidinium Brm/Vilanterol Tr [Anoro Ellipta 62.5-25 Mcg INH] 1 puff INHALATION RT-DAILY predniSONE See Taper PO DIRECTED 16 Days #40 tab Budesonide [Pulmicort] 1 mg INHALATION BID 30 Days #1 each Furosemide [Lasix] 40 mg PO DAILY Losartan [Cozaar] 50 mg PO DAILY Sertraline [Zoloft] 100 mg PO DAILY Triamcinolone Acetonide [Triamcinolone Acetonide 0.1% Lotion] 1 applic TOPICAL BID PRN PRN Reason: leg & chest rash Albuterol Inhaler [Ventolin Hfa Inhaler] 1 - 2 puff INHALATION RT-Q6H PRN PRN Reason: Shortness Of Breath Or Wheezing Discharge Medication List Atorvastatin [Lipitor] 40 mg PO DAILY 05/13/19 [History] Denosumab [Prolia] 60 mg SQ Q180D 05/13/19 [History] Levothyroxine Sodium [Synthroid] 125 mcg PO DAILY 05/13/19 [History] Furosemide [Lasix] 40 mg PO DAILY 07/25/23 [History] Losartan [Cozaar] 50 mg PO DAILY 07/25/23 [History] Nystatin 100,000 Unit/gm Powd [Mycostatin Powder] 1 applic TOPICAL BID 07/25/23 [History] Sertraline [Zoloft] 100 mg PO DAILY 07/25/23 [History] Triamcinolone Acetonide [Triamcinolone Acetonide 0.1% Lotion] 1 applic TOPICAL BID PRN 07/25/23 [History] traMADol HCl [Ultram] 50 mg PO Q6HR PRN 07/25/23 [History] Albuterol Inhaler [Ventolin Hfa Inhaler] 1 - 2 puff INHALATION RT-Q6H PRN 08/03/23 [History] Umeclidinium Brm/Vilanterol Tr [Anoro Ellipta 62.5-25 Mcg INH] 1 puff INHALATION RT-DAILY 08/03/23 [History] Budesonide [Pulmicort] 1 mg INHALATION BID 30 Days #1 each 08/05/23 [Rx] predniSONE See Taper PO DIRECTED 16 Days #40 tab 08/05/23 [Rx] Follow up Appointment(s)/Referral(s): Nabil Sebastian DO [Primary Care Provider] - 1-2 days
[2023-08-22] MEDS: AMPICILLIN-SULBACTAM 3 GM in SODIUM CHLORIDE 0.9% 100 ML IVPB SCH ×2 (13:03→15:57)
[2023-08-22 13:22] VITALS: RESP 16
[2023-08-22] MEDS ORDERED: LIDOCAINE 1% INJ 10MG/ML (20 ML MDV) SQ ONE (13:49)
--- NOTE | 2023-08-22 14:33 | P.PN ---
Subjective Progress Note Date: 08/22/23 CHIEF COMPLAINT: Perineal abscess HISTORY OF PRESENT ILLNESS: Patient is status post debridement of left labial, left buttock, perineum, including subcutaneous tissue, muscle and fascia for necrosis 2. Patient is lying in bed comfortably. Wound VAC in place. She reports her pain is controlled. Denies any nausea or vomiting. Tolerating diet. Afebrile. Infectious disease has arranged for IV outpatient antibiotics. Afebrile. WBC did go from 11.26-13 Hgb is 10 platelets 236. He is scheduled for PICC line placement today for IV antibiotics at discharge. PHYSICAL EXAM: VITAL SIGNS: Reviewed GENERAL: Well-developed in no acute distress. HEENT: No sclera icterus. Extraocular movements grossly intact. Moist buccal mucosa. Head is atraumatic, normocephalic. Hears conversational speech. No nasal drainage. NECK: Supple without lymphadenopathy. CHEST: Non-labored respirations and equal bilateral excursions. CARDIOVASCULAR: Palpable 2+ radial pulses. ABDOMEN: Soft. Nondistended. Nontender. MUSCULOSKELETAL: No clubbing or cyanosis. NEUROLOGIC: No focal or lateralizing signs. Cranial nerves II through XII grossly intact. PSYCH: Appropriate affect. Alert and oriented to person, place and time. SKIN: Well perfused. Good skin turgor. ASSESSMENT: 1. Complex left labial, pelvic, buttock, perineal abscess with soft tissue necrosis, 30 x 10 cm 2. Chronic obstructive pulmonary disease moderate to severe chronic oxygen use 3. Depressive disorder 4. Hypothyroidism 5. Hypertensive heart disease with congestive heart failure 6. Hyperlipidemia 7. Recent atraumatic pneumothorax 8. Obesity due to excess calories, BMI 31.3 9. Chronic steroids use PLAN: -Continue wound VAC -Discharge antibiotics per infectious disease -Continue pain management -Continue supportive care -Continue high protein diet -Repeat CBC in AM Physician Vice President [employer] note has been reviewed by physician. Signing provider agrees with the documented findings, assessment, and plan of care. Objective - Vital Signs Vital signs: Vital Signs Temp 97.7 F 08/22/23 07:16 Pulse 80 08/22/23 11:10 Resp 20 08/22/23 08:45 BP 122/71 08/22/23 07:16 Pulse Ox 97 08/22/23 07:16 FiO2 Intake & Output 10/30/23 10/31/23 10/31/23 18:59 06:59 18:59 Intake Total 1800 1630 Output Total 2850 550 Balance -1050 1080 Intake: IV 800 100 Intake, IV Titration 1000 340 Amount DAPTOmycin 500 mg In 100 Sodium Chloride 0.9% 50 ml @ 100 mls/hr IVPB Q24HR REPLACED BY [facility] Rx#:[id number] Piperacillin-Tazobactam 3 100 .375 gm In Sodium Chloride 0.9% 100 ml @ 25 mls/hr IVPB Q8HR [facility] Rx# :[id number] Sodium Chloride 0.9% 1, 900 240 000 ml @ 75 mls/hr IV . [id number] [facility] Rx#:[id number] Oral 1190 Output: Urine 2800 550 Estimated Blood Loss 50 Other: Voiding Method Indwelling Catheter Indwelling Catheter Indwelling Catheter # Bowel Movements 0 - Labs CBC & Chem 7: 08/22/23 06:22 08/22/23 06:22 Labs: Abnormal Lab Results - Last 24 Hours (Table) 08/22/23 08/22/23 Range/Units 06:22 06:22 WBC 13.00 H (4.50-10.00) X 10*3/uL RBC 3.12 L (4.10-5.20) X 10*6/uL Hgb 10.0 L (12.0-15.0) d/dL Hct 32.0 L (37.2-46.3) % MCV 102.6 H (80.0-97.0) FL MCH 32.1 H (27.0-32.0) pg MCHC 31.3 L (32.0-37.0) d/dL Neutrophils # 11.66 H (1.80-7.70) X 10*3/uL Lymphocytes # 0.54 L (0.90-5.00) X 10*3/uL NRBC/100 WBC Diff 0.02 H (0.00-0.01) X 10*3/uL Sodium 135 L (137-145) mmol/L BUN 20 H (7-17) mg/dL Calcium 7.2 L (8.4-10.2) mg/dL Microbiology - Last 24 Hours (Table) 08/16/23 12:55 Blood Culture - Final Blood 08/16/23 13:10 Blood Culture - Final Blood 08/18/23 21:00 Anaerobic Culture - Preliminary Other - Other 08/18/23 21:00 Gram Stain - Final Other - Other Wound Culture - Final Methicillin resist S. aureus Citrobacter youngae 08/18/23 21:00 Gram Stain - Final Other - Other Wound Culture - Final Citrobacter youngae Methicillin resist S. aureus 08/18/23 21:00 Gram Stain - Final Other - Other Tissue Culture - Final Escherichia coli Methicillin resist S. aureus
[2023-08-22 14:55] VITALS: BP 113/91; TEMP 97.7
--- NOTE | 2023-08-22 15:13 | IR ---
PICC LINE PLACEMENT: HISTORY: Infection requiring long-term antibiotic therapy PROCEDURE: Ultrasound and fluoroscopic guidance of PICC line placement. COMPLICATIONS: None ANESTHESIA: 1. 1% Lidocaine locally. FINDINGS/TECHNIQUE: The procedure was explained to the patient. The risks, complications, benefits and alternatives were discussed and any questions were answered. Informed consent was obtained. The patient was placed supine on the fluoroscopic table and prepped and draped in the usual sterile fash ion. Utilizing a 21 gauge needle and sonographic and fluoroscopic guidance, access in the left basi lic vein was achieved and there is placement of a 0.018 guidewire. The vein is patent. A 4-F sheath was placed over the guidewire. The guidewire and dilator were removed and a 4-F. PICC line was plac ed through the sheath with the tip at the level of the SVC. The sheath was removed, the catheter was flushed and sutured into position. The patient was stable throughout the procedure and remained sta ble upon discharge from the Department of Radiology. The vein puncture was patent under ultrasound. A [place] scale image was obtained to document patency of the vein punctured. All elements of the maximal barrier technique were utilized. FLUOROSCOPY TIME: DAP 0.322Gy cm2 IMPRESSION: Successful PICC line placement under ultrasound and fluoroscopic guidance.
--- NOTE | 2023-08-22 15:29 | P.PN ---
Subjective Progress Note Date: 08/21/23 Principal diagnosis: Right gluteal and perirectal abscess Patient is a 82-year-old female with a past medical history significant for COPD hyperlipidemia thyroid disorder, patient was brought into the ER for evaluation of wound to the labia and gluteal area has been diagnosed with a cellulitis concerning for abscess. Patient is status post Sharp excisional debridement of left labia, left buttock, perineum, including subcutaneous tissue, muscle, fascia for necrosis, 30 x 10 x 3 cm and application of wound VAC completed on 08/18/2023 On today's evaluation that is 08/21/2023, the patient continues to be afebrile , the patient is breathing comfortably on 3 L nasal cannula oxygen, denies any shortness of breath, the patient denies any chest pain or cough, patient denies abdominal pain and no nausea/vomiting or diarrhea , the patient pain into the left gluteal and labial area is currently controlled Patient white count is slightly up to 11.26, creatinine 0.82 as of 08/19/2023 no CBC was done today, cultures are currently growing MRSA and Citrobacter Objective - Vital Signs Vital signs: Vital Signs Temp 98.6 F 08/21/23 07:47 Pulse 80 08/21/23 08:19 Resp 14 08/21/23 07:47 BP 151/83 08/21/23 07:47 Pulse Ox 97 08/21/23 07:47 FiO2 Intake & Output 08/20/23 08/21/23 08/21/23 18:59 06:59 18:59 Intake Total 360 1600 Output Total 2250 600 Balance -1890 1000 Intake: Intake, IV Titration 1600 Amount DAPTOmycin 500 mg In 750 Sodium Chloride 0.9% 50 ml @ 100 mls/hr IVPB Q24HR [facility] Rx#:[id number] Piperacillin-Tazobactam 3 100 .375 gm In Sodium Chloride 0.9% 100 ml @ 25 mls/hr IVPB Q8HR [facility] Rx# :[id number] Sodium Chloride 0.9% 1, 750 000 ml @ 75 mls/hr IV . [id number] [facility] Rx#:[id number] Oral 360 Output: Urine 2250 600 Other: Voiding Method Indwelling Catheter Indwelling Catheter Indwelling Catheter - Exam GENERAL DESCRIPTION: An elderly female lying in bed in no distress RESPIRATORY SYSTEM: Unlabored breathing , clear to auscultation anteriorly HEART: S1 S2 regular rate and rhythm , ABDOMEN: Soft , no tenderness, left gluteal and labial wounds covered with a wound VAC EXTREMITIES: No edema feet - Labs CBC & Chem 7: 08/22/23 06:22 08/22/23 06:22 Labs: Microbiology - Last 24 Hours (Table) 08/18/23 21:00 Gram Stain - Final Other - Other Wound Culture - Final Methicillin resist S. aureus Citrobacter youngae 08/18/23 21:00 Gram Stain - Preliminary Other - Other Tissue Culture - Preliminary Gram Neg Bacilli 08/18/23 21:00 Gram Stain - Preliminary Other - Other Wound Culture - Preliminary Gram Neg Bacilli Assessment and Plan (1) Perirectal abscess Current Visit: Yes Status: Acute Code(s): K61.1 - RECTAL ABSCESS SNOMED Code(s): 31662994 Plan: 1patient presented to hospital with left gluteal labial and suprapubic area pain swelling redness and drainage with concern for extensive cellulitis and abscess to the perirectal area we will need to cover for the gram-positive as well as gram-negative pathogen likely responsible for this type of infection 2Patient is status post surgical debridement and deep culture which are currently growing MRSA and Citrobacter and the patient scheduled for further debridement this afternoon 3-patient to continue with Zosyn and daptomycin , will likely need a PICC line for outpatient IV antibiotic therapy Daughter at the bedside multiple questions and concerns were answered in Layman terms Dictation was produced using Datalink dictation software. please excuse any grammatical, word or spelling errors. Time with Patient: Less than 30
--- NOTE | 2023-08-22 15:31 | P.PN ---
Subjective Progress Note Date: 08/22/23 Principal diagnosis: Right gluteal and perirectal abscess Patient is a 82-year-old female with a past medical history significant for COPD hyperlipidemia thyroid disorder, patient was brought into the ER for evaluation of wound to the labia and gluteal area has been diagnosed with a cellulitis concerning for abscess. Patient is status post Sharp excisional debridement of left labia, left buttock, perineum, including subcutaneous tissue, muscle, fascia for necrosis, 30 x 10 x 3 cm and application of wound VAC completed on 08/18/2023, the patient did have repeat Sharp excisional debridement of left labia, left buttock, perineum, including subcutaneous tissue, muscle, fascia for necrosis, 30 x 10 x 3 cm completed on 08/21/2023 On today's evaluation that is 08/22/2023, the patient denies any fever or any chills, the patient is breathing comfortably on 3 L nasal cannula oxygen, denies any shortness of breath, the patient denies any chest pain or cough, patient denies abdominal pain and no nausea/vomiting or diarrhea , the patient pain to the left gluteal and labial area has decreased in intensity Patient white count is slightly up to 13,000 creatinine 0.59, cultures are currently growing MRSA and Citrobacter Objective - Vital Signs Vital signs: Vital Signs Temp 97.7 F 08/22/23 07:16 Pulse 85 08/22/23 08:45 Resp 20 08/22/23 08:45 BP 122/71 08/22/23 07:16 Pulse Ox 97 08/22/23 07:16 FiO2 Intake & Output 08/21/23 08/22/23 08/22/23 18:59 06:59 18:59 Intake Total 1800 1630 Output Total 2850 550 Balance -1050 1080 Intake: IV 800 100 Intake, IV Titration 1000 340 Amount DAPTOmycin 500 mg In 100 Sodium Chloride 0.9% 50 ml @ 100 mls/hr IVPB Q24HR [facility] Rx#:[id number] Piperacillin-Tazobactam 3 100 .375 gm In Sodium Chloride 0.9% 100 ml @ 25 mls/hr IVPB Q8HR [facility] Rx# :[id number] Sodium Chloride 0.9% 1, 900 240 000 ml @ 75 mls/hr IV . [id number] [facility] Rx#:[id number] Oral 1190 Output: Urine 2800 550 Estimated Blood Loss 50 Other: Voiding Method Indwelling Catheter Indwelling Catheter Indwelling Catheter # Bowel Movements 0 - Exam GENERAL DESCRIPTION: An elderly female lying in bed in no distress RESPIRATORY SYSTEM: Unlabored breathing , clear to auscultation anteriorly HEART: S1 S2 regular rate and rhythm , ABDOMEN: Soft , no tenderness, left gluteal and labial wounds covered with a wound VAC EXTREMITIES: No edema feet - Labs CBC & Chem 7: 08/22/23 06:22 08/22/23 06:22 Labs: Abnormal Lab Results - Last 24 Hours (Table) 08/22/23 Range/Units 06:22 Sodium 135 L (137-145) mmol/L BUN 20 H (7-17) mg/dL Calcium 7.2 L (8.4-10.2) mg/dL Microbiology - Last 24 Hours (Table) 08/16/23 12:55 Blood Culture - Final Blood 08/16/23 13:10 Blood Culture - Final Blood 08/18/23 21:00 Anaerobic Culture - Preliminary Other - Other 08/18/23 21:00 Gram Stain - Final Other - Other Wound Culture - Final Methicillin resist S. aureus Citrobacter youngae 08/18/23 21:00 Gram Stain - Final Other - Other Wound Culture - Final Citrobacter youngae Methicillin resist S. aureus 08/18/23 21:00 Gram Stain - Final Other - Other Tissue Culture - Final Escherichia coli Methicillin resist S. aureus Assessment and Plan (1) Perirectal abscess Current Visit: Yes Status: Acute Code(s): K61.1 - RECTAL ABSCESS SNOMED Code(s): 03869513 Plan: 1patient presented to hospital with left gluteal labial and suprapubic area pain swelling redness and drainage with concern for extensive cellulitis and abscess to the perirectal area we will need to cover for the gram-positive as well as gram-negative pathogen likely responsible for this type of infection 2Patient is status post surgical debridement and deep culture which are cur rently growing MRSA and Citrobacter and the patient scheduled for further debridement completed on 08/21/2023 3-patient did got PICC line, for outpatient we will consider daptomycin along with Unasyn 3 g every 6 hours for 2 to three-week depending upon clinical response and close patient follow-up discussed with the medical team who is working on discharge Daughter at the bedside multiple questions and concerns were answered in Layman terms Dictation was produced using Lemonwiseation software. please excuse any grammatical, word or spelling errors. Time with Patient: Less than 30
[2023-08-22 15:40] VITALS: PULSE 92
[2023-08-22] MEDS: SODIUM CHLORIDE 0.9% 1,000 ML IV SCH (16:54)
== END 2023-08-22 17:13 | DRG 854 ==
LOC: EC 11:12 → 5NMEDONC 16:39
PROVIDERS: ADMIT Student in an Organized Health Care Education/Training Program; ATTEND Student in an Organized Health Care Education/Training Program
PROC: 0KBM0ZZ Excision of Perineum Muscle, Open Approach (ICD-10-PCS; principal; 2023-08-18 09:40)
PROC: 0KBP0ZZ Excision of Left Hip Muscle, Open Approach (ICD-10-PCS; principal; 2023-08-18 09:40)
PROC: 0HB9XZZ Excision of Perineum Skin, External Approach (ICD-10-PCS; principal; 2023-08-18 09:40)
PROC: 0KBM0ZZ Excision of Perineum Muscle, Open Approach (ICD-10-PCS; 2023-08-21)
PROC: 0KBP0ZZ Excision of Left Hip Muscle, Open Approach (ICD-10-PCS; 2023-08-21)
PROC: 02HV33Z Insertion of Infusion Device into Superior Vena Cava, Percutaneous Approach (ICD-10-PCS; 2023-08-22)
DX: A41.9 Sepsis, unspecified organism (principal); I13.0 Hypertensive heart and chronic kidney disease with heart failure and stage 1 through stage 4 chronic kidney disease, or unspecified chronic kidney disease; J96.11 Chronic respiratory failure with hypoxia; K61.1 Rectal abscess; L02.215 Cutaneous abscess of perineum; L03.315 Cellulitis of perineum; N17.9 Acute kidney failure, unspecified; N76.4 Abscess of vulva; K64.9 Unspecified hemorrhoids; R94.5 Abnormal results of liver function studies; D53.9 Nutritional anemia, unspecified; K57.30 Diverticulosis of large intestine without perforation or abscess without bleeding; I50.9 Heart failure, unspecified; E66.01 Morbid (severe) obesity due to excess calories; J44.9 Chronic obstructive pulmonary disease, unspecified; N18.9 Chronic kidney disease, unspecified; E78.5 Hyperlipidemia, unspecified; E87.6 Hypokalemia; E89.0 Postprocedural hypothyroidism; Z99.81 Dependence on supplemental oxygen; F32.A Depression, unspecified; I49.3 Ventricular premature depolarization; I71.43 Infrarenal abdominal aortic aneurysm, without rupture; Z68.31 Body mass index [BMI] 31.0-31.9, adult; Z87.01 Personal history of pneumonia (recurrent); Z74.01 Bed confinement status; Z88.2 Allergy status to sulfonamides; Z91.030 Bee allergy status; Z71.3 Dietary counseling and surveillance; Z79.51 Long term (current) use of inhaled steroids; Z79.52 Long term (current) use of systemic steroids; Z79.899 Other long term (current) drug therapy; Z79.890 Hormone replacement therapy
CPT/HCPCS: 36415; 36573; 71046; 74177; 80048; 80053; 81001; 83605; 83690; 85025; 85610; 85730; 87040; 87070; 87075; 87077; 87186; 87205; 88304; 93005; 94640; 94667; 94760; 96365; 96366; 99285

== ENCOUNTER → 2024-05-08 | Outpatient (CLI) | payer MEDICARE, OTHER ==
--- NOTE | 2024-05-09 12:34 | US ---
EXAMINATION TYPE: US pelvis complete transvag DATE OF EXAM: 05/08/2024 COMPARISON: NONE CLINICAL INDICATION: Female, 83 years old with history of N95.0 POSTMENOPAUSAL BLEEDING; PMB. Pt stat es 3 episodes of bleeding TECHNIQUE: . Transabdominal sonographic images of the pelvis were acquired. Transvaginal sonographi c images were medically necessary to better assess the following anatomy: uterus Date of LMP: 40 years ago EXAM MEASUREMENTS: Uterus: 5.8 x 3.8 x 2.0 cm Endometrial Stripe: 1.9 cm Right Ovary: not seen Left Ovary: not seen 1. Uterus: Anteverted wnl 2. Endometrium: some fluid seen inside 3. Right Ovary: Not seen due to atrophy 4. Left Ovary: not seen due to atrophy 5. Bilateral Adnexa: wnl 6. Posterior cul-de-sac: wnl IMPRESSION: Atrophic changes noted of the uterus and ovaries. Small amount of endometrial fluid is noted.
== END | disposition home or self-care (01) ==
LOC: RADUSWWP 15:36
PROVIDERS: ATTEND Family Medicine
DX: N95.0 Postmenopausal bleeding (principal); N85.8 Other specified noninflammatory disorders of uterus
CPT/HCPCS: 76830; 76856

== ENCOUNTER → 2024-07-16 | Outpatient (CLI) | payer MEDICARE, OTHER ==
--- NOTE | 2024-07-17 00:13 | XR ---
EXAMINATION TYPE: XR lumbosacral spine min 4V DATE OF EXAM: 07/16/2024 COMPARISON: None HISTORY: Sciatica left hip pain TECHNIQUE: 5 view lumbar spine FINDINGS: Vertebral body heights are preserved. Disc heights are preserved. Mild scoliosis is present . Facet degenerative changes present through the lumbar spine. There are 5 lumbar-type vertebral bodi es. Pedicles are intact. Tortuosity of the aorta is noted. The AP diameter in the sagittal plane is 4.2 cm. This is larger pedro n the CT of 08/16/2023. Additional workup for abdominal aortic aneurysm is recommended. IMPRESSION: 1. No acute osseous abnormality lumbar spine. 2. Scoliosis. 3. 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 Additional workup is recommended. This appears larger than the comparison CT of 2022. [facility], , 07/17/2024 12:10 AM
--- NOTE | 2024-07-17 00:14 | XR ---
EXAMINATION TYPE: XR Hip Complete LT DATE OF EXAM: 07/16/2024 COMPARISON: 09/24/2021 HISTORY: Severe left hip pain TECHNIQUE: 2 view left hip FINDINGS: There is complete loss of the joint space at the left hip. Sclerosis is along the acetabulu m. Acetabular spurring is present. There is deformity of the femoral head. Subchondral cyst formation appears to be present. Erosion of the acetabular cup is present. IMPRESSION: 1. 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 This is progressive 2020. [facility], , 07/17/2024 12:12 AM
== END | disposition home or self-care (01) ==
LOC: RADXRYALE 15:34
PROVIDERS: ATTEND Family Medicine
DX: M16.12 Unilateral primary osteoarthritis, left hip (principal); I71.40 Abdominal aortic aneurysm, without rupture, unspecified; M47.26 Other spondylosis with radiculopathy, lumbar region; M54.42 Lumbago with sciatica, left side; M41.9 Scoliosis, unspecified
CPT/HCPCS: 72110; 73502

== ENCOUNTER 2025-02-10 02:47 | Inpatient (IN) | payer MEDICARE, OTHER ==
[2025-02-10 03:45] LABS: Basophils # (A) 0.04 10*3/uL (0.00-0.10); Basophils % (A) 0.4 %; Eosinophils # (A) 0.28 10*3/uL (0.04-0.35); Eosinophils % (A) 2.9 %; HCT 31.5 % (37.2-46.3); HGB 9.9 g/dL (12.0-15.0); Lymphocytes # (A) 0.67 10*3/uL (0.90-5.00); Lymphocytes % (A) 6.8 %; MCHC 31.4 g/dL (32.0-37.0); MCV 95.5 fL (80.0-97.0); Mean Platelet Volume 9.5 fL (9.5-12.2); Monocytes # (A) 0.67 10*3/uL (0.20-1.00); Monocytes % (A) 6.8 %; Neutrophils # (A) 7.97 10*3/uL (1.80-7.70); Neutrophils % (A) 81.5 %; Platelet Count 293 10*3/uL (140-440); RDW 13.6 % (11.5-14.5); WBC 9.79 10*3/uL (4.50-10.00)
[2025-02-10 04:03] LABS: ALT 27 U/L (4-34); AST 34 U/L (14-36); African American GFR (CKD) 60 (>60 ml/min/1.73 sqM); Albumin 4.2 g/dL (3.5-5.0); Alkaline Phosphatase 78 U/L (38-126); Anion Gap 4 mmol/L; Blood Urea Nitrogen 30 mg/dL (7-17); Calcium 10.1 mg/dL (8.4-10.2); Carbon Dioxide 36 mmol/L (22-30); Chloride 96 mmol/L (98-107); Glucose 100 mg/dL (74-99); INR 0.9 (<1.2); Magnesium 2.1 mg/dL (1.6-2.3); Non-African American GFR(CKD) 52 (>60 ml/min/1.73 sqM); Potassium 4.5 mmol/L (3.5-5.1); Sodium 136 mmol/L (137-145); Total Bilirubin 0.4 mg/dL (0.2-1.3); Total Protein 6.6 g/dL (6.3-8.2)
[2025-02-10 04:11] LABS: Partial Thromboplastin Time 20.6 sec (22.0-30.0)
[2025-02-10] MEDS: SODIUM CHLORIDE 0.9% 1,000 ML IV STA (04:50)
[2025-02-10] MEDS: FAMOTIDINE 20 MG/2 ML VIAL IV STA (04:51)
[2025-02-10] MEDS: PANTOPRAZOLE 40 MG/10 ML VIAL IVP ONE (04:55)
--- NOTE | 2025-02-10 05:07 | ED ---
General Adult HPI - General Source: RN notes reviewed <Jada Nunn - Last Filed: 02/10/25 21:01> - General Source: patient, EMS Mode of arrival: EMS <Nina Garcia - Last Filed: 02/11/25 12:51> - General Chief complaint: Chest Pain Stated complaint: Chest Discomfort Time Seen by Provider: 02/10/25 03:38 - History of Present Illness Initial comments: 84 year old female with a PMH of COPD, chronic hypoxic respiratory failure on 3 L cannula oxygen continuously, hypertension, hyperlipidemia, and hypothyroidism who presented to the emergency room with complaints of shortness of breath and chest tightness. Patient reports this discomfort started 4-5 hours ago. States she had 1 episode of coffee-ground emesis. Patient notes her chest tightness was a 5 out of 10 on maximal intensity, substernal, nonradiating, with associated shortness of breath and no other symptoms. The pain gradually resolved shortly after arrival at the emergency room. Denies history of blood thinner use, prior MIs or strokes. Denies cough, fever, chills, nausea, diaphoresis or dizziness. (Jada Nunn) - Related Data Home Medications Medication Instructions Recorded Confirmed Furosemide [Lasix] 40 mg PO DAILY 07/25/23 02/10/25 Losartan [Cozaar] 50 mg PO DAILY 07/25/23 02/10/25 Nystatin 100,000 Unit/gm Powd 1 applic TOPICAL BID 07/25/23 02/10/25 [Mycostatin Powder] Sertraline [Zoloft] 100 mg PO DAILY 07/25/23 02/10/25 Umeclidinium Brm/Vilanterol Tr 1 puff INHALATION RT-DAILY 08/03/23 02/10/25 [Anoro Ellipta 62.5-25 Mcg INH] Atorvastatin [Lipitor] 40 mg PO DAILY 02/10/25 02/10/25 Denosumab [Prolia] 60 mg SQ Q180D 02/10/25 02/10/25 Diclofenac Sodium [Voltaren] 50 mg PO TID 02/10/25 02/10/25 HYDROcodone/APAP 5-325MG [[place]ley 0.5 - 1 tab PO QID 02/10/25 02/10/25 5-325] Ipratropium-Albuterol Nebulize 3 ml INHALATION RT-Q4H PRN 02/10/25 02/10/25 [Duoneb 0.5 mg-3 mg/3 ml Soln] Levothyroxine Sodium [Synthroid] 150 mcg PO DAILY 02/10/25 02/10/25 Allergies Allergy/AdvReac Type Severity Reaction Status Date / Time bee venom protein (honey bee) Allergy Rash/Hives Verified 02/10/25 09:38 celecoxib [From Celebrex] Allergy Rash/Hives Verified 02/10/25 09:38 Sulfa (Sulfonamide Allergy Rash/Hives Verified 02/10/25 09:38 Antibiotics) Review of Systems ROS Other: All systems not noted in ROS Statement are negative. Constitutional: Denies: fever, chills Respiratory: Reports: dyspnea. Denies: cough Cardiovascular: Reports: chest pain. Denies: palpitations Gastrointestinal: Reports: vomiting (1 episode coffee ground emesis). Denies: abdominal pain, nausea Genitourinary: Denies: urgency, dysuria Musculoskeletal: Denies: back pain Skin: Denies: rash, lesions Neurological: Denies: headache, weakness <Jada Nunn - Last Filed: 02/10/25 21:01> ROS Other: All systems not noted in ROS Statement are negative. <Nina Garcia - Last Filed: 02/11/25 12:51> ROS Statement: Those systems with pertinent positive or pertinent negative responses have been documented in the HPI. 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 pneumothorax 07/2023 History of Any Multi-Drug Resistant Organisms: MRSA Date of last positivie culture/infection: 08/18/23 MDRO Source:: Pubis Tissue/Perirectal Additional Past Surgical History / Comment(s): THYROIDECTOMY, POLYPS REMOVED FROM VOCAL CORDS Past Anesthesia/Blood Transfusion Reactions: No Reported Reaction Past Psychological History: No Psychological Hx Reported Smoking Status: Former smoker Past Alcohol Use History: None Reported Past Drug Use History: None Reported - Past Family History Mother Family Medical History: Cancer Additional Family Medical History / Comment(s): CERVICAL CA Father Family Medical History: No Reported History <Nina Garcia - Last Filed: 02/11/25 12:51> General Exam General appearance: alert Respiratory exam: Present: respiratory distress, wheezes Cardiovascular Exam: Present: regular rate, normal rhythm GI/Abdominal exam: Present: soft. Absent: distended, tenderness Back exam: Absent: tenderness Neurological exam: Present: alert, oriented X3 Psychiatric exam: Present: normal affect, normal mood Skin exam: Present: warm, dry, intact <Jada Nunn - Last Filed: 02/10/25 21:01> Course Vital Signs 02/10/25 02/10/25 02/10/25 02:48 05:08 05:43 Temperature 97.8 F Pulse Rate 97 86 92 Respiratory 18 20 Rate Blood Pressure 133/86 135/87 O2 Sat by Pulse 98 98 Oximetry 02/10/25 02/10/25 02/10/25 05:46 07:47 08:08 Temperature Pulse Rate 84 82 88 Respiratory Rate Blood Pressure O2 Sat by Pulse 100 Oximetry 02/10/25 02/10/25 02/10/25 09:00 10:29 11:29 Temperature Pulse Rate 96 94 105 H Respiratory 20 18 Rate Blood Pressure 131/75 128/62 O2 Sat by Pulse 97 96 Oximetry 02/10/25 11:40 Temperature Pulse Rate 100 Respiratory Rate Blood Pressure O2 Sat by Pulse Oximetry Medical Decision Making - Lab Data Result diagrams: 02/10/25 03:05 02/10/25 03:05 <Jada Nnun - Last Filed: 02/10/25 21:01> - Lab Data Result diagrams: 02/11/25 05:42 02/11/25 05:42 <Nina - Last Filed: 02/11/25 12:51> - Medical Decision Making Was pt. sent in by a medical professional or institution (, PA, BUILDING COMPONENTS DESIGNER, urgent care, hospital, or long-term...) When possible be specific @ -No Did you speak to anyone other than the patient for history (EMS, parent, family, police, friend...)? What history was obtained from this source @ -No Did you review nursing and triage notes (agree or disagree)? Why? @ -I reviewed and agree with nursing and triage notes Were old charts reviewed (outside hosp., previous admission, EMS record, old EKG, old radiological studies, urgent care reports/EKG's, long-term records)? Report findings @ -No old charts were reviewed Differential Diagnosis? @ -Differential Chest Pain: Stable Angina, Unstable Angina, STEMI, NSTEMI Aortic Dissection, Pneumothorax, Musculoskeletal, Esophageal Spasm GERD, Cholecystitis, Pancreatitis, Zoster, this is not meant to be an all-inclusive list. EKG interpreted by me (3pts min.). @ -Sinus rhythm, rate 91 bpm, no ST elevations suggestive of ischemia X-rays interpreted by me (1pt min.). @ -X-ray showed air-filled structure on the right lower lung, possible cavitary lesion versus air underneath the diaphragm. CT interpreted by me (1pt min.). @ -CTA showed no evidence of pulmonary embolism. Stable peripheral pulmonary nodule 4.9 mm. U/S interpreted by me (1pt. min.). @ -None done What testing was considered but not performed or refused? (CT, X-rays, U/S, labs)? Why? @ -None What meds were considered but not given or refused? Why? @ -None Did you discuss the management of the patient with other professionals (professionals i.e. , PA, BUILDING COMPONENTS DESIGNER, lab, RT, psych nurse, transition social worker, environmental control administrator, teacher, chemical instrumentation officer, employment case manager)? Give summary @ -Case was discussed with ED attending Dr. Garcia. Case was also discussed with sound hospitalist who accepted admission. Was smoking cessation discussed for >3mins.? @ -No Was critical care preformed (if so, how long)? @ -No Were there social determinants of health that impacted care today? How? (Homelessness, low income, unemployed, alcoholism, drug addiction, transportation, low edu. Level, literacy, decrease access to med. care, nursing home, rehab)? @ -No Was there de-escalation of care discussed even if they declined (Discuss DNR or withdrawal of care, Hospice)? DNR status @ -No What co-morbidities impacted this encounter? (DM, HTN, Smoking, COPD, CAD, Cancer, CVA, ARF, Chemo, Hep., AIDS, mental health diagnosis, sleep apnea, morbid obesity)? @ -None Was patient admitted / discharged? Hospital course, mention meds given and route, prescriptions, significant lab abnormalities, going to OR and other pertinent info. @ -Chest x-ray shows air-filled structure under right lower lung, cavitary lesion versus air under the diaphragm. CT shows no evidence of pulmonary embolism, stable pulmonary nodule present. Labs remarkable for slightly elevated D-dimer. Stool occult blood was negative. Patient received DuoNebs, Protonix, and fluid bolus in the ER. Case was discussed with ED attending physician Dr. Garcia. Case was discussed with [facility] hospitalist Dr. Cruz who accepted the admission. Cardiology was consulted. Pulmonology was consu lted. GI was consulted. Undiagnosed new problem with uncertain prognosis? @ -No Drug Therapy requiring intensive monitoring for toxicity (Heparin, Nitro, Insulin, Cardizem)? @ -No Were any procedures done? @ -No Diagnosis/symptom? @ -Atypical chest pain, COPD exacerbation, pulmonary nodule Acute, or Chronic, or Acute on Chronic? @ -Acute Uncomplicated (without systemic symptoms) or Complicated (systemic symptoms)? @ -Default Side effects of treatment? @ -No Exacerbation, Progression, or Severe Exacerbation? @ -Yes Poses a threat to life or bodily function? How? (Chest pain, [place], [place], pneumonia, PE, COPD, DKA, ARF, appy, cholecystitis, CVA, Diverticulitis, Homicidal, Suicidal, threat to staff... and all critical care pts) @ -No (Jada Nunn) I personally saw the patient and performed the critical portion of the service. I discussed the patient care with the resident. I directed management, care planning and final disposition of the patient. This includes, but not limited to, review of lab work, radiological studies, EKG's, consultations, vital signs, and nursing notes. EKG interpreted by me (3pts min.) @Sinus rhythm with VPC, rate 91 bpm intervals within acceptable limits, borderline left axis deviation, some artifact present limiting interpretation though no clear ST elevations or depressions, borderline EKG X-Rays interpreted by me (1 pt min.) @I personally reviewed chest x-ray I do not see any obvious consolidations, pleural effusions or pneumothorax, Radiologist did note "an air- filled structure seen overlying the lateral right lower lung unclear if it represents a cavitary lesion within the lung or air underneath the diaphragm, recommend CTA chest for further evaluation. 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 I did discuss these findings with patient and [id number], including pulmonary nodule and recommended outpatient follow-up within 6 to 12 months. Critical care time of 35 minutes excluding separately billable procedures was spent in conjunction with critical care activities provided by the Resident and Attending simultaneously. I was present during [no procedures] for all critical portions of the procedure and as immediately available to furnish service during the entire procedure. (Nina Garcia) - Lab Data Lab Results 02/10/25 02/10/25 02/10/25 Range/Units 03:05 03:05 03:05 WBC 9.79 (4.50-10.00) 10*3/uL RBC 3.30 L (4.10-5.20) 10*6/uL Hgb 9.9 L (12.0-15.0) g/dL Hct 31.5 L (37.2-46.3) % MCV 95.5 (80.0-97.0) fL MCH 30.0 (27.0-32.0) pg MCHC 31.4 L (32.0-37.0) g/dL Plt Count 293 (140-440) 10*3/uL MPV 9.5 (9.5-12.2) fL Immature Gran % (Auto) 1.6 % Neutrophils % 81.5 % Lymphocytes % 6.8 % Monocytes % 6.8 % Eosinophils % 2.9 % Basophils % 0.4 % Immature Gran # 0.16 H (0.00-0.04) 10*3/uL Neutrophils # 7.97 H (1.80-7.70) 10*3/uL Lymphocytes # 0.67 L (0.90-5.00) 10*3/uL Monocytes # 0.67 (0.20-1.00) 10*3/uL Eosinophils # 0.28 (0.04-0.35) 10*3/uL Basophils # 0.04 (0.00-0.10) 10*3/uL PT 10.0 (10.0-12.5) sec INR 0.9 (<1.2) APTT 20.6 L (22.0-30.0) sec D-Dimer (<0.60) mg/L FEU Sodium 136 L (137-145) mmol/L Potassium 4.5 (3.5-5.1) mmol/L Chloride 96 L (98-107) mmol/L Carbon Dioxide 36 H (22-30) mmol/L Anion Gap 4 mmol/L BUN 30 H (7-17) mg/dL Creatinine 1.01 (0.52-1.04) mg/dL Est GFR (CKD-EPI)AfAm 60 (>60 ml/min/1.73 sqM) Est GFR (CKD-EPI)NonAf 52 (>60 ml/min/1.73 sqM) Glucose 100 H (74-99) mg/dL Calcium 10.1 (8.4-10.2) mg/dL Magnesium 2.1 (1.6-2.3) mg/dL Total Bilirubin 0.4 (0.2-1.3) mg/dL AST 34 (14-36) U/L ALT 27 (4-34) U/L Alkaline Phosphatase 78 (38-126) U/L Troponin I (0.000-0.034) ng/mL NT-Pro-B Natriuret Pep pg/mL Total Protein 6.6 (6.3-8.2) g/dL Albumin 4.2 (3.5-5.0) g/dL TSH (0.350-5.500) UIU/ML Stool Occult Blood (Negative) 02/10/25 02/10/25 02/10/25 Range/Units 03:05 03:05 03:05 WBC (4.50-10.00) 10*3/uL RBC (4.10-5.20) 10*6/uL Hgb (12.0-15.0) g/dL Hct (37.2-46.3) % MCV (80.0-97.0) fL MCH (27.0-32.0) pg MCHC (32.0-37.0) g/dL Plt Count (140-440) 10*3/uL MPV (9.5-12.2) fL Immature Gran % (Auto) % Neutrophils % % Lymphocytes % % Monocytes % % Eosinophils % % Basophils % % Immature Gran # (0.00-0.04) 10*3/uL Neutrophils # (1.80-7.70) 10*3/uL Lymphocytes # (0.90-5.00) 10*3/uL Monocytes # (0.20-1.00) 10*3/uL Eosinophils # (0.04-0.35) 10*3/uL Basophils # (0.00-0.10) 10*3/uL PT (10.0-12.5) sec INR (<1.2) APTT (22.0-30.0) sec D-Dimer 1.21 H (<0.60) mg/L FEU Sodium (137-145) mmol/L Potassium (3.5-5.1) mmol/L Chloride (98-107) mmol/L Carbon Dioxide (22-30) mmol/L Anion Gap mmol/L BUN (7-17) mg/dL Creatinine (0.52-1.04) mg/dL Est GFR (CKD-EPI)AfAm (>60 ml/min/1.73 sqM) Est GFR (CKD-EPI)NonAf (>60 ml/min/1.73 sqM) Glucose (74-99) mg/dL Calcium (8.4-10.2) mg/dL Magnesium (1.6-2.3) mg/dL Total Bilirubin (0.2-1.3) mg/dL AST (14-36) U/L ALT (4-34) U/L Alkaline Phosphatase (38-126) U/L Troponin I <0.012 (0.000-0.034) ng/mL NT-Pro-B Natriuret Pep 317 pg/mL Total Protein (6.3-8.2) g/dL Albumin (3.5-5.0) g/dL TSH (0.350-5.500) UIU/ML Stool Occult Blood (Negative) 02/10/25 02/10/25 Range/Units 03:05 06:30 WBC (4.50-10.00) 10*3/uL RBC (4.10-5.20) 10*6/uL Hgb (12.0-15.0) g/dL Hct (37.2-46.3) % MCV (80.0-97.0) fL MCH (27.0-32.0) pg MCHC (32.0-37.0) g/dL Plt Count (140-440) 10*3/uL MPV (9.5-12.2) fL Immature Gran % (Auto) % Neutrophils % % Lymphocytes % % Monocytes % % Eosinophils % % Basophils % % Immature Gran # (0.00-0.04) 10*3/uL Neutrophils # (1.80-7.70) 10*3/uL Lymphocytes # (0.90-5.00) 10*3/uL Monocytes # (0.20-1.00) 10*3/uL Eosinophils # (0.04-0.35) 10*3/uL Basophils # (0.00-0.10) 10*3/uL PT (10.0-12.5) sec INR (<1.2) APTT (22.0-30.0) sec D-Dimer (<0.60) mg/L FEU Sodium (137-145) mmol/L Potassium (3.5-5.1) mmol/L Chloride (98-107) mmol/L Carbon Dioxide (22-30) mmol/L Anion Gap mmol/L BUN (7-17) mg/dL Creatinine (0.52-1.04) mg/dL Est GFR (CKD-EPI)AfAm (>60 ml/min/1.73 sqM) Est GFR (CKD-EPI)NonAf (>60 ml/min/1.73 sqM) Glucose (74-99) mg/dL Calcium (8.4-10.2) mg/dL Magnesium (1.6-2.3) mg/dL Total Bilirubin (0.2-1.3) mg/dL AST (14-36) U/L ALT (4-34) U/L Alkaline Phosphatase (38-126) U/L Troponin I (0.000-0.034) ng/mL NT-Pro-B Natriuret Pep pg/mL Total Protein (6.3-8.2) g/dL Albumin (3.5-5.0) g/dL TSH 1.900 (0.350-5.500) UIU/ML Stool Occult Blood Negative (Negative) Disposition Decision Date: 02/10/25 Decision Time: 06:00 <Jada Nunn - Last Filed: 02/10/25 21:01> <Nina Garcia - Last Filed: 02/11/25 12:51> Clinical Impression: Atypical chest pain, COPD exacerbation, Pulmonary nodule Disposition: ADMITTED IP TO THIS HOSP
--- NOTE | 2025-02-10 05:10 | ED ---
Chest Pain HPI - General Chief Complaint: Chest Pain Stated Complaint: Chest Discomfort Time Seen by Provider: 02/10/25 03:38 Source: patient, EMS Mode of arrival: EMS - Related Data Home Medications Medication Instructions Recorded Confirmed Levothyroxine Sodium [Synthroid] 125 mcg PO DAILY 05/13/19 08/16/23 Furosemide [Lasix] 40 mg PO DAILY 07/25/23 08/16/23 Losartan [Cozaar] 50 mg PO DAILY 07/25/23 08/16/23 Nystatin 100,000 Unit/gm Powd 1 applic TOPICAL BID 07/25/23 08/16/23 [Mycostatin Powder] Sertraline [Zoloft] 100 mg PO DAILY 07/25/23 08/16/23 Triamcinolone Acetonide 1 applic TOPICAL BID PRN 07/25/23 08/16/23 [Triamcinolone Acetonide 0.1% Lotion] Umeclidinium Brm/Vilanterol Tr 1 puff INHALATION RT-DAILY 08/03/23 08/16/23 [Anoro Ellipta 62.5-25 Mcg INH] Previous Rx's Medication Instructions Recorded Budesonide [Pulmicort] 1 mg INHALATION BID 30 Days #1 each 08/05/23 ALPRAZolam [Xanax] 0.25 mg PO BID PRN #6 tab 08/22/23 Ampicillin Sodium/Sulbactam Na 3 gm IVPB Q6HR #63 each 08/22/23 [Unasyn 3 gm Vial] DAPTOmycin [Cubicin] 500 mg IV DAILY #21 each 08/22/23 Ipratropium-Albuterol Nebulize 3 ml INHALATION RT-Q2H PRN each 08/22/23 [Duoneb 0.5 mg-3 mg/3 ml Soln] traMADol HCl [Ultram] 50 mg PO Q6HR PRN #12 tab 08/22/23 Allergies Allergy/AdvReac Type Severity Reaction Status Date / Time bee venom protein (honey bee) Allergy Rash/Hives Verified 02/10/25 02:56 celecoxib [From Celebrex] Allergy Rash/Hives Verified 02/10/25 02:56 Sulfa (Sulfonamide Allergy Rash/Hives Verified 02/10/25 02:56 Antibiotics) Review of Systems ROS Statement: Those systems with pertinent positive or pertinent negative responses have been documented in the HPI. ROS Other: All systems not noted in ROS Statement are negative. 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 pneumothorax 07/2023 History of Any Multi-Drug Resistant Organisms: MRSA Date of last positivie culture/infection: 08/18/23 MDRO Source:: Pubis Tissue/Perirectal Additional Past Surgical History / Comment(s): THYROIDECTOMY, POLYPS REMOVED FROM VOCAL CORDS Past Anesthesia/Blood Transfusion Reactions: No Reported Reaction Past Psychological History: No Psychological Hx Reported Smoking Status: Former smoker Past Alcohol Use History: None Reported Past Drug Use History: None Reported - Past Family History Mother Family Medical History: Cancer Additional Family Medical History / Comment(s): CERVICAL CA Father Family Medical History: No Reported History Course Vital Signs 02/10/25 02/10/25 02:48 05:08 Temperature 97.8 F Pulse Rate 97 86 Respiratory 18 20 Rate Blood Pressure 133/86 135/87 O2 Sat by Pulse 98 98 Oximetry Disposition Referrals: Nabil Sebastian DO [Primary Care Provider] - 1-2 days
--- NOTE | 2025-02-10 05:34 | XR ---
EXAM: XR Chest, 2 Views CLINICAL HISTORY: ITS.REASON XR Reason: Chest Pain TECHNIQUE: Frontal and lateral views of the chest. COMPARISON: X-ray dated 08/16/2023. FINDINGS: Lungs: Nonspecific air-filled structure is seen in the area of the right inferior lung, unclear if this represents a cavitary lung lesion versus pneumoperitoneum. Pleural space: Unremarkable. No pneumothorax. Heart: Unremarkable. No cardiomegaly. Mediastinum: Unremarkable. Normal mediastinal contour. Bones/joints: Degenerative changes are seen in the spine and shoulders. No acute fracture. IMPRESSION: Air-filled structure seen overlying the lateral right lower lung, unclear if this represents a cavitary lesion seen within the lung versus air underneath the diaphragm. Recommend CT of the chest for further evaluation. <MYCVCSECTION> Communications: 02/10/25 05:40 Call Doctor Regarding Pneumoperitoneum, new or unexpected, called ER Dr. Garcia on 02/10 05:41 (-04:00)
[2025-02-10] MEDS: IPRATROPIUM-ALBUTEROL 3 ML NEB INHALATION STA (05:40)
[2025-02-10] MEDS ORDERED: NALOXONE 0.4 MG/ML 1 ML VIAL IV PRN (06:40)
--- NOTE | 2025-02-10 07:11 | CT ---
EXAMINATION TYPE: CT chest angio for PE CT DLP: 361.3 mGycm, Automated exposure control for dose reduction was used. DATE OF EXAM: 02/10/2025 6:59 AM COMPARISON: Chest radiograph 08/16/2023, CTA chest 08/03/2023 CLINICAL INDICATION:Female, 84 years old with history of elevated dimer; Elevated D-dimer, shortness of breath. TECHNIQUE/CONTRAST: CTA scan of the thorax is performed without and with IV Contrast, patient injected with 100 ml mL of Isovue 370, pulmonary embolism protocol. MIP images are created and reviewed. FINDINGS: Pulmonary Artery: There is no evidence for a filling defect within the pulmonary vasculature to sugge st acute pulmonary embolism. The pulmonary artery is dilated measuring up to 3.6 cm in diameter. Lungs/Pleura: No evidence of focal consolidation, pleural effusion or pneumothorax. Mild bilateral lo wer lobe subsegmental atelectasis. Moderate centrilobular emphysematous changes. Linear scarring with in the medial aspect of the inferior right upper lobe. Posterior right lower lobe Bochdalek hernia co ntaining nonobstructive colon. Stable peripheral left lobe 4.9 mm pulmonary nodule (series 406, image 103). Other previously seen nodules are not visualized however there is atelectatic change in this r egion. Airway: Large airways are patent. Heart: Size within normal limits.Trace anterior pericardial effusion. Mild coronary artery calcificat ions present. Vasculature: No evidence of aortic aneurysm. Atherosclerotic calcification of the aorta and its branc hes. Mediastinum: No gross evidence of adenopathy. Musculoskeletal: No acute osseous abnormalities. Mild dextrocurvature of the thoracic spine. Soft Tissues: Unremarkable. Lower neck: Thyroid gland is surgically absent versus atrophic. Upper Abdomen: No significant findings.. IMPRESSION: 1. No evidence of pulmonary embolism. 2. Mild bilateral lower lobe subsegmental atelectasis. 3. Finding on radiograph of the same day represents a right lower lung Bochdalek hernia containing no nobstructed colon. 4. Dilated main pulmonary artery suggesting pulmonary arterial hypertension. 5. Moderate COPD changes. 6. Stable peripheral left lobe 4.9 mm pulmonary nodule. Other previously seen nodules are not visuali zed however there is atelectatic change in this region. Consider follow-up CT chest in 6-12 months. [facility], , 02/10/2025 7:09 AM
[2025-02-10] MEDS: ALBUTEROL NEBULIZED 2.5 MG/3 ML INHALATION STA (07:44)
[2025-02-10] MEDS: IPRATROPIUM-ALBUTEROL 3 ML NEB INHALATION SCH (07:45)
[2025-02-10] MEDS: IPRATROPIUM 0.5 MG/2.5 ML NEBU INHALATION STA (07:45)
[2025-02-10] MEDS: methylPREDNISolone SOD SUCCI 40 MG/ML 1 ML VIAL IV SCH (07:51)
[2025-02-10] MEDS: ASPIRIN 81 MG PO SCH (10:28)
--- NOTE | 2025-02-10 11:30 | P.CRDCN ---
History of Present Illness History of present illness: HISTORY OF PRESENT ILLNESS: This is a 84-year-old female with a past medical history significant for hypertension, hyperlipidemia, hypothyroidism, COPD, home oxygen use, and former nicotine dependence. Patient does not follow with a field rep. We have been asked to see the patient in consultation for chest pain. Patient examined at the bedside in the emergency room. Patient states that yesterday she was having some mild chest heaviness. She reports having increased cough with brown sputum production. Patient also reports having some burping with an episode of brown emesis. She states after that she started to feel a little bit better. She did receive 4 aspirin and route to the hospital. She states her heaviness went away by the time she presented to the hospital and she denies having any further episodes of chest pain or pressure. Patient does report chronic shortness of breath at baseline. She does wear oxygen at home. She reports that she quit smoking about 15 years ago but smoked for 50 years. DIAGNOSTICS: - EKG reveals sinus mechanism with no signs of acute ischemia. - Chest xray air-filled structure seen overlying lateral right lower lung unclear if this represents cavitary lesion within the lungs versus air underneath the diaphragm. - Chest CTA: Negative for pulmonary embolism. 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 Stable peripheral left lobe 4.9 mm pulmonary nodule. - Laboratory data: WBC 9.79. Hemoglobin 9.9. Platelet count 293. D-dimer 1.21. Sodium 136. Potassium 4.5. BUN 30. Creatinine 1.01. Troponin negative x 2. proBNP 317. - Current home cardiac medications include atorvastatin 40 mg daily and losartan 50 mg daily. - Most recent echocardiogram obtained in July 2023 revealed ejection fraction 55 to 60% with mild TR - Cardiac catheterization history: Patient denies REVIEW OF SYSTEMS: At the time of my exam: CONSTITUTIONAL: Denies fever or chills. HEENT: Denies blurred vision, vision changes, or eye pain. Denies hemoptysis CARDIOVASCULAR: Denies chest pain. Denies orthopnea. Denies PND. Denies palpitations RESPIRATORY: Denies shortness of breath. GASTROINTESTINAL: Denies abdominal pain. Denies nausea or vomiting. HEMATOLOGIC: Denies bleeding disorders. GENITOURINARY: Denies any blood in urine. SKIN: Denies pruitis. Denies rash. PHYSICAL EXAM: VITAL SIGNS: Reviewed. GENERAL: Well-developed in no acute distress. HEENT: Head is normocephalic. Pupils are equal, round. Sclerae anicteric. Mucous membranes of the mouth are moist. Neck supple. No JVD or thyromegaly LUNGS: Respirations even and unlabored. Lungs with prolonged expiration and rhonchi bilaterally HEART: Regular rate and rhythm. S1 and S2 heard. Systolic murmur noted. ABDOMEN: Soft. Nondistended. Nontender. EXTREMITIES: Normal range of motion. No clubbing or cyanosis. Peripheral pulses intact. Trace bilateral lower extremity edema NEUROLOGIC: Awake and alert. Oriented x 3. ASSESSMENT: Chest pain, troponin negative x 2 Hypertension Hyperlipidemia COPD with home oxygen use Hypothyroidism Former nicotine dependence PLAN: Patient's chest pain appears more pulmonary in etiology versus cardiac An acute coronary event has been ruled out Obtain 2D echo to assess cardiac structure and function Resume home cardiac medications as listed above Add aspirin 81 mg daily Check lipid panel and hemoglobin A1c Await pulmonary evaluation No plans for stress testing or cardiac catheterization at this time Further recommendations pending patient course Nurse practitioner note has been reviewed by physician. Signing provider agrees with the documented findings, assessment, and plan of care documented by KITCHEN RUNNER as a scribe. 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 pneumothorax 07/2023 History of Any Multi-Drug Resistant Organisms: MRSA Date of last positivie culture/infection: 08/18/23 MDRO Source:: Pubis Tissue/Perirectal Additional Past Surgical History / Comment(s): THYROIDECTOMY, POLYPS REMOVED FROM VOCAL CORDS Past Anesthesia/Blood Transfusion Reactions: No Reported Reaction Past Psychological History: No Psychological Hx Reported Smoking Status: Former smoker Past Alcohol Use History: None Reported Past Drug Use History: None Reported - Past Family History Mother Family Medical History: Cancer Additional Family Medical History / Comment(s): CERVICAL CA Father Family Medical History: No Reported History Medications and Allergies Home Medications Medication Instructions Recorded Confirmed Type Furosemide [Lasix] 40 mg PO DAILY 07/25/23 02/10/25 History Losartan [Cozaar] 50 mg PO DAILY 07/25/23 02/10/25 History Nystatin 100,000 Unit/gm Powd 1 applic TOPICAL BID 07/25/23 02/10/25 History [Mycostatin Powder] Sertraline [Zoloft] 100 mg PO DAILY 07/25/23 02/10/25 History Umeclidinium Brm/Vilanterol Tr 1 puff INHALATION RT-DAILY 08/03/23 02/10/25 History [Anoro Ellipta 62.5-25 Mcg INH] Atorvastatin [Lipitor] 40 mg PO DAILY 02/10/25 02/10/25 History Denosumab [Prolia] 60 mg SQ Q180D 02/10/25 02/10/25 History Diclofenac Sodium [Voltaren] 50 mg PO TID 02/10/25 02/10/25 History HYDROcodone/APAP 5-325MG [[place] 0.5 - 1 tab PO QID 02/10/25 02/10/25 History 5-325] Ipratropium-Albuterol Nebulize 3 ml INHALATION RT-Q4H PRN 02/10/25 02/10/25 History [Duoneb 0.5 mg-3 mg/3 ml Soln] Levothyroxine Sodium [Synthroid] 150 mcg PO DAILY 02/10/25 02/10/25 History Allergies Allergy/AdvReac Type Severity Reaction Status Date / Time bee venom protein (honey bee) Allergy Rash/Hives Verified 02/10/25 09:38 celecoxib [From Celebrex] Allergy Rash/Hives Verified 02/10/25 09:38 Sulfa (Sulfonamide Allergy Rash/Hives Verified 02/10/25 09:38 Antibiotics) Physical Exam Vitals: Vital Signs Temp Pulse Resp BP Pulse Ox 02/10/25 09:00 96 20 131/75 97 02/10/25 08:08 88 02/10/25 07:47 82 100 02/10/25 05:46 84 02/10/25 05:43 92 02/10/25 05:08 86 20 135/87 98 02/10/25 02:48 97.8 F 97 18 133/86 98 Intake and Output 02/09/25 02/10/25 02/10/25 22:59 06:59 14:59 Other: Weight 83.461 kg Results 02/10/25 03:05 02/10/25 03:05 Cardiac Enzymes 02/10/25 02/10/25 Range/Units 03:05 03:05 AST 34 (14-36) U/L Troponin I <0.012 (0.000-0.034) ng/mL Coagulation 02/10/25 Range/Units 03:05 PT 10.0 (10.0-12.5) sec APTT 20.6 L (22.0-30.0) sec CBC 02/10/25 Range/Units 03:05 WBC 9.79 (4.50-10.00) 10*3/uL RBC 3.30 L (4.10-5.20) 10*6/uL Hgb 9.9 L (12.0-15.0) g/dL Hct 31.5 L (37.2-46.3) % Plt Count 293 (140-440) 10*3/uL Comprehensive Metabolic Panel 02/10/25 Range/Units 03:05 Sodium 136 L (137-145) mmol/L Potassium 4.5 (3.5-5.1) mmol/L Chloride 96 L (98-107) mmol/L Carbon Dioxide 36 H (22-30) mmol/L BUN 30 H (7-17) mg/dL Creatinine 1.01 (0.52-1.04) mg/dL Glucose 100 H (74-99) mg/dL Calcium 10.1 (8.4-10.2) mg/dL AST 34 (14-36) U/L ALT 27 (4-34) U/L Alkaline Phosphatase 78 (38-126) U/L Total Protein 6.6 (6.3-8.2) g/dL Albumin 4.2 (3.5-5.0) g/dL Current Medications Generic Name Dose Route Start Last Admin Trade Name Freq PRN Reason Stop Dose Admin Albuterol/Ipratropium 3 ml 02/10/25 08:00 02/10/25 07:45 Ipratropium-Albuterol 3 Ml Neb INHALATION Not Given RT-QID BAUTISTA Methylprednisolone Sodium Succinate 40 mg 02/10/25 08:00 02/10/25 07:51 Methylprednisolone Sod Succi 40 Mg/Ml 1 Ml Vial IV 40 mg Q8HR BAUTISTA Administration Naloxone HCl 0.2 mg 02/10/25 06:40 Naloxone 0.4 Mg/Ml 1 Ml Vial IV Q2M PRN Opioid Reversal Pantoprazole Sodium 40 mg 02/11/25 09:00 Pantoprazole 40 Mg/10 Ml Vial IVP DAILY BAUTISTA Intake and Output 02/09/25 02/10/25 02/10/25 22:59 06:59 14:59 Other: Weight 83.461 kg 02/10/25 03:05 02/10/25 03:05
[2025-02-10] MEDS: FUROSEMIDE 40 MG TAB PO SCH (12:32)
[2025-02-10] MEDS: LOSARTAN 50 MG TAB PO SCH (12:32)
[2025-02-10] MEDS: ATORVASTATIN 40 MG TAB PO SCH (12:32)
--- NOTE | 2025-02-10 12:34 | P.CONS ---
History of Present Illness - Reason for Consult Consult date: 02/10/25 1 episode coffee-ground emesis Requesting physician: Jada Nunn - Chief Complaint Chest pressure and cough - History of Present Illness This a pleasant 84-year-old female past medical history of with hypertension, hyperlipidemia, hypothyroidism, COPD on home oxygen and former nicotine dependence. Patient came into the emergency department with complaints of chest pressure and cough. Apparently patient has been coughing up a lot of sputum and it has been brown in color. Apparently yesterday she had an episode of coughing and brought up a bunch of sputum which was a little on the darker side. Gastroenterology was consulted for coffee-ground emesis. Patient denies any history of upper GI bleed. Denies any history of previous ulcers. Denies any anticoagulation, no NSAID use. She states she has no abdominal pain, no nausea or vomiting. She has chronic cough which is productive. No previous upper endoscopy. Occult stool was negative. Hemoglobin 9.9 hematocrit 31 platelet count 293,000 INR 0.9. Patient states she has history of anemia, no prior blood transfusions. Review of Systems REVIEW OF SYSTEMS: CARDIOPULMONARY: Patient reports chest pressure, productive cough. Shortness of breath. Home oxygen. Gastrointestinal: No abdominal pain. No nausea or vomiting. No hematemesis, coffee-ground emesis, reports coughing brown sputum. No rectal bleeding, or melena. GENITOURINARY: No dysuria or hematuria. MUSCULOSKELETAL: Reports normal range of motion. SKIN: No rashes. No jaundice. ENDOCRINE: No chills, fevers. No excessive weight gain or loss. No polydipsia or polyuria. PSYCHIATRIC: Unremarkable. NEUROLOGY: No change in mental status. Denies dizziness, headache. ENT: Vision unremarkable. CONSTITUTIONAL: No recent weight loss. No fever, chills, night sweats. 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 pneumothorax 07/2023 History of Any Multi-Drug Resistant Organisms: MRSA Year Discovered:: 08/18/23 MDRO Source:: Pubis Tissue/Perirectal Additional Past Surgical History / Comment(s): THYROIDECTOMY, POLYPS REMOVED FROM VOCAL CORDS Past Anesthesia/Blood Transfusion Reactions: No Reported Reaction Past Psychological History: No Psychological Hx Reported Smoking Status: Former smoker Past Alcohol Use History: None Reported Past Drug Use History: None Reported - Past Family History Mother Family Medical History: Cancer Additional Family Medical History / Comment(s): CERVICAL CA Father Family Medical History: No Reported History Medications and Allergies Home Medications Medication Instructions Recorded Confirmed Type Furosemide [Lasix] 40 mg PO DAILY 07/25/23 02/10/25 History Losartan [Cozaar] 50 mg PO DAILY 07/25/23 02/10/25 History Nystatin 100,000 Unit/gm Powd 1 applic TOPICAL BID 07/25/23 02/10/25 History [Mycostatin Powder] Sertraline [Zoloft] 100 mg PO DAILY 07/25/23 02/10/25 History Umeclidinium Brm/Vilanterol Tr 1 puff INHALATION RT-DAILY 08/03/23 02/10/25 History [Anoro Ellipta 62.5-25 Mcg INH] Atorvastatin [Lipitor] 40 mg PO DAILY 02/10/25 02/10/25 History Denosumab [Prolia] 60 mg SQ Q180D 02/10/25 02/10/25 History Diclofenac Sodium [Voltaren] 50 mg PO TID 02/10/25 02/10/25 History HYDROcodone/APAP 5-325MG [[place] 0.5 - 1 tab PO QID 02/10/25 02/10/25 History 5-325] Ipratropium-Albuterol Nebulize 3 ml INHALATION RT-Q4H PRN 02/10/25 02/10/25 Hi story [Duoneb 0.5 mg-3 mg/3 ml Soln] Levothyroxine Sodium [Synthroid] 150 mcg PO DAILY 02/10/25 02/10/25 History Allergies Allergy/AdvReac Type Severity Reaction Status Date / Time bee venom protein (honey bee) Allergy Rash/Hives Verified 02/10/25 09:38 celecoxib [From Celebrex] Allergy Rash/Hives Verified 02/10/25 09:38 Sulfa (Sulfonamide Allergy Rash/Hives Verified 02/10/25 09:38 Antibiotics) Physical Exam Vitals: Vital Signs Temp Pulse Resp BP Pulse Ox 02/10/25 08:08 88 02/10/25 07:47 82 100 02/10/25 05:46 84 02/10/25 05:43 92 02/10/25 05:08 86 20 135/87 98 02/10/25 02:48 97.8 F 97 18 133/86 98 Intake and Output 02/09/25 02/10/25 02/10/25 22:59 06:59 14:59 Other: Weight 83.461 kg General appearance: The patient is alert, oriented, appears in no acute distress. HET: Head is normocephalic and atraumatic. Conjunctiva pink. Sclera anicteric. Neck: Supple without lymphadenopathy. Trachea midline. Heart: Regular. Lungs: Equal expansion, normal respiratory effort. Abdomen: Soft, nontender, nondistended. Skin: No rashes. No jaundice. Extremities: Normal skin color and turgor. No pedal edema. Neurological: No focal deficits. Alert and oriented x3. Results CBC & Chem 7: 02/10/25 03:05 02/10/25 03:05 Labs: Abnormal Lab Results - Last 24 Hours (Table) 02/10/25 02/10/25 02/10/25 Range/Units 03:05 03:05 03:05 RBC 3.30 L (4.10-5.20) 10*6/uL Hgb 9.9 L (12.0-15.0) g/dL Hct 31.5 L (37.2-46.3) % MCHC 31.4 L (32.0-37.0) g/dL Immature Gran # 0.16 H (0.00-0.04) 10*3/uL Neutrophils # 7.97 H (1.80-7.70) 10*3/uL Lymphocytes # 0.67 L (0.90-5.00) 10*3/uL APTT 20.6 L (22.0-30.0) sec D-Dimer (<0.60) mg/L FEU Sodium 136 L (137-145) mmol/L Chloride 96 L (98-107) mmol/L Carbon Dioxide 36 H (22-30) mmol/L BUN 30 H (7-17) mg/dL Glucose 100 H (74-99) mg/dL 02/10/25 Range/Units 03:05 RBC (4.10-5.20) 10*6/uL Hgb (12.0-15.0) g/dL Hct (37.2-46.3) % MCHC (32.0-37.0) g/dL Immature Gran # (0.00-0.04) 10*3/uL Neutrophils # (1.80-7.70) 10*3/uL Lymphocytes # (0.90-5.00) 10*3/uL APTT (22.0-30.0) sec D-Dimer 1.21 H (<0.60) mg/L FEU Sodium (137-145) mmol/L Chloride (98-107) mmol/L Carbon Dioxide (22-30) mmol/L BUN (7-17) mg/dL Glucose (74-99) mg/dL Comments: Chest CTA for PE reports no evidence of pulmonary embolism. Mild bilateral lower lobe subsegmental atelectasis. Finding on radiograph of the same day re presents a right lower lung Bochdalek hernia containing nonobstructed colon. Dilated main pulmonary artery suggesting pulmonary arterial hypertension. Moderate COPD changes. Stable peripheral left lobe 4.9 mm pulmonary nodule. Other previously seen nodules are not visualized however there is atelectatic change in this region. Consider follow-up CT chest in 6 to 12 months. Assessment and Plan (1) Coffee ground emesis Narrative/Plan: Consult for 84-year-old female with reported coffee-ground emesis which more likely was brown-colored sputum from productive cough secondary to COPD. Patient denies any abdominal pain nausea or vomiting. No history of peptic ulcer disease. Hemoglobin stable 9.9 with history of chronic anemia. No NSAID use or anticoagulation. Occult stool negative. Will treat with Protonix for GI prophylaxis. Iron studies ordered. No plans for endoscopic evaluation. Current Visit: Yes Status: Acute Code(s): K92.0 - HEMATEMESIS SNOMED Code(s): 22964343 (2) Anemia Current Visit: Yes Status: Acute Code(s): D64.9 - ANEMIA, UNSPECIFIED SNOMED Code(s): 806613911 (3) COPD exacerbation Current Visit: Yes Status: Acute Code(s): J44.1 - CHRONIC OBSTRUCTIVE PULMONARY DISEASE W (ACUTE) EXACERBATION SNOMED Code(s): 341822252 Plan: 1. Continue symptomatic and supportive care 2. Start Protonix 40 mg daily for GI prophylaxis 3. Iron studies, anemia profile ordered 4. Appreciate recommendations from pulmonology 5. No plans for endoscopic evaluation at this time 6. Patient may have diet as tolerated Thank you for this consultation, we will continue to follow. Dr. Ileana Buckner I agree with the dictator's note, documented as a scribe by Lia De La Rosa.
--- NOTE | 2025-02-10 14:00 | P.HPIM ---
History of Present Illness H&P Date: 02/10/25 Chief Complaint: chest pain/SOB Patient is a 84-year-old female with COPD (3L at home), HTN, HLD, hypothyroidism presenting with chest pain and shortness of breath. Patient ates she has cough for past few weeks productive of brown sputum. States that cough has been getting worse. She also states she has been feeling more short of breath than usual at rest on exertion as well. Patient's daughter states that she has been on nebulizer treatment but has not seemed to adhere to it recently. She reports that her last exacerbation of her COPD was 5 years ago. She also endorses acute onset of chest pain that occurred yesterday while at rest. She describes it as a constant 5/10 sub-sternal non-radiating pain. She endorses nausea and 1 episode of emesis. She describes the vomit as coffee- ground color with mucus similar to her productive cough. Denies any diaphor esis, fever, chills, headache, vision changes, abdominal pain, urinary symptoms. EKG independently interpreted displaying sinus rhythm, rate 91 bpm, QTc 379 MS CTA displaying no evidence of PE, mild bilateral lower lobe segmental atelectasis, dilated main pulmonary artery suggesting PAH, moderate COPD changes, stable peripheral left lobe 4.9 mm pulmonary nodule Troponin <0.012 x 3, D-dimer 1.21, proBNP 317, Hgb 9.9, sodium 136, CO2 36, BUN 30, creatinine 1.01 stool occult blood negative T 97.8 F, PR97, RR 18, BP 133/86, O2 saturation 98% on 3 L nasal ED documentation reviewed. Review of systems: Pertinent positives and negatives as discussed in HPI, a complete review of systems was performed and all other systems are negative. Social history: Tobacco: Former [id number] smoker quit 15 years ago Alcohol: Denies alcohol use Recreational drugs: Denies illicit drug use Travel: Denies any recent travel Occupation: retired, lives at home by self Physical examination: Vital signs reviewed General: Mild distress, appears at stated age, normal weight Derm: no unusual rashes/lesions, warm Head: atraumatic, normocephalic, symmetric Mouth: no lip lesion, mucus membranes moist Cardiovascular: S1S2 reg, no murmur, positive dorsalis pedis pulse bilateral, no edema Lungs: bilateral expiratory wheezing, no rhonchi, no rales, no accessory muscle use Abdominal: soft, nontender to palpation, no guarding, stage 1 sacral ulcer Ext: muscle strength 5 out of 5 in all 4 extremities grossly, no gross muscle atrophy Neuro: CN II-XI grossly intact, no gross focal neuro deficits Psych: Alert, oriented to person, place, and time Assessment/Plan: Patient is an 84-year-old female with hypertension, hyperlipidemia COPD (3 L home oxygen) being seen for chest pain and shortness of breath from being admitted for acute COPD exacerbation. #. Acute exacerbation of COPD #. Acute on chronic hypoxic respiratory failure DuoNebs [id number] and as needed Placed back on Perforomist home inhaler Discontinue IV Solu-Medrol and placed on oral prednisone 40 mg daily for 4 days Azithromycin 500 mg IVPB daily for 3 days Cepheid 4 Plex pending Pulmonology consulted #. Acute chest pain Troponin < 0.012 x 2, continue to trend Aspirin 81 mg p.o. daily Continue home Lipitor 40 mg p.o. daily Lipid panel, A1c, TSH ordered Cardiac telemetry Echocardiogram pending Cardiology was consulted, note reviewed. No plans for stress testing or cardiac catheterization at this time. #. Coffee-ground emesis No signs of acute bleeding BUN 30 GI consulted was placed on 40 mg IV Protonix daily for GI prophylaxis and iron studies ordered No plans for endoscopic evaluation Chronic: #. Hypothyroidism: Synthroid 150 mcg PO QD #. Hypertension: Losartan 50 mg p.o. daily, Lasix 40 mg p.o. daily #. Anxiety: Patient is 100 mg p.o. daily DVT prophylaxis: SCDs The patient is admitted with an anticipated less than 2 midnight stay for evaluation of acute COPD exacerbation. CODE STATUS: Full code Discussed with: Patient Anticipated discharge place: Likely home Hong Munoz MD PGY-1 IM Dictation was produced using [employer] dictation software. please excuse any grammatical, word or spelling errors. I saw and evaluated the patient during the marley and critical portions of this encounter, and discussed the case in detail with the resident author of this note, I agree with the Assessment and Plan, and my changes, if any, are highlighted in blue. 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 pneumothorax 07/2023 History of Any Multi-Drug Resistant Organisms: MRSA Date of last positivie culture/infection: 08/18/23 MDRO Source:: Pubis Tissue/Perirectal Additional Past Surgical History / Comment(s): THYROIDECTOMY, POLYPS REMOVED FROM VOCAL CORDS Past Anesthesia/Blood Transfusion Reactions: No Reported Reaction Past Psychological History: No Psychological Hx Reported Smoking Status: Former smoker Past Alcohol Use History: None Reported Past Drug Use History: None Reported - Past Family History Mother Family Medical History: Cancer Additional Family Medical History / Comment(s): CERVICAL CA Father Family Medical History: No Reported History Medications and Allergies Home Medications Medication Instructions Recorded Confirmed Type Furosemide [Lasix] 40 mg PO DAILY 07/25/23 02/10/25 History Losartan [Cozaar] 50 mg PO DAILY 07/25/23 02/10/25 History Nystatin 100,000 Unit/gm Powd 1 applic TOPICAL BID 07/25/23 02/10/25 History [Mycostatin Powder] Sertraline [Zoloft] 100 mg PO DAILY 07/25/23 02/10/25 History Umeclidinium Brm/Vilanterol Tr 1 puff INHALATION RT-DAILY 08/03/23 02/10/25 History [Anoro Ellipta 62.5-25 Mcg INH] Atorvastatin [Lipitor] 40 mg PO DAILY 02/10/25 02/10/25 History Denosumab [Prolia] 60 mg SQ Q180D 02/10/25 02/10/25 History Diclofenac Sodium [Voltaren] 50 mg PO TID 02/10/25 02/10/25 History HYDROcodone/APAP 5-325MG [[place] 0.5 - 1 tab PO QID 02/10/25 02/10/25 History 5-325] Ipratropium-Albuterol Nebulize 3 ml INHALATION RT-Q4H PRN 02/10/25 02/10/25 History [Duoneb 0.5 mg-3 mg/3 ml Soln] Levothyroxine Sodium [Synthroid] 150 mcg PO DAILY 02/10/25 02/10/25 History Allergies Allergy/AdvReac Type Severity Reaction Status Date / Time bee venom protein (honey bee) Allergy Rash/Hives Verified 02/10/25 09:38 celecoxib [From Celebrex] Allergy Rash/Hives Verified 02/10/25 09:38 Sulfa (Sulfonamide Allergy Rash/Hives Verified 02/10/25 09:38 Antibiotics) Physical Exam Osteopathic Statement: *. No significant issues noted on an osteopathic structural exam other than those noted in the History and Physical/Consult. Vitals: Vital Signs Temp Pulse Resp BP Pulse Ox 02/10/25 08:08 88 02/10/25 07:47 82 100 02/10/25 05:46 84 02/10/25 05:43 92 02/10/25 05:08 86 20 135/87 98 02/10/25 02:48 97.8 F 97 18 133/86 98 Intake and Output 02/09/25 02/10/25 02/10/25 22:59 06:59 14:59 Other: Weight 83.461 kg Results CBC & Chem 7: 02/10/25 03:05 02/10/25 03:05 Labs: Abnormal Lab Results - Last 24 Hours (Table) 02/10/25 02/10/25 02/10/25 Range/Units 03:05 03:05 03:05 RBC 3.30 L (4.10-5.20) 10*6/uL Hgb 9.9 L (12.0-15.0) g/dL Hct 31.5 L (37.2-46.3) % MCHC 31.4 L (32.0-37.0) g/dL Immature Gran # 0.16 H (0.00-0.04) 10*3/uL Neutrophils # 7.97 H (1.80-7.70) 10*3/uL Lymphocytes # 0.67 L (0.90-5.00) 10*3/uL APTT 20.6 L (22.0-30.0) sec D-Dimer (<0.60) mg/L FEU Sodium 136 L (137-145) mmol/L Chloride 96 L (98-107) mmol/L Carbon Dioxide 36 H (22-30) mmol/L BUN 30 H (7-17) mg/dL Glucose 100 H (74-99) mg/dL 02/10/25 Range/Units 03:05 RBC (4.10-5.20) 10*6/uL Hgb (12.0-15.0) g/dL Hct (37.2-46.3) % MCHC (32.0-37.0) g/dL Immature Gran # (0.00-0.04) 10*3/uL Neutrophils # (1.80-7.70) 10*3/uL Lymphocytes # (0.90-5.00) 10*3/uL APTT (22.0-30.0) sec D-Dimer 1.21 H (<0.60) mg/L FEU Sodium (137-145) mmol/L Chloride (98-107) mmol/L Carbon Dioxide (22-30) mmol/L BUN (7-17) mg/dL Glucose (74-99) mg/dL
[2025-02-10] MEDS: AZITHROMYCIN 500 MG in SODIUM CHLORIDE 0.9% 250 ML IVPB SCH (14:50)
[2025-02-10] MEDS: ETODOLAC 200 MG CAPSULE PO SCH (15:13)
[2025-02-10 16:05] LABS: Influenza A Not Detected (Not Detectd); Influenza B Not Detected (Not Detectd); RSV Not Detected (Not Detectd)
[2025-02-10 16:07] LABS: % Iron Saturation 7.34 (12.00-45.00); Chol/HDL Ratio 2.57 Ratio; Ferritin 14.5 ng/mL (10.0-291.0); Iron 27 UG/DL (50-170); LDL Cholesterol,Calculated 64.7 mg/dL (0.0-131.0); Total Iron Binding Capacity 368 UG/DL (228-460)
--- NOTE | 2025-02-10 16:19 | P.CNPUL ---
History of Present Illness Consult date: 02/10/25 Reason for consult: dyspnea History of present illness: This is a 89-year-old female patient was brought into the hospital because of worsening shortness of breath, increased cough and sputum production and her sputum was essentially brown in color. No hemoptysis. No pleurisy. No chest pain. No altered mentation. No hemodynamic instability. She does not have advanced COPD and she is oxygen dependent. She is a former smoker. She also has various comorbidities including hypertension, hyperlipidemia and hypothyroidism. The patient had a white cell count of 9.7 with a hemoglobin 9.9 and a platelet count of 293. Normal coagulation profile. BUN is 30 with a creatinine of 1.01. Sodium is at 136 and a potassium is at 4.5 and a serum bicarb is at 36. The viral screen was negative. Occult stool was negative for blood. The patient is currently on DuoNeb treatments [id number]. The patient was also placed on a combination performance of Pulmicort nebulizer treatment twice a day, empiric antibiotic coverage with IV Zithromax and a prednisone burst taper starting dose at [address] of the chest was also done in the emergency department that showed no evidence of any pulmonary embolism, some subsegmental atelectatic change in lung base bilaterally, pulmonary arterial dilatation consistent with pulm hypertension and a 4 mm nodule in the periphery of the left lower lobe. She is currently calm and comfortable on oxygen at 4 L and she is resting comfortably in bed. Family members at the bedside. No other issues for now. Review of Systems CONSTITUTIONAL: Denies any recent significant weight loss or weight gain. EYES: Denies change in vision. EARS, NOSE, MOUTH, THROAT: Denies headaches, denies sore throat. CARDIOVASCULAR: Positive for chest pain, no palpitations or syncopal episodes. RESPIRATORY: Positive for shortness of breath, cough, congestion no hemoptysis. GASTROINTESTINAL: Denies change in appetite, denies abdominal pain GENITOURINARY: Denies hematuria, denies infections. MUSKULOSKELETAL: Denies pain, denies swelling. INTEGUMENTARY: Normal NEUROLOGICAL: Denies recent memory loss, no recent seizure activity. PSYCHIATRIC: Denies anxiety, denies depression. HEMATOLOGIC/LYMPHATIC: Denies anemia, denies enlarged lymph nodes. Past Medical History Past Medical History: COPD, Hyperlipidemia, Thyroid Disorder Additional Past Medical History / Comment(s): 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 pneumothorax 07/2023 History of Any Multi-Drug Resistant Organisms: MRSA Date of last positivie culture/infection: 08/18/23 MDRO Source:: Pubis Tissue/Perirectal Additional Past Surgical History / Comment(s): THYROIDECTOMY, POLYPS REMOVED FROM VOCAL CORDS Past Anesthesia/Blood Transfusion Reactions: No Reported Reaction Past Psychological History: No Psychological Hx Reported Smoking Status: Former smoker Past Alcohol Use History: None Reported Past Drug Use History: None Reported - Past Family History Mother Family Medical History: Cancer Additional Family Medical History / Comment(s): CERVICAL CA Father Family Medical History: No Reported History Medications and Allergies Home Medications Medication Instructions Recorded Confirmed Type Furosemide [Lasix] 40 mg PO DAILY 07/25/23 02/10/25 History Losartan [Cozaar] 50 mg PO DAILY 07/25/23 02/10/25 History Nystatin 100,000 Unit/gm Powd 1 applic TOPICAL BID 07/25/23 02/10/25 History [Mycostatin Powder] Sertraline [Zoloft] 100 mg PO DAILY 07/25/23 02/10/25 History Umeclidinium Brm/Vilanterol Tr 1 puff INHALATION RT-DAILY 08/03/23 02/10/25 History [Anoro Ellipta 62.5-25 Mcg INH] Atorvastatin [Lipitor] 40 mg PO DAILY 02/10/25 02/10/25 History Denosumab [Prolia] 60 mg SQ Q180D 02/10/25 02/10/25 History Diclofenac Sodium [Voltaren] 50 mg PO TID 02/10/25 02/10/25 History HYDROcodone/APAP 5-325MG [[place] 0.5 - 1 tab PO QID 02/10/25 02/10/25 History 5-325] Ipratropium-Albuterol Nebulize 3 ml INHALATION RT-Q4H PRN 02/10/25 02/10/25 History [Duoneb 0.5 mg-3 mg/3 ml Soln] Levothyroxine Sodium [Synthroid] 150 mcg PO DAILY 02/10/25 02/10/25 History Allergies Allergy/AdvReac Type Severity Reaction Status Date / Time bee venom protein (honey bee) Allergy Rash/Hives Verified 02/10/25 09:38 celecoxib [From Celebrex] Allergy Rash/Hives Verified 02/10/25 09:38 Sulfa (Sulfonamide Allergy Rash/Hives Verified 02/10/25 09:38 Antibiotics) Physical Exam Vitals: Vital Signs Temp Pulse Resp BP Pulse Ox 02/10/25 11:40 100 02/10/25 11:29 105 H 02/10/25 10:29 94 18 128/62 96 02/10/25 09:00 96 20 131/75 97 02/10/25 08:08 88 02/10/25 07:47 82 100 02/10/25 05:46 84 02/10/25 05:43 92 02/10/25 05:08 86 20 135/87 98 02/10/25 02:48 97.8 F 97 18 133/86 98 Intake and Output 02/09/25 02/10/25 02/10/25 22:59 06:59 14:59 Other: Weight 83.461 kg GENERAL EXAM: Alert, pleasant 84-year-old female, sitting up at the bedside, on 4 L nasal cannula, comfortable in no apparent distress. HEAD: Normocephalic. EYES: Normal reaction of pupils, equal size. NOSE: Clear with pink turbinates. THROAT: No erythema or exudates. NECK: No masses, no JVD. CHEST: No chest wall deformity. LUNGS: Equal air entry with no crackles, wheeze, rhonchi or dullness. Diminished. CVS: S1 and S2 normal with no audible murmur, regular rhythm. ABDOMEN: No hepatosplenomegaly, normal bowel sounds, no guarding or rigidity. SPINE: No scoliosis or deformity Examination of the skin revealed no evidence of significant rashes, suspicious appearing nevi or other concerning lesions. CENTRAL NERVOUS SYSTEM: No focal deficits, tone is normal in all 4 extremities. EXTREMITIES: There is no peripheral edema. No clubbing, no cyanosis. Peripheral pulses are intact Results - Laboratory Findings CBC and BMP: 02/10/25 03:05 02/10/25 03:05 PT/INR, D-dimer PT 10.0 sec (10.0-12.5) 02/10/25 03:05 INR 0.9 (<1.2) 02/10/25 03:05 D-Dimer 1.21 mg/L FEU (<0.60) H 02/10/25 03:05 Abnormal lab findings: Abnormal Labs 02/10/25 02/10/25 02/10/25 03:05 03:05 03:05 RBC 3.30 L Hgb 9.9 L Hct 31.5 L MCHC 31.4 L Immature Gran # 0.16 H Neutrophils # 7.97 H Lymphocytes # 0.67 L APTT 20.6 L D-Dimer Sodium 136 L Chloride 96 L Carbon Dioxide 36 H BUN 30 H Glucose 100 H 02/10/25 03:05 RBC Hgb Hct MCHC Immature Gran # Neutrophils # Lymphocytes # APTT D-Dimer 1.21 H Sodium Chloride Carbon Dioxide BUN Glucose - Diagnostic Findings Chest x-ray: image reviewed CT scan - chest: image reviewed Assessment and Plan Plan: Acute exacerbation of chronic COPD, CT of the chest shows no evidence any pulm embolism and there are some atelectatic changes lung base bilaterally. The viral screen was negative. Acute on chronic hypoxic respiratory failure currently on 4 L of oxygen by nasal cannula History of perirectal/perianal/perineal cellulitis with abscess formation. Post incision and drainage and antibiotic treatment, recovered History of previous spontaneous left-sided pneumothorax, recovered with a left chest Thoravent. Chronic hypoxic respiratory failure currently on 2 L of oxygen nasal cannula Severe chronic obstructive pulmonary disease, not in exacerbation. Baseline FEV1 is 41% of predicted. Chronically oxygen dependent on 2 L/m nasal cannula 15/05. The patient is demented on Anoro Ellipta on an outpatient basis in addition to DuoNeb updrafts [id number] and budesonide neb nebulized treatments twice a day Former tobacco smoker Hypothyroidism Benign essential hypertension Hyperlipidemia Obesity Anemia of chronic disease Plan Titrate oxygen flow to maintain saturation above 90%, currently on 4 L Continue DuoNeb nebulized treatments [id number] Continue Perforomist and Pulmicort nebulized treatments twice a day Spiriva 2 puffs daily Zithromax and empiric antibiotic coverage Prednisone burst taper Resume home medications Repeat echocardiogram. Noted her previous echocardiogram from July 2023 was within normal with a preserved LV function Will continue to follow
[2025-02-10] MEDS: HYDROcodone/APAP 5-325MG 1 EACH TAB PO PRN (16:43)
[2025-02-10] MEDS ORDERED: ZINC OXIDE PASTE (Z-GUARD) 1 APPLIC TOPICAL PRN (20:08)
[2025-02-11] MEDS: IPRATROPIUM-ALBUTEROL 3 ML NEB INHALATION PRN (02:18)
[2025-02-11] MEDS: ETODOLAC 200 MG CAPSULE PO PRN (03:56)
[2025-02-11 06:08] LABS: Basophils # (A) 0.03 10*3/uL (0.00-0.10); Basophils % (A) 0.5 %; Eosinophils # (A) 0.15 10*3/uL (0.04-0.35); Eosinophils % (A) 2.4 %; HCT 30.8 % (37.2-46.3); HGB 9.5 g/dL (12.0-15.0); Lymphocytes # (A) 0.86 10*3/uL (0.90-5.00); Lymphocytes % (A) 13.8 %; MCH 30.1 pg (27.0-32.0); MCHC 30.8 g/dL (32.0-37.0); MCV 97.5 fL (80.0-97.0); Mean Platelet Volume 9.5 fL (9.5-12.2); Monocytes # (A) 0.61 10*3/uL (0.20-1.00); Monocytes % (A) 9.8 %; Neutrophils # (A) 4.58 10*3/uL (1.80-7.70); Neutrophils % (A) 73.2 %; Platelet Count 262 10*3/uL (140-440); RBC 3.16 10*6/uL (4.10-5.20); RDW 13.8 % (11.5-14.5); WBC 6.25 10*3/uL (4.50-10.00)
[2025-02-11 06:29] LABS: African American GFR (CKD) 65 (>60 ml/min/1.73 sqM); Anion Gap 5 mmol/L; Blood Urea Nitrogen 22 mg/dL (7-17); Calcium 9.7 mg/dL (8.4-10.2); Carbon Dioxide 34 mmol/L (22-30); Chloride 97 mmol/L (98-107); Glucose 100 mg/dL (74-99); Non-African American GFR(CKD) 56 (>60 ml/min/1.73 sqM); Potassium 4.4 mmol/L (3.5-5.1); Sodium 136 mmol/L (137-145)
[2025-02-11] MEDS: LEVOTHYROXINE 75 MCG TAB PO SCH (06:31)
--- NOTE | 2025-02-11 07:22 | CA ---
Transthoracic Echo Report Name: Rupa Rubin Age: 84 Gender: F : 1940 Exam Date: 02/10/2025 14:24 Exam Location: [facility] Ht (in): 67 Wt (lb): 184 Ordering Physician: Clary Quiñones Attending/Referring Phys: [id number], Ishmael Powder Mixer Rani Alvarado RDCS Procedure CPT: Indications: sob, cp Cardiac Hx: Technical Quality: Technically difficult study Contrast 1: Definity Total Dose (mL): 5 Contrast 2: Total Dose (mL): MEASUREMENTS (Male / Female) Normal Values 2D ECHO LV Diastolic Diameter PLAX 4.6 cm 4.2 - 5.9 / 3.9 - 5.3 cm LV Systolic Diameter PLAX 3.1 cm IVS Diastolic Thickness 0.9 cm 0.6 - 1.0 / 0.6 - 0.9 cm LVPW Diastolic Thickness 1.0 cm 0.6 - 1.0 / 0.6 - 0.9 cm LV Relative Wall Thickness 0.4 LVOT Diameter 2.3 cm LV Diastolic Volume MOD BP 71.2 cm??? 67 - 155 / 56 - 104 cm??? LV Systolic Volume MOD BP 18.1 cm??? 22 - 58 / 19 - 49 cm??? LV Ejection Fraction MOD BP 74.6 % >= 55 % LV Cardiac Index MOD BP 2644.7 cm???/min???m??? LV Diastolic Volume MOD 4C 72.8 cm??? LV Systolic Volume MOD 4C 19.7 cm??? LV Ejection Fraction MOD 4C 72.9 % LV Cardiac Index MOD 4C 2642.7 cm???/min???m??? LV Diastolic Length 4C 8.2 cm LV Systolic Length 4C 6.5 cm LV Diastolic Volume MOD 2C 67.5 cm??? LV Systolic Volume MOD 2C 15.0 cm??? LV Ejection Fraction MOD 2C 77.8 % LV Cardiac Index MOD 2C 2617.4 cm???/min???m??? LV Diastolic Length 2C 8.0 cm LV Systolic Length 2C 5.8 cm LA Volume 44.2 cm??? 18 - 58 / 22 - 52 cm??? LA Volume Index 22.0 cm???/m??? 16 - 28 cm???/m??? DOPPLER AV Peak Velocity 143.3 cm/s AV Peak Gradient 8.2 mmHg AV Mean Velocity 102.3 cm/s AV Mean Gradient 4.7 mmHg AV Velocity Time Integral 22.4 cm LVOT Peak Velocity 119.3 cm/s LVOT Peak Gradient 5.7 mmHg LVOT Velocity Time Integral 20.7 cm LVOT Stroke Volume 88.7 cm??? LVOT Stroke Volume Index 45.4 ml/m??? LVOT Cardiac Index 4417.0 cm???/min???m??? AV Area Cont Eq vti 4.0 cm??? AV Area Cont Eq pk 3.6 cm??? MV Peak Velocity 150.6 cm/s MV Peak Gradient 9.1 mmHg MV Mean Velocity 97.6 cm/s MV Mean Gradient 4.2 mmHg MV Velocity Time Integral 32.3 cm MV Area PHT 10.4 cm??? Mitral E Point Velocity 51.2 cm/s Mitral A Point Velocity 92.4 cm/s Mitral E to A Ratio 0.6 MV Deceleration Time 72.8 ms FINDINGS Left Ventricle Left ventricular ejection fraction is estimated at 60-65 %. Left ventricular cavity size normal. Left ventricular wall thickness normal. No obvious regional wall motion abnormalities. Mid cavitary gradient at rest 52mmHg. Right Ventricle Normal right ventricular size and function. Unable to estimate the right ventricular systolic pressure. Right Atrium Normal right atrial size. Left Atrium Normal left atrial size. Mitral Valve Structurally normal mitral valve. No evidence for mitral valve prolapse. Mild- to-moderate mitral stenosis. No mitral regurgitation.mitral annular calcification. Aortic Valve Aortic valve not well visualized. No aortic valve stenosis or regurgitation.aortic valve sclerosis. Tricuspid Valve Structurally normal tricuspid valve. No tricuspid stenosis. No tricuspid regurgitation. Pulmonic Valve Pulmonic valve not well visualized. Pericardium No pericardial effusion. Fat pad. Aorta Aortic annulus normal. CONCLUSIONS Technically difficult study. Definity ECHO contrast used for improved visualization of the endocardial borders (inadequate visualization of two or more contiguous segments). Normal left ventricular size and systolic function with mid cavity gradient Mild to moderate mitral regurgitation Previewed by: Dr. Binta Ramirez MD (Electronically Signed) Final Date: 11 February 2025 07:20
[2025-02-11] MEDS: FORMOTEROL FUMARATE 20 MCG/2 ML NEBU INHALATION SCH (07:48)
[2025-02-11] MEDS: TIOTROPIUM 2.5 MCG INHALER INHALATION SCH (07:49)
[2025-02-11] MEDS: SERTRALINE 100 MG TAB PO SCH (09:19)
[2025-02-11] MEDS: predniSONE 20 MG TAB PO SCH (09:19)
[2025-02-11] MEDS: PANTOPRAZOLE 40 MG/10 ML VIAL IVP SCH (09:19)
--- NOTE | 2025-02-11 12:23 | P.PN ---
Subjective HISTORY OF PRESENT ILLNESS: This is a 84-year-old female with a past medical history significant for hypertension, hyperlipidemia, hypothyroidism, COPD, home oxygen use, and former nicotine dependence. Patient does not follow with a sawyer helper. We have been asked to see the patient in consultation for chest pain. Patient examined at the bedside in the emergency room. Patient states that yesterday she was having some mild chest heaviness. She reports having increased cough with brown sputum production. Patient also reports having some burping with an episode of brown emesis. She states after that she started to feel a little bit better. She did receive 4 aspirin and route to the hospital. She states her heaviness went away by the time she presented to the hospital and she denies having any further episodes of chest pain or pressure. Patient does report chronic shortness of breath at baseline. She does wear oxygen at home. She reports that she quit smoking about 15 years ago but smoked for 50 years. DIAGNOSTICS: - EKG reveals sinus mechanism with no signs of acute ischemia. - Chest xray air-filled structure seen overlying lateral right lower lung unclear if this represents cavitary lesion within the lungs versus air underneath the diaphragm. - Chest CTA: Negative for pulmonary embolism. 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 Stable peripheral left lobe 4.9 mm pulmonary nodule. - Laboratory data: WBC 9.79. Hemoglobin 9.9. Platelet count 293. D-dimer 1.21. Sodium 136. Potassium 4.5. BUN 30. Creatinine 1.01. Troponin negative x 2. proBNP 317. - Current home cardiac medications include atorvastatin 40 mg daily and losartan 50 mg daily. - Most recent echocardiogram obtained in July 2023 revealed ejection fraction 55 to 60% with mild TR - Cardiac catheterization history: Patient denies 02/11/2025 Patient examined this morning at the bedside. Patient denies chest pain or p ressure. She reports improvement in her shortness of breath. Vital signs are stable. Blood pressure 134/74. She is on 3 L nasal cannula. Echocardiogram completed revealing ejection fraction 60 to 65% with mild to moderate mitral regurgitation PHYSICAL EXAM: VITAL SIGNS: Reviewed. GENERAL: Well-developed in no acute distress. HEENT: Head is normocephalic. Pupils are equal, round. Sclerae anicteric. Mucous membranes of the mouth are moist. Neck supple. No JVD or thyromegaly LUNGS: Respirations even and unlabored. Lungs with prolonged expiration and rhonchi bilaterally with bibasilar crackles HEART: Regular rate and rhythm. S1 and S2 heard. Systolic murmur noted. ABDOMEN: Soft. Nondistended. Nontender. EXTREMITIES: Normal range of motion. No clubbing or cyanosis. Peripheral pulses intact. Trace bilateral lower extremity edema NEUROLOGIC: Awake and alert. Oriented x 3. ASSESSMENT: Chest pain, troponin negative x 2 Hypertension Hyperlipidemia COPD with home oxygen use Hypothyroidism Former nicotine dependence PLAN: Continue current cardiac medications including aspirin, Lipitor, Lasix, losartan Patient is currently stable from a cardiac standpoint with no further inpatient recommendations We will sign off. Please reconsult if needed. Nurse practitioner note has been reviewed by physician. Signing provider agrees with the documented findings, assessment, and plan of care documented by PLATE GLASS INSTALLER HELPER as a scribe. Objective - Vital Signs Vital signs: Vital Signs Temp 97.7 F 02/11/25 07:45 Pulse 84 02/11/25 11:35 Resp 15 02/11/25 09:19 BP 134/74 02/11/25 07:45 Pulse Ox 97 02/11/25 08:01 FiO2 Intake & Output 02/10/25 02/11/25 02/11/25 18:59 06:59 18:59 Intake Total 118 Balance 118 Weight 83.461 kg Intake: Oral 118 Other: Voiding Method Bedside Commode Bedside Commode # Voids 2 - Labs CBC & Chem 7: 02/11/25 05:42 02/11/25 05:42 Labs: Abnormal Lab Results - Last 24 Hours (Table) 02/10/25 02/11/25 02/11/25 Range/Units 09:56 05:42 05:42 RBC 3.16 L (4.10-5.20) 10*6/uL Hgb 9.5 L (12.0-15.0) g/dL Hct 30.8 L (37.2-46.3) % MCV 97.5 H (80.0-97.0) fL MCHC 30.8 L (32.0-37.0) g/dL Lymphocytes # 0.86 L (0.90-5.00) 10*3/uL Sodium 136 L (137-145) mmol/L Chloride 97 L (98-107) mmol/L Carbon Dioxide 34 H (22-30) mmol/L BUN 22 H (7-17) mg/dL Glucose 100 H (74-99) mg/dL Iron 27 L (50-170) UG/DL % Saturation 7.34 L (12.00-45.00)
--- NOTE | 2025-02-11 12:46 | P.PN ---
Subjective Progress Note Date: 02/11/25 Hospital Course: Patient is a 84-year-old female with COPD (3L at home), HTN, HLD, hypothyroidism presenting with chest pain and shortness of breath. Patient states she has cough for past few weeks productive of brown sputum. States that cough has been getting worse. She also states she has been feeling more short of breath than usual at rest on exertion as well. Patient's daughter states that she has been on nebulizer treatment but has not seemed to adhere to it recently. She reports that her last exacerbation of her COPD was 5 years ago. She also endorses acute onset of chest pain that occurred yesterday while at rest. She describes it as a constant 5/10 sub-sternal non-radiating pain. She endorses nausea and 1 episode of emesis. She describes the vomit as coffee- ground color with mucus similar to her productive cough. Denies any diaphoresis, fever, chills, headache, vision changes, abdominal pain, urinary symptoms. EKG independently interpreted displaying sinus rhythm, rate 91 bpm, QTc 379 MS CTA displaying no evidence of PE, mild bilateral lower lobe segmental atelectasis, dilated main pulmonary artery suggesting PAH, moderate COPD changes, stable peripheral left lobe 4.9 mm pulmonary nodule Troponin <0.012 x 3, D-dimer 1.21, proBNP 317, Hgb 9.9, sodium 136, CO2 36, BUN 30, creatinine 1.01 stool occult blood negative T 97.8 F, PR97, RR 18, BP 133/86, O2 saturation 98% on 3 L nasal Subjective: Patient seen and examined at bedside. No acute events overnight. Patient still feels short of breath. Still endorses a cough but with clear sputum production. Pertinent positives and negatives as discussed above, a complete review of systems was performed and all other systems are negative. Vitals: Signs Reviewed Physical Exam: General: nontoxic, mild distress, appears at stated age Derm: warm, dry, intact Head: atraumatic, normocephalic, symmetric Eyes: EOMI, anicteric sclera Mouth: no lip lesion, mucus membranes moist Cardiovascular: S1 S2 reg, no murmur, rubs, or gallops Lungs: Bilateral expiratory wheezing, coarse rhonchi, no rales, no accessory muscle use Abdominal: soft, non-tender to palpataion, no appreciable organomegaly, stage I sacral ulcer Extremities: no gross muscle atrophy, no edema, no contractures Neuro: Alert, Oriented, CNII-XII grossly intact, gait normal Psych: well appearing, appropriate affect Data Received Today: Pertinent Labs: WBC 6.25, Hgb 9.5, platelet 262, 2136, BUN 22, creatinine 0.94 Imaging: N/A Assessment and Plan: Patient is an 84-year-old female with hypertension, hyperlipidemia COPD (3 L home oxygen) being seen for chest pain and shortness of breath from being admitted for acute COPD exacerbation. #. Acute exacerbation of COPD #. Acute on chronic hypoxic respiratory failure DuoNebs [id number] and as needed Placed back on Perforomist home inhaler Discontinue IV Solu-Medrol and placed on oral prednisone 40 mg daily for 4 days Azithromycin 500 mg IVPB daily for 3 days Cepheid 4 Plex negative On 3 L nasal Cannula (Home Baseline), keep oxygen between 88-92% Pulmonology consulted #. Acute chest pain ACS has been ruled out Troponin < 0.012 x 3 Aspirin 81 mg p.o. daily Continue home Lipitor 40 mg p.o. daily Lipid panel, TSH ordered A1c 5.5 Cardiac telemetry Echocardiogram this morning technically difficult study, normal left ventricular size and systolic function with mid cavity gradient, mild to moderate mitral regurgitation, LVEF 60-65% Cardiology was consulted, note reviewed. No plans for stress testing or cardiac catheterization at this time. Cardiology signed off #. Coffee-ground emesis No signs of acute bleeding, no additional reported episodes of hematemesis BUN 30 GI consulted was placed on 40 mg IV Protonix daily for GI prophylaxis and iron studies ordered Iron profile: Iron 27, TIBC 368, transferrin 263, ferritin 14 point, percent saturation 7.34% GI has no plans for endoscopic evaluation DVT ppx: SCDs Code status: Full code Anticipated discharge place: Pending clinical course Anticipated discharge time: Pending clinical course Hong Munoz MD PGY-1 IM Dictation was produced using [employer] dictation software. please excuse any grammatical, word or spelling errors. I saw and evaluated the patient during the marley and critical portions of this encounter, and discussed the case in detail with the resident author of this note, I agree with the Assessment and Plan, and my changes, if any, are highlighted in blue. Objective - Vital Signs Vital signs: Vital Signs Temp 97.5 F L 02/11/25 02:00 Pulse 84 02/11/25 02:24 Resp 20 02/11/25 02:24 BP 129/72 02/11/25 02:00 Pulse Ox 97 02/11/25 02:00 FiO2 Intake & Output 02/10/25 02/11/25 02/11/25 18:59 06:59 18:59 Intake Total 118 Balance 118 Weight 83.461 kg Intake: Oral 118 Other: Voiding Method Bedside Commode # Voids 2 - Labs CBC & Chem 7: 02/11/25 05:42 02/11/25 05:42 Labs: Abnormal Lab Results - Last 24 Hours (Table) 02/10/25 02/11/25 02/11/25 Range/Units 09:56 05:42 05:42 RBC 3.16 L (4.10-5.20) 10*6/uL Hgb 9.5 L (12.0-15.0) g/dL Hct 30.8 L (37.2-46.3) % MCV 97.5 H (80.0-97.0) fL MCHC 30.8 L (32.0-37.0) g/dL Lymphocytes # 0.86 L (0.90-5.00) 10*3/uL Sodium 136 L (137-145) mmol/L Chloride 97 L (98-107) mmol/L Carbon Dioxide 34 H (22-30) mmol/L BUN 22 H (7-17) mg/dL Glucose 100 H (74-99) mg/dL Iron 27 L (50-170) UG/DL % Saturation 7.34 L (12.00-45.00)
--- NOTE | 2025-02-11 14:25 | P.PN ---
Subjective Progress Note Date: 02/11/25 Principal diagnosis: Anemia This a pleasant 84-year-old female past medical history of with hypertension, hyperlipidemia, hypothyroidism, COPD on home oxygen and former nicotine d ependence. Patient came into the emergency department with complaints of chest pressure and cough. Apparently patient has been coughing up a lot of sputum and it has been brown in color. Apparently yesterday she had an episode of coughing and brought up a bunch of sputum which was a little on the darker side. Gastroenterology was consulted for coffee-ground emesis. Patient denies any history of upper GI bleed. Denies any history of previous ulcers. Denies any anticoagulation, no NSAID use. She states she has no abdominal pain, no nausea or vomiting. She has chronic cough which is productive. No previous upper endoscopy. Occult stool was negative. Hemoglobin 9.9 hematocrit 31 platelet count 293,000 INR 0.9. Patient states she has history of anemia, no prior blood transfusions. 02/11/2025 Patient seen and examined today as a follow-up. She is sitting up in the chair eating breakfast. She denies any abdominal pain, no nausea or vomiting. No blood per rectum or black stool. Still has productive cough. Hemoglobin stable at 9.5. Iron studies completed. Iron 27 TIBC 368 saturation 7.3 ferritin 14.5 vitamin B12 265 folate 10.8. Iron studies consistent with iron deficiency anemia. Patient being followed by pulmonology who started her on prednisone 40 mg daily. Also started on IV antibiotics for COPD exacerbation. Objective - Vital Signs Vital signs: Vital Signs Temp 97.7 F 02/11/25 07:45 Pulse 84 02/11/25 08:13 Resp 15 02/11/25 07:45 BP 134/74 02/11/25 07:45 Pulse Ox 97 02/11/25 08:01 FiO2 Intake & Output 02/10/25 02/11/25 02/11/25 18:59 06:59 18:59 Intake Total 118 Balance 118 Weight 83.461 kg Intake: Oral 118 Other: Voiding Method Bedside Commode # Voids 2 - Exam General appearance: The patient is alert, oriented, appears in no acute distress. Nasal cannula. HET: Head is normocephalic and atraumatic. Conjunctiva pink. Sclera anicteric. Neck: Supple without lymphadenopathy. Lungs: Normal expansion, diminished. Productive cough. Abdomen: Soft, nontender, nondistended. Extremities: Normal skin color and turgor. No pedal edema Skin: No rashes, no jaundice Neurological: No focal deficits. Alert and oriented. - Labs CBC & Chem 7: 02/11/25 05:42 02/11/25 05:42 Labs: Abnormal Lab Results - Last 24 Hours (Table) 02/10/25 02/11/25 02/11/25 Range/Units 09:56 05:42 05:42 RBC 3.16 L (4.10-5.20) 10*6/uL Hgb 9.5 L (12.0-15.0) g/dL Hct 30.8 L (37.2-46.3) % MCV 97.5 H (80.0-97.0) fL MCHC 30.8 L (32.0-37.0) g/dL Lymphocytes # 0.86 L (0.90-5.00) 10*3/uL Sodium 136 L (137-145) mmol/L Chloride 97 L (98-107) mmol/L Carbon Dioxide 34 H (22-30) mmol/L BUN 22 H (7-17) mg/dL Glucose 100 H (74-99) mg/dL Iron 27 L (50-170) UG/DL % Saturation 7.34 L (12.00-45.00) Assessment and Plan (1) Coffee ground emesis Narrative/Plan: Consult for 84-year-old female with reported coffee-ground emesis which more likely was brown-colored sputum from productive cough secondary to COPD. Patient denies any abdominal pain nausea or vomiting. No history of peptic ulcer disease. Hemoglobin stable 9.9 with history of chronic anemia. No NSAID use or anticoagulation. Occult stool negative. Will treat with Protonix for GI prophylaxis. Iron studies ordered. No plans for endoscopic evaluation. Current Visit: Yes Status: Acute Code(s): K92.0 - HEMATEMESIS SNOMED Code(s): 32819727 (2) Anemia Narrative/Plan: Anemia profile consistent with iron deficiency anemia. Would recommend upper and lower endoscopy for evaluation of iron deficiency anemia, which can be done as an outpatient as patient is asymptomatic at this time And being treated for acute exacerbation of COPD. Current Visit: Yes Status: Acute Code(s): D64.9 - ANEMIA, UNSPECIFIED SNOMED Code(s): 012894987 (3) COPD exacerbation Current Visit: Yes Status: Acute Code(s): J44.1 - CHRONIC OBSTRUCTIVE PULMONARY DISEASE W (ACUTE) EXACERBATION SNOMED Code(s): 226843735 Plan: 1. Continue symptomatic and supportive care 2. Continue Protonix 40 mg daily for GI prophylaxis 3. Daily CBC, transfuse for hemoglobin less than 7 4. Continue with recommendations from pulmonology 5. Patient will need EGD colonoscopy as part of her workup for iron deficiency anemia, can be done as an outpatient 6. Patient may have diet as tolerated Thank you for this consultation, we will continue to follow. Dr. Ileana Buckner I agree with the dictator's note, documented as a scribe by Lia De La Rosa.
--- NOTE | 2025-02-11 16:35 | P.PN ---
Subjective Progress Note Date: 02/11/25 This is a 89-year-old female patient was brought into the hospital because of worsening shortness of breath, increased cough and sputum production and her sputum was essentially brown in color. No hemoptysis. No pleurisy. No chest pain. No altered mentation. No hemodynamic instability. She does not have advanced COPD and she is oxygen dependent. She is a former smoker. She also has various comorbidities including hypertension, hyperlipidemia and hypothyroidism. The patient had a white cell count of 9.7 with a hemoglobin 9.9 and a platelet count of 293. Normal coagulation profile. BUN is 30 with a creatinine of 1.01. Sodium is at 136 and a potassium is at 4.5 and a serum bicarb is at 36. The viral screen was negative. Occult stool was negative for blood. The patient is currently on DuoNeb treatments [id number]. The patient was also placed on a combination performance of Pulmicort nebulizer treatment twice a day, empiric antibiotic coverage with IV Zithromax and a prednisone burst taper starting dose at [address] of the chest was also done in the emergency department that showed no evidence of any pulmonary embolism, some subsegmental atelectatic change in lung base bilaterally, pulmonary arterial dilatation consistent with pulm hypertension and a 4 mm nodule in the periphery of the left lower lobe. She is currently calm and comfortable on oxygen at 4 L and she is resting comfortably in bed. Family members at the bedside. No other issues for now. On 02/11/2025, the patient is feeling better. She is less bronchospastic and wheezy and she has no specific complaints. She remains on bronchodilators and steroids. She is also on empiric antibiotic coverage. Echocardiogram was repeated and patient has a preserved LV function with an EF of around 6065%. Normal LV function. Mild to moderate mitral regurgitation. No other acute abnormalities noted. The white cell count is 6.2 with a hemoglobin 9.5 and a platelet count of 262. Electrolytes are all stable. Viral screen was negative at the time of admission. Remains on DuoNeb nebulizer treatments [id number], remains on formoterol nebulized treatments twice a day, and the patient was started on a prednisone burst taper. Remains on Zithromax. Objective - Vital Signs Vital signs: Vital Signs Temp 97.7 F 02/11/25 07:45 Pulse 84 02/11/25 11:35 Resp 15 02/11/25 09:19 BP 134/74 02/11/25 07:45 Pulse Ox 97 02/11/25 08:01 FiO2 Intake & Output 02/10/25 02/11/25 02/11/25 18:59 06:59 18:59 Intake Total 118 Balance 118 Weight 83.461 kg Intake: Oral 118 Other: Voiding Method Bedside Commode Bedside Commode # Voids 2 - Exam GENERAL EXAM: Alert, pleasant 84-year-old female, sitting up at the bedside, on 4 L nasal cannula, comfortable in no apparent distress. HEAD: Normocephalic. EYES: Normal reaction of pupils, equal size. NOSE: Clear with pink turbinates. THROAT: No erythema or exudates. NECK: No masses, no JVD. CHEST: No chest wall deformity. LUNGS: Equal air entry with no crackles, wheeze, rhonchi or dullness. Diminished. CVS: S1 and S2 normal with no audible murmur, regular rhythm. ABDOMEN: No hepatosplenomegaly, normal bowel sounds, no guarding or rigidity. SPINE: No scoliosis or deformity Examination of the skin revealed no evidence of significant rashes, suspicious appearing nevi or other concerning lesions. CENTRAL NERVOUS SYSTEM: No focal deficits, tone is normal in all 4 extremities. EXTREMITIES: There is no peripheral edema. No clubbing, no cyanosis. Peripheral pulses are intact - Labs CBC & Chem 7: 02/11/25 05:42 02/11/25 05:42 Labs: Abnormal Lab Results - Last 24 Hours (Table) 02/10/25 02/11/25 02/11/25 Range/Units 09:56 05:42 05:42 RBC 3.16 L (4.10-5.20) 10*6/uL Hgb 9.5 L (12.0-15.0) g/dL Hct 30.8 L (37.2-46.3) % MCV 97.5 H (80.0-97.0) fL MCHC 30.8 L (32.0-37.0) g/dL Lymphocytes # 0.86 L (0.90-5.00) 10*3/uL Sodium 136 L (137-145) mmol/L Chloride 97 L (98-107) mmol/L Carbon Dioxide 34 H (22-30) mmol/L BUN 22 H (7-17) mg/dL Glucose 100 H (74-99) mg/dL Iron 27 L (50-170) UG/DL % Saturation 7.34 L (12.00-45.00) Assessment and Plan Plan: Acute exacerbation of chronic COPD, CT of the chest shows no evidence any pulm embolism and there are some atelectatic changes lung base bilaterally. The viral screen was negative. Clinically improving and less bronchospastic and wheezy compared to yesterday. Acute on chronic hypoxic respiratory failure currently on 4 L of oxygen by nasal cannula History of perirectal/perianal/perineal cellulitis with abscess formation. Post incision and drainage and antibiotic treatment, recovered History of previous spontaneous left-sided pneumothorax, recovered with a left chest Thoravent. Chronic hypoxic respiratory failure currently on 2 L of oxygen nasal cannula Severe chronic obstructive pulmonary disease, not in exacerbation. Baseline FEV1 is 41% of predicted. Chronically oxygen dependent on 2 L/m nasal cannula 15/05. The patient is demented on Anoro Ellipta on an outpatient basis in addition to DuoNeb updrafts [id number] and budesonide neb nebulized treatments twice a day Former tobacco smoker Hypothyroidism Benign essential hypertension Hyperlipidemia Obesity Anemia of chronic disease Plan Titrate oxygen flow to maintain saturation above 90%, currently on 4 L Continue DuoNeb nebulized treatments [id number] Continue Perforomist twice daily Spiriva 2 puffs daily Zithromax and empiric antibiotic coverage Prednisone burst taper, currently on 40 mg p.o. daily Resume home medications Repeat echocardiogram. Noted her previous echocardiogram from July 2023 was within normal with a preserved LV function, repeat echocardiogram was noted and the patient has a preserved LV function, mild to moderate MR. Will continue to follow
[2025-02-12 03:19] VITALS: TEMP 97.5
[2025-02-12 06:01] LABS: Basophils # (A) 0.05 10*3/uL (0.00-0.10); Basophils % (A) 0.7 %; Eosinophils # (A) 0.08 10*3/uL (0.04-0.35); Eosinophils % (A) 1.1 %; HCT 31.2 % (37.2-46.3); HGB 9.5 g/dL (12.0-15.0); Lymphocytes # (A) 0.93 10*3/uL (0.90-5.00); Lymphocytes % (A) 12.8 %; MCH 29.8 pg (27.0-32.0); MCHC 30.4 g/dL (32.0-37.0); MCV 97.8 fL (80.0-97.0); Mean Platelet Volume 9.7 fL (9.5-12.2); Monocytes # (A) 0.55 10*3/uL (0.20-1.00); Monocytes % (A) 7.6 %; Neutrophils # (A) 5.63 10*3/uL (1.80-7.70); Neutrophils % (A) 77.5 %; Platelet Count 293 10*3/uL (140-440); RBC 3.19 10*6/uL (4.10-5.20); RDW 13.7 % (11.5-14.5); WBC 7.26 10*3/uL (4.50-10.00)
[2025-02-12 06:20] LABS: African American GFR (CKD) 67 (>60 ml/min/1.73 sqM); Anion Gap 11 mmol/L; Blood Urea Nitrogen 29 mg/dL (7-17); Carbon Dioxide 31 mmol/L (22-30); Chloride 96 mmol/L (98-107); Glucose 97 mg/dL (74-99); Magnesium 1.9 mg/dL (1.6-2.3); Non-African American GFR(CKD) 58 (>60 ml/min/1.73 sqM); Potassium 4.3 mmol/L (3.5-5.1); Sodium 138 mmol/L (137-145)
[2025-02-12 08:03] VITALS: BP 95/55; RESP 18
--- NOTE | 2025-02-12 11:18 | P.DS ---
Providers Date of admission: 02/10/25 06:51 Expected date of discharge: 02/12/25 Attending physician: Matt Cruz MD Consults: 02/10/25 06:44 Consult Physician Routine Consulting Provider: Alexander Flaherty Consult Reason/Comments: COPD exacerbation Do you want consulting provider notified?: Yes, Notify in am 02/10/25 06:49 Consult Physician Routine Consulting Provider: Astrid Bucnker Consult Reason/Comments: 1 episode of coffee ground emesis Do you want consulting provider notified?: Yes, Notify in am Primary care physician: [place] [facility] Hospital Course: Discharge Diagnosis: Acute exacerbation of COPD Acute on chronic hypoxic respiratory failure Acute chest pain, negative troponins Acute upper GI bleed Hospital Course: Patient is a 84-year-old female with COPD (3L at home), HTN, HLD, hypothyroidism presenting with chest pain and shortness of breath. Patient states she has cough for past few weeks productive of brown sputum. States that cough has been getting worse. She also states she has been feeling more short of breath than usual at rest on exertion as well. Patient's daughter states that she has been on nebulizer treatment but has not seemed to adhere to it recently. She reports that her last exacerbation of her COPD was 5 years ago. She also endorses acute onset of chest pain that occurred yesterday while at rest. She describes it as a constant 5/10 sub-sternal non-radiating pain. She endorses nausea and 1 episode of emesis. She describes the vomit as coffee- ground color with mucus similar to her productive cough. Denies any diaphoresis, fever, chills, headache, vision changes, abdominal pain, urinary symptoms. EKG independently interpreted displaying sinus rhythm, rate 91 bpm, QTc 379 MS CTA displaying no evidence of PE, mild bilateral lower lobe segmental atelectasis, dilated main pulmonary artery suggesting PAH, moderate COPD changes, stable peripheral left lobe 4.9 mm pulmonary nodule Troponin <0.012 x 3, D-dimer 1.21, proBNP 317, Hgb 9.9, sodium 136, CO2 36, BUN 30, creatinine 1.01 stool occult blood negative T 97.8 F, PR97, RR 18, BP 133/86, O2 saturation 98% on 3 L nasal cannula Patient was admitted for further management of acute COPD exacerbation, acute chest pain, coffee-ground emesis. Pulmonology, cardiology and gastroenterology were consulted on the case. For a acute COPD exacerbation she was placed on oral steroid and antibiotic along with breathing treatment. Patient had no reported additional episodes of coffee-ground emesis. She was seen by GI and plan to follow-up with her outpatient for endoscopy. For chest pain her troponins were negative x 3 and echocardiogram found to be unremarkable with EF 60-65%. Patient was seen and cleared by all specialists. She is to finish her remaining 3 days of oral steroid. She was told to discontinue her Voltaren due to suspicion of GI bleed, and was placed on oral Protonix for GI prophylaxis. Patient verbalizes understanding. She is to follow-up with pulmonology, GI, and her PCP. She can be discharged home today. Vital signs reviewed and stable. Physical examination: Vital signs reviewed General: non toxic, no distress, appears at stated age, normal weight Derm: no unusual rashes/lesions, warm Head: atraumatic, normocephalic, symmetric Eyes: EOMI, anicteric sclera, pupils equal round reactive to light ENT: Nose and ears atraumatic Neck: No cervical lymphadenopathy, trachea midline, supple Mouth: no lip lesion, mucus membranes moist Cardiovascular: S1S2 reg, no murmur, positive dorsalis pedis pulse bilateral, no edema Lungs: rhonchi, expiratory wheeze, no rales, no accessory muscle use Abdominal: soft, nontender to palpation, no guarding Ext: muscle strength 5 out of 5 in all 4 extremities grossly, no gross muscle atrophy Neuro: CN II-XI grossly intact, no gross focal neuro deficits Psych: Alert, oriented to person, place, and time A total of greater than 30 minutes of time were spent preparing this complex discharge summary. Patient was discharge on February 12, 2025 at 9:21 AM Hong Munoz MD PGY-1 IM Dictation was produced using [employer] dictation software. please excuse any grammatical, word or spelling errors. I have seen and evaluated the patient today. Discussed with the resident and agree with the residents finding and plan as documented in the resident's note. Changes highlighted in blue font. Plan - Discharge Summary Discharge Rx Participant: Yes New Discharge Prescriptions: New predniSONE [Deltasone] 40 mg PO DAILY #6 tab Pantoprazole Sodium [Protonix] 40 mg PO BID #45 tab Continue Nystatin 100,000 Unit/gm Powd [Mycostatin Powder] 1 applic TOPICAL BID Umeclidinium Brm/Vilanterol Tr [Anoro Ellipta 62.5-25 Mcg INH] 1 puff INHALATION RT-DAILY Ipratropium-Albuterol Nebulize [Duoneb 0.5 mg-3 mg/3 ml Soln] 3 ml INHALATION RT-Q4H PRN PRN Reason: Shortness Of Breath Or Wheezing Levothyroxine Sodium [Synthroid] 150 mcg PO DAILY Furosemide [Lasix] 40 mg PO DAILY Losartan [Cozaar] 50 mg PO DAILY Sertraline [Zoloft] 100 mg PO DAILY HYDROcodone/APAP 5-325MG [Kiana 5-325] 0.5 - 1 tab PO QID Denosumab [Prolia] 60 mg SQ Q180D Atorvastatin [Lipitor] 40 mg PO DAILY Discontinued Diclofenac Sodium [Voltaren] 50 mg PO TID Discharge Medication List Furosemide [Lasix] 40 mg PO DAILY 07/25/23 [History] Losartan [Cozaar] 50 mg PO DAILY 07/25/23 [History] Nystatin 100,000 Unit/gm Powd [Mycostatin Powder] 1 applic TOPICAL BID 07/25/23 [History] Sertraline [Zoloft] 100 mg PO DAILY 07/25/23 [History] Umeclidinium Brm/Vilanterol Tr [Anoro Ellipta 62.5-25 Mcg INH] 1 puff INHALATION RT-DAILY 08/03/23 [History] Atorvastatin [Lipitor] 40 mg PO DAILY 02/10/25 [History] Denosumab [Prolia] 60 mg SQ Q180D 02/10/25 [History] HYDROcodone/APAP 5-325MG [Kiana 5-325] 0.5 - 1 tab PO QID 02/10/25 [History] Ipratropium-Albuterol Nebulize [Duoneb 0.5 mg-3 mg/3 ml Soln] 3 ml INHALATION RT-Q4H PRN 02/10/25 [History] Levothyroxine Sodium [Synthroid] 150 mcg PO DAILY 02/10/25 [History] Pantoprazole Sodium [Protonix] 40 mg PO BID #45 tab 02/12/25 [Rx] predniSONE [Deltasone] 40 mg PO DAILY #6 tab 02/12/25 [Rx] Follow up Appointment(s)/Referral(s): Astrid Buckner MD [STAFF PHYSICIAN] - 02/26/25 1:30 pm (Follow-up for iron deficiency anemia, schedule outpatient upper endoscopy and colonoscopy) [facility], [NON-STAFF] - As Needed Nabil Sebastian DO [Primary Care Provider] - 1-2 days Patient Instructions/Handouts: Gastrointestinal Bleeding (DC), COPD (Chronic Obstructive Pulmonary Disease) (DC) Activity/Diet/Wound Care/Special Instructions: Follow up with PCP and GI. For pain please do not take Voltaren due to possible GI bleed. Instead use Tylenol for pain. Discharge Disposition: HOME WITH HOME HEALTH SERVICES
[2025-02-12 11:48] VITALS: PULSE 93
--- NOTE | 2025-02-12 12:54 | P.PN ---
Subjective Progress Note Date: 02/12/25 Principal diagnosis: Anemia This a pleasant 84-year-old female past medical history of with hypertension, hyperlipidemia, hypothyroidism, COPD on home oxygen and former nicotine d ependence. Patient came into the emergency department with complaints of chest pressure and cough. Apparently patient has been coughing up a lot of sputum and it has been brown in color. Apparently yesterday she had an episode of coughing and brought up a bunch of sputum which was a little on the darker side. Gastroenterology was consulted for coffee-ground emesis. Patient denies any history of upper GI bleed. Denies any history of previous ulcers. Denies any anticoagulation, no NSAID use. She states she has no abdominal pain, no nausea or vomiting. She has chronic cough which is productive. No previous upper endoscopy. Occult stool was negative. Hemoglobin 9.9 hematocrit 31 platelet count 293,000 INR 0.9. Patient states she has history of anemia, no prior blood transfusions. 02/11/2025 Patient seen and examined today as a follow-up. She is sitting up in the chair eating breakfast. She denies any abdominal pain, no nausea or vomiting. No blood per rectum or black stool. Still has productive cough. Hemoglobin stable at 9.5. Iron studies completed. Iron 27 TIBC 368 saturation 7.3 ferritin 14.5 vitamin B12 265 folate 10.8. Iron studies consistent with iron deficiency anemia. Patient being followed by pulmonology who started her on prednisone 40 mg daily. Also started on IV antibiotics for COPD exacerbation. [id number] Patient seen and examined today as a follow-up. She is sitting up in her chair. She denies any abdominal pain, nausea or vomiting. States that she has been having normal bowel movements. Denies any black stool or blood in her stool. Hemoglobin stable at 9.5. Objective - Vital Signs Vital signs: Vital Signs Temp 97.5 F L 02/12/25 07:30 Pulse 96 02/12/25 08:10 Resp 18 02/12/25 07:30 BP 95/55 02/12/25 07:30 Pulse Ox 100 02/12/25 07:56 FiO2 Intake & Output 02/11/25 02/12/25 02/12/25 18:59 06:59 18:59 Intake Total 118 540 Balance 118 540 Intake: Oral 118 540 Other: Voiding Method Bedside Commode Bedside Commode # Voids 5 2 - Exam General appearance: The patient is alert, oriented, appears in no acute distress. Nasal cannula. HET: Head is normocephalic and atraumatic. Conjunctiva pink. Sclera anicteric. Neck: Supple without lymphadenopathy. Lungs: Normal expansion, diminished. Productive cough. Abdomen: Soft, nontender, nondistended. Extremities: Normal skin color and turgor. No pedal edema Skin: No rashes, no jaundice Neurological: No focal deficits. Alert and oriented. - Labs CBC & Chem 7: 02/12/25 05:20 02/12/25 05:20 Labs: Abnormal Lab Results - Last 24 Hours (Table) 02/12/25 02/12/25 Range/Units 05:20 05:20 RBC 3.19 L (4.10-5.20) 10*6/uL Hgb 9.5 L (12.0-15.0) g/dL Hct 31.2 L (37.2-46.3) % MCV 97.8 H (80.0-97.0) fL MCHC 30.4 L (32.0-37.0) g/dL Chloride 96 L (98-107) mmol/L Carbon Dioxide 31 H (22-30) mmol/L BUN 29 H (7-17) mg/dL Assessment and Plan (1) Coffee ground emesis Narrative/Plan: Consult for 84-year-old female with reported coffee-ground emesis which more likely was brown-colored sputum from productive cough secondary to COPD. Patient denies any abdominal pain nausea or vomiting. No history of peptic ulcer disease. Hemoglobin stable 9.9 with history of chronic anemia. No NSAID use or anticoagulation. Occult stool negative. Will treat with Protonix for GI prophylaxis. Iron studies ordered. No plans for endoscopic evaluation. Current Visit: Yes Status: Acute Code(s): K92.0 - HEMATEMESIS SNOMED Code(s): 72105152 (2) Anemia Narrative/Plan: Anemia profile consistent with iron deficiency anemia. Would recommend upper and lower endoscopy for evaluation of iron deficiency anemia, which can be done as an outpatient as patient is asymptomatic at this time And being treated for acute exacerbation of COPD. Current Visit: Yes Status: Acute Code(s): D64.9 - ANEMIA, UNSPECIFIED SNOMED Code(s): 384537079 (3) COPD exacerbation Current Visit: Yes Status: Acute Code(s): J44.1 - CHRONIC OBSTRUCTIVE PULMONARY DISEASE W (ACUTE) EXACERBATION SNOMED Code(s): 922945973 Plan: 1. Continue symptomatic and supportive care 2. Continue Protonix 40 mg daily for GI prophylaxis 3. Discussed with patient recommend outpatient EGD and colonoscopy as part of workup for iron deficiency anemia. Patient is agreeable. Thank you for this consultation, we will sign off at this time. Dr. Ileana Buckner I agree with the dictator's note, documented as a scribe by Lia De La Rosa.
--- NOTE | 2025-02-12 17:02 | P.PN ---
Subjective Progress Note Date: 02/12/25 This is a 89-year-old female patient was brought into the hospital because of worsening shortness of breath, increased cough and sputum production and her sputum was essentially brown in color. No hemoptysis. No pleurisy. No chest pain. No altered mentation. No hemodynamic instability. She does not have advanced COPD and she is oxygen dependent. She is a former smoker. She also has various comorbidities including hypertension, hyperlipidemia and hypothyroidism. The patient had a white cell count of 9.7 with a hemoglobin 9.9 and a platelet count of 293. Normal coagulation profile. BUN is 30 with a creatinine of 1.01. Sodium is at 136 and a potassium is at 4.5 and a serum bicarb is at 36. The viral screen was negative. Occult stool was negative for blood. The patient is currently on DuoNeb treatments [id number]. The patient was also placed on a combination performance of Pulmicort nebulizer treatment twice a day, empiric antibiotic coverage with IV Zithromax and a prednisone burst taper starting dose at [address] of the chest was also done in the emergency department that showed no evidence of any pulmonary embolism, some subsegmental atelectatic change in lung base bilaterally, pulmonary arterial dilatation consistent with pulm hypertension and a 4 mm nodule in the periphery of the left lower lobe. She is currently calm and comfortable on oxygen at 4 L and she is resting comfortably in bed. Family members at the bedside. No other issues for now. On 02/11/2025, the patient is feeling better. She is less bronchospastic and wheezy and she has no specific complaints. She remains on bronchodilators and steroids. She is also on empiric antibiotic coverage. Echocardiogram was repeated and patient has a preserved LV function with an EF of around 6065%. Normal LV function. Mild to moderate mitral regurgitation. No other acute abnormalities noted. The white cell count is 6.2 with a hemoglobin 9.5 and a platelet count of 262. Electrolytes are all stable. Viral screen was negative at the time of admission. Remains on DuoNeb nebulizer treatments [id number], remains on formoterol nebulized treatments twice a day, and the patient was started on a prednisone burst taper. Remains on Zithromax. On 02/12/2025, the patient is being seen for a follow-up. The patient is feeling better. Less short of breath. She is back to her baseline. No significant complaints. Echocardiogram shows no significant abnormalities. The patient remains on oxygen at 2 L/min nasal cannula. No chest pain. No cough sputum production. No swelling lower extremities. No other significant events overnight. The plan is to discharge the patient home today. Labs were reviewed. The white cell count 7.2 with a hemoglobin 9.5 and a platelet count of 293. BUN is 29 with a creatinine of 0.9 and a sodium levels at 138 and a potassium level is at 4.3. Objective - Vital Signs Vital signs: Vital Signs Temp 97.5 F L 02/12/25 07:30 Pulse 93 02/12/25 11:48 Resp 18 02/12/25 07:30 BP 95/55 02/12/25 07:30 Pulse Ox 100 02/12/25 07:56 FiO2 Intake & Output 02/11/25 02/12/25 02/12/25 18:59 06:59 18:59 Intake Total 118 540 180 Balance 118 540 180 Intake: Oral 118 540 180 Other: Voiding Method Bedside Commode Bedside Commode Bedside Commode # Voids 5 2 2 # Bowel Movements 0 - Exam GENERAL EXAM: Alert, pleasant 84-year-old female, sitting up at the bedside, on 4 L nasal cannula, comfortable in no apparent distress. HEAD: Normocephalic. EYES: Normal reaction of pupils, equal size. NOSE: Clear with pink turbinates. THROAT: No erythema or exudates. NECK: No masses, no JVD. CHEST: No chest wall deformity. LUNGS: Equal air entry with no crackles, wheeze, rhonchi or dullness. Diminished. CVS: S1 and S2 normal with no audible murmur, regular rhythm. ABDOMEN: No hepatosplenomegaly, normal bowel sounds, no guarding or rigidity. SPINE: No scoliosis or deformity Examination of the skin revealed no evidence of significant rashes, suspicious appearing nevi or other concerning lesions. CENTRAL NERVOUS SYSTEM: No focal deficits, tone is normal in all 4 extremities. EXTREMITIES: There is no peripheral edema. No clubbing, no cyanosis. Peripheral pulses are intact - Labs CBC & Chem 7: 02/12/25 05:20 02/12/25 05:20 Labs: Abnormal Lab Results - Last 24 Hours (Table) 02/12/25 02/12/25 Range/Units 05:20 05:20 RBC 3.19 L (4.10-5.20) 10*6/uL Hgb 9.5 L (12.0-15.0) g/dL Hct 31.2 L (37.2-46.3) % MCV 97.8 H (80.0-97.0) fL MCHC 30.4 L (32.0-37.0) g/dL Chloride 96 L (98-107) mmol/L Carbon Dioxide 31 H (22-30) mmol/L BUN 29 H (7-17) mg/dL Assessment and Plan Plan: Acute exacerbation of chronic COPD, CT of the chest shows no evidence any pulm embolism and there are some atelectatic changes lung base bilaterally. The viral screen was negative. Clinically improving and back to her baseline. Acute on chronic hypoxic respiratory failure currently on 4 L of oxygen by nasal cannula History of perirectal/perianal/perineal cellulitis with abscess formation. Post incision and drainage and antibiotic treatment, recovered History of previous spontaneous left-sided pneumothorax, recovered with a left chest Thoravent. Chronic hypoxic respiratory failure currently on 2 L of oxygen nasal cannula Severe chronic obstructive pulmonary disease, not in exacerbation. Baseline FEV1 is 41% of predicted. Chronically oxygen dependent on 2 L/m nasal cannula 15/05. The patient is demented on Anoro Ellipta on an outpatient basis in addition to DuoNeb updrafts [id number] and budesonide neb nebulized hillary atments twice a day Former tobacco smoker Hypothyroidism Benign essential hypertension Hyperlipidemia Obesity Anemia of chronic disease Plan Clinically improved Titrate oxygen flow to maintain saturation above 90%, currently on 2 to 3 L/min nasal cannula Continue DuoNeb nebulized treatments [id number] Continue Perforomist twice daily Spiriva 2 puffs daily Zithromax and empiric antibiotic coverage Prednisone burst taper, currently on 40 mg p.o. daily Resume home medications Repeat echocardiogram. Noted her previous echocardiogram from July 2023 was within normal with a preserved LV function, repeat echocardiogram was noted and the patient has a preserved LV function, mild to moderate MR. The patient is to be discharged home today to be followed up on outpatient basis.
== END 2025-02-12 14:22 | disposition home health service (06) | DRG 190 ==
LOC: EC 02:47 → 6NMEDSUR 06:51
PROVIDERS: ADMIT Internal Medicine; ATTEND Internal Medicine
DX: J44.1 Chronic obstructive pulmonary disease with (acute) exacerbation (principal); J96.21 Acute and chronic respiratory failure with hypoxia; K92.0 Hematemesis; Z99.81 Dependence on supplemental oxygen; D63.8 Anemia in other chronic diseases classified elsewhere; E89.0 Postprocedural hypothyroidism; I10 Essential (primary) hypertension; I34.0 Nonrheumatic mitral (valve) insufficiency; J98.11 Atelectasis; D50.9 Iron deficiency anemia, unspecified; Z11.52 Encounter for screening for COVID-19; E78.5 Hyperlipidemia, unspecified; Z87.891 Personal history of nicotine dependence; Z79.82 Long term (current) use of aspirin; Z79.890 Hormone replacement therapy; Z79.899 Other long term (current) drug therapy; Z86.14 Personal history of Methicillin resistant Staphylococcus aureus infection
CPT/HCPCS: 36415; 71046; 71275; 80048; 80053; 80061; 82272; 82607; 82728; 82746; 83036; 83540; 83550; 83735; 83880; 84443; 84484; 85025; 85379; 85610; 85730; 87636; 93005; 93306; 94640; 94760; 96361; 96365; 96375; 99291